=== PATIENT | female | born 1950 | race Caucasian/White ===

== ENCOUNTER 2016-06-04 18:47 | Inpatient (IN) | payer OTHER ==
[~2016-06-04] VITALS: Ht 157.5 cm; Wt 75.0 kg
[~2016-06-04 18:47] MED LIST: ACET-1311 PO; ASCO500T16 PO; ATV1 PO; CHOLTAB3 PO; CRAN1TAB9 PO; DOCU-94 PO; DTR/5 PO; INSDGI SC; KFL500 PO; LSN5 PO; MCRK20 PO; MTHH1 PO; POLY335019 PO; PRVC/20 PO; PRX/40 PO; WARF-246 PO; WARF5TAB90 PO
[2016-06-04 19:48] LABS: URINE APPEARANCE CLOUDY (CLEAR); URINE BILIRUBIN NEG (NEG); URINE COLOR YELLOW; URINE NITRITE POS (NEG); URINE SPECIFIC GRAVITY 1.012 (1.000-1.030); UROBILINOGEN NEG (NEG)
[2016-06-04 19:55] LABS: MANUAL MICROSCOPIC REQUIRED? NO; REVIEW REQ? NO
[2016-06-04 20:13] LABS: BASO % 0.2 %; BASO ABS # 0.02 K/uL (0-0.2); COMPLETE YES; EOS % 1.5 %; IG% 0.2 %; LYMPH ABS # 3.37 K/uL (1.2-3.4); MEAN CELL VOLUME 89.6 fL (80-100); MEAN CORPUSCULAR HEMOGLOBIN 30.3 pg (25-34); MEAN CORPUSCULAR HGB CONC 33.9 g/dl (32-36); MEAN PLATELET VOLUME 10.6 fL (7.4-10.4); MONO % 6.6 %; NEUT % 61.5 %; PLATELET COUNT 232 K/uL (130-400); RED BLOOD COUNT 4.91 M/uL (4.2-5.4); WHITE BLOOD COUNT 11.22 K/uL (4.8-10.8)
[2016-06-04] MEDS ORDERED: INSDGIPEN SC (20:15)
[2016-06-04] MEDS ORDERED: ATOR-24 PO (20:15)
[2016-06-04] MEDS ORDERED: ERGO1TAB10 PO (20:15)
[2016-06-04 20:30] LABS: BUN/CREATININE RATIO 15.3 (10-20); CALCIUM 8.9 mg/dl (8.5-10.1); CREATININE 0.82 mg/dl (0.60-1.20); POTASSIUM 3.4 mmol/L (3.5-5.1)
--- NOTE | 2016-06-04 20:31 | EMERGENCY ROOM VISIT NOTE ---
History Report prepared by Kilo: Tejas Love Under the Supervision of: Dr. Hang Willingham M.D. First contact with patient: 18:50 Stated Complaint: UTI History of Present Illness The patient is a 66 year old female with a history of urosepsis who presents to the Emergency Room via EMS with complaints of a persistent urinary tract infection that was diagnosed yesterday. The patient's noted that the patient's urine looked dark and cloudy, so the took a urine sample yesterday and brought it into the patient's primary care doctor's office, per the nursing staff. Today, the office called the patient and ordered an ambulance to bring the patient here due to her infected urine and prior history of urosepsis. The patient does not have any complains, and denies any pain. She denies any fevers, vomiting, or urinary symptoms. Source of History: patient, nursing staff Onset: Diagnosed yesterday Position: other (global - UTI) Quality: other (UTI) Timing: other (persistent) Associated Symptoms: No fevers, No urinary symptoms, No vomiting Note: Associated symptoms: Denies any pain. Review of Systems See HPI for pertinent positives & negatives. A total of 10 systems reviewed and were otherwise negative. Past Medical & Surgical Medical Problems: (1) Abdominal mass (2) Bacteremia (3) Chest pain (4) Depression (5) Diabetes mellitus, type II (6) Dyslipidemia (7) Fever (8) History of pulmonary embolism (9) Leukocytosis (10) Multiple sclerosis (11) Neurogenic bladder (12) Positive blood culture (13) Recurrent UTI (14) Sepsis (15) UTI (urinary tract infection) Surgical Problems: (1) Status post hysterectomy (2) Status post partial colectomy Family History No pertinent family history Social History Smoking Status: Never Smoker Drug Use: none Marital Status: Housing Status: lives with family Occupation Status: unemployed, disabled Current/Historical Medications Scheduled Ascorbic Acid (Ascorbic Acid), 500 MG PO HS Atorvastatin (Lipitor), 40 MG PO DAILY Cranberry (Vaccinium Macrocarp (Cranberry), 300 MG PO QAM Ergocalciferol (Vitamin D2), 1 TAB PO DAILY Insulin Glargine (Lantus Solostar), 5 UNITS SC AMPM Lisinopril (Lisinopril), 5 MG PO HS Methenamine Hippurate (Methenamine Hippurate), 1 GM PO BID Oxybutynin Chloride (Ditropan), 5 MG PO TID Paroxetine (Paroxetine HCl), 40 MG PO QAM Warfarin Sodium (Warfarin Sodium), 5 MG PO 6XWK Warfarin Sodium (Coumadin), 2.5 MG PO MONDAYS Scheduled PRN Acetaminophen (Tylenol), 650 MG PO Q4H PRN for Pain or Fever Docusate Sodium (Colace), 100 MG PO DAILY PRN for Constipation Polyethylene Glycol 3350 (Miralax), 1 TBS PO DAILY PRN for Constipation Allergies Coded Allergies: Levofloxacin (Verified Allergy, Unknown, 06/04/16) Clavulanic Acid (Verified Adverse Reaction, Intermediate, GI INTOLERANCE ( AUGMENTIN), 06/04/16) Penicillins (Verified Adverse Reaction, Intermediate, GI INTOLERANCE ( AUGMENTIN), 06/04/16) Physical Exam Vital Signs Date Time Temp Pulse Resp B/P Pulse Ox O2 Delivery O2 Flow Rate FiO2 06/04/16 18:56 81 06/04/16 18:54 36.7 85 18 152/81 94 Room Air Physical Exam Constitutional: Vital signs reviewed. Eyes: Pupils are equal round reactive to light. Conjunctiva are noninjected. ENT: Pharynx is clear without erythema or exudate. Mucous membranes are moist. Neck supple without meningeal signs. Respiratory: Clear to auscultation bilaterally. Breath sounds are equal bilaterally. Cardiovascular: Regular rate and rhythm. No rubs or gallops. GI: Soft, nondistended and nontender. Bowel sounds are present. Lemos catheter in place with dark yellow urine. Musculoskeletal: No peripheral edema. No lower extremity tenderness. Integumentary: No cyanosis. Neurological: The patient is awake and alert. Bedridden. Psychiatric: Normal affect. Medical Decision & Procedures Laboratory Results 06/04/16 19:54 Red Blood Count 4.91, Mean Corpuscular Volume 89.6, Mean Corpuscular Hemoglobin 30.3, Mean Corpuscular Hemoglobin Concent 33.9, Mean Platelet Volume 10.6, Neutrophils (%) (Auto) 61.5, Lymphocytes (%) (Auto) 30.0, Monocytes (%) (Auto) 6.6, Eosinophils (%) (Auto) 1.5, Basophils (%) (Auto) 0.2, Neutrophils # (Auto) 6.90, Lymphocytes # (Auto) 3.37, Monocytes # (Auto) 0.74, Eosinophils # (Auto) 0.17, Basophils # (Auto) 0.02 Test 06/04/16 19:28 06/04/16 19:54 06/04/16 20:01 Urine Color YELLOW Urine Appearance CLOUDY (CLEAR) Urine pH 5.0 (4.5-7.5) Urine Specific Whitney 1.012 (1.000-1.030) Urine Protein NEG (NEG) Urine Glucose (UA) NEG (NEG) Urine Ketones NEG (NEG) Urine Occult Blood 3+ (NEG) Urine Nitrite POS (NEG) Urine Bilirubin NEG (NEG) Urine Urobilinogen NEG (NEG) Urine Leukocyte Esterase LARGE (NEG) Urine WBC (Auto) >30 /hpf (0-5) Urine RBC (Auto) 10-30 /hpf (0-4) Urine Hyaline Casts (Auto) 5-10 /lpf (0-5) Urine Epithelial Cells (Auto) 10-20 /lpf (0-5) Urine Bacteria (Auto) 2+ (NEG) White Blood Count 11.22 K/uL (4.8-10.8) Red Blood Count 4.91 M/uL (4.2-5.4) Hemoglobin 14.9 g/dL (12.0-16.0) Hematocrit 44.0 % (37-47) Mean Corpuscular Volume 89.6 fL (80-100) Mean Corpuscular Hemoglobin 30.3 pg (25-34) Mean Corpuscular Hemoglobin Concent 33.9 g/dl (32-36) Platelet Count 232 K/uL (130-400) Mean Platelet Volume 10.6 fL (7.4-10.4) Neutrophils (%) (Auto) 61.5 % Lymphocytes (%) (Auto) 30.0 % Monocytes (%) (Auto) 6.6 % Eosinophils (%) (Auto) 1.5 % Basophils (%) (Auto) 0.2 % Neutrophils # (Auto) 6.90 K/uL (1.4-6.5) Lymphocytes # (Auto) 3.37 K/uL (1.2-3.4) Monocytes # (Auto) 0.74 K/uL (0.11-0.59) Eosinophils # (Auto) 0.17 K/uL (0-0.5) Basophils # (Auto) 0.02 K/uL (0-0.2) RDW Standard Deviation 48.7 fL (36.4-46.3) RDW Coefficient of Variation 14.9 % (11.5-14.5) Immature Granulocyte % (Auto) 0.2 % Immature Granulocyte # (Auto) 0.02 K/uL (0.00-0.02) Bedside Lactic Acid Venous 0.61 mmol/L (0.90-1.70) Laboratory results as reviewed by me. ED Course 1850: The patient was evaluated in room B11B. A complete history and physical exam was performed. 1942: I talked to the patient's about likely discharge with antibiotics if asymptomatic, but the states that the patient often goes from well- looking to septic very quickly, and that she usually is admitted when she is like this. The physician that called them today said that the patient needs to be admitted. The notes that the patient has been a bit more confused than usual, and she has had decreased manual dexterity, which is a sign of her becoming septic. The patient verbally expressed understanding and agreement of the treatment plan. The patient will be evaluated for further treatment. 1943: I discussed the patient with Dr. Porfirio Diaz hospitalist - she will evaluate the patient for further treatment. Medical Decision this is a 66-year-old female who presents with a UTI. I did perform a limited focused review of portions of the patient's old chart on the electronic medical record. The patient was admitted in January for sepsis secondary to E.coli UTI. Her UA from 06/03 showed positive nitrates and leukocyte esterase with many bacteria and WVC's. The culture grew out gram-negative rods. I did evaluate the patient as noted above. IV access was established. I did order and personally review the patient's urinalysis as described above. A urine culture was sent. I did order and review the patient's blood work as noted in the electronic medical record. Her white blood cell count is elevated. The patient stated she was asymptomatic my plan was to possibly discharged patient with antibiotics but after discussion with the the patient will be hospitalized. Her states that every time she gets UTIs he becomes septic. She as well as 1 minute and then becomes septic very precipitously. She was sent here by her PCP for admission to the hospital. Her states that she has not been really asymptomatic and has been somewhat confused recently and has loss of dexterity in her hands which often signals early sepsis for her. I did therefore discussed the case with the [facility] hospitalist and shelter case manager. She will be admitted and started on IV antibiotics. Consults Time Called: 1942 Consulting Physician: Dr. Porfirio lauren Returned Call: 1943 I discussed the patient with Dr. Porfirio lauren - she will evaluate the patient for further treatment. Impression Primary Impression: UTI (urinary tract infection) Scribe Attestation The scribe's documentation has been prepared under my direct and personally reviewed by me in its entirety. I confirm that the note above accurately reflects all work, treatment, procedures, and medical decision making performed by me. Departure Information Dispostion Being Evaluated By Hospitalist Sally Ortega M.D. (PCP) Problem Qualifiers Primary Impression: UTI (urinary tract infection) Urinary tract infection type: site unspecified Hematuria presence: with hematuria Qualified Codes: N39.0 - Urinary tract infection, site not specified ; R31.9 - Hematuria, unspecified
[2016-06-04] MEDS ORDERED: ONDANSETRON INJ 2 MG/ML 2 ML VIAL IV PRN (21:00)
[2016-06-04] MEDS ORDERED: ACETAMINOPHEN 325 MG TAB PO PRN (21:00)
[2016-06-04 21:12] LABS: INR 3.3 (0.9-1.1); PROTHROMBIN TIME (PATIENT) 37.5 SECONDS (9.0-12.0)
[2016-06-04] MEDS ORDERED: LORA0.5T12 PO (21:13)
[2016-06-04] MEDS ORDERED: DOCUSATE SODIUM 100 MG CAP PO PRN (21:30)
[2016-06-04 22:00] VITALS: BP 127/79; PULSE 84; TEMP 36.5; O2SAT 95; Ht 157.5 cm; Wt 75.0 kg
[2016-06-04] MEDS ORDERED: PHARMACY GLYCEMIC MGMT CONSULT PRN (22:30)
[2016-06-04] MEDS: INSULIN GLARGINE SOLOSTAR 100 UNITS/ML 3 ML PEN SC SCH (23:00)
[2016-06-04] MEDS ORDERED: SODIUM CHLORIDE 0.9% 1000ML 1,000 ML IV SCH (23:00)
[2016-06-04] MEDS: CEFTRIAXONE SOD INJ 1 GM in DEXTROSE 5% ADD-VANTAGE 50ML 50 ML IV SCH (23:00)
[2016-06-04] MEDS ORDERED: GLUCAGON FOR INJ 1 MG VIAL SQ PRN (23:15)
[2016-06-04] MEDS ORDERED: GLUCOSE 40% GEL 15 GM TUBE PO PRN (23:15)
[2016-06-04] MEDS ORDERED: GLUCOSE 10 TABS/TUBE PO PRN (23:15)
[2016-06-04] MEDS ORDERED: DEXTROSE 50% 50 ML SYR IV PRN (23:15)
[2016-06-04] MEDS ORDERED: POTASSIUM CHLORIDE 20 MEQ TABCR PO ONE (23:30)
--- NOTE | 2016-06-04 23:32 | History and Physical ---
History & Physical Date & Time of Service: Jun 04, 2016 at 23:13 Chief Complaint: Weakness, Altered Mental Status Primary Care Physician: Bonifacio Avila M.D.(ARIELA) History of Present Illness 66 year old female who presents to the ER with reports of generalized weakness and mild confusion. Patient has MS and neurogenic bladder with chronic aguilar in place. She gets recurrent UTIs. Patient reports her told her she was mildly confused yesterday, however she does not feel as though she was. She notes generalize weakness, low grade fever, and dark urine today. She reports these are signs of a UTI for her. She denies chest pain and shortness of breath. No abdominal pain, nausea, vomiting, or diarrhea. She denies lightheadedness, dizziness, diaphoresis, and syncopal events. In the ER, patient 's U/A suggests UTI. Labs are unremarkable and vitals are stable. 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, poor surgical candidate CT abd 02/18/14 LUQ hypodense mass 11 cm in greatest diameter CT chest 03/28/12 LUQ lobulated cystic lesion 7.5 cm in greatest diameter CT chest 01/04/06 LUQ bilobed cystic structure 5.1 cm in greatest diameter Status: Chronic (2) Depression Status: Chronic (3) Diabetes mellitus, type II Status: Chronic (4) Dyslipidemia Status: Chronic (5) History of pulmonary embolism Permanent Comment: May 2012, on chronic warfarin therapy Status: Chronic (6) Multiple sclerosis Status: Chronic (7) Neurogenic bladder Status: Chronic (8) Recurrent UTI Status: Chronic Surgical Problems: (1) Status post hysterectomy Status: Chronic (2) Status post partial colectomy Permanent Comment: 1995 ? diverticular abscess w/ colostomy s/p reversal Status: Chronic Family History Cardiac disorder FATHER Social History Smoking Status: Never Smoker Alcohol Use: none Marital Status: Housing status: lives with family Immunizations History of Influenza Vaccine: Yes Influenza Vaccine Date: Nov 03, 2015 History of Tetanus Vaccine?: Yes Tetanus Immunization Date: Dec 06, 2007 History of Pneumococcal: Yes Pneumococcal Date: Aug 08, 2014 Multi-Drug Resistant Organisms History of MDRO: No Allergies Coded Allergies: Levofloxacin (Verified Allergy, Unknown, 06/04/16) Clavulanic Acid (Verified Adverse Reaction, Intermediate, GI INTOLERANCE ( AUGMENTIN), 06/04/16) Penicillins (Verified Adverse Reaction, Intermediate, GI INTOLERANCE ( AUGMENTIN), 06/04/16) Home Medications Scheduled Ascorbic Acid (Ascorbic Acid), 500 MG PO HS Atorvastatin (Lipitor), 40 MG PO DAILY Cranberry (Vaccinium Macrocarp (Cranberry), 300 MG PO QAM Ergocalciferol (Vitamin D2), 1 TAB PO DAILY Insulin Glargine (Lantus Solostar), 5 UNITS SC AMPM Lisinopril (Lisinopril), 5 MG PO DAILY Methenamine Hippurate (Methenamine Hippurate), 1 GM PO BID Oxybutynin Chloride (Ditropan), 5 MG PO TID Paroxetine (Paroxetine HCl), 40 MG PO QAM Warfarin Sodium (Warfarin Sodium), 5 MG PO 6XWK Warfarin Sodium (Coumadin), 2.5 MG PO MONDAYS Scheduled PRN Acetaminophen (Tylenol), 650 MG PO Q4H PRN for Pain or Fever Docusate Sodium (Colace), 100 MG PO DAILY PRN for Constipation Lorazepam (Lorazepam), 1 TAB PO HS PRN for Insomnia Polyethylene Glycol 3350 (Miralax), 1 TBS PO DAILY PRN for Constipation Review of Systems 10 point review of systems was completed with the pertinent positives and negatives noted per the HPI Physical Exam Vital Signs Date Time Temp Pulse Resp B/P Pulse Ox O2 Delivery O2 Flow Rate FiO2 06/04/16 21:29 88 18 122/83 95 Room Air 06/04/16 20:54 84 18 121/66 96 Room Air 06/04/16 18:56 81 06/04/16 18:54 36.7 85 18 152/81 94 Room Air General Appearance: no apparent distress Head: normocephalic Eyes: normal inspection ENT: hearing grossly normal Neck: supple, no JVD Respiratory/Chest: lungs clear, normal breath sounds, no respiratory distress Cardiovascular: regular rate, rhythm, normal peripheral pulses, + pertinent finding (trace edema BLLE) Abdomen/GI: normal bowel sounds, non tender, soft Genitourinary - Female: + pertinent finding (aguilar in place draining clear yellow urine) Extremities/Musculoskelatal: + pertinent finding (left foot drop) Neurologic/Psych: no motor/sensory deficits, alert, normal mood/affect, oriented x 3 Skin: normal color, warm/dry Diagnostics Laboratory Results Results Past 24 Hours Test 06/04/16 19:28 06/04/16 19:54 06/04/16 20:01 Range/Units Urine Color YELLOW Urine Appearance CLOUDY CLEAR Urine pH 5.0 4.5-7.5 Urine Specific Belle 1.012 1.000-1.030 Urine Protein NEG NEG Urine Glucose (UA) NEG NEG Urine Ketones NEG NEG Urine Occult Blood 3+ NEG Urine Nitrite POS NEG Urine Bilirubin NEG NEG Urine Urobilinogen NEG NEG Urine Leukocyte Esterase LARGE NEG Urine WBC (Auto) >30 0-5 /hpf Urine RBC (Auto) 10-30 0-4 /hpf Urine Hyaline Casts (Auto) 5-10 0-5 /lpf Urine Epithelial Cells (Auto) 10-20 0-5 /lpf Urine Bacteria (Auto) 2+ NEG White Blood Count 11.22 4.8-10.8 K/uL Red Blood Count 4.91 4.2-5.4 M/uL Hemoglobin 14.9 12.0-16.0 g/dL Hematocrit 44.0 37-47 % Mean Corpuscular Volume 89.6 80-100 fL Mean Corpuscular Hemoglobin 30.3 25-34 pg Mean Corpuscular Hemoglobin Concent 33.9 32-36 g/dl Platelet Count 232 130-400 K/uL Mean Platelet Volume 10.6 7.4-10.4 fL Neutrophils (%) (Auto) 61.5 % Lymphocytes (%) (Auto) 30.0 % Monocytes (%) (Auto) 6.6 % Eosinophils (%) (Auto) 1.5 % Basophils (%) (Auto) 0.2 % Neutrophils # (Auto) 6.90 1.4-6.5 K/uL Lymphocytes # (Auto) 3.37 1.2-3.4 K/uL Monocytes # (Auto) 0.74 0.11-0.59 K/uL Eosinophils # (Auto) 0.17 0-0.5 K/uL Basophils # (Auto) 0.02 0-0.2 K/uL RDW Standard Deviation 48.7 36.4-46.3 fL RDW Coefficient of Variation 14.9 11.5-14.5 % Immature Granulocyte % (Auto) 0.2 % Immature Granulocyte # (Auto) 0.02 0.00-0.02 K/uL Prothrombin Time 37.5 9.0-12.0 SECONDS Prothromb Time International Ratio 3.3 0.9-1.1 Sodium Level 145 136-145 mmol/L Potassium Level 3.4 3.5-5.1 mmol/L Chloride Level 110 98-107 mmol/L Carbon Dioxide Level 28 21-32 mmol/L Anion Gap 7.0 3-11 mmol/L Blood Urea Nitrogen 13 7-18 mg/dl Creatinine 0.82 0.60-1.20 mg/dl Est Creatinine Clear Calc Drug Dose 60.1 ml/min Estimated GFR () 87.6 Estimated GFR (Non- 75.6 BUN/Creatinine Ratio 15.3 10-20 Random Glucose 141 70-99 mg/dl Calcium Level 8.9 8.5-10.1 mg/dl Bedside Lactic Acid Venous 0.61 0.90-1.70 mmol/L Microbiology Results 06/04/16 Blood Culture, Received Pending 06/04/16 Urine Culture, Received Pending Impression Assessment and Plan UTI - admit to med/surg - patient presenting with mild confusion, dark urine, and low grade fevers at home; history of recurrent UTIs, has chronic aguilar due to neurogenic bladder from MS - outpatient preliminary culture is growing >100,000 colonies lactose fermenting gram negative rods and 10,000 - 100,000 colonies possible streptococcus - no signs of sepsis; vitals stable - will place on Rocephin, adjust per culture results - blood and urine cultures obtained DM - hgb a1c 6.1 03/2016 - will hold Lantus and utilize SSI while hospitalized HX PE - on Coumadin, INR 3.3 - hold Coumadin tonight, check INR in AM HTN - BP controlled, continue Lisinopril DVT PROPHYLAXIS - on Coumadin with therapeutic INR CODE STATUS - Patient is a full code as per my discussion with her. DISPO - In my clinical judgment this beneficiary meets acute admission criteria, established by [facility], that includes being hospitalized through two midnights. - PT/OT, expect d/c home once medically stable Attending Addendum Pt was seen and examined. Agreed with Liane SANTIZO's physical exam, assessment and plan. 66 year old female was sent to the ER after her PCP called her to go to the ER after her urine sample was positive for UTI. Yesterday her was concerned about her urine that looks dirty. he dropped a urine sample to her PCP. Pt did not have any urinary symptoms. As per , he said pt was alittle bit confused. Pt has hx of recurrent UTI that usually required her to hospitalize. General- No acute distress Head- atraumatic Eyes- PERRL, EOMI ENT- oropharynx clear Neck- supple, no JVD Lungs- clear to auscultation, No wheezing Heart- regular rhythm; no murmur Extremities- no calf tenderness UTI Outpatient UA positive for UTI Will start on Rocephin daily follow up on urine cx will monitor pt Please refer to Liane SANTIZO documentation for other problems. Vijaya Cheung MD Level of Care Med/Surg VTE Prophylaxis VTE Risk Assessment Done? Y/N: Yes Risk Level: Moderate
[2016-06-04] MEDS ORDERED: POLYETHYLENE (MIRALAX) 17 GM PACK PO PRN (23:45)
[2016-06-05 00:24] LABS: MAGNESIUM 2.1 mg/dl (1.8-2.4)
[2016-06-05 00:26] VITALS: BP 139/79; PULSE 83; TEMP 36.5; O2SAT 94
[2016-06-05] MEDS ORDERED: IV FLUIDS COMPLETED PRN (00:30)
[2016-06-05 06:08] LABS: HEMATOCRIT 41.2 % (37-47); INR 3.3 (0.9-1.1); MEAN CELL VOLUME 90.2 fL (80-100); MEAN CORPUSCULAR HEMOGLOBIN 29.8 pg (25-34); MEAN PLATELET VOLUME 10.4 fL (7.4-10.4); PLATELET COUNT 218 K/uL (130-400); PROTHROMBIN TIME (PATIENT) 37.5 SECONDS (9.0-12.0); RED BLOOD COUNT 4.57 M/uL (4.2-5.4); WHITE BLOOD COUNT 11.07 K/uL (4.8-10.8)
[2016-06-05 06:18] LABS: BUN/CREATININE RATIO 20.5 (10-20); CALCIUM 8.6 mg/dl (8.5-10.1); CREATININE 0.67 mg/dl (0.60-1.20); POTASSIUM 3.6 mmol/L (3.5-5.1)
[2016-06-05 07:22] VITALS: BP 113/74; PULSE 71; TEMP 36.6; O2SAT 95
[2016-06-05] MEDS: OXYBUTYNIN CHLORIDE 5 MG TAB PO SCH ×3 (08:30→21:38)
[2016-06-05] MEDS: ATORVASTATIN 40 MG TAB PO SCH (08:30)
[2016-06-05] MEDS: METHENAMINE HIPPURATE 1 GM TAB PO SCH ×2 (08:31→21:39)
[2016-06-05] MEDS: PAROXETINE 20 MG TAB PO SCH (08:31)
[2016-06-05] MEDS: LISINOPRIL 5 MG TAB PO SCH (08:31)
[2016-06-05] MEDS: CHOLECALCIFEROL 400 INTER.UNIT TAB PO SCH (08:31)
[2016-06-05] MEDS: INSULIN ASPART 100 UNITS/ML 3 ML PEN SC SCH ×4 (08:34→21:42)
[2016-06-05] MEDS: INSULIN GLARGINE SOLOSTAR 100 UNITS/ML 3 ML PEN SC SCH ×2 (08:34→21:42)
[2016-06-05 09:14] VITALS: BP 122/64; PULSE 80; O2SAT 97
--- NOTE | 2016-06-05 13:11 | Pharmacy Progress Note ---
Glycemic Control Intl Consult Date of Service Jun 05, 2016. Scope Glycemic Pharmacist consulted by Liane Torres on 06/04/16 for glycemic control and to write orders per [facility] inpatient glycemic control protocol Objective Weight (Kilograms): 75.000 Accuchecks BSG (last 24hrs): Test 06/04/16 19:54 06/05/16 05:36 Random Glucose 141 mg/dl (70-99) 122 mg/dl (70-99) Laboratory Data (last 24hrs) Test 06/04/16 19:54 06/05/16 05:36 Anion Gap 7.0 mmol/L 5.0 mmol/L BUN/Creatinine Ratio 15.3 20.5 Blood Urea Nitrogen 13 mg/dl 14 mg/dl Creatinine 0.82 mg/dl 0.67 mg/dl Potassium Level 3.4 mmol/L 3.6 mmol/L Sodium Level 145 mmol/L 145 mmol/L White Blood Count 11.22 K/uL 11.07 K/uL Red Blood Count 4.91 M/uL Hemoglobin 14.9 g/dL Hematocrit 44.0 % Mean Corpuscular Volume 89.6 fL Mean Corpuscular Hemoglobin 30.3 pg Mean Corpuscular Hemoglobin Concent 33.9 g/dl Platelet Count 232 K/uL Mean Platelet Volume 10.6 fL Neutrophils (%) (Auto) 61.5 % Lymphocytes (%) (Auto) 30.0 % Monocytes (%) (Auto) 6.6 % Eosinophils (%) (Auto) 1.5 % Basophils (%) (Auto) 0.2 % Neutrophils # (Auto) 6.90 K/uL Lymphocytes # (Auto) 3.37 K/uL Monocytes # (Auto) 0.74 K/uL Eosinophils # (Auto) 0.17 K/uL Basophils # (Auto) 0.02 K/uL Recent Pertinent Medications Outpatient Anti-diabetic Regimen: * Lantus 5 units SQ BID The patient is currently receiving: * Basal insulin: Lantus 5 units every 12 hours * Correctional Insulin: NovoLog Correction per scale AC+HS Goal Range: Low 120 mg/dL - High 160 mg/dL Correction Factor: 30 mg/dL/unit * Prandial insulin: Per carb ratio of 1 unit per 10 grams CHO consumed Risk Factors for Insulin Resistance: * Infection: CXT IV - UTI * IVF: NSS * Diet: T2DM Assessment & Plan ASSESSMENT: * ADA & AACE recommend a goal blood sugar range 140-180 mg/dl for the majority of critically ill & non-critically ill patients. However, more stringent targets may be selected in individual cases. Lower goal range used for patient with who is non-elderly and enjoys good glycemic control as an outpatient. 06/05/16 * T2DM diabetic who uses basal insulin as monotherapy as an outpatient * BSG on admission 141mg/dL * Fasting BSG today 130mg/dL * continue same basal doses * NovoLog continues for correctional and prandial purposes based on historical data * A1c outdated PLAN FOR INPATIENT GLYCEMIC CONTROL: * Lantus 5 units SQ BID * NovoLog SQ AC and HS * Correction factor: 25mg/dL/unit * Carb ratio: 1 unit per 8g of CHO consumed * Goal: 110-140mg/dL * A1c outdated, re-ordered RECOMMENDATIONS FOR DISCHARGE: * Awaited * Please note that the plan above was derived based on current level of insulin resistance and hospital stress. These recommendations are appropriate for inpatient admission only. Plan of care upon discharge will need to be reassessed to avoid potential outpatient hypo/hyperglycemia. Thank you.
[2016-06-05 15:13] VITALS: BP 132/76; PULSE 96; TEMP 37.1; O2SAT 96
[2016-06-05 16:15] VITALS: O2SAT 96
--- NOTE | 2016-06-05 16:50 | Progress Note ---
Medicine Progress Note Date & Time of Visit: Jun 05, 2016 at 16:39. Subjective patient seen resting in bed, comfortable, in good spirits states she feels tired denies any new weakness/numbness no abdominal pain, but feels bloated denies nausea had small bm this morning denies other symptoms Objective Last 8 Hrs Date Time Temp Pulse Resp B/P Pulse Ox O2 Delivery O2 Flow Rate FiO2 06/05/16 15:13 37.1 96 18 132/76 96 Room Air 06/05/16 09:14 80 97 Physical Exam: General- oriented x 2, not in distress, speaks in sentences with no effort Head- atraumatic Eyes- EOMI, anicteric ENT- oropharynx clear Neck- supple, no JVD, no adenopathy, no thyromegaly Lungs- clear breath sounds bilaterally Heart- regular rhythm; no murmurs Abdomen- normal bowel sounds, mild distention. soft, nontender Extremities- no pretibial edema, no calf tenderness Neuro- alert, oriented x 2; PERRL, EOMI; no facial palsy; no dysarthria; motor 5 /5 bilaterally upper ext, 1/5 lower ext; Skin- warm & dry Laboratory Results: Last 24 Hours Test 06/04/16 19:28 06/04/16 19:54 06/04/16 20:01 06/05/16 05:36 Urine Color YELLOW Urine Appearance CLOUDY Urine pH 5.0 Urine Specific [place] 1.012 Urine Protein NEG Urine Glucose (UA) NEG Urine Ketones NEG Urine Occult Blood 3+ Urine Nitrite POS Urine Bilirubin NEG Urine Urobilinogen NEG Urine Leukocyte Esterase LARGE Urine WBC (Auto) >30 /hpf Urine RBC (Auto) 10-30 /hpf Urine Hyaline Casts (Auto) 5-10 /lpf Urine Epithelial Cells (Auto) 10-20 /lpf Urine Bacteria (Auto) 2+ White Blood Count 11.22 K/uL 11.07 K/uL Red Blood Count 4.91 M/uL 4.57 M/uL Hemoglobin 14.9 g/dL 13.6 g/dL Hematocrit 44.0 % 41.2 % Mean Corpuscular Volume 89.6 fL 90.2 fL Mean Corpuscular Hemoglobin 30.3 pg 29.8 pg Mean Corpuscular Hemoglobin Concent 33.9 g/dl 33.0 g/dl Platelet Count 232 K/uL 218 K/uL Mean Platelet Volume 10.6 fL 10.4 fL Neutrophils (%) (Auto) 61.5 % Lymphocytes (%) (Auto) 30.0 % Monocytes (%) (Auto) 6.6 % Eosinophils (%) (Auto) 1.5 % Basophils (%) (Auto) 0.2 % Neutrophils # (Auto) 6.90 K/uL Lymphocytes # (Auto) 3.37 K/uL Monocytes # (Auto) 0.74 K/uL Eosinophils # (Auto) 0.17 K/uL Basophils # (Auto) 0.02 K/uL RDW Standard Deviation 48.7 fL 49.1 fL RDW Coefficient of Variation 14.9 % 14.9 % Immature Granulocyte % (Auto) 0.2 % Immature Granulocyte # (Auto) 0.02 K/uL Prothrombin Time 37.5 SECONDS 37.5 SECONDS Prothromb Time International Ratio 3.3 3.3 Sodium Level 145 mmol/L 145 mmol/L Potassium Level 3.4 mmol/L 3.6 mmol/L Chloride Level 110 mmol/L 111 mmol/L Carbon Dioxide Level 28 mmol/L 29 mmol/L Anion Gap 7.0 mmol/L 5.0 mmol/L Blood Urea Nitrogen 13 mg/dl 14 mg/dl Creatinine 0.82 mg/dl 0.67 mg/dl Est Creatinine Clear Calc Drug Dose 60.1 ml/min 80.4 ml/min Estimated GFR () 87.6 107.7 Estimated GFR (Non- 75.6 92.9 BUN/Creatinine Ratio 15.3 20.5 Random Glucose 141 mg/dl 122 mg/dl Calcium Level 8.9 mg/dl 8.6 mg/dl Magnesium Level 2.1 mg/dl Bedside Lactic Acid Venous 0.61 mmol/L Test 06/05/16 07:28 06/05/16 11:23 Bedside Glucose 130 mg/dl 172 mg/dl Date/Time Source Procedure Growth Status 06/04/16 19:54 Blood Blood Culture Pending Received 06/04/16 19:28 Urine,Catheterized Urine Culture - Preliminary Gram Negative Bacilli Resulted Assessment & Plan 66 year old female with history of Multiple Sclerosis, Chronic Indwelling Gandhi Catheter, DM, HTN, PE on coumadin, Aspiration presenting with altered mental status and fever. 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 repeat evaluation ordered DM - hgb a1c 6.1 03/2016 - Lantus and ISS HX PE - on Coumadin, INR 3.3 - hold coumadin INR daily HTN - BP controlled, continue Lisinopril DVT PROPHYLAXIS - on Coumadin with therapeutic INR CODE STATUS - Patient is a full code DISPO pending usually lives at home Vicente is primary care mgr, gave him a detailed update on the phone, he is comfortable and agreeable with the plan of care Current Inpatient Medications: Current Inpatient Medications Medications (Trade) Dose Ordered Sig/Dwain Route Start Time Stop Time Status Last Admin Dose Admin Acetaminophen (Tylenol Tab) 650 mg Q4H PRN PO 06/04/16 21:00 07/04/16 20:59 Ondansetron HCl 4 mg 4 mg Q6H PRN IV 06/04/16 21:00 07/04/16 20:59 Ceftriaxone Sodium/Dextrose (Rocephin Inj/ Dextrose Add-Tonica 50ML) 50 ml @ 100 mls/hr Q24H IV 06/04/16 23:00 06/14/16 22:59 06/04/16 23:00 100 MLS/HR Ascorbic Acid (Vitamin C Tab) 500 mg HS PO 06/05/16 21:00 07/05/16 20:59 Atorvastatin Calcium (Lipitor Tab) 40 mg DAILY PO 06/05/16 09:00 07/05/16 08:59 06/05/16 08:30 40 MG Docusate Sodium (coLACE CAP) 100 mg DAILY PRN PO 06/04/16 21:30 07/04/16 21:29 Insulin Glargine (Lantus Solostar Pen) 5 unit BID SC 06/04/16 23:00 07/04/16 22:59 06/05/16 08:34 5 UNIT Lisinopril (Zestril Tab) 5 mg DAILY PO 06/05/16 09:00 07/05/16 08:59 06/05/16 08:31 5 MG Methenamine Hippurate (Urex Tab) 1 gm BID PO 06/05/16 09:00 06/15/16 08:59 06/05/16 08:31 1 GM Oxybutynin Chloride (Ditropan Tab) 5 mg TID PO 06/05/16 09:00 07/05/16 08:59 06/05/16 13:53 5 MG Cholecalciferol (Vitamin D Tab) 400 inter.unit DAILY PO 06/05/16 09:00 07/05/16 08:59 06/05/16 08:31 400 INTER.UNIT Paroxetine HCl (pAXil TAB) 40 mg QAM PO 06/05/16 09:00 07/05/16 08:59 06/05/16 08:31 40 MG Polyethylene (Miralax Powder Packet) 17 gm DAILY PRN PO 06/04/16 23:45 07/04/16 23:44 Miscellaneous Information (Consult Glycemic Management Pharmacy) 1 ea UD PRN N/A 06/04/16 22:30 07/04/16 22:29 Glucose (Glucose 40% Gel) 15-30 GRAMS 15 GRAMS... UD PRN PO 06/04/16 23:15 07/04/16 23:14 Glucose (Glucose Chew Tab) 4-8 Tablets 4 Tabl... UD PRN PO 06/04/16 23:15 07/04/16 23:14 Dextrose (Dextrose 50% 50ML Syringe) 25-50ML OF 50% DW IV FOR... UD PRN IV 06/04/16 23:15 07/04/16 23:14 Glucagon (Glucagon Inj) 1 mg UD PRN SQ 06/04/16 23:15 07/04/16 23:14 Miscellaneous (Iv Fluids Completed) 1 ea PRN PRN N/A 06/05/16 00:30 06/05/17 00:29 Insulin Aspart (novoLOG ASPART) SLIDING SCALE ACHS SC 06/05/16 06:30 07/05/16 06:29 06/05/16 12:42 5 UNITS Senna/Docusate Sodium (Senokot S Tab) 1 tab QAM PO 06/06/16 09:00 07/06/16 08:59
[2016-06-05] MEDS: ASCORBIC ACID 500 MG TAB PO SCH (21:38)
[2016-06-05] MEDS: CEFTRIAXONE SOD INJ 1 GM in DEXTROSE 5% ADD-VANTAGE 50ML 50 ML IV SCH (21:39)
--- NOTE | 2016-06-05 21:42 | DIAGNOSTIC IMAGING REPORT ---
KUB CLINICAL HISTORY: Evaluate for ileus or obstruction. COMPARISON STUDY: CT of the abdomen and pelvis October 24, 2015. FINDINGS: There is a large amount of stool within the rectum consistent with fecal impaction. Large amount of stool within the colon is also present. Mild small bowel dilatation is present. The colon is moderately distended. Abdominal and pelvic surgical clips are noted. IMPRESSION: 1. Findings consistent with fecal impaction. Large amount of stool within the rectum and colon. 2. Moderate colonic distention and mild small bowel dilatation. Electronically signed by: Nolberto Alejandra M.D. 06/05/2016 9:40 PM Dictated Date/Time: 06/05/2016 9:35 PM
[2016-06-05] MEDS ORDERED: TAP WATER ENEMA PR ONE (22:15)
[2016-06-05] MEDS ORDERED: INSULIN ASPART 100 UNITS/ML 3 ML PEN SC SCH (23:15)
[2016-06-05 23:44] VITALS: BP 139/79; PULSE 96; TEMP 36.6; O2SAT 96
[2016-06-06] MEDS ORDERED: VANCOMYCIN CONSULT ACTIVE PRN (05:45)
[2016-06-06] MEDS ORDERED: VANCOMYCIN INJ 2,000 MG in SODIUM CHLORIDE 0.9% 500ML 500 ML IV SCH (05:45)
[2016-06-06 06:03] LABS: INR 2.4 (0.9-1.1); PROTHROMBIN TIME (PATIENT) 26.7 SECONDS (9.0-12.0)
[2016-06-06 06:30] LABS: BUN/CREATININE RATIO 21.8 (10-20); CALCIUM 8.7 mg/dl (8.5-10.1); CREATININE 0.71 mg/dl (0.60-1.20); POTASSIUM 3.9 mmol/L (3.5-5.1)
[2016-06-06 07:18] VITALS: BP 138/77; PULSE 80; TEMP 36.5; O2SAT 96
[2016-06-06] MEDS: CHOLECALCIFEROL 400 INTER.UNIT TAB PO SCH (07:28)
[2016-06-06] MEDS: DOCUSATE SODIUM/SENNA 50/8.6MG TAB PO SCH (07:29)
[2016-06-06] MEDS: PAROXETINE 20 MG TAB PO SCH (07:29)
[2016-06-06] MEDS: LISINOPRIL 5 MG TAB PO SCH (07:29)
[2016-06-06] MEDS: ATORVASTATIN 40 MG TAB PO SCH (07:29)
[2016-06-06] MEDS: OXYBUTYNIN CHLORIDE 5 MG TAB PO SCH ×3 (07:29→21:23)
[2016-06-06] MEDS: METHENAMINE HIPPURATE 1 GM TAB PO SCH ×2 (07:29→21:23)
[2016-06-06] MEDS: INSULIN ASPART 100 UNITS/ML 3 ML PEN SC SCH ×4 (08:56→21:26)
[2016-06-06] MEDS: INSULIN GLARGINE SOLOSTAR 100 UNITS/ML 3 ML PEN SC SCH ×2 (08:56→21:26)
--- NOTE | 2016-06-06 09:26 | Pharmacy Progress Note ---
Pharmacy Antibiotic Consult Date of Service: Jun 06, 2016. Pharmacy Dosing Scope Pharmacy is consulted to initiate Vancomycin IV dosing therapy, order appropriate labs and adjust drug dose/frequency. Subjective The patient is a 66 year old female admitted on Jun 04, 2016 at 20:19 with UTI. Objective Height (Feet): 5 Height (Inches): 2.00 Weight (Kilograms): 75.000 Lab Results (24hrs): Laboratory Tests Test 06/06/16 05:38 BUN/Creatinine Ratio 21.8 Blood Urea Nitrogen 15 mg/dl Creatinine 0.71 mg/dl Micro Results: Item Value Date Time Blood Culture - Preliminary Resulted 06/04/161953 Blood Gram Positive Cocci UN DATE: 06/06/16 [facility] PAGE 1 RUN TIME: 55 Specimen Inquiry PATIENT: JEYSON SARGENT LOC: [id number] U # : [id number] AGE/SX: 66/F ROOM: [facility] REG : 06/04/[address]: Landon Hyman MD : [id number] BED: 1 DIS : STATUS: ADM Maritza TLOC: SPEC #: [id number] ABDOUL: 06/04/16 STATUS: RES REQ #: [id number] RECD: 06/04/[address]: Hang Willingham M.D. SOURCE: URINE CATH ENTR: 06/04/[address] [facility] [address]: Bonifacio Avila M.D.([facility]) [facility]: ORDERED: CULTURE UR CATH COMMENTS: Has Specimen Been Obtained/Collected? Y Procedure Result Verified Site URINE CULTURE Preliminary 06/06/16 Organism 1 ESCHERICHIA COLI COLONY COUNT >100,000 CFU/ml SENS SENSITIVITY TO FOLLOW +MIX PLUS LOW COUNTS OTHER MIXED NIKOLE 1. ESCHERICHIA COLI Target Route Dose RX AB Cost M.I.C. IQ ------ ----- ------ -- ------ -------- - ------ TRIMET/SULFA R >/38 AMPICILLIN R >16 AMPICILLIN/SUL R >16/8 CEFAZOLIN S <=8 CEFOTAXIME S <=2 CEFTRIAXONE S <=1 CEFEPIME S <=4 CEFUROXIME I 16 IMIPENEM S <=1 GENTAMICIN S <=4 TOBRAMYCIN S <=4 AMIKACIN S <=16 CIPROFLOXACIN S <=1 LEVOFLOXACIN S <=2 ERTAPENEM S <=1 NITROFURANTOIN S <=32 PIP/TAZO S <=16 S = SENSITIVE I = INTERMEDIATE R = RESISTANT Assessment & Plan Assessment 66 year old female with h/o of MS and neurogenic bladder with chronic aguilar admitted with recurrent E.coli UTI. On day #3 of ceftriaxone IV for UTI. Vancomycin IV initiated today due to GPC in blood culture. Plan Vancomycin for treatment of GPC bacteremia Vancomycin IV * Loading dose: 2000 mg (26 mg/kg) * Maintenance dose: 1150 mg IV (15 mg/kg) every 12 hours * Patient is known to Pharmacy dosing service. A similar dose has produced therapeutic trough levels in recent past. * Goal trough level for bacteremia : 15 to 20 mcg/mL * Trough level ordered for 06/08/16 Pharmacy will continue to follow and will adjust dose/frequency as necessary. Thank you
--- NOTE | 2016-06-06 10:04 | Progress Note ---
Medicine Progress Note Date & Time of Visit: Jun 06, 2016 at 09:55. Subjective patient seen resting in bed, comfortable smiling states she feels improved today compared to yesterday denies abdominal pain, nausea (+) BMs overnight no fever/chills, headache, new weakness Objective Last 8 Hrs Date Time Temp Pulse Resp B/P Pulse Ox O2 Delivery O2 Flow Rate FiO2 06/06/16 09:18 Room Air 06/06/16 07:18 36.5 80 18 138/77 96 Room Air Physical Exam: General- oriented x 2, not in distress, speaks in sentences with no effort Eyes-anicteric Neck- supple, no JVD Lungs- clear breath sounds bilaterally, no rales/wheezes Heart- regular rhythm; no murmurs Abdomen- normal bowel sounds, no distention. soft, nontender Extremities- no pretibial edema, no calf tenderness Neuro- alert, oriented x 2; PERRL, EOMI; no facial palsy; no dysarthria; motor 5 /5 bilaterally upper ext, 1/5 lower ext; Skin- warm & dry Laboratory Results: Last 24 Hours Test 06/05/16 11:23 06/05/16 16:32 06/05/16 19:53 06/06/16 05:38 Bedside Glucose 172 mg/dl 140 mg/dl 174 mg/dl Prothrombin Time 26.7 SECONDS Prothromb Time International Ratio 2.4 Sodium Level 145 mmol/L Potassium Level 3.9 mmol/L Chloride Level 110 mmol/L Carbon Dioxide Level 28 mmol/L Anion Gap 7.0 mmol/L Blood Urea Nitrogen 15 mg/dl Creatinine 0.71 mg/dl Est Creatinine Clear Calc Drug Dose 75.9 ml/min Estimated GFR () 104.3 Estimated GFR (Non- 90.0 BUN/Creatinine Ratio 21.8 Random Glucose 172 mg/dl Calcium Level 8.7 mg/dl Test 06/06/16 07:27 Bedside Glucose 162 mg/dl Date/Time Source Procedure Growth Status 06/06/16 09:42 Blood Blood Culture Pending Susan Batch 06/06/16 09:42 Blood Blood Culture Pending Susan Batch Assessment & Plan 66 year old female with history of Multiple Sclerosis, Chronic Indwelling Gandhi Catheter, DM, HTN, PE on coumadin, Aspiration presenting with altered mental status and fever. RECURRENT UTI, ECOLI - per outpatient urine culture 06/03/16, (+) e coli sensitive to ceftri - repeat urine culture 06/04/16: E coli sensitive to Ceftri -- remains afebrile changed Gandhi Cath continue Ceftri IV Day 3 -- possible transition to Cefuroxime on discharge GRAM POSITIVE COCCI IN 1 BOTTLE repeat blood cultures x 2 ordered started on empiric Vancomycin Day 2 monitor FECAL RETENTION WITH MODERATE COLON DISTENTION KUB (+) fecal retention given tap water enema with (+) BMs abdomen less distended today Senokot S daily MULTIPLE SCLEROSIS CHRONIC INDWELLING GANDHI CATH pt/ot eval assistance with feeding for now ASPIRATION RISK mech soft, slippery; 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 repeat evaluation ordered DM - hgb a1c 6.1 03/2016 - Lantus and ISS HX PE - on Coumadin, INR 2.4 resume coumadin HTN - BP controlled, continue Lisinopril DVT PROPHYLAXIS - on Coumadin with therapeutic INR CODE STATUS - Patient is a full code DISPO pending usually lives at home Vicente is primary daycare director, gave him a detailed update on the phone, he is comfortable and agreeable with the plan of care Current Inpatient Medications: Current Inpatient Medications Medications (Trade) Dose Ordered Sig/Dwain Route Start Time Stop Time Status Last Admin Dose Admin Acetaminophen (Tylenol Tab) 650 mg Q4H PRN PO 06/04/16 21:00 07/04/16 20:59 Ondansetron HCl 4 mg 4 mg Q6H PRN IV 06/04/16 21:00 07/04/16 20:59 Ceftriaxone Sodium/Dextrose (Rocephin Inj/ Dextrose Add-[place] 50ML) 50 ml @ 100 mls/hr Q24H IV 06/04/16 23:00 06/14/16 22:59 06/05/16 21:39 100 MLS/HR Ascorbic Acid (Vitamin C Tab) 500 mg HS PO 06/05/16 21:00 07/05/16 20:59 06/05/16 21:38 500 MG Atorvastatin Calcium (Lipitor Tab) 40 mg DAILY PO 06/05/16 09:00 07/05/16 08:59 06/06/16 07:29 40 MG Docusate Sodium (coLACE CAP) 100 mg DAILY PRN PO 06/04/16 21:30 07/04/16 21:29 Lisinopril (Zestril Tab) 5 mg DAILY PO 06/05/16 09:00 07/05/16 08:59 06/06/16 07:29 5 MG Methenamine Hippurate (Urex Tab) 1 gm BID PO 06/05/16 09:00 06/15/16 08:59 06/06/16 07:29 1 GM Oxybutynin Chloride (Ditropan Tab) 5 mg TID PO 06/05/16 09:00 07/05/16 08:59 06/06/16 07:29 5 MG Cholecalciferol (Vitamin D Tab) 400 inter.unit DAILY PO 06/05/16 09:00 07/05/16 08:59 06/06/16 07:28 400 INTER.UNIT Paroxetine HCl (pAXil TAB) 40 mg QAM PO 06/05/16 09:00 07/05/16 08:59 06/06/16 07:29 40 MG Polyethylene (Miralax Powder Packet) 17 gm DAILY PRN PO 06/04/16 23:45 07/04/16 23:44 Miscellaneous Information (Consult Glycemic Management Pharmacy) 1 ea UD PRN N/A 06/04/16 22:30 07/04/16 22:29 Glucose (Glucose 40% Gel) 15-30 GRAMS 15 GRAMS... UD PRN PO 06/04/16 23:15 07/04/16 23:14 Glucose (Glucose Chew Tab) 4-8 Tablets 4 Tabl... UD PRN PO 06/04/16 23:15 07/04/16 23:14 Dextrose (Dextrose 50% 50ML Syringe) 25-50ML OF 50% DW IV FOR... UD PRN IV 06/04/16 23:15 07/04/16 23:14 Glucagon (Glucagon Inj) 1 mg UD PRN SQ 06/04/16 23:15 07/04/16 23:14 Miscellaneous (Iv Fluids Completed) 1 ea PRN PRN N/A 06/05/16 00:30 06/05/17 00:29 Insulin Aspart (novoLOG ASPART) SLIDING SCALE ACHS SC 06/05/16 06:30 07/05/16 06:29 06/06/16 08:56 5 UNITS Senna/Docusate Sodium (Senokot S Tab) 1 tab QAM PO 06/06/16 09:00 07/06/16 08:59 06/06/16 07:29 1 TAB Vancomycin HCl (Consult) 1 ea UD PRN N/A 06/06/16 05:45 07/06/16 05:44 Insulin Glargine 7 unit 7 unit BID SC 06/06/16 09:00 07/06/16 08:59 06/06/16 08:56 7 UNIT Vancomycin HCl/ Sodium Chloride (Vancomycin Inj/ Nss 250ml) 273 ml @ 125 mls/hr Q12H IV 06/06/16 18:00 06/20/16 05:59
--- NOTE | 2016-06-06 11:15 | Pharmacy Progress Note ---
Glycemic Control: Progress Nt Date of Service Jun 06, 2016. Scope Glycemic Pharmacist consulted by Liane Torres on 06/04/16 for glycemic control and to write orders per [facility] inpatient glycemic control protocol. Objective Accuchecks BSG (last 24hrs): Test 06/05/16 11:23 06/05/16 16:32 06/05/16 19:53 06/06/16 05:38 Bedside Glucose 172 mg/dl (70-90) 140 mg/dl (70-90) 174 mg/dl (70-90) Random Glucose 172 mg/dl (70-99) Test 06/06/16 07:27 Bedside Glucose 162 mg/dl (70-90) Laboratory Data (last 24hrs) Test 06/06/16 05:38 Anion Gap 7.0 mmol/L BUN/Creatinine Ratio 21.8 Blood Urea Nitrogen 15 mg/dl Creatinine 0.71 mg/dl Potassium Level 3.9 mmol/L Sodium Level 145 mmol/L Recent Pertinent Medications Outpatient Anti-diabetic Regimen: * Lantus 5 units SQ BID The patient is currently receiving: * Basal insulin: Lantus 5 units every 12 hours * Correctional Insulin: NovoLog Correction per scale AC+HS Goal Range: Low 110 mg/dL - High 140 mg/dL Correction Factor: 25 mg/dL/unit * Prandial insulin: Per carb ratio of 1 unit per 8 grams CHO consumed Risk Factors for Insulin Resistance: * Infection: CXT IV - UTI, vanco IV - GPC 1 of 2 Blood Culture * Diet: T2DM - tolerating PO intake well per CHO counts Assessment & Plan ASSESSMENT: * ADA & AACE recommend a goal blood sugar range 140-180 mg/dl for the majority of critically ill & non-critically ill patients. However, more stringent targets may be selected in individual cases. Lower goal range used for patient with who is non-elderly and enjoys good glycemic control as an outpatient. 06/05/16 * T2DM diabetic who uses basal insulin as monotherapy as an outpatient * BSG on admission 141mg/dL * Fasting BSG today 130mg/dL * continue same basal doses * NovoLog continues for correctional and prandial purposes based on historical data * A1c outdated 06/06/16 * BSGs adequately controlled over the past 24 hours with values ranging from 122 -174mg/dL with 34 units of insulin * this is much more insulin than used as an outpatient - will follow up with A1c to ensure adequate o/p control * NovoLog parameters appear to be producing appropriate post prandial BSGs * Fasting elevated compared to yesterday * increase basal insulin by 20% (toward more 50/50 split of basal/bolus ratio) PLAN FOR INPATIENT GLYCEMIC CONTROL: * Lantus 7 units SQ BID * NovoLog SQ AC and HS * Correction factor: 25mg/dL/unit * Carb ratio: 1 unit per 8g of CHO consumed * Goal: 110-140mg/dL * A1c outdated, re-ordered RECOMMENDATIONS FOR DISCHARGE: * Awaited * Please note that the plan above was derived based on current level of insulin resistance and hospital stress. These recommendations are appropriate for inpatient admission only. Plan of care upon discharge will need to be reassessed to avoid potential outpatient hypo/hyperglycemia. Thank you.
[2016-06-06 15:06] VITALS: BP 116/65; PULSE 104; TEMP 37.5; O2SAT 98
[2016-06-06] MEDS ORDERED: WARFARIN SOD 5 MG TAB PO SCH (16:00)
[2016-06-06 16:15] VITALS: O2SAT 96
[2016-06-06] MEDS: VANCOMYCIN INJ 1,150 MG in SODIUM CHLORIDE 0.9% 250ML 250 ML IV SCH (17:46)
[2016-06-06] MEDS: ASCORBIC ACID 500 MG TAB PO SCH (21:23)
[2016-06-06] MEDS: CEFTRIAXONE SOD INJ 1 GM in DEXTROSE 5% ADD-VANTAGE 50ML 50 ML IV SCH (21:23)
[2016-06-06 23:39] VITALS: BP 133/75; PULSE 95; TEMP 36.9; O2SAT 93
[2016-06-07] MEDS: VANCOMYCIN INJ 1,150 MG in SODIUM CHLORIDE 0.9% 250ML 250 ML IV SCH ×2 (05:56→18:32)
[2016-06-07 06:41] LABS: INR 1.6 (0.9-1.1); PROTHROMBIN TIME (PATIENT) 17.4 SECONDS (9.0-12.0)
[2016-06-07 07:07] LABS: BUN/CREATININE RATIO 15.5 (10-20); CALCIUM 8.5 mg/dl (8.5-10.1); CREATININE 0.66 mg/dl (0.60-1.20); POTASSIUM 3.5 mmol/L (3.5-5.1)
[2016-06-07 07:22] VITALS: BP 134/80; PULSE 79; TEMP 36.6; O2SAT 94
[2016-06-07 08:14] LABS: ESTIMATED AVERAGE GLUCOSE 148 mg/dl; HA1C FLAG Normal (Normal)
[2016-06-07] MEDS: CHOLECALCIFEROL 400 INTER.UNIT TAB PO SCH (08:55)
[2016-06-07] MEDS: DOCUSATE SODIUM/SENNA 50/8.6MG TAB PO SCH (08:55)
[2016-06-07] MEDS: OXYBUTYNIN CHLORIDE 5 MG TAB PO SCH ×4 (08:56→20:51)
[2016-06-07] MEDS: LISINOPRIL 5 MG TAB PO SCH (08:56)
[2016-06-07] MEDS: ATORVASTATIN 40 MG TAB PO SCH (08:56)
[2016-06-07] MEDS: METHENAMINE HIPPURATE 1 GM TAB PO SCH ×2 (08:56→20:51)
[2016-06-07] MEDS: PAROXETINE 20 MG TAB PO SCH (08:56)
[2016-06-07] MEDS: INSULIN ASPART 100 UNITS/ML 3 ML PEN SC SCH ×4 (08:58→20:56)
[2016-06-07] MEDS: INSULIN GLARGINE SOLOSTAR 100 UNITS/ML 3 ML PEN SC SCH ×2 (09:00→20:54)
--- NOTE | 2016-06-07 09:54 | Clinical Documentation Query ---
QUERY 1 OF [address] NOBLE, If there is a link between a device and an infection, the link must be documented in the documentation. In your clinical opinion is this patient being managed for: ( ) UTI due to chronic aguilar catheter ( X) Other explanation of clinical findings (Please Explain) UTI in the setting of Chronic Aguilar Catheter ( ) Unable to determine (Please Define) ( ) Need to Discuss ( ) Not Agree The medical record reflects the following clinical findings, treatment, and risk factors. Clinical Indicators: 66 yo female presenting with UTI, diagnosed from outpatient labs, and increasing confusion and decreased hand dexterity. Pt has a chronic aguilar catheter due to her MS and neurogenic bladder Treatment: UA cx, change aguilar catheter, IV rocephin, IV vancomycin, Risk Factors: chronic aguilar catheter, DM, neurogenic bladder, MS QUERY 2 OF 3 In your clinical opinion is this patient being managed for: ( ) Metabolic encephalopathy ( X) Other explanation of clinical findings (Please Explain) Possible Metabolic Encephalopathy ( ) Unable to determine (Please Define) ( ) Need to Discuss ( ) Not Agree The medical record reflects the following clinical findings, treatment, and risk factors. Clinical Indicators: Pt's spouse reported pt with mild confusion and low grade fever at home, prior to ER presentation. WBC 11.22, + initial blood culture with gram + cocci. Treatment: change aguilar, UX cx, IV rocephin, IV vancomycin, IV fluids, Risk Factors: UTI, DM QUERY 3 OF 3 In your clinical opinion is this patient being managed for: ( ) Early Sepsis due to UTI (X ) Other explanation of clinical findings (Please Explain) Patient does not meet SIRS criteria ( ) Unable to determine (Please Define) ( ) Need to Discuss ( ) Not Agree The medical record reflects the following clinical findings, treatment, and risk factors. Clinical Indicators: Pt reportedly with mild confusion and decreased hand dexterity which is documented as signs of early sepsis for this pt. Documentation reflects pt also with a low grade fever. WBC 11.22, first blood culture with gram + cocci. Treatment: Blood cultures repeated x 2, change aguilar, IV rocephin, IV vancomycin, IV fluids Risk Factors: DM, UTI Please clarify and document your clinical opinion in the progress notes and discharge summary. Terms such as "probable", "suspected", "likely", "questionable", "possible", or "still to be ruled out" are acceptable. IF IN AGREEMENT, YOU MUST DOCUMENT ABOVE DIAGNOSTIC STATEMENT IN DAILY PROGRESS NOTES AND DISCHARGE SUMMARY. This document is not part of the patient's record. Thank You, Rupinder Quezada RN [phone]
--- NOTE | 2016-06-07 10:02 | Progress Note ---
Medicine Progress Note Date & Time of Visit: Jun 07, 2016 at 09:56. Subjective states she feels sleepy this morning otherwise, feels ok overall denies abdominal pain ,nausea, fever/chills no chest pain, dyspnea (+) BMs no other symptoms Objective Last 8 Hrs Date Time Temp Pulse Resp B/P Pulse Ox O2 Delivery O2 Flow Rate FiO2 06/07/16 07:22 36.6 79 24 134/80 94 Room Air Physical Exam: General- oriented x 2, not in distress, speaks in sentences with no effort Eyes-anicteric Neck- no JVD Lungs- clear b/s bilaterally, no rales/wheezes Heart- normal rate, regular rhythm; no murmurs Abdomen- normal bowel sounds, no distention. soft, nontender Extremities- no pretibial edema, no calf tenderness Neuro- alert, oriented x 2; no gross focal deficits Skin- warm & dry Laboratory Results: Last 24 Hours Test 06/06/16 11:22 06/06/16 16:26 06/06/16 20:19 06/07/16 05:40 Bedside Glucose 181 mg/dl 156 mg/dl 166 mg/dl Prothrombin Time 17.4 SECONDS Prothromb Time International Ratio 1.6 Sodium Level 146 mmol/L Potassium Level 3.5 mmol/L Chloride Level 111 mmol/L Carbon Dioxide Level 26 mmol/L Anion Gap 9.0 mmol/L Blood Urea Nitrogen 10 mg/dl Creatinine 0.66 mg/dl Est Creatinine Clear Calc Drug Dose 81.7 ml/min Estimated GFR () 108.2 Estimated GFR (Non- 93.4 BUN/Creatinine Ratio 15.5 Random Glucose 131 mg/dl Calcium Level 8.5 mg/dl Test 06/07/16 07:48 06/07/16 09:37 Bedside Glucose 135 mg/dl Date/Time Source Procedure Growth Status 06/06/16 10:22 Blood Blood Culture Pending Received 06/06/16 10:15 Blood Blood Culture Pending Received Assessment & Plan 66 year old female with history of Multiple Sclerosis, Chronic Indwelling Gandhi Catheter, DM, HTN, PE on coumadin, Aspiration presenting with altered mental status and fever. RECURRENT UTI, ECOLI IN THE SETTING OF CHRONIC GANDHI CATHETER POSSIBLE METABOLIC ENCEPHALOPATHY - per outpatient urine culture 06/03/16, (+) e coli sensitive to ceftri - repeat urine culture 06/04/16: E coli sensitive to Ceftri -- remains afebrile, stable; mental status improved, alert, oriented changed Gandhi Cath received 3 days Ceftriaxone IV , change to Cephalexin 500mg BID x 7 more days to complete 10 days therapy GRAM POSITIVE COCCI IN 1 BOTTLE repeat blood cultures x 2 ordered started on empiric Vancomycin Day 3 ff up cultures monitor FECAL RETENTION WITH MODERATE COLON DISTENTION KUB (+) fecal retention given tap water enema with (+) BMs abdomen less distended today Senokot S daily started repeat KUB today MULTIPLE SCLEROSIS CHRONIC INDWELLING GANDHI CATH per , the primary medical care manager, patient is bed bound, independent with feeding except when she has an infection, dexterity decreased pt/ot eval assistance with feeding for now ASPIRATION RISK mech soft, slippery; thin liquids per last DONKEY ENGINE FIRER/FIREMAN eval repeat DONKEY ENGINE FIRER/FIREMAN evaluation ordered: 1. Mechanical soft diet, slippery 2. Aspiration precautions: Straws okay, FULLY UPRIGHT for meals and for 30 minutes after meals. HOB elevated to 30 degrees at all time, to include while asleep. 3. Frequent oral hygiene in order to minimize oral bacteria in the saliva that can be aspirated. 4. Alternate solids and small single sips of liquids. Assist with feeding as needed. 5. Speech does not plan to follow as acute needs have been met. Will monitor in the EMR for any changes and follow up as indicated. DM - hgb a1c 6.1 03/2016 - Lantus and ISS HX PE - on Coumadin, INR 1.6 usually on coumadin 5mg daily increase coumadin to 7.5mg for now titrate coumadin heparin q8h for DVT prophylaxis until INR therapeutic HTN - BP controlled, continue Lisinopril DVT PROPHYLAXIS - on Coumadin heparin q8h for DVT prophylaxis until INR therapeutic CODE STATUS - Patient is a full code DISPO pending usually lives at home anticipate d/c home when medically stable Current Inpatient Medications: Current Inpatient Medications Medications (Trade) Dose Ordered Sig/Dwain Route Start Time Stop Time Status Last Admin Dose Admin Acetaminophen (Tylenol Tab) 650 mg Q4H PRN PO 06/04/16 21:00 07/04/16 20:59 Ondansetron HCl 4 mg 4 mg Q6H PRN IV 06/04/16 21:00 07/04/16 20:59 Ceftriaxone Sodium/Dextrose (Rocephin Inj/ Dextrose Add-[place] 50ML) 50 ml @ 100 mls/hr Q24H IV 06/04/16 23:00 06/14/16 22:59 06/06/16 21:23 100 MLS/HR Ascorbic Acid (Vitamin C Tab) 500 mg HS PO 06/05/16 21:00 07/05/16 20:59 06/06/16 21:23 500 MG Atorvastatin Calcium (Lipitor Tab) 40 mg DAILY PO 06/05/16 09:00 07/05/16 08:59 06/07/16 08:56 40 MG Docusate Sodium (coLACE CAP) 100 mg DAILY PRN PO 06/04/16 21:30 07/04/16 21:29 Lisinopril (Zestril Tab) 5 mg DAILY PO 06/05/16 09:00 07/05/16 08:59 06/07/16 08:56 5 MG Methenamine Hippurate (Urex Tab) 1 gm BID PO 06/05/16 09:00 06/15/16 08:59 06/07/16 08:56 1 GM Oxybutynin Chloride (Ditropan Tab) 5 mg TID PO 06/05/16 09:00 07/05/16 08:59 06/07/16 08:56 5 MG Cholecalciferol (Vitamin D Tab) 400 inter.unit DAILY PO 06/05/16 09:00 07/05/16 08:59 06/07/16 08:55 400 INTER.UNIT Paroxetine HCl (pAXil TAB) 40 mg QAM PO 06/05/16 09:00 07/05/16 08:59 06/07/16 08:56 40 MG Polyethylene (Miralax Powder Packet) 17 gm DAILY PRN PO 06/04/16 23:45 07/04/16 23:44 Miscellaneous Information (Consult Glycemic Management Pharmacy) 1 ea UD PRN N/A 06/04/16 22:30 07/04/16 22:29 Glucose (Glucose 40% Gel) 15-30 GRAMS 15 GRAMS... UD PRN PO 06/04/16 23:15 07/04/16 23:14 Glucose (Glucose Chew Tab) 4-8 Tablets 4 Tabl... UD PRN PO 06/04/16 23:15 07/04/16 23:14 Dextrose (Dextrose 50% 50ML Syringe) 25-50ML OF 50% DW IV FOR... UD PRN IV 06/04/16 23:15 07/04/16 23:14 Glucagon (Glucagon Inj) 1 mg UD PRN SQ 06/04/16 23:15 07/04/16 23:14 Miscellaneous (Iv Fluids Completed) 1 ea PRN PRN N/A 06/05/16 00:30 06/05/17 00:29 Insulin Aspart (novoLOG ASPART) SLIDING SCALE ACHS SC 06/05/16 06:30 07/05/16 06:29 06/06/16 21:26 1 UNITS Senna/Docusate Sodium (Senokot S Tab) 1 tab QAM PO 06/06/16 09:00 07/06/16 08:59 06/07/16 08:55 1 TAB Vancomycin HCl (Consult) 1 ea UD PRN N/A 06/06/16 05:45 07/06/16 05:44 Insulin Glargine 7 unit 7 unit BID SC 06/06/16 09:00 07/06/16 08:59 06/07/16 09:00 7 UNIT Vancomycin HCl/ Sodium Chloride (Vancomycin Inj/ Nss 250ml) 273 ml @ 125 mls/hr Q12H IV 06/06/16 18:00 06/20/16 05:59 06/07/16 05:56 125 MLS/HR Warfarin Sodium (Coumadin Tab) 7.5 mg DAILY@16 PO 06/07/16 16:00 07/07/16 15:59 UNV Heparin Sodium (Porcine) (Heparin Sq 5000 Unit/0.5ml) 5,000 unit Q8 SQ 06/07/16 14:00 07/07/16 13:59 UNV
[2016-06-07 10:05] VITALS: O2SAT 96
[2016-06-07 10:26] LABS: BASO % 0.4 %; BASO ABS # 0.03 K/uL (0-0.2); COMPLETE YES; EOS % 2.9 %; HEMATOCRIT 38.5 % (37-47); IG% 0.3 %; LYMPH % 25.8 %; LYMPH ABS # 1.93 K/uL (1.2-3.4); MEAN CELL VOLUME 90.6 fL (80-100); MEAN CORPUSCULAR HEMOGLOBIN 29.2 pg (25-34); MEAN CORPUSCULAR HGB CONC 32.2 g/dl (32-36); MONO % 8.4 %; NEUT % 62.2 %; PLATELET COUNT 211 K/uL (130-400); RED BLOOD COUNT 4.25 M/uL (4.2-5.4); WHITE BLOOD COUNT 7.47 K/uL (4.8-10.8)
--- NOTE | 2016-06-07 10:34 | DIAGNOSTIC IMAGING REPORT ---
[facility] CLINICAL HISTORY: follow up pain. Impaction. COMPARISON STUDY: 06/05/2016 FINDINGS: Slight decrease in bulk with fecal impaction. Persistent increase in fecal load throughout the remainder the colon. No evidence for true obstructive pattern. IMPRESSION: Slight decrease in prominence of fecal impaction although a moderate impaction persists. Fecal stasis. Electronically signed by: Jewel Vigil M.D. 06/07/2016 10:32 AM Dictated Date/Time: 06/07/2016 10:31 AM
--- NOTE | 2016-06-07 11:20 | Pharmacy Progress Note ---
Glycemic Control: Progress Nt Date of Service Jun 07, 2016. Scope Glycemic Pharmacist consulted by Dr Liane Torres PA-C on 06/04/16 for glycemic control and to write orders per [facility] inpatient glycemic control protocol. Objective Accuchecks BSG (last 24hrs): Test 06/06/16 11:22 06/06/16 16:26 06/06/16 20:19 06/07/16 05:40 Bedside Glucose 181 mg/dl (70-90) 156 mg/dl (70-90) 166 mg/dl (70-90) Random Glucose 131 mg/dl (70-99) Test 06/07/16 07:48 Bedside Glucose 135 mg/dl (70-90) Laboratory Data (last 24hrs) HbA1c: Test 06/06/16 05:38 Hemoglobin A1c 6.8 % (4.5-5.6) H Recent Pertinent Medications Outpatient Anti-diabetic Regimen: * Lantus 5 units SQ BID The patient is currently receiving: * Basal insulin: Lantus 5 units every 12 hours * Correctional Insulin: NovoLog Correction per scale AC+HS Goal Range: Low 110 mg/dL - High 140 mg/dL Correction Factor: 25 mg/dL/unit * Prandial insulin: Per carb ratio of 1 unit per 8 grams CHO consumed Risk Factors for Insulin Resistance: * Infection: CXT IV changed to Keflex PO - UTI (e. coli), vanco IV - GPC 1 of 2 Blood Culture * Diet: T2DM - tolerating PO intake well per CHO counts Assessment & Plan ASSESSMENT: * Patient is currently receiving an average of 30-35 units of insulin per day * 14 units of basal insulin * 19 units of prandial/correctional insulin * BSGs ranging 135 - 189 over the past 24hrs * Anticipating insulin regimen will not need any adjustments for the next 24hrs d/t : * AM Fasting BSG = 135mg/dl and is in range for inpatient targets. No changes needed to basal insulin * Total daily dose = ~33units/day. Insulin regimen is evenly distributed 50%:50 % basal:prandial. This is preferred split to prevent hypo/hyperglycemia * Post-prandial BSGs are near goal range. No changes needed to bolus insulin parameters (CF/CR) * ADA & AACE recommend a goal blood sugar range 140-180 mg/dl for the majority of critically ill & non-critically ill patients. However, more stringent targets may be selected in individual cases. Will utilize more stringent goal of 110-140mg/dl based on patient age & comorbidities. Additionally, tighter glycemic control is warranted to facilitate wound/infection healing. PLAN FOR INPATIENT GLYCEMIC CONTROL: * Continue Basal insulin with LANTUS 7 units SQ BID * Correctional Insulin with NOVOLOG / REGULAR per scale ACHS or Q6hrs while NPO * Goal Range: Low 110 mg/dL - High 140 mg/dL * Correction Factor: 25 mg/dL/unit * Nutritional / Prandial insulin per carb ratio of 1 unit per 8 grams CHO consumed * Please note that the plan above was derived based on current level of insulin resistance and hospital stress. These recommendations are appropriate for inpatient admission only. Plan of care upon discharge will need to be reassessed to avoid potential outpatient hypo/hyperglycemia. Thank you. Looking ahead to discharge: * A1c is in goal range - no changes needed to outpatient regimen. Could consider changing Lantus to once daily to simplify regimen.
[2016-06-07] MEDS: CEPHALEXIN MONOHYDRATE 500 MG CAP PO SCH ×2 (13:15→20:51)
[2016-06-07] MEDS: HEPARIN SOD 5000 UNIT/0.5 ML CARP SQ SCH ×2 (13:20→20:55)
[2016-06-07 15:09] VITALS: BP 112/71; PULSE 86; TEMP 36.8; O2SAT 94
[2016-06-07] MEDS ORDERED: WARFARIN SOD 7.5 MG TAB PO SCH (16:00)
[2016-06-07] MEDS ORDERED: TAP WATER ENEMA PR ONE (17:45)
[2016-06-07] MEDS: ASCORBIC ACID 500 MG TAB PO SCH (20:51)
[2016-06-08 00:26] VITALS: BP 133/80; PULSE 95; TEMP 36.9; O2SAT 95
[2016-06-08] MEDS ORDERED: VANCOMYCIN TROUGH SCH (05:30)
[2016-06-08] MEDS: VANCOMYCIN INJ 1,150 MG in SODIUM CHLORIDE 0.9% 250ML 250 ML IV SCH (05:54)
[2016-06-08] MEDS: HEPARIN SOD 5000 UNIT/0.5 ML CARP SQ SCH ×3 (05:56→21:55)
[2016-06-08 06:22] LABS: INR 1.8 (0.9-1.1); PROTHROMBIN TIME (PATIENT) 19.7 SECONDS (9.0-12.0)
[2016-06-08 06:47] LABS: BUN/CREATININE RATIO 18.1 (10-20); CALCIUM 8.5 mg/dl (8.5-10.1); CREATININE 0.61 mg/dl (0.60-1.20); POTASSIUM 3.2 mmol/L (3.5-5.1)
[2016-06-08 07:27] VITALS: BP 148/78; PULSE 73; TEMP 36.9; O2SAT 94
[2016-06-08] MEDS: DOCUSATE SODIUM/SENNA 50/8.6MG TAB PO SCH (07:47)
[2016-06-08] MEDS: PAROXETINE 20 MG TAB PO SCH (07:47)
[2016-06-08] MEDS: CEPHALEXIN MONOHYDRATE 500 MG CAP PO SCH ×2 (07:48→20:56)
[2016-06-08] MEDS: ATORVASTATIN 40 MG TAB PO SCH (07:48)
[2016-06-08] MEDS: LISINOPRIL 5 MG TAB PO SCH (07:48)
[2016-06-08] MEDS: METHENAMINE HIPPURATE 1 GM TAB PO SCH ×2 (07:48→20:55)
[2016-06-08] MEDS: OXYBUTYNIN CHLORIDE 5 MG TAB PO SCH ×3 (07:49→20:56)
[2016-06-08] MEDS: CHOLECALCIFEROL 400 INTER.UNIT TAB PO SCH (07:49)
[2016-06-08] MEDS: INSULIN GLARGINE SOLOSTAR 100 UNITS/ML 3 ML PEN SC SCH (07:50)
--- NOTE | 2016-06-08 07:55 | Clinical Documentation Query ---
CLINICAL DOCUMENTATION QUERY Dr. PAIZ, In your clinical opinion is this patient being managed for: ( ) Early Sepsis due to UTI ( X ) Other explanation of clinical findings (I can find no e/o sepsis upon reviewing the patient's chart. This appears to be metabolic encephalopathy 2/2 complicated UTI.) ( ) Unable to determine (Please Define) ( ) Need to Discuss ( ) Not Agree The medical record reflects the following clinical findings, treatment, and risk factors. Clinical Indicators: Pt reportedly with mild confusion and decreased hand dexterity which is documented as signs of early sepsis for this pt. Documentation reflects pt also with a low grade fever. WBC 11.22, first blood culture with gram + cocci. Treatment: Blood cultures repeated x 2, change aguilar, IV rocephin, IV vancomycin, IV fluids Risk Factors: DM, UTI Please clarify and document your clinical opinion in the progress notes and discharge summary. Terms such as "probable", "suspected", "likely", "questionable", "possible", or "still to be ruled out" are acceptable. IF IN AGREEMENT, YOU MUST DOCUMENT ABOVE DIAGNOSTIC STATEMENT IN DAILY PROGRESS NOTES AND DISCHARGE SUMMARY. This document is not part of the patient's record. Thank You, Rupinder Quezada, RN [phone]
[2016-06-08] MEDS: INSULIN ASPART 100 UNITS/ML 3 ML PEN SC SCH ×4 (08:48→21:04)
--- NOTE | 2016-06-08 13:24 | Pharmacy Progress Note ---
Glycemic Control: Progress Nt Date of Service Jun 08, 2016. Scope Glycemic Pharmacist consulted by Liane SANTIZO on 06/04/16 for glycemic control and to write orders per [facility] inpatient glycemic control protocol. Objective Accuchecks BSG (last 24hrs): Test 06/07/16 16:15 06/07/16 20:11 06/08/16 05:25 06/08/16 07:36 Bedside Glucose 90 mg/dl (70-90) 97 mg/dl (70-90) 99 mg/dl (70-90) Random Glucose 91 mg/dl (70-99) Laboratory Data (last 24hrs) HbA1c: Test 06/06/16 05:38 Hemoglobin A1c 6.8 % (4.5-5.6) H Recent Pertinent Medications Outpatient Anti-diabetic Regimen: * Lantus 5 units SQ BID The patient is currently receiving: * Basal insulin: Lantus 7 units every 12 hours * Correctional Insulin: NovoLog Correction per scale AC+HS Goal Range: Low 110 mg/dL - High 140 mg/dL Correction Factor: 25 mg/dL/unit * Prandial insulin: Per carb ratio of 1 unit per 8 grams CHO consumed Risk Factors for Insulin Resistance: * Infection * Diet: T2DM - tolerating PO intake well per CHO counts Assessment & Plan ASSESSMENT: * Patient is currently receiving an average of ~24 units of insulin per day * 14 units of basal insulin * 10 units of prandial/correctional insulin * BSGs ranging 90 - 131 over the past 24hrs * Anticipating insulin regimen will reduced for the next 24hrs d/t : * AM Fasting BSG = 99mg/dl and is below range for inpatient targets. Will decrease total daily dose and change to once a day dosing for easier administration as an outpatient * Post-prandial BSGs trending down throughout the day --> will loosen bolus insulin parameters (CF/CR) * ADA & AACE recommend a goal blood sugar range 140-180 mg/dl for the majority of critically ill & non-critically ill patients. However, more stringent targets may be selected in individual cases. Will utilize more stringent goal of 110-140mg/dl based on patient age & comorbidities. Additionally, tighter glycemic control is warranted to facilitate wound/infection healing. PLAN FOR INPATIENT GLYCEMIC CONTROL: * Decrease Basal insulin with LANTUS 10 units SQ HS * Hold Lantus dose this AM for BG = 99mg/dl * Loosen Novolog ACHS * Goal Range: Low 110 mg/dL - High 140 mg/dL * Correction Factor: 30 mg/dL/unit * Nutritional / Prandial insulin per carb ratio of 1 unit per 10 grams CHO consumed * Please note that the plan above was derived based on current level of insulin resistance and hospital stress. These recommendations are appropriate for inpatient admission only. Plan of care upon discharge will need to be reassessed to avoid potential outpatient hypo/hyperglycemia. Thank you. Looking ahead to discharge: * A1c is in goal range - no changes needed to outpatient regimen. Could consider changing Lantus to once daily to simplify regimen.
[2016-06-08 14:51] VITALS: BP 125/84; PULSE 85; TEMP 36.9; O2SAT 93
[2016-06-08] MEDS: WARFARIN SOD 5 MG TAB PO SCH (15:41)
[2016-06-08 16:00] VITALS: O2SAT 93
--- NOTE | 2016-06-08 18:35 | Progress Note ---
Medicine Progress Note Date & Time of Visit: Jun 08, 2016 at 18:27. Subjective Patient seen and examined. Eating lunch. Denies complaints. Objective Last 8 Hrs Date Time Temp Pulse Resp B/P Pulse Ox O2 Delivery O2 Flow Rate FiO2 06/08/16 16:00 93 Room Air 06/08/16 14:51 36.9 85 22 125/84 93 Room Air Physical Exam: General-awake; alert; NAD Eyes-EOMI; no scleral icterus Neck-no stridor; trachea midline Lungs-CTA bilaterally; no wheezes/crackles Heart-RRR; no m/r/g Abdomen-soft; NTND; nBS Laboratory Results: Last 24 Hours Test 06/07/16 20:11 06/08/16 05:25 06/08/16 07:36 06/08/16 11:50 Bedside Glucose 97 mg/dl 99 mg/dl 131 mg/dl Prothrombin Time 19.7 SECONDS Prothromb Time International Ratio 1.8 Sodium Level 145 mmol/L Potassium Level 3.2 mmol/L Chloride Level 111 mmol/L Carbon Dioxide Level 26 mmol/L Anion Gap 8.0 mmol/L Blood Urea Nitrogen 11 mg/dl Creatinine 0.61 mg/dl Est Creatinine Clear Calc Drug Dose 88.4 ml/min Estimated GFR () 111.0 Estimated GFR (Non- 95.8 BUN/Creatinine Ratio 18.1 Random Glucose 91 mg/dl Calcium Level 8.5 mg/dl Vancomycin Level Trough 18.9 mcg/ml Test 06/08/16 16:34 Bedside Glucose 137 mg/dl Assessment & Plan 66 year old female with history of Multiple Sclerosis, Chronic Indwelling Gandhi Catheter, DM, HTN, PE on coumadin, Aspiration who presented with altered mental status and fever. RECURRENT UTI, ECOLI IN THE SETTING OF CHRONIC GANDHI CATHETER METABOLIC ENCEPHALOPATHY - per outpatient urine culture 06/03/16, (+) e coli - repeat urine culture 06/04/16 with E coli sensitive - changed Gandhi Cath - ceftriaxone changed to cephalexin based on sensitivities to complete course GRAM POSITIVE COCCI IN 1 BOTTLE - micrococcus which is skin contaminant - repeat blood cultures negative - discontinued vancomycin FECAL RETENTION WITH MODERATE COLON DISTENTION - KUB (+) fecal retention - given tap water enema with (+) BMs - Senokot S daily started MULTIPLE SCLEROSIS ASPIRATION RISK - mech soft, slippery; thin liquids per last KINESIOLOGIST eval - repeat KINESIOLOGIST evaluation ordered: 1. Mechanical soft diet, slippery 2. Aspiration precautions: Straws okay, FULLY UPRIGHT for meals and for 30 minutes after meals. HOB elevated to 30 degrees at all time, to include while asleep. 3. Frequent oral hygiene in order to minimize oral bacteria in the saliva that can be aspirated. 4. Alternate solids and small single sips of liquids. Assist with feeding as needed. DM - hgb a1c 6.1 03/2016 - Lantus and ISS - glycemic pharmacy consulted HX PE - continue warfarin HTN - BP controlled, continue Lisinopril DVT PROPHYLAXIS - on Coumadin - heparin q8h for DVT prophylaxis until INR therapeutic CODE STATUS - Patient is a full code DISPO anticipate d/c home when medically stable Current Inpatient Medications: Current Inpatient Medications Medications (Trade) Dose Ordered Sig/Dwain Route Start Time Stop Time Status Last Admin Dose Admin Acetaminophen (Tylenol Tab) 650 mg Q4H PRN PO 06/04/16 21:00 07/04/16 20:59 Ondansetron HCl (Zofran Inj) 4 mg Q6H PRN IV 06/04/16 21:00 07/04/16 20:59 Ascorbic Acid (Vitamin C Tab) 500 mg HS PO 06/05/16 21:00 07/05/16 20:59 06/07/16 20:51 500 MG Atorvastatin Calcium (Lipitor Tab) 40 mg DAILY PO 06/05/16 09:00 07/05/16 08:59 06/08/16 07:48 40 MG Docusate Sodium (coLACE CAP) 100 mg DAILY PRN PO 06/04/16 21:30 07/04/16 21:29 Lisinopril (Zestril Tab) 5 mg DAILY PO 06/05/16 09:00 07/05/16 08:59 06/08/16 07:48 5 MG Methenamine Hippurate (Urex Tab) 1 gm BID PO 06/05/16 09:00 06/15/16 08:59 06/08/16 07:48 1 GM Oxybutynin Chloride (Ditropan Tab) 5 mg TID PO 06/05/16 09:00 07/05/16 08:59 06/08/16 14:33 5 MG Cholecalciferol (Vitamin D Tab) 400 inter.unit DAILY PO 06/05/16 09:00 07/05/16 08:59 06/08/16 07:49 400 INTER.UNIT Paroxetine HCl (pAXil TAB) 40 mg QAM PO 06/05/16 09:00 07/05/16 08:59 06/08/16 07:47 40 MG Polyethylene (Miralax Powder Packet) 17 gm DAILY PRN PO 06/04/16 23:45 07/04/16 23:44 Miscellaneous Information (Consult Glycemic Management Pharmacy) 1 ea UD PRN N/A 06/04/16 22:30 07/04/16 22:29 Glucose (Glucose 40% Gel) 15-30 GRAMS 15 GRAMS... UD PRN PO 06/04/16 23:15 07/04/16 23:14 Glucose (Glucose Chew Tab) 4-8 Tablets 4 Tabl... UD PRN PO 06/04/16 23:15 07/04/16 23:14 Dextrose (Dextrose 50% 50ML Syringe) 25-50ML OF 50% DW IV FOR... UD PRN IV 06/04/16 23:15 07/04/16 23:14 Glucagon (Glucagon Inj) 1 mg UD PRN SQ 06/04/16 23:15 07/04/16 23:14 Miscellaneous (Iv Fluids Completed) 1 ea PRN PRN N/A 06/05/16 00:30 06/05/17 00:29 Insulin Aspart (novoLOG ASPART) SLIDING SCALE ACHS SC 06/05/16 06:30 07/05/16 06:29 06/08/16 13:02 2 UNITS Senna/Docusate Sodium (Senokot S Tab) 1 tab QAM PO 06/06/16 09:00 07/06/16 08:59 06/08/16 07:47 1 TAB Heparin Sodium (Porcine) (Heparin Sq 5000 Unit/0.5ml) 5,000 unit Q8 SQ 06/07/16 14:00 07/07/16 13:59 06/08/16 14:38 5,000 UNIT Cephalexin Monohydrate (Keflex Cap) 500 mg BID PO 06/07/16 21:00 06/14/16 20:59 06/08/16 07:48 500 MG Warfarin Sodium (Coumadin Tab) 5 mg DAILY@16 PO 4/18/17 16:00 07/08/16 15:59 06/08/16 15:41 5 MG Insulin Glargine (Lantus Solostar Pen) 10 unit HS SC 06/08/16 21:00 07/08/16 20:59
[2016-06-08] MEDS: ASCORBIC ACID 500 MG TAB PO SCH (20:55)
[2016-06-08] MEDS ORDERED: INSULIN GLARGINE SOLOSTAR 100 UNITS/ML 3 ML PEN SC SCH (21:00)
[2016-06-09] VITALS: O2SAT 93
[2016-06-09 00:34] VITALS: BP 123/79; PULSE 76; TEMP 36.7; O2SAT 94
[2016-06-09] MEDS: HEPARIN SOD 5000 UNIT/0.5 ML CARP SQ SCH (05:18)
[2016-06-09 07:20] LABS: PROTHROMBIN TIME (PATIENT) 22.2 SECONDS (9.0-12.0)
[2016-06-09 07:27] VITALS: BP 131/65; PULSE 81; TEMP 36.9; O2SAT 93
[2016-06-09] MEDS: ATORVASTATIN 40 MG TAB PO SCH (07:57)
[2016-06-09] MEDS: OXYBUTYNIN CHLORIDE 5 MG TAB PO SCH ×2 (07:57→14:49)
[2016-06-09] MEDS: CEPHALEXIN MONOHYDRATE 500 MG CAP PO SCH (07:57)
[2016-06-09] MEDS: PAROXETINE 20 MG TAB PO SCH (07:58)
[2016-06-09] MEDS: METHENAMINE HIPPURATE 1 GM TAB PO SCH (07:58)
[2016-06-09] MEDS: CHOLECALCIFEROL 400 INTER.UNIT TAB PO SCH (07:58)
[2016-06-09] MEDS: DOCUSATE SODIUM/SENNA 50/8.6MG TAB PO SCH (07:58)
[2016-06-09] MEDS: LISINOPRIL 5 MG TAB PO SCH (07:59)
[2016-06-09] MEDS: INSULIN ASPART 100 UNITS/ML 3 ML PEN SC SCH ×2 (09:13→13:15)
[2016-06-09] MEDS ORDERED: KFL500 PO (11:56)
--- NOTE | 2016-06-09 12:00 | Discharge Instructions ---
Discharge Instructions Date of Service Jun 09, 2016. Admission Reason for Admission: UTI Discharge Discharge Diagnosis / Problem: Urinary tract infection Discharge Goals Goal(s): Improve disease control Activity Recommendations Activity Limitations: resume your previous activity . Instructions / Follow-Up Instructions / Follow-Up Please follow up with Family Medicine Dr. Avila on June 15 at 12:50pm. Please take Keflex twice a day as prescribed until June 17 to complete your course for the urinary tract infection. Current Hospital Diet Patient's current hospital diet: Diabetes Type 2 Diet, AHA Diet (Heart Healthy) Discharge Diet Recommended Diet: AHA Diet (Heart Healthy), Diabetes Type 2 Diet Pending Studies Studies pending at discharge: no Laboratory Results Hemoglobin A1c Test 06/06/16 05:38 Range/Units Estimated Average Glucose 148 mg/dl Hemoglobin A1c 6.8 H 4.5-5.6 % Medical Emergencies . Who to Call and When: Medical Emergencies: If at any time you feel your situation is an emergency, please call 911 immediately. . Non-Emergent Contact Non-Emergency issues call your: Primary Care Provider . . "Provider Documentation" section prepared by Charmaine Feliciano. . VTE Core Measure Inpt VTE Proph given/why not?: Warfarin (Coumadin)
[2016-06-09 15:01] VITALS: BP 131/65; PULSE 81; TEMP 36.9; O2SAT 93
[2016-06-09] MEDS: WARFARIN SOD 5 MG TAB PO SCH (15:42)
--- NOTE | 2016-06-09 16:32 | Discharge Summary ---
Discharge Summary Date of Service Jun 09, 2016. Discharge Summary Admission Date: Jun 06, 2016 at 10:08 Discharge Date: Jun 09, 2016 Discharge Disposition: Home with services Principal Diagnosis: Metabolic encephalopathy 2/2 UTI Medication Reconciliation New Medications: Cephalexin Monohydrate (Cephalexin) 500 Mg Cap 500 MG PO BID for 9 Days, #18 CAP Continued Medications: Acetaminophen (Tylenol) 325 Mg Tab 650 MG PO Q4H PRN for Pain or Fever, TAB Ascorbic Acid (Ascorbic Acid) 500 Mg Tab 500 MG PO HS, TAB Atorvastatin (Lipitor) 40 Mg Tab 40 MG PO DAILY, TAB Cranberry (Vaccinium Macrocarp (Cranberry) 300 Mg Tab 300 MG PO QAM Docusate Sodium (Colace) 100 Mg Cap 100 MG PO DAILY PRN for Constipation, CAP Ergocalciferol (Vitamin D2) 400 Unit Tab 1 TAB PO DAILY Insulin Glargine (Lantus Solostar) 100 Unit/Ml Inj 5 UNITS SC AMPM, PEN Lisinopril (Lisinopril) 5 Mg Tab 5 MG PO DAILY Lorazepam (Lorazepam) 0.5 Mg Tab 1 TAB PO HS PRN for Insomnia for 30 Days, TAB Methenamine Hippurate (Methenamine Hippurate) 1 Gm Tab 1 GM PO BID Oxybutynin Chloride (Ditropan) 5 Mg Tab 5 MG PO TID, TAB Paroxetine (Paroxetine HCl) 40 Mg Tab 40 MG PO QAM Polyethylene Glycol 3350 (Miralax) 1 Pow Pow 1 TBS PO DAILY PRN for Constipation Mix with 8 ounces of water Warfarin Sodium (Warfarin Sodium) 5 Mg Tab 5 MG PO 6XWK TAKE 5 MG ALL DAYS EXCEPT TUE. Warfarin Sodium (Coumadin) 5 Mg Tab 2.5 MG PO MONDAYS, TAB Admission Information HPI (per Admitting provider): 66 year old female who presents to the ER with reports of generalized weakness and mild confusion. Patient has MS and neurogenic bladder with chronic aguilar in place. She gets recurrent UTIs. Patient reports her told her she was mildly confused yesterday, however she does not feel as though she was. She notes generalize weakness, low grade fever, and dark urine today. She reports these are signs of a UTI for her. She denies chest pain and shortness of breath. No abdominal pain, nausea, vomiting, or diarrhea. She denies lightheadedness, dizziness, diaphoresis, and syncopal events. In the ER, patient 's U/A suggests UTI. Labs are unremarkable and vitals are stable. Physical Exam (per Admitting): General Appearance: no apparent distress Head: normocephalic Eyes: normal inspection ENT: hearing grossly normal Neck: supple, no JVD Respiratory/Chest: lungs clear, normal breath sounds, no respiratory distress Cardiovascular: regular rate, rhythm, normal peripheral pulses, + pertinent finding (trace edema BLLE) Abdomen/GI: normal bowel sounds, non tender, soft Genitourinary - Female: + pertinent finding (aguilar in place draining clear yellow urine) Extremities/Musculoskelatal: + pertinent finding (left foot drop) Neurologic/Psych: no motor/sensory deficits, alert, normal mood/affect, oriented x 3 Skin: normal color, warm/dry Hospital Course 66 year old female with history of Multiple Sclerosis, Chronic Indwelling Aguilar Catheter, DM, HTN, PE on coumadin, Aspiration who presented with altered mental status and fever. Metabolic encephalopathy on admission was 2/2 complicated UTI , in the setting of a chronic indwelling aguilar catheter. Urine culture grew E coli. Patient's aguilar catheter was changed. Patient had been started on ceftriaxone and this was transitioned to cephalexin based on sensitivities for patient to complete a course. Patient's mental status clinically improved. Micrococcus did grow out of one blood culture bottle. Initially vancomycin had been started, but as this is a skin contaminant and repeat cultures were negative, vancomycin was discontinued. Patient was continued on the remainder of her home medications. Patient deemed stable for discharge with home health and to follow up with Family Medicine. PE on discharge: General- awake; alert; NAD Eyes- EOMI; no scleral icterus ENT- poor dentition Neck- no stridor; trachea midline Lungs- CTA bilaterally; no wheezes/crackles Heart- RRR; no m/r/g Abdomen- soft; NTND; nBS Back- no gross abnormalities Extremities- +deformity; no edema Skin- no appreciable rash . Total time spent on discharge = This includes examination of the patient, discharge planning, medication reconciliation, and communication with other providers. Discharge Instructions Discharge Instructions Date of Service Jun 09, 2016. Admission Reason for Admission: UTI Discharge Discharge Diagnosis / Problem: Urinary tract infection Discharge Goals Goal(s): Improve disease control Activity Recommendations Activity Limitations: resume your previous activity . Instructions / Follow-Up Instructions / Follow-Up Please follow up with Family Medicine Dr. Avila on June 15 at 12:50pm. Please take Keflex twice a day as prescribed until June 17 to complete your course for the urinary tract infection. Current Hospital Diet Patient's current hospital diet: Diabetes Type 2 Diet, AHA Diet (Heart Healthy) Discharge Diet Recommended Diet: AHA Diet (Heart Healthy), Diabetes Type 2 Diet Pending Studies Studies pending at discharge: no Laboratory Results Hemoglobin A1c Test 06/06/16 05:38 Range/Units Estimated Average Glucose 148 mg/dl Hemoglobin A1c 6.8 H 4.5-5.6 % Medical Emergencies . Who to Call and When: Medical Emergencies: If at any time you feel your situation is an emergency, please call 911 immediately. . Non-Emergent Contact Non-Emergency issues call your: Primary Care Provider . . "Provider Documentation" section prepared by Charmaine Feliciano. . VTE Core Measure Inpt VTE Proph given/why not?: Warfarin (Coumadin) Additional Copies To Bonifacio Avila M.D.(ARIELA)
[2017-01-06] MEDS ORDERED: MTR500 PO (11:24)
[2017-01-06] MEDS ORDERED: LACT10CA3 PO (11:27)
[2017-01-07] MEDS ORDERED: MTR500 PO (11:51)
== END 2016-06-09 16:00 | disposition home health service (06) | DRG 698 ==
LOC: ENRESERVDT → ENRESERVTM → EDBD 18:47 → C.EDB 18:48 → C.MS2W 20:19 → OBSVTOIN 06-06 10:08
PROVIDERS: ADMIT Internal Medicine; ATTEND Internal Medicine
DX: T83.518A Infection and inflammatory reaction due to other urinary catheter, initial encounter (principal); G93.41 Metabolic encephalopathy; N39.0 Urinary tract infection, site not specified; G35 Multiple sclerosis; E11.9 Type 2 diabetes mellitus without complications; B96.20 Unspecified Escherichia coli [E. coli] as the cause of diseases classified elsewhere; Z79.01 Long term (current) use of anticoagulants; Z86.711 Personal history of pulmonary embolism; N31.9 Neuromuscular dysfunction of bladder, unspecified; E78.5 Hyperlipidemia, unspecified; I10 Essential (primary) hypertension; Y84.6 Urinary catheterization as the cause of abnormal reaction of the patient, or of later complication, without mention of misadventure at the time of the procedure

== ENCOUNTER 2016-07-13 16:09 | Emergency (ER) | payer OTHER ==
[~2016-07-13] VITALS: Ht 167.6 cm; Wt 76.0 kg
[~2016-07-13 16:09] MED LIST changes: +ATOR-24 PO; -ATV1 PO; -CHOLTAB3 PO; +ERGO1TAB10 PO; -INSDGI SC; +INSDGIPEN SC; +LORA0.5T12 PO; -MCRK20 PO; -PRVC/20 PO
[2016-07-13 16:15] VITALS: TEMP 36.9; Ht 167.6 cm; Wt 76.0 kg
[2016-07-13] MEDS ORDERED: SODIUM CHLORIDE 0.9% 1000ML 1,000 ML IV STA (16:16)
[2016-07-13] MEDS ORDERED: SODIUM CHLORIDE 0.9% 1000ML 250 ML IV STA (16:16)
[2016-07-13 17:21] LABS: BASO % 0.3 %; BASO ABS # 0.03 K/uL (0-0.2); COMPLETE YES; EOS % 2.5 %; HEMATOCRIT 43.5 % (37-47); IG% 0.1 %; LYMPH ABS # 3.68 K/uL (1.2-3.4); MEAN CELL VOLUME 91.4 fL (80-100); MEAN CORPUSCULAR HGB CONC 31.7 g/dl (32-36); MEAN PLATELET VOLUME 9.9 fL (7.4-10.4); MONO % 6.9 %; NEUT % 51.2 %; PLATELET COUNT 261 K/uL (130-400); RED BLOOD COUNT 4.76 M/uL (4.2-5.4); WHITE BLOOD COUNT 9.43 K/uL (4.8-10.8)
[2016-07-13 17:39] LABS: BLOOD UREA NITROGEN 17 mg/dl (7-18); BUN/CREATININE RATIO 23.3 (10-20); CALCIUM 8.6 mg/dl (8.5-10.1); CARBON DIOXIDE 30 mmol/L (21-32); CHLORIDE 111 mmol/L (98-107); CREATININE 0.72 mg/dl (0.60-1.20); GLUCOSE 98 mg/dl (70-99); PARTIAL THROMBOPLASTIN RATIO 2.7; POTASSIUM 4.4 mmol/L (3.5-5.1); PROTHROMBIN TIME (PATIENT) 70.3 SECONDS (9.0-12.0); SODIUM 145 mmol/L (136-145)
[2016-07-13 17:42] LABS: ALKALINE PHOSPHATASE 99 U/L (45-117); ALT/SGPT 40 U/L (12-78); AST/SGOT 21 U/L (15-37)
[2016-07-13 17:42] LABS: URINE APPEARANCE TURBID (CLEAR); URINE BILIRUBIN NEG (NEG); URINE COLOR ORANGE; URINE EPITHELIAL CELL AUTO >30 /lpf (0-5); URINE NITRITE POS (NEG); UROBILINOGEN NEG (NEG)
[2016-07-13 17:43] LABS: INR 6.1 (0.9-1.1)
[2016-07-13 17:43] LABS: MANUAL MICROSCOPIC REQUIRED? NO; REVIEW REQ? YES
[2016-07-13] MEDS ORDERED: CEPHALEXIN 500MG HOME PACK 1 EA BTL PO ONE (18:15)
[2016-07-13] MEDS ORDERED: CEPH500C PO (18:19)
[2016-07-13] MEDS ORDERED: ORA SWEET PO SCH ×3 (18:30)
[2016-07-13] MEDS ORDERED: PHYTONADIONE PED PO SCH ×3 (18:30)
[2016-07-13] MEDS ORDERED: ORA PO SCH ×3 (18:30)
[2016-07-13] MEDS ORDERED: [UNRECOGNIZED DRUG - OTHER] PO SCH ×3 (18:30)
[2016-07-13 19:36] VITALS: BP 146/77; PULSE 73; O2SAT 100
--- NOTE | 2016-07-14 00:25 | EMERGENCY ROOM VISIT NOTE ---
History Report prepared by Kilo: Leonie Carrizales Under the Supervision of: Dr. Madi Munoz M.D. First contact with patient: 16:08 Stated Complaint: ABNORMAL LAB, HEMATURIA History of Present Illness The patient is a 66 year old female who presents to the Emergency Room with complaints of persistent hematuria starting 5 days ago. She comes to the ED from home by EMS. She has a catheter in place and she has noticed blood draining for the past 5 days. She had lab work today which found that her INR was high. She denies any chest pain, SOB, fever, abdominal pain, and back pain. She denies bleeding from anywhere else. She has not passed any clots. She has weakness in her legs which is normal for her. She has a history of blood clots and is on Coumadin. She has a history of MS. She lives with her who helps take care of her. Source of History: patient, spouse/significant other, EMS Onset: 5 days ago Position: other (global) Quality: other (hematuria) Timing: other (persistent) Associated Symptoms: No SOB, No abdominal pain, No back pain, No chest pain , No fevers Note: Pt reports high INR. Review of Systems See HPI for pertinent positives & negatives. A total of 10 systems reviewed and were otherwise negative. Past Medical & Surgical Medical Problems: (1) Abdominal mass (2) Depression (3) Diabetes mellitus, type II (4) Dyslipidemia (5) History of pulmonary embolism (6) Multiple sclerosis (7) Neurogenic bladder (8) Recurrent UTI Surgical Problems: (1) Status post hysterectomy (2) Status post partial colectomy Old medical records were reviewed. Nurse's notes were reviewed and I agree with. Family History Cardiac disorder FATHER Social History Smoking Status: Never Smoker Alcohol Use: none Drug Use: none Marital Status: Housing Status: lives with family Current/Historical Medications Scheduled Ascorbic Acid (Ascorbic Acid), 500 MG PO HS Atorvastatin (Lipitor), 40 MG PO DAILY Cephalexin Monohydrate (Keflex), 500 MG PO QID Cranberry (Vaccinium Macrocarp (Cranberry), 300 MG PO QAM Ergocalciferol (Vitamin D2), 1 TAB PO DAILY Insulin Glargine (Lantus Solostar), 5 UNITS SC AMPM Lisinopril (Lisinopril), 5 MG PO DAILY Methenamine Hippurate (Methenamine Hippurate), 1 GM PO BID Oxybutynin Chloride (Ditropan), 5 MG PO TID Paroxetine (Paroxetine HCl), 40 MG PO QAM Warfarin Sodium (Warfarin Sodium), 5 MG PO 6XWK Warfarin Sodium (Coumadin), 2.5 MG PO MONDAYS Scheduled PRN Acetaminophen (Tylenol), 650 MG PO Q4H PRN for Pain or Fever Docusate Sodium (Colace), 100 MG PO DAILY PRN for Constipation Lorazepam (Lorazepam), 1 TAB PO HS PRN for Insomnia Polyethylene Glycol 3350 (Miralax), 1 TBS PO DAILY PRN for Constipation Allergies Coded Allergies: Levofloxacin (Verified Allergy, Unknown, 07/13/16) Clavulanic Acid (Verified Adverse Reaction, Intermediate, GI INTOLERANCE ( AUGMENTIN), 07/13/16) Penicillins (Verified Adverse Reaction, Intermediate, GI INTOLERANCE ( AUGMENTIN), 07/13/16) Physical Exam Vital Signs Date Time Temp Pulse Resp B/P Pulse Ox O2 Delivery O2 Flow Rate FiO2 07/13/16 19:36 73 20 146/77 100 Room Air 07/13/16 18:06 81 16 145/71 100 Room Air 07/13/16 16:27 70 07/13/16 16:15 36.9 73 18 134/76 98 Room Air Physical Exam General: Chronically ill appearing, but not acutely ill appearing older female, no acute distress, breathing comfortably on room air. Normal speech HEENT: Normal cephalic atraumatic. Pupils are equal round and reactive to light. Extraocular movements are intact. Oropharynx is pink with moist mucous membranes. No swelling of the mouth lips or tongue. Neck: Supple with a midline trachea. No meningeal signs or stiffness, no JVD or bruits. No Stridor. Chest: Clear to auscultation bilaterally. No wheezes or rhonchi. No increased work of breathing. Heart: regular rate and rhythm. Abdomen: Soft nontender, nondistended without rebound guarding or rigidity. Lemos catheter in place with bloody urine. Extremities: No cyanosis clubbing or edema. No calf tenderness or assymetry Spine/Back. Non tender to palpation. No CVA tenderness Skin: Good turgor without rashes. Neurologic exam: Cranial nerves two through 12 are intact. Motor and sensation are intact and symmetrical throughout. Baseline weakness in the legs. Medical Decision & Procedures Laboratory Results 07/13/16 17:06 Red Blood Count 4.76, Mean Corpuscular Volume 91.4, Mean Corpuscular Hemoglobin 29.0, Mean Corpuscular Hemoglobin Concent 31.7, Mean Platelet Volume 9.9, Neutrophils (%) (Auto) 51.2, Lymphocytes (%) (Auto) 39.0, Monocytes (%) (Auto) 6.9, Eosinophils (%) (Auto) 2.5, Basophils (%) (Auto) 0.3, Neutrophils # (Auto) 4.82, Lymphocytes # (Auto) 3.68, Monocytes # (Auto) 0.65, Eosinophils # (Auto) 0.24, Basophils # (Auto) 0.03 07/13/16 17:06 Test 07/13/16 17:06 07/13/16 17:10 White Blood Count 9.43 K/uL (4.8-10.8) Red Blood Count 4.76 M/uL (4.2-5.4) Hemoglobin 13.8 g/dL (12.0-16.0) Hematocrit 43.5 % (37-47) Mean Corpuscular Volume 91.4 fL (80-100) Mean Corpuscular Hemoglobin 29.0 pg (25-34) Mean Corpuscular Hemoglobin Concent 31.7 g/dl (32-36) Platelet Count 261 K/uL (130-400) Mean Platelet Volume 9.9 fL (7.4-10.4) Neutrophils (%) (Auto) 51.2 % Lymphocytes (%) (Auto) 39.0 % Monocytes (%) (Auto) 6.9 % Eosinophils (%) (Auto) 2.5 % Basophils (%) (Auto) 0.3 % Neutrophils # (Auto) 4.82 K/uL (1.4-6.5) Lymphocytes # (Auto) 3.68 K/uL (1.2-3.4) Monocytes # (Auto) 0.65 K/uL (0.11-0.59) Eosinophils # (Auto) 0.24 K/uL (0-0.5) Basophils # (Auto) 0.03 K/uL (0-0.2) RDW Standard Deviation 49.7 fL (36.4-46.3) RDW Coefficient of Variation 14.7 % (11.5-14.5) Immature Granulocyte % (Auto) 0.1 % Immature Granulocyte # (Auto) 0.01 K/uL (0.00-0.02) Prothrombin Time 70.3 SECONDS (9.0-12.0) Prothromb Time International Ratio 6.1 (0.9-1.1) Activated Partial Thromboplast Time 68.9 SECONDS (21.0-31.0) Partial Thromboplastin Ratio 2.7 Anion Gap 4.0 mmol/L (3-11) Est Creatinine Clear Calc Drug Dose 82.2 ml/min Estimated GFR () 102.6 Estimated GFR (Non- 88.5 BUN/Creatinine Ratio 23.3 (10-20) Calcium Level 8.6 mg/dl (8.5-10.1) Total Bilirubin 0.3 mg/dl (0.2-1) Direct Bilirubin < 0.1 mg/dl (0-0.2) Aspartate Amino Transf (AST/SGOT) 21 U/L (15-37) Alanine Aminotransferase (ALT/SGPT) 40 U/L (12-78) Alkaline Phosphatase 99 U/L (45-117) Total Protein 7.1 gm/dl (6.4-8.2) Albumin 3.4 gm/dl (3.4-5.0) Lipase 448 U/L (73-393) Urine Color ORANGE Urine Appearance TURBID (CLEAR) Urine pH 5.0 (4.5-7.5) Urine Specific Ladson 1.020 (1.000-1.030) Urine Protein 2+ (NEG) Urine Glucose (UA) NEG (NEG) Urine Ketones NEG (NEG) Urine Occult Blood 3+ (NEG) Urine Nitrite POS (NEG) Urine Bilirubin NEG (NEG) Urine Urobilinogen NEG (NEG) Urine Leukocyte Esterase LARGE (NEG) Urine WBC (Auto) >30 /hpf (0-5) Urine RBC (Auto) >30 /hpf (0-4) Urine Hyaline Casts (Auto) /lpf (0-5) Urine Epithelial Cells (Auto) >30 /lpf (0-5) Urine Bacteria (Auto) 2+ (NEG) Urine Pathogenic Casts /lpf (0) Urine Yeast (Auto) (NONE PRSENT) Laboratory studies as stated above per my review. Medications Administered Medications (Trade) Dose Ordered Sig/Dwain Route Start Time Stop Time Status Last Admin Dose Admin Sodium Chloride 250 ml @ 999 mls/hr Q16M STAT IV 07/13/16 16:16 07/13/16 16:31 DC 07/13/16 17:16 999 MLS/HR Sodium Chloride (Nss 1000ml) 1,000 ml @ 100 mls/hr Q10H STAT IV 07/13/16 16:16 07/13/16 21:16 DC 07/13/16 17:16 100 MLS/HR Cephalexin Monohydrate 1 homepack NOW ONCE PO 07/13/16 18:15 07/13/16 18:16 DC 07/13/16 18:43 1 HOMEPACK Phytonadione/ Sucrose/ Microcrystalline Cellulose/Barcode (Aqua-Mephyton Ped Inj/Ora-Sweet Syrup/Ora-Plus Susp. Vehicle) TODAY@1830 PO 07/13/16 18:30 07/13/16 18:31 DC 07/13/16 18:44 2 ML ED Course 1609: Past medical records reviewed. The patient was evaluated in room C9, and a complete history and physical examination were performed. 1616: NSS 1000 ml @ 100 mls/hr IV, NSS 250 ml @ 999 mls/hr IV. 1727: I reevaluated the patient. She is resting comfortably. The catheter is now draining urine without blood. I updated the patient and her on the results. 1806: I reevaluated the patient. She is comfortable. Urine is only slightly blood tinged. 1813: I discussed the patient's case with Dr. Mccracken, [facility]. She recommend the patient hold the Coumadin for 2 days, get 1.25 of Vitamin K here, and recheck in 2 days. 1815: Cephalexin Monohydrate 1 homepack PO. 1819: I confirmed with pharmacy the dose of Vitamin K. 1824: Upon reevaluation, the patient is resting comfortably. I discussed the results and treatment plan with her. She verbalized agreement of the treatment plan. The patient was discharged home. 1830: Phytonadione 1.25 mg/Sucrose 2 ml/Microcrystalline Cellulose 2 ml/Barcode PO. Medical Decision Differentials include, but are not limited to; hematuria, anemia, UTI, MS exacerbation, electrolyte or metabolic abnormality. This patient comes in as described above. She was placed in room C9. She was sent in after being found to have hematuria and an elevated INR. She is asymptomatic otherwise and looks great and at her baseline. She's had no fevers and no back pain or abdominal pain. She does have a chronic Lemos catheter. Blood work was obtained. She has no white count or fever to suggest infection. She is not anemic and hemoglobin is in the 13 range. She has no thrombocytopenia. She has normal kidney function. Her INR was elevated at just above 6. Her urine did seem to clear his while she was here and was just only mildly pink tinged. I do think she might have may have a UTI and we'll put her on Keflex, she's had this before the first dose was given here. I did discuss case with Dr. Rubio, the transplant worker, and she recommends holding the Coumadin for 2 days and given her vitamin K 1.25 mg. This was ordered from the pharmacist and I talked to our pharmacist about this as well. The patient should follow-up in 2 days to have this rechecked return to the ER if: increasing bleeding, fever or chills, worsening of symptoms, not acting like self, any new problems or concerns. They're happy with the plan and she was discharged to home. Consults Time Called: 1808 Consulting Physician: Dr. Mccracken, [facility] Returned Call: 1812 I discussed the patient's case with her. She recommend the patient hold the Coumadin for 2 days, get 1.25 of Vitamin K here, and recheck in 2 days. Impression Primary Impression: Hematuria Additional Impressions: UTI (urinary tract infection) Supratherapeutic INR Scribe Attestation The scribe's documentation has been prepared under my direction and personally reviewed by me in its entirety. I confirm that the note above accurately reflects all work, treatment, procedures, and medical decision making performed by me. Departure Information Dispostion Home / Self-Care Prescriptions Cephalexin Monohydrate (Keflex) 500 Mg Cap 500 MG PO QID for 7 Days, #28 CAP Prov: Madi Munoz M.D. 07/13/16 Referrals Bonifacio Avila M.D.(ARIELA) (PCP) Forms HOME CARE DOCUMENTATION FORM, IMPORTANT VISIT INFORMATION, WORK / SCHOOL INSTRUCTIONS Patient Instructions My [facility] [employer] Additional Instructions Rest. Drink plenty of fluids. Use Keflex 500 mg, 4 times a day for 7 daysantibiotic Hold your Coumadin(warfarin) for the next 2 days Have year blood work/INR rechecked in 2 days and have your doctor further instructed you upon what to do at that point based on your numbers Return to the ER if: fever, not acting like self, worsening of symptoms, increasing bleeding, problems with catheter, any new problems or concerns Problem Qualifiers
--- NOTE | 2016-07-15 12:45 | Pharmacy Progress Note ---
ED Pharmacist Culture FollowUp Date of Service: July 15, 2016. Patient was sent home with a prescription for cephalexin, which should cover the E. coli growing from the patient's urine culture, based on reported sensitivity to cefazolin.
--- NOTE | 2016-07-21 11:18 | EDITING REQUIRED CODING QUERY ---
CODING QUERY Dr. Munoz, To promote full compliance with coding requirements relating to patient care, provider participation is requested in all cases of clinical trials data coordinator uncertainty. Please assist us with the question(s) below: Coding Question(s): Per documentation, patient has a Chronic Lemos Catheter. Impression states Hematuria. Please clarify below: ( ) Hematuria due to Lemos Catheter (x ) Hematuria, NOS (x ) Other Please Explain: Patient is on coumadin Physician's Response(s): Thank you Bonifacio Farley Principal Diagnosis: "_that condition established after study, to be chiefly responsible for occasioning the admission of the patient to the hospital for care." Co-Existing Principal Diagnosis: "_when two or more diagnoses equally meet the criteria for principal diagnosis as determined by the circumstances of admission, diagnostic work up, and/or therapy provided, and the Alphabetic Index, Tabular List, or another coding guideline does not provide sequencing direction, any one of the diagnoses may be sequenced first." "When the physician has documented what appears to be a current diagnosis in the body of the record, but has not included the diagnosis in the final diagnostic statement, the physician should be asked whether the diagnosis should be added." (Source [facility]oding [facility] 2 QTR90. p3-4)
--- NOTE | 2016-07-21 11:20 | EDITING REQUIRED CODING QUERY ---
CODING QUERY Dr. Munoz, To promote full compliance with coding requirements relating to patient care, provider participation is requested in all cases of sales assistant displays uncertainty. Please assist us with the question(s) below: Coding Question(s): Per documentation, patient has Chronic Lemos Catheter. Impression states Urinary tract Infection. Please clarify below: ( ) UTI due to Lemos Catheter ( X) UTI, NOS ( ) Other Please Explain: Physician's Response(s): Thank you Bonifacio Farley Principal Diagnosis: "_that condition established after study, to be chiefly responsible for occasioning the admission of the patient to the hospital for care." Co-Existing Principal Diagnosis: "_when two or more diagnoses equally meet the criteria for principal diagnosis as determined by the circumstances of admission, diagnostic work up, and/or therapy provided, and the Alphabetic Index, Tabular List, or another coding guideline does not provide sequencing direction, any one of the diagnoses may be sequenced first." "When the physician has documented what appears to be a current diagnosis in the body of the record, but has not included the diagnosis in the final diagnostic statement, the physician should be asked whether the diagnosis should be added." (Source Coding Clinic 2 QTR90. p3-4)
--- NOTE | 2016-07-26 06:06 | EDITING REQUIRED CODING QUERY ---
CODING QUERY Dr. Munoz, To promote full compliance with coding requirements relating to patient care, provider participation is requested in all cases of parts counter associate uncertainty. Please assist us with the question(s) below: Coding Question(s): Per Care Activity in the EMR, it looks as though patient had a Lemos Catheter replacement. This does not appear anywhere in the ER Notes. Please clarify below: ( ) Patient had Lemos Catheter replacement (X ) Patient did not have Lemos Catheter replacement ( ) Other Please Explain: Physician's Response(s): Thank you Bonifacio Farley Principal Diagnosis: "_that condition established after study, to be chiefly responsible for occasioning the admission of the patient to the hospital for care." Co-Existing Principal Diagnosis: "_when two or more diagnoses equally meet the criteria for principal diagnosis as determined by the circumstances of admission, diagnostic work up, and/or therapy provided, and the Alphabetic Index, Tabular List, or another coding guideline does not provide sequencing direction, any one of the diagnoses may be sequenced first." "When the physician has documented what appears to be a current diagnosis in the body of the record, but has not included the diagnosis in the final diagnostic statement, the physician should be asked whether the diagnosis should be added." (Source Coding Clinic 2 QTR90. p3-4)
[2017-01-06] MEDS ORDERED: MTR500 PO (11:24)
[2017-01-06] MEDS ORDERED: LACT10CA3 PO (11:27)
[2017-01-07] MEDS ORDERED: MTR500 PO (11:51)
== END 2016-07-13 20:10 | disposition home or self-care (01) ==
LOC: EDBD 16:09 → C.EDC 16:10
DX: R31.9 Hematuria, unspecified (principal); N39.0 Urinary tract infection, site not specified; R79.1 Abnormal coagulation profile; E11.9 Type 2 diabetes mellitus without complications; E78.5 Hyperlipidemia, unspecified; F32.9 Major depressive disorder, single episode, unspecified; G35 Multiple sclerosis; Z86.711 Personal history of pulmonary embolism; Z87.440 Personal history of urinary (tract) infections; Z90.710 Acquired absence of both cervix and uterus; Z90.49 Acquired absence of other specified parts of digestive tract; Z79.01 Long term (current) use of anticoagulants; Z79.4 Long term (current) use of insulin; Z79.899 Other long term (current) drug therapy

== ENCOUNTER 2017-01-04 00:41 | Inpatient (IN) | payer OTHER, BC ==
[~2017-01-04] VITALS: Ht 167.6 cm; Wt 72.7 kg
[2017-01-04] VITALS (7 sets, daily range): BP systolic 90–126; BP diastolic 62–84; PULSE 85–109; TEMP 36.4–37; O2SAT 96–97; Ht 167.6 cm; Wt 72.7 kg
[~2017-01-04 00:41] MED LIST changes: -KFL500 PO
[2017-01-04] MEDS ORDERED: SODIUM CHLORIDE 0.9% 1000ML 1,000 ML IV ONE (01:00)
[2017-01-04] MEDS ORDERED: AZTREONAM IV 2,000 MG in DEXTROSE 5% 100ML 100 ML IV ONE (01:15)
[2017-01-04] MEDS ORDERED: ACETAMINOPHEN IV 100 ML IV ONE (01:15)
[2017-01-04] MEDS ORDERED: DAPTOmycin IV 450 MG in SODIUM CHLORIDE 0.9% 50ML 50 ML IV ONE (01:15)
[2017-01-04 01:23] LABS: BASO % 0.2 %; BASO ABS # 0.03 K/uL (0-0.2); COMPLETE YES; EOS % 0.7 %; HEMATOCRIT 43.9 % (37-47); IG% 0.2 %; LYMPH % 21.3 %; LYMPH ABS # 3.55 K/uL (1.2-3.4); MEAN CELL VOLUME 88.7 fL (80-100); MEAN CORPUSCULAR HEMOGLOBIN 29.5 pg (25-34); MEAN CORPUSCULAR HGB CONC 33.3 g/dl (32-36); MEAN PLATELET VOLUME 9.7 fL (7.4-10.4); MONO % 8.5 %; NEUT % 69.1 %; PLATELET COUNT 315 K/uL (130-400); RED BLOOD COUNT 4.95 M/uL (4.2-5.4); WHITE BLOOD COUNT 16.63 K/uL (4.8-10.8)
[2017-01-04 01:41] LABS: BUN/CREATININE RATIO 19.9 (10-20); CALCIUM 8.7 mg/dl (8.5-10.1); CREATININE 0.77 mg/dl (0.60-1.20); MAGNESIUM 1.9 mg/dl (1.8-2.4); POTASSIUM 3.2 mmol/L (3.5-5.1)
[2017-01-04 01:43] LABS: INR 2.2 (0.9-1.1); PARTIAL THROMBOPLASTIN RATIO 1.9; PROTHROMBIN TIME (PATIENT) 24.8 SECONDS (9.0-12.0)
[2017-01-04 01:44] LABS: ALB/GLOB RATIO 0.7 (0.9-2)
[2017-01-04] MEDS ORDERED: DAPTOmycin IV 450 MG in SYRINGE 0 ML IV STA (01:51)
[2017-01-04 02:22] LABS: URINE APPEARANCE TURBID (CLEAR); URINE BILIRUBIN NEG (NEG); URINE COLOR YELLOW; URINE EPITHELIAL CELL AUTO >30 /lpf (0-5); URINE NITRITE POS (NEG); URINE SPECIFIC GRAVITY 1.022 (1.000-1.030); UROBILINOGEN NEG (NEG); ZZURINE CULT IF INDIC CATH YES
[2017-01-04 02:30] LABS: MANUAL MICROSCOPIC REQUIRED? NO; REVIEW REQ? YES
[2017-01-04] MEDS ORDERED: ACETAMINOPHEN 325 MG TAB PO PRN (03:00)
--- NOTE | 2017-01-04 03:34 | History and Physical ---
History & Physical Date & Time of Service: Jan 04, 2017 at 03:14 Chief Complaint: Respiratory Diffiuclty, Fever Primary Care Physician: Bonifacio Avila M.D.(ARIELA) History of Present Illness Source: patient, spouse, clinic records, hospital records 66 year old female with PMH of MS, Neurogenic bladder with chronic Aguilar, recurrent UTI, bedridden presents to the ER with c/o fever and mild confusion. at bedside who is the caregiver. As per pt has been doing fine, until yesterday morning developed a low grade fever associated with weakness. said that as the day progress her fever progressed with temp 102 F and she became confused. said that she had a low appetite and feel weak. Her urine was dark. said usually when she felt like that was when she had an infection. Pt denies any chest pain, shortness of breath, palpitation, nausea, vomiting. In the ER, Lab showed elevated WBC and her UA suggests UTI Labs. Received dapto, IVF and Aztreonam in the ER. said that pt is back to her baseline now. 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, poor surgical candidate CT abd 02/18/14 [facility] hypodense mass 11 cm in greatest diameter CT chest 03/28/12 [facility] lobulated cystic lesion 7.5 cm in greatest diameter CT chest 01/04/06 LUQ bilobed cystic structure 5.1 cm in greatest diameter Status: Chronic (2) Depression Status: Chronic (3) Diabetes mellitus, type II Status: Chronic (4) Dyslipidemia Status: Chronic (5) History of pulmonary embolism Permanent Comment: May 2012, on chronic warfarin therapy Status: Chronic (6) Multiple sclerosis Status: Chronic (7) Neurogenic bladder Status: Chronic (8) Recurrent UTI Status: Chronic Surgical Problems: (1) Status post hysterectomy Status: Chronic (2) Status post partial colectomy Permanent Comment: 1995 ? diverticular abscess w/ colostomy s/p reversal Status: Chronic Family History Cardiac disorder FATHER Social History Smoking Status: Former Smoker Drug Use: none Marital Status: Housing status: lives with family Immunizations History of Influenza Vaccine: Yes Influenza Vaccine Date: Nov 03, 2015 History of Tetanus Vaccine?: Yes Tetanus Immunization Date: Dec 06, 2007 History of Pneumococcal: Yes Pneumococcal Date: Aug 08, 2014 Multi-Drug Resistant Organisms History of MDRO: No Allergies Coded Allergies: Levofloxacin (Verified Allergy, Unknown, 01/04/17) Clavulanic Acid (Verified Adverse Reaction, Intermediate, GI INTOLERANCE ( AUGMENTIN), 01/04/17) Penicillins (Verified Adverse Reaction, Intermediate, GI INTOLERANCE ( AUGMENTIN), 01/04/17) Home Medications Scheduled Ascorbic Acid (Ascorbic Acid), 500 MG PO HS Atorvastatin (Lipitor), 40 MG PO DAILY Cranberry (Vaccinium Macrocarp (Cranberry), 300 MG PO QAM Ergocalciferol (Vitamin D2), 1 TAB PO DAILY Insulin Glargine (Lantus Solostar), 10 UNITS SC AMPM Lisinopril (Lisinopril), 5 MG PO DAILY Methenamine Hippurate (Methenamine Hippurate), 1 GM PO BID Oxybutynin Chloride (Ditropan), 5 MG PO TID Paroxetine (Paroxetine HCl), 40 MG PO QAM Warfarin Sodium (Warfarin Sodium), 5 MG PO 4XWK Warfarin Sodium (Coumadin), 2.5 MG PO 3XWK Scheduled PRN Acetaminophen (Tylenol), 650 MG PO Q4H PRN for Pain or Fever Docusate Sodium (Colace), 100 MG PO DAILY PRN for Constipation Polyethylene Glycol 3350 (Miralax), 1 TBS PO DAILY PRN for Constipation Review of Systems Constitutional: + fever, + weakness Eyes: No eye pain, No redness ENT: No nasal symptoms, No sore throat Respiratory: No cough, No sputum, No shortness of breath Cardiovascular: No chest pain, No claudication, No palpitations Abdomen: No pain, No nausea, No vomiting Musculoskeletal: No calf pain Genitourinary - Female: + problem reported (Neurogenic bladder with chronic aguilar cath) Neurologic: + weakness Psychiatric: No substance abuse Endocrine: No excessive thirst Hematologic / Lymphatic: No abnormal bleeding/bruising Integumentary: No rash, No itch Physical Exam Vital Signs Date Time Temp Pulse Resp B/P (MAP) Pulse Ox O2 Delivery O2 Flow Rate FiO2 01/04/17 03:02 37.3 90 16 112/53 92 Room Air 01/04/17 02:01 86 20 109/64 97 Room Air 01/04/17 01:17 38.4 112 22 134/80 94 Room Air 01/04/17 01:14 96 Room Air 01/04/17 00:47 108 General Appearance: WD/WN, no apparent distress Head: normocephalic, atraumatic Eyes: PERRL, EOMI ENT: hearing grossly normal Neck: no JVD, trachea midline Respiratory/Chest: normal breath sounds, no respiratory distress, no accessory muscle use Cardiovascular: no edema, no JVD Abdomen/GI: normal bowel sounds, non tender Genitourinary - Female: + pertinent finding (aguilar cath in place) Back: no CVA tenderness Extremities/Musculoskelatal: no calf tenderness Neurologic/Psych: alert, normal mood/affect, oriented x 3 Skin: no rash Diagnostics Laboratory Results Results Past 24 Hours Test 01/04/17 01:00 01/04/17 01:05 01/04/17 01:07 01/04/17 02:05 Range/Units White Blood Count 16.63 4.8-10.8 K/uL Red Blood Count 4.95 4.2-5.4 M/uL Hemoglobin 14.6 12.0-16.0 g/dL Hematocrit 43.9 37-47 % Mean Corpuscular Volume 88.7 80-100 fL Mean Corpuscular Hemoglobin 29.5 25-34 pg Mean Corpuscular Hemoglobin Concent 33.3 32-36 g/dl Platelet Count 315 130-400 K/uL Mean Platelet Volume 9.7 7.4-10.4 fL Neutrophils (%) (Auto) 69.1 % Lymphocytes (%) (Auto) 21.3 % Monocytes (%) (Auto) 8.5 % Eosinophils (%) (Auto) 0.7 % Basophils (%) (Auto) 0.2 % Neutrophils # (Auto) 11.50 1.4-6.5 K/uL Lymphocytes # (Auto) 3.55 1.2-3.4 K/uL Monocytes # (Auto) 1.41 0.11-0.59 K/uL Eosinophils # (Auto) 0.11 0-0.5 K/uL Basophils # (Auto) 0.03 0-0.2 K/uL RDW Standard Deviation 48.8 36.4-46.3 fL RDW Coefficient of Variation 15.4 11.5-14.5 % Immature Granulocyte % (Auto) 0.2 % Immature Granulocyte # (Auto) 0.03 0.00-0.02 K/uL Prothrombin Time 24.8 9.0-12.0 SECONDS Prothromb Time International Ratio 2.2 0.9-1.1 Activated Partial Thromboplast Time 48.7 21.0-31.0 SECONDS Partial Thromboplastin Ratio 1.9 Sodium Level 142 136-145 mmol/L Potassium Level 3.2 3.5-5.1 mmol/L Chloride Level 107 98-107 mmol/L Carbon Dioxide Level 25 21-32 mmol/L Anion Gap 10.0 3-11 mmol/L Blood Urea Nitrogen 15 7-18 mg/dl Creatinine 0.77 0.60-1.20 mg/dl Est Creatinine Clear Calc Drug Dose 73.5 ml/min Estimated GFR () 94.6 Estimated GFR (Non- 81.6 BUN/Creatinine Ratio 19.9 10-20 Random Glucose 135 70-99 mg/dl Calcium Level 8.7 8.5-10.1 mg/dl Magnesium Level 1.9 1.8-2.4 mg/dl Total Bilirubin 0.4 0.2-1 mg/dl Aspartate Amino Transf (AST/SGOT) 14 15-37 U/L Alanine Aminotransferase (ALT/SGPT) 32 12-78 U/L Alkaline Phosphatase 127 45-117 U/L Total Protein 7.5 6.4-8.2 gm/dl Albumin 3.1 3.4-5.0 gm/dl Globulin 4.4 2.5-4.0 gm/dl Albumin/Globulin Ratio 0.7 0.9-2 Bedside Troponin I < 0.030 0-0.045 ng/ml Bedside Lactic Acid Venous 0.91 0.90-1.70 mmol/L Urine Color YELLOW Urine Appearance TURBID CLEAR Urine pH 7.0 4.5-7.5 Urine Specific [place] 1.022 1.000-1.030 Urine Protein 3+ NEG Urine Glucose (UA) NEG NEG Urine Ketones NEG NEG Urine Occult Blood 3+ NEG Urine Nitrite POS NEG Urine Bilirubin NEG NEG Urine Urobilinogen NEG NEG Urine Leukocyte Esterase LARGE NEG Urine WBC (Auto) >30 0-5 /hpf Urine RBC (Auto) 10-30 0-4 /hpf Urine Hyaline Casts (Auto) 0 0-5 /lpf Urine Epithelial Cells (Auto) >30 0-5 /lpf Urine Bacteria (Auto) 4+ NEG Urine Crystals TRIPLE PHOSPHATE NONE PRSENT Urine Pathogenic Casts 0 /lpf Urine Yeast (Auto) PRESENT NONE PRSENT Microbiology Results 01/04/17 Blood Culture, Received Pending 01/04/17 Blood Culture, Received Pending 01/04/17 Urine Culture, Received Pending No Infiltrate Impression Assessment and Plan UTI Meet Sepsis criteria on admission with elevating WBC/Fever with Temp 38.4/ Tachycardia and UA suggests UTI Received Dapto and Aztreonam in the ER will start on Rocephin, adjust per culture results blood and urine cultures obtained Monitor CBC GENERALIZED WEAKNESS PT/OT fall precaution HYPOKALEMIA K replaced Monitor BMP DM II Hgba1c 6.8 on 06/07 Will decrease Lantus to 5 unit BID Will start on insulin coverage while hospitalized HX PE On Coumadin, INR 2.2 Continue coumadin Will monitor INR HTN BP controlled Continue Lisinopril DVT PROPHYLAXIS On Coumadin with therapeutic INR CODE STATUS Patient is a full code as per my discussion with her. DISPO In my clinical judgment this beneficiary meets acute admission criteria, established by [facility], that includes being hospitalized through two midnights. Level of Care Med/Surg Resuscitation Status FULL RESUSCITATION VTE Prophylaxis VTE Risk Assessment Done? Y/N: Yes Risk Level: Moderate Given or contraindicated: Warfarin (Coumadin)
[2017-01-04] MEDS ORDERED: POTASSIUM CHLORIDE 20 MEQ TABCR PO STA (04:07)
[2017-01-04] MEDS ORDERED: GLUCAGON FOR INJ 1 MG VIAL SQ PRN (04:15)
[2017-01-04] MEDS ORDERED: DEXTROSE 50% 50 ML SYR IV PRN (04:15)
[2017-01-04] MEDS ORDERED: SODIUM CHLORIDE 0.9% 1000ML 1,000 ML IV SCH (04:15)
[2017-01-04] MEDS ORDERED: GLUCOSE 10 TABS/TUBE PO PRN (04:15)
[2017-01-04] MEDS ORDERED: GLUCOSE 40% GEL 15 GM TUBE PO PRN (04:15)
[2017-01-04] MEDS: CEFTRIAXONE SOD INJ 1 GM in DEXTROSE 5% ADD-VANTAGE 50ML 50 ML IV SCH (04:49)
--- NOTE | 2017-01-04 06:04 | EMERGENCY ROOM VISIT NOTE ---
History First contact with patient: 00:46 Chief Complaint: FEVER Stated Complaint: FEVER, UTI History of Present Illness The patient is a 66 year old female who presents to the Emergency Room via ambulance for evaluation of fever. The patient has a history of diabetes and multiple sclerosis. She is essentially bedridden and has a chronic indwelling Lemos catheter. The patient lives with her who is her primary caregiver. The reports the patient developed a fever last night, and has been acting more confused than normal. The patient has been eating and drinking as normal. She does not report chest pain or abdominal pain. The patient has a history of sepsis in the past. She rates her discomfort a 5/10. Review of Systems More than 10 systems were reviewed and otherwise negative with the exception of history of present illness. Past Medical/Surgical History Medical Problems: (1) Abdominal mass (2) Depression (3) Diabetes mellitus, type II (4) Dyslipidemia (5) Fever (6) History of pulmonary embolism (7) Multiple sclerosis (8) Neurogenic bladder (9) Recurrent UTI Surgical Problems: (1) Status post hysterectomy (2) Status post partial colectomy Family History Cardiac disorder FATHER Social History Smoking Status: Former Smoker Alcohol Use: none Drug Use: none Marital Status: Housing Status: lives with family Current/Historical Medications Scheduled Ascorbic Acid (Ascorbic Acid), 500 MG PO HS Atorvastatin (Lipitor), 40 MG PO DAILY Cranberry (Vaccinium Macrocarp (Cranberry), 300 MG PO QAM Ergocalciferol (Vitamin D2), 1 TAB PO DAILY Insulin Glargine (Lantus Solostar), 10 UNITS SC AMPM Lisinopril (Lisinopril), 5 MG PO DAILY Methenamine Hippurate (Methenamine Hippurate), 1 GM PO BID Oxybutynin Chloride (Ditropan), 5 MG PO TID Paroxetine (Paroxetine HCl), 40 MG PO QAM Warfarin Sodium (Warfarin Sodium), 5 MG PO 4XWK Warfarin Sodium (Coumadin), 2.5 MG PO 3XWK Scheduled PRN Acetaminophen (Tylenol), 650 MG PO Q4H PRN for Pain or Fever Docusate Sodium (Colace), 100 MG PO DAILY PRN for Constipation Polyethylene Glycol 3350 (Miralax), 1 TBS PO DAILY PRN for Constipation Physical Exam Vital Signs Date Time Temp Pulse Resp B/P (MAP) Pulse Ox O2 Delivery O2 Flow Rate FiO2 01/04/17 02:01 86 20 109/64 97 Room Air 01/04/17 01:17 38.4 112 22 134/80 94 Room Air 01/04/17 01:14 96 Room Air 01/04/17 00:47 108 Physical Exam VITALS: Vitals are noted on the nurse's note and reviewed by myself. Vital signs with fever and tachycardia GENERAL: Chronically ill-appearing white female who appears mildly confused. She will answer questions slowly and deliberately. She is incontinent of stool. HEART: Regular rate and rhythm without murmurs gallops or rubs. LUNGS: Clear to auscultation bilaterally without wheezes, rales or rhonchi. No retractions or accessory muscle use. ABDOMEN: Positive normal bowel sounds x 4. Soft, nontender, without masses or organomegaly. No guarding or rebound tenderness. MUSCULOSKELETAL: No muscle atrophy, erythema, or edema noted. SKIN: The skin was with extensive skin breakdown in the decubitus area and posterior buttocks. Additional skin breakdown is appreciated in the lower extremities and toes. This is best described by nursing notes. Medical Decision & Procedures Laboratory Results 01/04/17 01:00 Red Blood Count 4.95, Mean Corpuscular Volume 88.7, Mean Corpuscular Hemoglobin 29.5, Mean Corpuscular Hemoglobin Concent 33.3, Mean Platelet Volume 9.7, Neutrophils (%) (Auto) 69.1, Lymphocytes (%) (Auto) 21.3, Monocytes (%) (Auto) 8.5, Eosinophils (%) (Auto) 0.7, Basophils (%) (Auto) 0.2, Neutrophils # (Auto) 11.50, Lymphocytes # (Auto) 3.55, Monocytes # (Auto) 1.41, Eosinophils # (Auto) 0.11, Basophils # (Auto) 0.03 01/04/17 01:00 Test 01/04/17 01:00 01/04/17 01:05 01/04/17 01:07 01/04/17 02:05 White Blood Count 16.63 K/uL (4.8-10.8) Red Blood Count 4.95 M/uL (4.2-5.4) Hemoglobin 14.6 g/dL (12.0-16.0) Hematocrit 43.9 % (37-47) Mean Corpuscular Volume 88.7 fL (80-100) Mean Corpuscular Hemoglobin 29.5 pg (25-34) Mean Corpuscular Hemoglobin Concent 33.3 g/dl (32-36) Platelet Count 315 K/uL (130-400) Mean Platelet Volume 9.7 fL (7.4-10.4) Neutrophils (%) (Auto) 69.1 % Lymphocytes (%) (Auto) 21.3 % Monocytes (%) (Auto) 8.5 % Eosinophils (%) (Auto) 0.7 % Basophils (%) (Auto) 0.2 % Neutrophils # (Auto) 11.50 K/uL (1.4-6.5) Lymphocytes # (Auto) 3.55 K/uL (1.2-3.4) Monocytes # (Auto) 1.41 K/uL (0.11-0.59) Eosinophils # (Auto) 0.11 K/uL (0-0.5) Basophils # (Auto) 0.03 K/uL (0-0.2) RDW Standard Deviation 48.8 fL (36.4-46.3) RDW Coefficient of Variation 15.4 % (11.5-14.5) Immature Granulocyte % (Auto) 0.2 % Immature Granulocyte # (Auto) 0.03 K/uL (0.00-0.02) Prothrombin Time 24.8 SECONDS (9.0-12.0) Prothromb Time International Ratio 2.2 (0.9-1.1) Activated Partial Thromboplast Time 48.7 SECONDS (21.0-31.0) Partial Thromboplastin Ratio 1.9 Anion Gap 10.0 mmol/L (3-11) Est Creatinine Clear Calc Drug Dose 73.5 ml/min Estimated GFR () 94.6 Estimated GFR (Non- 81.6 BUN/Creatinine Ratio 19.9 (10-20) Calcium Level 8.7 mg/dl (8.5-10.1) Magnesium Level 1.9 mg/dl (1.8-2.4) Total Bilirubin 0.4 mg/dl (0.2-1) Aspartate Amino Transf (AST/SGOT) 14 U/L (15-37) Alanine Aminotransferase (ALT/SGPT) 32 U/L (12-78) Alkaline Phosphatase 127 U/L (45-117) Total Protein 7.5 gm/dl (6.4-8.2) Albumin 3.1 gm/dl (3.4-5.0) Globulin 4.4 gm/dl (2.5-4.0) Albumin/Globulin Ratio 0.7 (0.9-2) Bedside Troponin I < 0.030 ng/ml (0-0.045) Bedside Lactic Acid Venous 0.91 mmol/L (0.90-1.70) Urine Color YELLOW Urine Appearance TURBID (CLEAR) Urine pH 7.0 (4.5-7.5) Urine Specific [place] 1.022 (1.000-1.030) Urine Protein 3+ (NEG) Urine Glucose (UA) NEG (NEG) Urine Ketones NEG (NEG) Urine Occult Blood 3+ (NEG) Urine Nitrite POS (NEG) Urine Bilirubin NEG (NEG) Urine Urobilinogen NEG (NEG) Urine Leukocyte Esterase LARGE (NEG) Urine WBC (Auto) >30 /hpf (0-5) Urine RBC (Auto) 10-30 /hpf (0-4) Urine Hyaline Casts (Auto) 0 /lpf (0-5) Urine Epithelial Cells (Auto) >30 /lpf (0-5) Urine Bacteria (Auto) 4+ (NEG) Urine Crystals TRIPLE PHOSPHATE Urine Pathogenic Casts /lpf (0) Urine Yeast (Auto) PRESENT (NONE PRSENT) Medications Administered Medications (Trade) Dose Ordered Sig/Dwain Route Start Time Stop Time Status Last Admin Dose Admin Sodium Chloride 1,000 ml @ 999 mls/hr Q1H1M ONCE IV 01/04/17 01:00 01/04/17 02:00 DC 01/04/17 01:13 999 MLS/HR Aztreonam 2000 mg/ Dextrose 110 ml @ 100 mls/hr NOW ONCE IV 01/04/17 01:15 01/04/17 02:20 DC 01/04/17 01:59 100 MLS/HR Acetaminophen 100 ml @ 400 mls/hr NOW ONCE IV 01/04/17 01:15 01/04/17 01:29 DC 01/04/17 01:12 400 MLS/HR Daptomycin 450 mg/ Syringe 9 ml @ 4.5 mls/min NOW STAT IV 01/04/17 01:51 01/04/17 01:52 DC 01/04/17 01:57 4.5 MLS/MIN ED Course Physical exam and history were performed. Nursing notes, EMR, and Medication List were personally reviewed. Patient appears to have fever for the past one day with confusion. The patient appears ill on examination and she is tachycardic. IV access was established and labs were obtained. The patient was aggressively hydrated with normal saline and given IV daptomycin and aztreonam. We did replace the Lemos catheter with a new one, and urine was sent to the lab. The patient's skin is with notable decubitus ulceration as described by the nursing notes, and she was cared for here with decubitus precautions. The patient's blood work is as above and was reviewed. She has an elevated white blood cell count greater than 16,000. Her lactic acid is negative with blood cultures pending. Her remaining blood work is as above. The patient was reevaluated multiple times with course of her stay. She did slowly improve with fluids and antibiotics back to her mental baseline. Her indicates that she seems back to normal, and she is much more interactive and speaking appropriately. I discussed the case with the on-call [facility] hospitalist as I am concerned for sepsis. Please see their dictation for further patient course, plan, and disposition. The chart was completed utilizing [employer] Speech Voice Recognition Software. Grammatical errors, random word insertions, pronoun errors, and incomplete sentences are an occasional consequence of this system due to software limitations, ambient noise, and hardware issues. Any formal questions or concerns about the content, text, or information contained within the body of this dictation should be directly addressed to the provider for clarification. . Medical Decision Differential diagnosis: Etiologies such as sepsis, UTI, pneumonia, metabolic, electrolyte abnormalities , cardiac sources, intracerebral event, toxicologic, neurologic, as well as others were entertained. Impression Primary Impression: Sepsis Additional Impressions: Decubitus ulcer UTI (urinary tract infection) Departure Information Dispostion Admitted as an inpatient Condition FAIR Referrals Bonifacio Avila M.D.(HUGH) (PCP) Forms HOME CARE DOCUMENTATION FORM, IMPORTANT VISIT INFORMATION Patient Instructions [facility] Problem Qualifiers
--- NOTE | 2017-01-04 06:39 | DIAGNOSTIC IMAGING REPORT ---
CHEST ONE VIEW PORTABLE HISTORY: 66 years-old Female Fever. Sepsis acute fever and sepsis COMPARISON: Chest radiograph 02/15/2016 TECHNIQUE: Semiupright portable AP view of the chest FINDINGS: Study is limited secondary to patient rotation and side bent to the right. Patient's chin partially obscures the right lung apex. There is no pneumothorax, pleural effusion, focal airspace consolidation or overt pulmonary edema. Moderate cardiomegaly. Linear subsegmental right perihilar opacity is again noted suggesting atelectasis or scarring. Mild right hemidiaphragmatic elevation is unchanged. Bones of the chest appear grossly intact. IMPRESSION: Stable exam without acute cardiopulmonary process. The above report was generated using voice recognition software. It may contain grammatical, syntax or spelling errors. Electronically signed by: Julien Mejia M.D. 01/04/2017 6:38 AM Dictated Date/Time: 01/04/2017 6:36 AM
[2017-01-04] MEDS: PAROXETINE 20 MG TAB PO SCH (07:56)
[2017-01-04] MEDS: OXYBUTYNIN CHLORIDE 5 MG TAB PO SCH ×3 (07:56→20:10)
[2017-01-04] MEDS: METHENAMINE HIPPURATE 1 GM TAB PO SCH ×2 (07:56→20:09)
[2017-01-04] MEDS: CHOLECALCIFEROL 400 INTER.UNIT TAB PO SCH (07:56)
[2017-01-04] MEDS: ATORVASTATIN 20 MG TAB PO SCH (07:57)
[2017-01-04] MEDS ORDERED: CRANBERRY PO SCH (08:00)
[2017-01-04] MEDS ORDERED: INSULIN GLARGINE SOLOSTAR 100 UNITS/ML 3 ML PEN SC SCH (08:00)
[2017-01-04] MEDS: LISINOPRIL 5 MG TAB PO SCH (08:52)
[2017-01-04] MEDS: INSULIN GLARGINE SOLOSTAR 100 UNITS/ML 3 ML PEN SC SCH ×2 (08:54→20:13)
[2017-01-04 10:01] LABS: HEMATOCRIT 41.3 % (37-47); MEAN CELL VOLUME 89.4 fL (80-100); MEAN CORPUSCULAR HEMOGLOBIN 29.4 pg (25-34); MEAN CORPUSCULAR HGB CONC 32.9 g/dl (32-36); MEAN PLATELET VOLUME 9.6 fL (7.4-10.4); PLATELET COUNT 271 K/uL (130-400); RED BLOOD COUNT 4.62 M/uL (4.2-5.4); WHITE BLOOD COUNT 16.38 K/uL (4.8-10.8)
[2017-01-04 10:09] LABS: INR 2.6 (0.9-1.1); PROTHROMBIN TIME (PATIENT) 29.4 SECONDS (9.0-12.0)
[2017-01-04 10:19] LABS: BUN/CREATININE RATIO 26.4 (10-20); CALCIUM 8.6 mg/dl (8.5-10.1); CREATININE 0.62 mg/dl (0.60-1.20); POTASSIUM 3.2 mmol/L (3.5-5.1)
[2017-01-04] MEDS ORDERED: MICONAZOLE NITRATE POWDER 43 GM EXT PRN (12:45)
[2017-01-04] MEDS ORDERED: WARFARIN SOD 5 MG TAB PO SCH (16:00)
--- NOTE | 2017-01-04 19:44 | Progress Note ---
Progress Note Date of Service Jan 04, 2017. Progress Note Pt admitted earlier today , please see the H&P for detail 66 yo F with hx of multiple Sclerosis presented with fever and confusion pt has neurogenic bladder has chronic indwelling catheter UA + ve mental status improved after IV fluids and IV hydration confusion /changed mental status due to metabolic encephalopathy due to infection -UTI related to chronic indwelling Lemos dehydration has episodes of diarrhea , stool incontinence stool ordered for C diff
[2017-01-04] MEDS: ASCORBIC ACID 500 MG TAB PO SCH (20:08)
[2017-01-04] MEDS ORDERED: NURSING VERBAL MED ORDER ONE (21:45)
[2017-01-04] MEDS ORDERED: METRONIDAZOLE 500 MG TAB PO STA (21:48)
[2017-01-05] MEDS: CEFTRIAXONE SOD INJ 1 GM in DEXTROSE 5% ADD-VANTAGE 50ML 50 ML IV SCH (04:23)
[2017-01-05 07:17] VITALS: BP 134/73; PULSE 97; TEMP 36.7; O2SAT 97
--- NOTE | 2017-01-05 08:17 | Clinical Documentation Query ---
JOANNE Mena : CLINICAL DOCUMENTATION QUERY Patient is a 66 year old female presenting for evaluation and treatment of fever and confusion. Noted to have a chronic indwelling Lemos catheter, recurrent UTI's, and fecal incontinence in the setting of positive C.Diff stool study. Consider clarification as suggested below as clinically appropriate such that appropriate DRG assignment can occur. Thank you. In your clinical opinion is this patient being managed for: ( x ) Metabolic encephalopathy on admission, secondary to catheter associated UTI and Clostridium Difficile enteritis ( ) Not Agree ( ) Other explanation of clinical findings (Please Explain) ( ) Unable to determine (Please Define) ( ) Need to Discuss The medical record reflects the following clinical findings, treatment, and risk factors. Clinical Indicators: As above Treatment: IV antibiotics, cultures, serial labs, IVF, oral Flagyl Risk Factors: MS, skin wounds, incontinence, generalized debility. Please clarify and document your clinical opinion in the progress notes and discharge summary. Terms such as "probable", "suspected", "likely", "questionable", "possible", or "still to be ruled out" are acceptable. IF IN AGREEMENT, YOU MUST DOCUMENT ABOVE DIAGNOSTIC STATEMENT IN DAILY PROGRESS NOTES AND DISCHARGE SUMMARY. This document is not part of the patient's record. Thank You, Madi Avendano, RN [phone]
[2017-01-05] MEDS: ATORVASTATIN 20 MG TAB PO SCH (08:37)
[2017-01-05] MEDS: OXYBUTYNIN CHLORIDE 5 MG TAB PO SCH ×3 (08:37→20:14)
[2017-01-05] MEDS: METRONIDAZOLE 500 MG TAB PO SCH ×3 (08:37→20:14)
[2017-01-05] MEDS: PAROXETINE 20 MG TAB PO SCH (08:37)
[2017-01-05] MEDS: CHOLECALCIFEROL 400 INTER.UNIT TAB PO SCH (08:37)
[2017-01-05] MEDS: METHENAMINE HIPPURATE 1 GM TAB PO SCH ×2 (08:37→20:13)
[2017-01-05] MEDS: LISINOPRIL 5 MG TAB PO SCH (08:38)
[2017-01-05] MEDS: INSULIN GLARGINE SOLOSTAR 100 UNITS/ML 3 ML PEN SC SCH ×2 (08:40→20:19)
[2017-01-05 15:26] VITALS: BP 119/75; PULSE 96; TEMP 36.8; O2SAT 99
[2017-01-05] MEDS ORDERED: WARFARIN SOD 2.5 MG TAB PO SCH (16:00)
[2017-01-05 16:05] VITALS: O2SAT 96
[2017-01-05 16:52] LABS: PROTHROMBIN TIME (PATIENT) 33.7 SECONDS (9.0-12.0)
--- NOTE | 2017-01-05 17:05 | Progress Note ---
Internal Med Progress Note Date of Service: Jan 05, 2017. Provider Documentation: SUBJECTIVE: pt mentions of feeling fine , no fever or chills diarrhea has resolved, conversing -awake and alert watching TV denies of any discomfort wants to know when she can return home OBJECTIVE: Vital Signs-as noted below Exam: General-pleasant , no apparent distress Eyes-sclera non icteric Neck-no thyromegaly , trachea midline Lungs-no wheeze or rales Heart-regular S1/S2 Abdomen-soft, non tender Extremities-bilateral lower ext contracted -chronic Neuro-AAO x3 , multiple sclerosis , contracted lower ext with minimum mobility Lab data as noted below. ASSESSMENT & PLAN: C DIFF COLITIS : stool + ve C diff started on PO Flagyl 500 mg TID -will need total 10 days tx cont contact precaution diarrhea has resolved no complain of abdominal pain , no nausea appetite normal CONFUSION /METABOLIC ENCEPHALOPATHY due to above resolved mental status improved to baseline awake and alert , conversing appropriately NEUROGENIC BLADDER /CHRONIC INDWELLING GANDHI due to multiple sclerosis Hx of recurrent UTI urine culture > 3 organisms will DC Abx HYPOKALEMIA due to GI loss -diarrhea K replaced Monitor BMP DM II Hgba1c 6.8 on 06/07 Insulin SSI HX PE On Coumadin, monitor INR HTN BP controlled Continue Lisinopril DVT PROPHYLAXIS On Coumadin with therapeutic INR CODE STATUS Patient is a full code DISPOSITION possible discharge home tomorrow Vital Signs: Date Time Temp Pulse Resp B/P (MAP) Pulse Ox O2 Delivery O2 Flow Rate FiO2 01/06/17 11:18 36.7 80 16 112/74 (87) 95 01/06/17 10:44 98 Room Air 01/06/17 07:21 36.5 72 16 138/74 (95) 98 01/06/17 00:05 Room Air 01/05/17 23:56 37.2 86 20 124/72 (89) 98 Room Air 01/05/17 16:05 96 Room Air 01/05/17 15:26 36.8 96 20 119/75 (90) 99 Room Air Lab Results: Results Past 24 Hours Test 01/05/17 16:06 01/05/17 16:26 01/05/17 20:09 01/06/17 07:58 Range/Units Prothrombin Time 33.7 30.6 9.0-12.0 SECONDS Prothromb Time International Ratio 3.0 2.7 0.9-1.1 Bedside Glucose 114 187 70-90 mg/dl White Blood Count 8.76 4.8-10.8 K/uL Red Blood Count 4.17 4.2-5.4 M/uL Hemoglobin 12.0 12.0-16.0 g/dL Hematocrit 36.9 37-47 % Mean Corpuscular Volume 88.5 80-100 fL Mean Corpuscular Hemoglobin 28.8 25-34 pg Mean Corpuscular Hemoglobin Concent 32.5 32-36 g/dl RDW Standard Deviation 48.8 36.4-46.3 fL RDW Coefficient of Variation 15.3 11.5-14.5 % Platelet Count 221 130-400 K/uL Mean Platelet Volume 9.5 7.4-10.4 fL Sodium Level 146 136-145 mmol/L Potassium Level 3.1 3.5-5.1 mmol/L Chloride Level 112 98-107 mmol/L Carbon Dioxide Level 25 21-32 mmol/L Anion Gap 9.0 3-11 mmol/L Blood Urea Nitrogen 13 7-18 mg/dl Creatinine 0.57 0.60-1.20 mg/dl Est Creatinine Clear Calc Drug Dose 101.8 ml/min Estimated GFR () 113.5 Estimated GFR (Non- 98.0 BUN/Creatinine Ratio 23.4 10-20 Random Glucose 114 70-99 mg/dl Calcium Level 8.5 8.5-10.1 mg/dl Microbiology Results 01/05/17 Urine Culture, Received Pending
[2017-01-05] MEDS: ASCORBIC ACID 500 MG TAB PO SCH (20:14)
[2017-01-05 23:56] VITALS: BP 124/72; PULSE 86; TEMP 37.2; O2SAT 98
[2017-01-06 07:21] VITALS: BP 138/74; PULSE 72; TEMP 36.5; O2SAT 98
[2017-01-06 08:11] LABS: HEMATOCRIT 36.9 % (37-47); MEAN CELL VOLUME 88.5 fL (80-100); MEAN CORPUSCULAR HEMOGLOBIN 28.8 pg (25-34); MEAN CORPUSCULAR HGB CONC 32.5 g/dl (32-36); MEAN PLATELET VOLUME 9.5 fL (7.4-10.4); PLATELET COUNT 221 K/uL (130-400); RED BLOOD COUNT 4.17 M/uL (4.2-5.4); WHITE BLOOD COUNT 8.76 K/uL (4.8-10.8)
[2017-01-06 08:20] LABS: INR 2.7 (0.9-1.1); PROTHROMBIN TIME (PATIENT) 30.6 SECONDS (9.0-12.0)
[2017-01-06 08:41] LABS: BUN/CREATININE RATIO 23.4 (10-20); CALCIUM 8.5 mg/dl (8.5-10.1); CREATININE 0.57 mg/dl (0.60-1.20); POTASSIUM 3.1 mmol/L (3.5-5.1)
[2017-01-06] MEDS: METRONIDAZOLE 500 MG TAB PO SCH ×3 (09:02→21:23)
[2017-01-06] MEDS: OXYBUTYNIN CHLORIDE 5 MG TAB PO SCH ×3 (09:02→21:22)
[2017-01-06] MEDS: METHENAMINE HIPPURATE 1 GM TAB PO SCH ×2 (09:03→21:22)
[2017-01-06] MEDS: CHOLECALCIFEROL 400 INTER.UNIT TAB PO SCH (09:03)
[2017-01-06] MEDS: ATORVASTATIN 20 MG TAB PO SCH (09:03)
[2017-01-06] MEDS: PAROXETINE 20 MG TAB PO SCH (09:03)
[2017-01-06] MEDS: INSULIN GLARGINE SOLOSTAR 100 UNITS/ML 3 ML PEN SC SCH ×2 (09:56→21:25)
[2017-01-06 10:44] VITALS: O2SAT 98
[2017-01-06 11:18] VITALS: BP 112/74; PULSE 80; TEMP 36.7; O2SAT 95
[2017-01-06] MEDS ORDERED: MTR500 PO (11:24)
[2017-01-06] MEDS ORDERED: LACT10CA3 PO (11:27)
--- NOTE | 2017-01-06 11:28 | Discharge Instructions ---
Discharge Instructions Date of Service Jan 06, 2017. Admission Reason for Admission: Fever, Uti Discharge Discharge Diagnosis / Problem: C DIFF COLITIS Discharge Goals Goal(s): Decrease discomfort, Improve function, Improve disease control, Therapeutic intervention Activity Recommendations Activity Limitations: resume your previous activity . Instructions / Follow-Up Instructions / Follow-Up HOSPITAL FOLLOW UP : with Dr Bonifacio Avila MD Family Practice [facility] in a week C DIFF IS VERY CONTAGIOUS , IT IS SPREAD THROUGH DIRECT CONTACT PLEASE WASH YOU HAND WITH SOAP AND WATER , EVERY TIME YOU USE THE BATHROOM AND BEFORE EATING MEALS DO NOT SHARE CUP , PLATES , PERSONAL ITEMS WITH OTHER HOUSE HOLD MEMBERS WIPE HARD SURFACE -SINK /COUNTER TOPS - WITH CLOROX WIPE -EFFECTIVE IN KILLING THE SPORES OF C DIFF EVERY ONE IN THE HOUSEHOLD NEED TO WASH HAND WITH SOAP AND WATER PRIOR TO MEALS YOU CAN STILL BE CONTAGIOUS FOR 1-2 WEEKS AFTER COMPLETING ANTIBIOTIC CONTINUE TO OBSERVE STRICT HAND WASHING FOR THE WHOLE DURATION Current Hospital Diet Patient's current hospital diet: Diabetes Type 2 Diet Discharge Diet Recommended Diet: Low Fiber Diet (FOR 2 WEEKS, THAN RESUME REGULAR DIET ) Pending Studies Studies pending at discharge: no Medical Emergencies . Who to Call and When: Medical Emergencies: If at any time you feel your situation is an emergency, please call 911 immediately. . Non-Emergent Contact Non-Emergency issues call your: Primary Care Provider . . "Provider Documentation" section prepared by Nena Zuñiga. . VTE Core Measure Inpt VTE Proph given/why not?: Warfarin (Coumadin)
[2017-01-06 15:06] VITALS: BP 108/57; PULSE 87; TEMP 36.7; O2SAT 98
[2017-01-06 16:03] VITALS: O2SAT 96
--- NOTE | 2017-01-06 18:56 | Progress Note ---
Internal Med Progress Note Date of Service: Jan 06, 2017. Provider Documentation: SUBJECTIVE: no episode of diarrhea pt mentions of feeling well , tolerating diet D/w for discharge planning feels pt is still weak, having poor co -ordination , off from baseline wants pt to be observed in hospital for another 24-48 hrs till complete recovery OBJECTIVE: Vital Signs-as noted below Exam: General-pleasant , no apparent distress Eyes-sclera non icteric Neck-no thyromegaly , trachea midline Lungs-no wheeze or rales Heart-regular S1/S2 Abdomen-soft, non tender Extremities-bilateral lower ext contracted -chronic Neuro-AAO x3 , multiple sclerosis , contracted lower ext with minimum mobility Lab data as noted below. ASSESSMENT & PLAN: C DIFF COLITIS : stool + ve C diff started on PO Flagyl 500 mg TID -will need total 10 days tx cont contact precaution diarrhea has resolved no complain of abdominal pain , no nausea appetite normal pt and counselled for hand washing and contact isolation to prevent infection of C diff to others in household CONFUSION /METABOLIC ENCEPHALOPATHY due to above resolved mental status improved to baseline awake and alert , conversing appropriately NEUROGENIC BLADDER /CHRONIC INDWELLING GANDHI due to multiple sclerosis Hx of recurrent UTI urine culture > 3 organisms no abx needed HYPOKALEMIA due to GI loss -diarrhea K replaced Monitor BMP DM II Hgba1c 6.8 on 06/07 Insulin SSI HX PE On Coumadin, monitor INR HTN BP controlled Continue Lisinopril DVT PROPHYLAXIS On Coumadin with therapeutic INR CODE STATUS Patient is a full code DISPOSITION possible discharge home in 1-2 days Vital Signs: Date Time Temp Pulse Resp B/P (MAP) Pulse Ox O2 Delivery O2 Flow Rate FiO2 01/06/17 16:03 96 Room Air 01/06/17 15:06 36.7 87 20 108/57 (74) 98 Room Air 01/06/17 11:52 Room Air 01/06/17 11:18 36.7 80 16 112/74 (87) 95 01/06/17 10:44 98 Room Air 01/06/17 07:21 36.5 72 16 138/74 (95) 98 01/06/17 00:05 Room Air 01/05/17 23:56 37.2 86 20 124/72 (89) 98 Room Air Lab Results: Results Past 24 Hours Test 01/05/17 20:09 01/06/17 07:37 01/06/17 07:58 01/06/17 11:39 Range/Units Bedside Glucose 187 111 180 70-90 mg/dl White Blood Count 8.76 4.8-10.8 K/uL Red Blood Count 4.17 4.2-5.4 M/uL Hemoglobin 12.0 12.0-16.0 g/dL Hematocrit 36.9 37-47 % Mean Corpuscular Volume 88.5 80-100 fL Mean Corpuscular Hemoglobin 28.8 25-34 pg Mean Corpuscular Hemoglobin Concent 32.5 32-36 g/dl RDW Standard Deviation 48.8 36.4-46.3 fL RDW Coefficient of Variation 15.3 11.5-14.5 % Platelet Count 221 130-400 K/uL Mean Platelet Volume 9.5 7.4-10.4 fL Prothrombin Time 30.6 9.0-12.0 SECONDS Prothromb Time International Ratio 2.7 0.9-1.1 Sodium Level 146 136-145 mmol/L Potassium Level 3.1 3.5-5.1 mmol/L Chloride Level 112 98-107 mmol/L Carbon Dioxide Level 25 21-32 mmol/L Anion Gap 9.0 3-11 mmol/L Blood Urea Nitrogen 13 7-18 mg/dl Creatinine 0.57 0.60-1.20 mg/dl Est Creatinine Clear Calc Drug Dose 101.8 ml/min Estimated GFR () 113.5 Estimated GFR (Non- 98.0 BUN/Creatinine Ratio 23.4 10-20 Random Glucose 114 70-99 mg/dl Calcium Level 8.5 8.5-10.1 mg/dl Test 01/06/17 16:22 Range/Units Bedside Glucose 201 70-90 mg/dl
[2017-01-06] MEDS: LACTOBACILLUS ACIDOPHILUS (FLORANEX) TAB PO SCH (21:21)
[2017-01-06] MEDS: ASCORBIC ACID 500 MG TAB PO SCH (21:21)
[2017-01-06 23:48] VITALS: BP 140/80; PULSE 87; TEMP 37; O2SAT 91
[2017-01-07 07:25] VITALS: BP 123/80; PULSE 69; TEMP 36.8; O2SAT 95
[2017-01-07 07:37] LABS: INR 2.6 (0.9-1.1); PROTHROMBIN TIME (PATIENT) 29.4 SECONDS (9.0-12.0)
[2017-01-07 07:55] LABS: BUN/CREATININE RATIO 24.6 (10-20); CALCIUM 8.5 mg/dl (8.5-10.1); CREATININE 0.57 mg/dl (0.60-1.20); POTASSIUM 3.1 mmol/L (3.5-5.1)
[2017-01-07] MEDS: METRONIDAZOLE 500 MG TAB PO SCH ×3 (08:27→20:32)
[2017-01-07] MEDS: LACTOBACILLUS ACIDOPHILUS (FLORANEX) TAB PO SCH ×3 (08:27→18:39)
[2017-01-07] MEDS: ATORVASTATIN 20 MG TAB PO SCH (08:27)
[2017-01-07] MEDS: OXYBUTYNIN CHLORIDE 5 MG TAB PO SCH ×3 (08:27→20:34)
[2017-01-07] MEDS: PAROXETINE 20 MG TAB PO SCH (08:28)
[2017-01-07] MEDS: METHENAMINE HIPPURATE 1 GM TAB PO SCH ×2 (08:28→20:33)
[2017-01-07] MEDS: CHOLECALCIFEROL 400 INTER.UNIT TAB PO SCH (08:28)
[2017-01-07] MEDS: INSULIN GLARGINE SOLOSTAR 100 UNITS/ML 3 ML PEN SC SCH ×2 (08:29→20:37)
[2017-01-07] MEDS ORDERED: POTASSIUM CHLORIDE 10 MEQ TABCR PO STA (11:48)
--- NOTE | 2017-01-07 11:48 | Progress Note ---
Internal Med Progress Note Date of Service: Jan 07, 2017. Provider Documentation: SUBJECTIVE: Mentions of not able to sleep much last night feels tired -takes Trazodon at night for insomnia -which has been ordered no diarrhea or abdominal pain no fever or chills tolerating diet well OBJECTIVE: Vital Signs-as noted below Exam: General-pleasant , no apparent distress Eyes-sclera non icteric Neck-no thyromegaly , trachea midline Lungs-no wheeze or rales Heart-regular S1/S2 Abdomen-soft, non tender Extremities-bilateral lower ext contracted -chronic Neuro-AAO x3 , multiple sclerosis , contracted lower ext with minimum mobility Lab data as noted below. ASSESSMENT & PLAN: C DIFF COLITIS : stool + ve C diff started on PO Flagyl 500 mg TID -will need total 10 days tx cont contact precaution diarrhea has resolved no complain of abdominal pain , no nausea appetite normal pt and counselled for hand washing and contact isolation to prevent infection of C diff to others in household CONFUSION /METABOLIC ENCEPHALOPATHY due to above resolved mental status improved to baseline awake and alert , conversing appropriately NEUROGENIC BLADDER /CHRONIC INDWELLING GANDHI due to multiple sclerosis Hx of recurrent UTI urine culture > 3 organisms no abx needed HYPOKALEMIA due to GI loss -diarrhea K replaced Monitor BMP DM II Hgba1c 6.8 on 06/07 Insulin SSI HX PE On Coumadin, monitor INR HTN BP controlled Continue Lisinopril DVT PROPHYLAXIS On Coumadin with therapeutic INR CODE STATUS Patient is a full code DISPOSITION live at home with family - is the primary client care coordinator possible discharge home tomorrow will need transport Arrangement /wheel Chair van Vital Signs: Date Time Temp Pulse Resp B/P (MAP) Pulse Ox O2 Delivery O2 Flow Rate FiO2 01/07/17 10:11 Room Air 01/07/17 07:25 36.8 69 18 123/80 (94) 95 Room Air 01/07/17 00:00 Room Air 01/06/17 23:48 37.0 87 20 140/80 (100) 91 Room Air 01/06/17 16:03 96 Room Air 01/06/17 15:06 36.7 87 20 108/57 (74) 98 Room Air Lab Results: Results Past 24 Hours Test 01/06/17 16:22 01/06/17 20:19 01/07/17 07:09 01/07/17 07:38 Range/Units Bedside Glucose 201 185 149 70-90 mg/dl Prothrombin Time 29.4 9.0-12.0 SECONDS Prothromb Time International Ratio 2.6 0.9-1.1 Sodium Level 144 136-145 mmol/L Potassium Level 3.1 3.5-5.1 mmol/L Chloride Level 112 98-107 mmol/L Carbon Dioxide Level 26 21-32 mmol/L Anion Gap 6.0 3-11 mmol/L Blood Urea Nitrogen 14 7-18 mg/dl Creatinine 0.57 0.60-1.20 mg/dl Est Creatinine Clear Calc Drug Dose 101.8 ml/min Estimated GFR () 113.5 Estimated GFR (Non- 98.0 BUN/Creatinine Ratio 24.6 10-20 Random Glucose 149 70-99 mg/dl Calcium Level 8.5 8.5-10.1 mg/dl Test 01/07/17 11:27 Range/Units Bedside Glucose 254 70-90 mg/dl
[2017-01-07] MEDS ORDERED: MTR500 PO (11:51)
[2017-01-07 14:47] VITALS: BP 134/69; PULSE 82; TEMP 36.9; O2SAT 96
[2017-01-07 16:08] VITALS: O2SAT 96
[2017-01-07] MEDS: ASCORBIC ACID 500 MG TAB PO SCH (20:39)
[2017-01-08] VITALS: O2SAT 96
[2017-01-08 00:16] VITALS: BP 124/78; PULSE 72; TEMP 36.8; O2SAT 96
[2017-01-08 06:26] LABS: INR 1.9 (0.9-1.1); PROTHROMBIN TIME (PATIENT) 21.3 SECONDS (9.0-12.0)
[2017-01-08 06:55] LABS: BUN/CREATININE RATIO 22.8 (10-20); CALCIUM 8.3 mg/dl (8.5-10.1); CREATININE 0.52 mg/dl (0.60-1.20); MAGNESIUM 1.7 mg/dl (1.8-2.4); POTASSIUM 3.5 mmol/L (3.5-5.1)
[2017-01-08 07:20] VITALS: BP 142/80; PULSE 65; TEMP 36.8; O2SAT 94
[2017-01-08] MEDS: LACTOBACILLUS ACIDOPHILUS (FLORANEX) TAB PO SCH ×3 (08:20→17:06)
[2017-01-08] MEDS: METRONIDAZOLE 500 MG TAB PO SCH ×3 (08:20→20:05)
[2017-01-08] MEDS: ATORVASTATIN 20 MG TAB PO SCH (08:20)
[2017-01-08] MEDS: METHENAMINE HIPPURATE 1 GM TAB PO SCH ×2 (08:20→20:05)
[2017-01-08] MEDS: POTASSIUM CHLORIDE 20 MEQ TABCR PO SCH (08:20)
[2017-01-08] MEDS: OXYBUTYNIN CHLORIDE 5 MG TAB PO SCH ×3 (08:20→20:05)
[2017-01-08] MEDS: CHOLECALCIFEROL 400 INTER.UNIT TAB PO SCH (08:21)
[2017-01-08] MEDS: PAROXETINE 20 MG TAB PO SCH (08:21)
[2017-01-08] MEDS: INSULIN GLARGINE SOLOSTAR 100 UNITS/ML 3 ML PEN SC SCH ×2 (08:35→20:16)
--- NOTE | 2017-01-08 09:21 | Progress Note ---
Progress Note Date of Service Jan 08, 2017. 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
[2017-01-08] MEDS ORDERED: MAGNESIUM SULFATE 1GM / D5W 1 GM in PREMIXED IN D5W 100 ML IV ONE (11:49)
[2017-01-08 15:37] VITALS: BP 115/75; PULSE 74; TEMP 36.5; O2SAT 95
--- NOTE | 2017-01-08 16:34 | Progress Note ---
Internal Med Progress Note Date of Service: Jan 08, 2017. Provider Documentation: SUBJECTIVE: doing very well managed to finish dinner all by herself today no nausea , abdominal pain no diarrhea plan to discharge home tomorrow OBJECTIVE: Vital Signs-as noted below Exam: General-pleasant , no apparent distress Eyes-sclera non icteric Neck-no thyromegaly , trachea midline Lungs-no wheeze or rales Heart-regular S1/S2 Abdomen-soft, non tender Extremities-bilateral lower ext contracted -chronic Neuro-AAO x3 , multiple sclerosis , contracted lower ext with minimum mobility Lab data as noted below. ASSESSMENT & PLAN: C DIFF COLITIS : stool + ve C diff started on PO Flagyl 500 mg TID -will need total 10 days tx cont contact precaution diarrhea has resolved no complain of abdominal pain , no nausea appetite normal pt and counselled for hand washing and contact isolation to prevent infection of C diff to others in household CONFUSION /METABOLIC ENCEPHALOPATHY due to above resolved mental status improved to baseline awake and alert , conversing appropriately NEUROGENIC BLADDER /CHRONIC INDWELLING GANDHI due to multiple sclerosis Hx of recurrent UTI urine culture > 3 organisms no abx needed HYPOKALEMIA due to GI loss -diarrhea K replaced Monitor BMP DM II Hgba1c 6.8 on 06/07 Insulin SSI HX PE On Coumadin, monitor INR HTN BP controlled Continue Lisinopril DVT PROPHYLAXIS On Coumadin with therapeutic INR CODE STATUS Patient is a full code DISPOSITION live at home with family - is the primary manager long term care discharge home tomorrow 01/09/17 will need transport Arrangement /wheel Chair van social service aware Vital Signs: Date Time Temp Pulse Resp B/P (MAP) Pulse Ox O2 Delivery O2 Flow Rate FiO2 01/08/17 17:25 Room Air 01/08/17 15:37 36.5 74 20 115/75 (88) 95 Room Air 01/08/17 08:15 Room Air 01/08/17 07:20 36.8 65 18 142/80 (100) 94 Room Air 01/08/17 00:16 36.8 72 18 124/78 (93) 96 Room Air 01/08/17 00:00 96 Room Air Lab Results: Results Past 24 Hours Test 01/07/17 19:54 01/08/17 05:52 01/08/17 07:39 01/08/17 11:25 Range/Units Bedside Glucose 223 127 220 70-90 mg/dl Prothrombin Time 21.3 9.0-12.0 SECONDS Prothromb Time International Ratio 1.9 0.9-1.1 Sodium Level 144 136-145 mmol/L Potassium Level 3.5 3.5-5.1 mmol/L Chloride Level 111 98-107 mmol/L Carbon Dioxide Level 25 21-32 mmol/L Anion Gap 8.0 3-11 mmol/L Blood Urea Nitrogen 12 7-18 mg/dl Creatinine 0.52 0.60-1.20 mg/dl Est Creatinine Clear Calc Drug Dose 111.6 ml/min Estimated GFR () 117.0 Estimated GFR (Non- 101.0 BUN/Creatinine Ratio 22.8 10-20 Random Glucose 131 70-99 mg/dl Calcium Level 8.3 8.5-10.1 mg/dl Magnesium Level 1.7 1.8-2.4 mg/dl
[2017-01-08] MEDS: ASCORBIC ACID 500 MG TAB PO SCH (20:05)
[2017-01-08 22:54] VITALS: BP 118/78; PULSE 72; TEMP 37.3; O2SAT 96
[2017-01-09 07:02] LABS: INR 1.6 (0.9-1.1); PROTHROMBIN TIME (PATIENT) 17.8 SECONDS (9.0-12.0)
[2017-01-09 07:23] LABS: BUN/CREATININE RATIO 19.9 (10-20); CALCIUM 8.4 mg/dl (8.5-10.1); CREATININE 0.63 mg/dl (0.60-1.20); POTASSIUM 3.6 mmol/L (3.5-5.1)
[2017-01-09 07:30] VITALS: BP 126/73; PULSE 77; TEMP 37; O2SAT 93
[2017-01-09] MEDS: PAROXETINE 20 MG TAB PO SCH (08:04)
[2017-01-09] MEDS: LACTOBACILLUS ACIDOPHILUS (FLORANEX) TAB PO SCH ×2 (08:04→12:49)
[2017-01-09] MEDS: METHENAMINE HIPPURATE 1 GM TAB PO SCH (08:04)
[2017-01-09] MEDS: OXYBUTYNIN CHLORIDE 5 MG TAB PO SCH ×2 (08:04→12:49)
[2017-01-09] MEDS: POTASSIUM CHLORIDE 20 MEQ TABCR PO SCH (08:05)
[2017-01-09] MEDS: METRONIDAZOLE 500 MG TAB PO SCH ×2 (08:05→12:49)
[2017-01-09] MEDS: INSULIN GLARGINE SOLOSTAR 100 UNITS/ML 3 ML PEN SC SCH (08:05)
[2017-01-09] MEDS: ATORVASTATIN 20 MG TAB PO SCH (08:06)
[2017-01-09] MEDS: CHOLECALCIFEROL 400 INTER.UNIT TAB PO SCH (08:06)
--- NOTE | 2017-01-09 10:09 | Progress Note ---
Internal Med Progress Note Date of Service: Jan 09, 2017. Provider Documentation: SUBJECTIVE: mentions that she is very tired this morning did not sleep much last night very drowsy , wakes up to voice did not eat breakfast yet ,says she is not hungry and too tired to eat no nausea or vomiting no episode of diarrhea or abdominal pain vitals remains stable stable to be discharged home today Updated ; agreeable to for pt to return home today a mentions it is common for pt to have interrupted sleep at night and be tired in AM Health ride scheduled for 3 PM for pt to return home OBJECTIVE: Vital Signs-as noted below Exam: General-pleasant , no apparent distress Eyes-sclera non icteric Neck-no thyromegaly , trachea midline Lungs-no wheeze or rales Heart-regular S1/S2 Abdomen-soft, non tender Extremities-bilateral lower ext contracted -chronic Neuro-AAO x3 , multiple sclerosis , contracted lower ext with minimum mobility Lab data as noted below. ASSESSMENT & PLAN: C DIFF COLITIS : stool + ve C diff started on PO Flagyl 500 mg TID -will need total 10 days tx cont contact precaution diarrhea has resolved no complain of abdominal pain , no nausea appetite normal pt and counselled for hand washing and contact isolation to prevent infection of C diff to others in household stable to be discharged home today CONFUSION /METABOLIC ENCEPHALOPATHY due to above resolved mental status improved to baseline awake and alert , conversing appropriately NEUROGENIC BLADDER /CHRONIC INDWELLING GANDHI due to multiple sclerosis Hx of recurrent UTI urine culture > 3 organisms no abx needed HYPOKALEMIA due to GI loss -diarrhea K replaced DM II Hgba1c 6.8 on 06/07 Insulin SSI HX PE On Coumadin, monitor INR HTN BP controlled Continue Lisinopril DVT PROPHYLAXIS On Coumadin with therapeutic INR CODE STATUS Patient is a full code DISPOSITION live at home with family - is the primary home care attendant discharge home today Medicine follow up with Dr Avila at [facility] Vital Signs: Date Time Temp Pulse Resp B/P (MAP) Pulse Ox O2 Delivery O2 Flow Rate FiO2 01/09/17 07:30 37.0 77 18 126/73 (90) 93 Room Air 01/08/17 23:44 Room Air 01/08/17 22:54 37.3 72 18 118/78 (91) 96 Room Air 01/08/17 20:00 Room Air 01/08/17 17:25 Room Air 01/08/17 15:37 36.5 74 20 115/75 (88) 95 Room Air Lab Results: Results Past 24 Hours Test 01/08/17 11:25 01/08/17 19:45 01/09/17 05:42 01/09/17 07:51 Range/Units Bedside Glucose 220 209 111 70-90 mg/dl Prothrombin Time 17.8 9.0-12.0 SECONDS Prothromb Time International Ratio 1.6 0.9-1.1 Sodium Level 144 136-145 mmol/L Potassium Level 3.6 3.5-5.1 mmol/L Chloride Level 109 98-107 mmol/L Carbon Dioxide Level 28 21-32 mmol/L Anion Gap 6.0 3-11 mmol/L Blood Urea Nitrogen 13 7-18 mg/dl Creatinine 0.63 0.60-1.20 mg/dl Est Creatinine Clear Calc Drug Dose 92.1 ml/min Estimated GFR () 109.9 Estimated GFR (Non- 94.8 BUN/Creatinine Ratio 19.9 10-20 Random Glucose 102 70-99 mg/dl Calcium Level 8.4 8.5-10.1 mg/dl Magnesium Level 2.0 1.8-2.4 mg/dl
--- NOTE | 2017-01-09 11:06 | Discharge Summary ---
Discharge Summary Date of Service Jan 09, 2017. Discharge Summary Admission Date: Jan 04, 2017 at 02:57 Discharge Date: Jan 09, 2017 Discharge Disposition: Home with services Principal Diagnosis: C DIFF COLITIS Procedures: CHEST XRAY : IMPRESSION: Stable exam without acute cardiopulmonary process. Medication Reconciliation New Medications: Lactobacillus-Inulin (Culturelle) 1 Cap Cap 1 CAP PO TID for 30 Days over the counter Metronidazole (Metronidazole) 500 Mg Tab 500 MG PO TID for 7 Days, #21 TAB Continued Medications: Acetaminophen (Tylenol) 325 Mg Tab 650 MG PO Q4H PRN for Pain or Fever, TAB Ascorbic Acid (Ascorbic Acid) 500 Mg Tab 500 MG PO HS, TAB Atorvastatin (Lipitor) 40 Mg Tab 40 MG PO DAILY, TAB Cranberry (Vaccinium Macrocarp (Cranberry) 300 Mg Tab 300 MG PO QAM Docusate Sodium (Colace) 100 Mg Cap 100 MG PO DAILY PRN for Constipation, CAP Ergocalciferol (Vitamin D2) 400 Unit Tab 1 TAB PO DAILY Insulin Glargine (Lantus Solostar) 100 Unit/Ml Inj 10 UNITS SC AMPM, PEN Lisinopril (Lisinopril) 5 Mg Tab 5 MG PO DAILY Methenamine Hippurate (Methenamine Hippurate) 1 Gm Tab 1 GM PO BID Oxybutynin Chloride (Ditropan) 5 Mg Tab 5 MG PO TID, TAB Paroxetine (Paroxetine HCl) 40 Mg Tab 40 MG PO QAM Polyethylene Glycol 3350 (Miralax) 1 Pow Pow 1 TBS PO DAILY PRN for Constipation Mix with 8 ounces of water Warfarin Sodium (Warfarin Sodium) 5 Mg Tab 5 MG PO 4XWK TAKE 5 MG on tuesday/tuesday//saturdays Warfarin Sodium (Coumadin) 5 Mg Tab 2.5 MG PO 3XWK, TAB takes tuesday/tuesday/fridays Referrals At Discharge Follow up Referrals: Physician Referral - Within 1 Week with Bonifacio Avila M.D.(ARIELA) Admission Information HPI (per Admitting provider): 66 year old female with PMH of MS, Neurogenic bladder with chronic Gandhi, recurrent UTI, bedridden presents to the ER with c/o fever and mild confusion. at bedside who is the caregiver. As per pt has been doing fine, until yesterday morning developed a low grade fever associated with weakness. said that as the day progress her fever progressed with temp 102 F and she became confused. said that she had a low appetite and feel weak. Her urine was dark. said usually when she felt like that was when she had an infection. Pt denies any chest pain, shortness of breath, palpitation, nausea, vomiting. In the ER, Lab showed elevated WBC and her UA suggests UTI Labs. Received dapto, IVF and Aztreonam in the ER. said that pt is back to her baseline now. Physical Exam (per Admitting): General Appearance: WD/WN, no apparent distress Head: normocephalic, atraumatic Eyes: PERRL, EOMI ENT: hearing grossly normal Neck: no JVD, trachea midline Respiratory/Chest: normal breath sounds, no respiratory distress, no accessory muscle use Cardiovascular: no edema, no JVD Abdomen/GI: normal bowel sounds, non tender Genitourinary - Female: + pertinent finding (gandhi cath in place) Back: no CVA tenderness Extremities/Musculoskelatal: no calf tenderness Neurologic/Psych: alert, normal mood/affect, oriented x 3 Skin: no rash Hospital Course C DIFF COLITIS : stool + ve C diff started on PO Flagyl 500 mg TID -will need total 10 days tx cont contact precaution diarrhea has resolved no complain of abdominal pain , no nausea appetite normal pt and counselled for hand washing and contact isolation to prevent infection of C diff to others in household stable to be discharged home today CONFUSION /METABOLIC ENCEPHALOPATHY due to above resolved mental status improved to baseline awake and alert , conversing appropriately NEUROGENIC BLADDER /CHRONIC INDWELLING GANDHI due to multiple sclerosis Hx of recurrent UTI urine culture > 3 organisms no abx needed HYPOKALEMIA due to GI loss -diarrhea K replaced DM II Hgba1c 6.8 on 06/07 Insulin SSI HX PE On Coumadin, monitor INR HTN BP controlled Continue Lisinopril DVT PROPHYLAXIS On Coumadin with therapeutic INR CODE STATUS Patient is a full code DISPOSITION live at home with family - 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 Discharge Instructions Discharge Instructions Date of Service Jan 06, 2017. Admission Reason for Admission: Fever, Uti Discharge Discharge Diagnosis / Problem: C DIFF COLITIS Discharge Goals Goal(s): Decrease discomfort, Improve function, Improve disease control, Therapeutic intervention Activity Recommendations Activity Limitations: resume your previous activity . Instructions / Follow-Up Instructions / Follow-Up HOSPITAL FOLLOW UP : with Dr Bonifacio Avila MD Family Practice [facility] in a week C DIFF IS VERY CONTAGIOUS , IT IS SPREAD THROUGH DIRECT CONTACT PLEASE WASH YOU HAND WITH SOAP AND WATER , EVERY TIME YOU USE THE BATHROOM AND BEFORE EATING MEALS DO NOT SHARE CUP , PLATES , PERSONAL ITEMS WITH OTHER HOUSE HOLD MEMBERS WIPE HARD SURFACE -SINK /COUNTER TOPS - WITH CLOROX WIPE -EFFECTIVE IN KILLING THE SPORES OF C DIFF EVERY ONE IN THE HOUSEHOLD NEED TO WASH HAND WITH SOAP AND WATER PRIOR TO MEALS YOU CAN STILL BE CONTAGIOUS FOR 1-2 WEEKS AFTER COMPLETING ANTIBIOTIC CONTINUE TO OBSERVE STRICT HAND WASHING FOR THE WHOLE DURATION Current Hospital Diet Patient's current hospital diet: Diabetes Type 2 Diet Discharge Diet Recommended Diet: Low Fiber Diet (FOR 2 WEEKS, THAN RESUME REGULAR DIET ) Pending Studies Studies pending at discharge: no Medical Emergencies . Who to Call and When: Medical Emergencies: If at any time you feel your situation is an emergency, please call 911 immediately. . Non-Emergent Contact Non-Emergency issues call your: Primary Care Provider . . "Provider Documentation" section prepared by Nena Zuñiga. . VTE Core Measure Inpt VTE Proph given/why not?: Warfarin (Coumadin) Additional Copies To Bonifacio Avila M.D.(BRANDI
[2017-01-09 12:01] VITALS: BP 126/73; PULSE 77; TEMP 37; O2SAT 93
== END 2017-01-09 15:13 | disposition home health service (06) | DRG 371 ==
LOC: EDBD 00:41 → C.EDB 00:43 → C.4E 02:57 → ENRESERV 03:10
PROVIDERS: ADMIT Internal Medicine; ATTEND Hospitalist
DX: A04.72 Enterocolitis due to Clostridium difficile, not specified as recurrent (principal); G93.41 Metabolic encephalopathy; F32.9 Major depressive disorder, single episode, unspecified; E11.9 Type 2 diabetes mellitus without complications; L89.319 Pressure ulcer of right buttock, unspecified stage; L89.329 Pressure ulcer of left buttock, unspecified stage; Z86.711 Personal history of pulmonary embolism; G35 Multiple sclerosis; N31.9 Neuromuscular dysfunction of bladder, unspecified; Z87.891 Personal history of nicotine dependence; E78.5 Hyperlipidemia, unspecified; Z79.01 Long term (current) use of anticoagulants; E87.6 Hypokalemia; I10 Essential (primary) hypertension; E86.0 Dehydration; Y81.2 Prosthetic and other implants, materials and accessory general- and plastic-surgery devices associated with adverse incidents

== ENCOUNTER 2017-05-03 14:51 | Inpatient (IN) | payer OTHER, BC ==
[~2017-05-03] VITALS: Ht 165.1 cm; Wt 74.9 kg
[~2017-05-03 14:51] MED LIST changes: -ACET-1311 PO; -ASCO500T16 PO; -ATOR-24 PO; -CRAN1TAB9 PO; -DOCU-94 PO; -ERGO1TAB10 PO; -INSDGIPEN SC; +LACT10CA3 PO; -LORA0.5T12 PO; -LSN5 PO; -MTHH1 PO; +MTR500 PO; -POLY335019 PO; -PRX/40 PO; -WARF-246 PO; -WARF5TAB90 PO
[2017-05-03] MEDS ORDERED: LSN5 PO (15:12)
[2017-05-03] MEDS ORDERED: PRX/40 PO (15:12)
[2017-05-03] MEDS ORDERED: MTHH1 PO (15:12)
[2017-05-03] MEDS ORDERED: VANCOMYCIN IV 1,500 MG in SODIUM CHLORIDE 0.9% 500ML 500 ML IV STA (15:13)
[2017-05-03] MEDS ORDERED: SODIUM CHLORIDE 0.9% 1000ML 1,000 ML IV STA (15:13)
[2017-05-03] MEDS ORDERED: CEFTRIAXONE SOD INJ 1 GM ADDVIAL IV STA ×2 (15:13→16:54)
--- NOTE | 2017-05-03 15:13 | EMERGENCY ROOM VISIT NOTE ---
History Report prepared by Kilo: Dhaval Christian Under the Supervision of: Dr. Nikolay Gayle M.D. First contact with patient: 14:55 Stated Complaint: AMS History of Present Illness The patient is a 67 year old white female with a history of Abdominal mass, C. difficile colitis, Depression, Diabetes mellitus type II, Dyslipidemia, Fever, History of pulmonary embolism, Multiple sclerosis, and Neurogenic bladder who presents to the Emergency Room for an altered mental status. Per the nursing staff the patient was diagnosed with a UTI last night and was found behaving altered this morning. The patient normally feeds herself and answers questions, but is nonverbal at this time. The patient does suffer from chronic UTI and usually has 4 episodes per year. The patient was found to have a blood sugar of 300 this morning and was given 4 unit to drop the blood sugar into the 250s. Upon the 's arrival to the department he states that patient has MS, and that he started to notice a decline in her ability to feed herself last night. Her responsiveness started to decline significantly this morning. The patient is currently in the process of a bowel evacuation as they are attempting to find the proper combination of MiraLAX and Stool Softeners. The patient also notes that she had a fever of 101 degrees this morning. Source of History: spouse/significant other, nursing staff Onset: Last night Position: other (Genitourinary symptoms) Quality: other (Altered Mental Status) Timing: worsening Associated Symptoms: + fevers, + urinary symptoms (UTI Currently) Note: Nonverbal Review of Systems See HPI for pertinent positives and negatives. A total of ten systems were reviewed and were otherwise negative. Past Medical & Surgical Medical Problems: (1) Abdominal mass (2) C. difficile colitis (3) Depression (4) Diabetes mellitus, type II (5) Dyslipidemia (6) Fever (7) History of pulmonary embolism (8) Multiple sclerosis (9) Neurogenic bladder (10) Recurrent UTI Surgical Problems: (1) Status post hysterectomy (2) Status post partial colectomy Family History Cardiac disorder FATHER Social History Smoking Status: Former Smoker Alcohol Use: none Drug Use: none Marital Status: Housing Status: lives with family Current/Historical Medications Scheduled Ascorbic Acid (Ascorbic Acid), 500 MG PO HS Atorvastatin (Lipitor), 40 MG PO DAILY Cranberry (Vaccinium Macrocarp (Cranberry), 300 MG PO QAM Ergocalciferol (Vitamin D2), 400 INTER.UNIT PO DAILY Insulin Glargine (Lantus Solostar), 10 UNITS SC AMPM Lisinopril (Lisinopril), 5 MG PO DAILY Methenamine Hippurate (Methenamine Hippurate), 1 GM PO BID Oxybutynin Chloride (Ditropan), 5 MG PO TID Paroxetine (Paroxetine HCl), 40 MG PO QAM Warfarin Sodium (Warfarin Sodium), 5 MG PO 4XWK Warfarin Sodium (Coumadin), 2.5 MG PO 3XWK Scheduled PRN Acetaminophen (Tylenol), 650 MG PO Q4H PRN for Pain or Fever Docusate Sodium (Colace), 100 MG PO DAILY PRN for Constipation Insulin Aspart (Novolog Flexpen), 1 DOSE SC UD PRN for BSG Coverage Polyethylene Glycol 3350 (Miralax), 1 TBS PO DAILY PRN for Constipation Allergies Coded Allergies: Levofloxacin (Verified Allergy, Unknown, 01/04/17) Clavulanic Acid (Verified Adverse Reaction, Intermediate, GI INTOLERANCE ( AUGMENTIN), 01/04/17) Penicillins (Verified Adverse Reaction, Intermediate, GI INTOLERANCE ( AUGMENTIN), 01/04/17) Physical Exam Vital Signs Date Time Temp Pulse Resp B/P (MAP) Pulse Ox O2 Delivery O2 Flow Rate FiO2 05/03/17 17:31 95 22 98/58 95 Nasal Cannula 3.0 05/03/17 17:28 102/65 05/03/17 17:21 101 19 97 05/03/17 17:01 101/59 05/03/17 16:51 99 1 93 05/03/17 16:36 100 05/03/17 16:34 92/55 05/03/17 16:02 96/57 05/03/17 15:52 83/56 05/03/17 15:51 92 25 94 05/03/17 15:47 102 20 100/52 95 Nasal Cannula 2.0 05/03/17 15:40 100/52 05/03/17 15:34 37.2 110 20 83/57 95 Room Air 2.0 Nasal Cannula 05/03/17 15:20 90 Room Air Physical Exam GENERAL: Awake, alert, well-appearing, NAD HENT: Normocephalic, atraumatic. EYES: Normal conjunctiva. Sclera non-icteric. NECK: Supple. No nuchal rigidity. FROM. RESPIRATORY: There are trace wheezes and crackles. No rhonchi CARDIAC: Tachycardic rate with regular rhythm, no MRG ABDOMEN: Soft, NTND, BS+, Midline abdominal scars. MSK: No chest wall TTP, no LE edema NEURO: GCS 9, Moves eyes to voice, Non-verbal, localizes to pain. SKIN: There is a stage 2 skin breakdown to the buttock area. There is a heel ulcer. : There is a Lemos Catheter in place. Medical Decision & Procedures ER Provider Diagnostic Interpretation: Radiology results as stated below per my review and radiologist interpretation: CHEST ONE VIEW PORTABLE HISTORY: EVALUATE WEAKNESS COMPARISON: Chest 01/04/2017. FINDINGS: Low lung volumes. There is mild elevation the right hemidiaphragm, unchanged. The heart remains mildly enlarged. No pleural effusions. No pneumothorax. No evidence for pulmonary edema. No new focal lung consolidations to suggest pneumonia. Linear density within the right midlung zone favors atelectasis. Moderate to large amount of well-formed stool seen within the colon. IMPRESSION: No change in the low lung volumes and mild cardiomegaly. No acute process within the chest. Electronically signed by: Cleveland Cota M.D. 05/03/2017 3:41 PM Dictated Date/Time: 05/03/2017 3:[address] OF THE HEAD WITHOUT CONTRAST CLINICAL HISTORY: EVALUATE WEAKNESS COMPARISON STUDY: Head CT February 16, 2016. CT DOSE: 614.27 mGy.cm TECHNIQUE: Helical axial images of the head were obtained without IV contrast. Automated exposure control was utilized for the study. A dose lowering technique was utilized adhering to the principles of ALARA. FINDINGS: No acute intracranial hemorrhage, midline shift or mass effect is present. Ventricular dilatation is unchanged. There is moderate to marked atrophy which accounts for ventricular dilatation. White matter hypodensities are unchanged and suggest small vessel disease. There are no findings to suggest acute dural sinus thrombosis or acute territorial infarct. There are no significant calvarial abnormalities. A right maxillary sinus mucous retention cyst is noted. IMPRESSION: No acute intracranial findings. No change since previous exam. Electronically signed by: Nolberto Alejandra M.D. 05/03/2017 4:33 PM Dictated Date/Time: 05/03/2017 4:31 PM KUB CLINICAL HISTORY: Change in mental status. Generalized abdominal pain. FINDINGS: An AP, portable, supine abdominal radiograph is compared to study dated 06/07/2016. There is a nonobstructed abdominal bowel gas pattern. There is rectosigmoid fecal impaction and severe constipation. No evidence of intraperitoneal free air is seen on this supine view. Numerous surgical clips are scattered throughout the pelvis. There are no abnormal abdominal calcifications. Pelvic phleboliths are observed. There is lumbosacral spondylosis and scoliosis. IMPRESSION: Rectosigmoid fecal impaction and severe constipation. Electronically signed by: Jabari Hicks M.D. 05/03/2017 3:39 PM Dictated Date/Time: 05/03/2017 3:38 PM Laboratory Results 05/03/17 15:47 Red Blood Count 4.64, Mean Corpuscular Volume 86.9, Mean Corpuscular Hemoglobin 29.3, Mean Corpuscular Hemoglobin Concent 33.7, Mean Platelet Volume 9.6, Neutrophils (%) (Auto) 86.1, Lymphocytes (%) (Auto) 8.3, Monocytes (%) (Auto) 5.1, Eosinophils (%) (Auto) 0.0, Basophils (%) (Auto) 0.1, Neutrophils # (Auto) 15.41, Lymphocytes # (Auto) 1.48, Monocytes # (Auto) 0.92, Eosinophils # (Auto) 0.00, Basophils # (Auto) 0.02 05/03/17 15:46 Test 05/03/17 15:46 05/03/17 15:47 05/03/17 16:14 Prothrombin Time 45.1 SECONDS (9.0-12.0) Prothromb Time International Ratio 4.4 (0.9-1.1) Activated Partial Thromboplast Time 64.7 SECONDS (21.0-31.0) Partial Thromboplastin Ratio 2.5 Anion Gap 9.0 mmol/L (3-11) Est Creatinine Clear Calc Drug Dose 42.7 ml/min Estimated GFR () 46.4 Estimated GFR (Non- 40.0 BUN/Creatinine Ratio 23.9 (10-20) Calcium Level 8.2 mg/dl (8.5-10.1) Phosphorus Level 3.5 mg/dl (2.5-4.9) Magnesium Level 2.1 mg/dl (1.8-2.4) Total Bilirubin 0.5 mg/dl (0.2-1) Direct Bilirubin 0.1 mg/dl (0-0.2) Aspartate Amino Transf (AST/SGOT) 12 U/L (15-37) Alanine Aminotransferase (ALT/SGPT) 26 U/L (12-78) Alkaline Phosphatase 93 U/L (45-117) Troponin I 0.343 ng/ml (0-0.045) Pro-B-Type Natriuretic Peptide 1447 pg/ml (0-900) Total Protein 6.3 gm/dl (6.4-8.2) Albumin 2.4 gm/dl (3.4-5.0) Lipase 152 U/L (73-393) Thyroid Stimulating Hormone (TSH) 0.500 uIu/ml (0.300-4.500) White Blood Count 17.91 K/uL (4.8-10.8) Red Blood Count 4.64 M/uL (4.2-5.4) Hemoglobin 13.6 g/dL (12.0-16.0) Hematocrit 40.3 % (37-47) Mean Corpuscular Volume 86.9 fL (80-100) Mean Corpuscular Hemoglobin 29.3 pg (25-34) Mean Corpuscular Hemoglobin Concent 33.7 g/dl (32-36) Platelet Count 325 K/uL (130-400) Mean Platelet Volume 9.6 fL (7.4-10.4) Neutrophils (%) (Auto) 86.1 % Lymphocytes (%) (Auto) 8.3 % Monocytes (%) (Auto) 5.1 % Eosinophils (%) (Auto) 0.0 % Basophils (%) (Auto) 0.1 % Neutrophils # (Auto) 15.41 K/uL (1.4-6.5) Lymphocytes # (Auto) 1.48 K/uL (1.2-3.4) Monocytes # (Auto) 0.92 K/uL (0.11-0.59) Eosinophils # (Auto) 0.00 K/uL (0-0.5) Basophils # (Auto) 0.02 K/uL (0-0.2) RDW Standard Deviation 51.2 fL (36.4-46.3) RDW Coefficient of Variation 16.2 % (11.5-14.5) Immature Granulocyte % (Auto) 0.4 % Immature Granulocyte # (Auto) 0.08 K/uL (0.00-0.02) Venous Blood pH 7.39 (7.36-7.41) Venous Blood Partial Pressure CO2 36 mmHg (38.0-50.0) Venous Blood Partial Pressure O2 55 mmHg Venous Blood HCO3 21 mmol/L Venous Blood Oxygen Saturation 86.1 % Venous Blood Base Excess -2.9 mEq/L Urine Color ANASTASIA Urine Appearance CLEAR (CLEAR) Urine pH 5.0 (4.5-7.5) Urine Specific [place] 1.025 (1.000-1.030) Urine Protein NEG (NEG) Urine Glucose (UA) TRACE (NEG) Urine Ketones 1+ (NEG) Urine Occult Blood 2+ (NEG) Urine Nitrite POS (NEG) Urine Bilirubin NEG (NEG) Urine Urobilinogen POS (NEG) Urine Leukocyte Esterase SMALL (NEG) Urine RBC 10-30 /hpf (0-4) Urine WBC >30 /hpf (0-5) Urine Epithelial Cells >30 /lpf (0-5) Urine Bacteria 4+ (NEG) Laboratory results reviewed by me Medications Administered Medications (Trade) Dose Ordered Sig/Dwain Route Start Time Stop Time Status Last Admin Dose Admin Vancomycin HCl 1500 mg/Sodium Chloride 530 ml @ 200 mls/hr ONE STAT IV 05/03/17 15:13 05/03/17 17:51 DC 05/03/17 16:38 200 MLS/HR Ceftriaxone Sodium (Rocephin Inj) 2 gm NOW STAT IV 05/03/17 15:13 05/03/17 15:16 DC 05/03/17 16:38 2 GM Sodium Chloride 1,000 ml @ 999 mls/hr Q1H1M STAT IV 05/03/17 15:13 05/03/17 16:13 DC 05/03/17 15:29 999 MLS/HR Aspirin (Aspirin Supp) 300 mg ONE ONCE AL 05/03/17 17:00 05/03/17 17:03 DC 05/03/17 17:49 300 MG Lactated Ringer's 1,000 ml @ 999 mls/hr Q1H1M ONCE IV 05/03/17 17:15 05/03/17 18:15 DC 05/03/17 18:13 999 MLS/HR ECG Per My Interpretation Indication: altered mental status Rate (beats per minute): 94 Rhythm: normal sinus Findings: Q waves (Lateral), other (Normal axis, LAD) Comparison ECG Date: 01/04/2017 Change: Lateral Q-waves are new. ED Course 1503: The patient was evaluated in room C12B. A complete history and physical exam was performed. 1513: Ordered Sodium Chloride 1000 mL @ 999 mL/hr IV, Rocephin 2 gm IV, Vancomycin HCl 530 mL @ 200 mL/hr IV. 1654: Ordered Rocephin 1 gm IV. 1700: Ordered Aspirin 300 mg AL. 1707: I discussed the case with Dr. V[facility] Hospitalist. He will evaluate the patient for further treatment. 1715: Ordered Lactated Ringer's 1000 mL @ 999 mL/hr IV. Medical Decision The patient is a 67 year old white female with a history of Abdominal mass, C. difficile colitis, Depression, Diabetes mellitus type II, Dyslipidemia, Fever, History of pulmonary embolism, Multiple sclerosis, and Neurogenic bladder who presents to the Emergency Room for an altered mental status Differential diagnosis: Etiologies such as metabolic, infection, hypoglycemia, electrolyte abnormalities , cardiac sources, intracerebral event, toxicologic, neurologic, as well as others were entertained. Prior records were reviewed. Patient was seen and evaluated at the bedside. Much of the history was obtained from the as well as nursing. Patient has had some worsening mental status changes over the last day. The patient does not ambulate at baseline and is more or less nonverbal at baseline as well. The patient does move her bilateral upper and lower extremities. Patient will open her eyes to voice and will move her extremities to pain. The patient does have noted excoriations of the buttock area. Patient also does have diarrhea. Given the patient's poor history the patient did have blood work completed, EKG, troponin , chest x-ray, CT brain, KUB, and blood cultures drawn. Given that the patient did have a temperature of 101 associated tachycardia IV fluids and antibiotics were also started. Patient's chest x-ray was negative acute. KUB did show a likely fecal impaction. Given the patient's dehydration we will choose not to treat this at this time especially in light of her diarrhea that was seen when she was being cleaned. A C. difficile was also sent. Patient's blood work did show a white blood cell count of 17,000. The patient did have an elevated troponin. Patient did have new Q waves in the lateral leads. No ST segment elevations or depressions. Patient did have a dirty UA. After looking at the most recent sensitivity this was essentially pansensitive E. coli. This was sensitive for Rocephin. Patient's INR was also supratherapeutic. Patient's H&H were normal. Patient's gas was normal. Patient did have mild elevation in her lactate at 2.8. Given the patient's likely urosepsis, I did speak with the on-call hospitalist. They did agree to further evaluate and treat the patient. Furthermore, CT of the abdomen pelvis noncontrast was ordered to further evaluate the patient's abdomen. Consults Time Called: 1657 Consulting Physician: Dr. Mohinder Diaz [facility] Returned Call: 1707 I discussed the case with Dr. Mohinder Sommer. He will evaluate the patient for further treatment. Impression Primary Impression: Sepsis Additional Impressions: UTI (urinary tract infection) Dehydration Diarrhea Elevated INR Elevated troponin Scribe Attestation The scribe's documentation has been prepared under my direction and personally reviewed by me in its entirety. I confirm that the note above accurately reflects all work, treatment, procedures, and medical decision making performed by me. Departure Information Dispostion Being Evaluated By Hospitalist Referrals Bonifacio Avila M.D.(ARIELA) (PCP) Problem Qualifiers Primary Impression: Sepsis Sepsis type: sepsis due to unspecified organism Qualified Codes: A41.9 - Sepsis, unspecified organism Additional Impressions: UTI (urinary tract infection) Urinary tract infection type: catheter-associated UTI Indwelling urinary catheter type: indwelling urethral catheter Encounter type: initial encounter Qualified Codes: T83.511A - Infection and inflammatory reaction due to indwelling urethral catheter, initial encounter; N39.0 - Urinary tract infection, site not specified Diarrhea Diarrhea type: unspecified type Qualified Codes: R19.7 - Diarrhea, unspecified
[2017-05-03] MEDS ORDERED: VANCOMYCIN CONSULT ACTIVE PRN (15:15)
[2017-05-03] MEDS ORDERED: ASCO500T16 PO (15:25)
--- NOTE | 2017-05-03 15:41 | DIAGNOSTIC IMAGING REPORT ---
KUB CLINICAL HISTORY: Change in mental status. Generalized abdominal pain. FINDINGS: An AP, portable, supine abdominal radiograph is compared to study dated 06/07/2016. There is a nonobstructed abdominal bowel gas pattern. There is rectosigmoid fecal impaction and severe constipation. No evidence of intraperitoneal free air is seen on this supine view. Numerous surgical clips are scattered throughout the pelvis. There are no abnormal abdominal calcifications. Pelvic phleboliths are observed. There is lumbosacral spondylosis and scoliosis. IMPRESSION: Rectosigmoid fecal impaction and severe constipation. Electronically signed by: Jabari Hicks M.D. 05/03/2017 3:39 PM Dictated Date/Time: 05/03/2017 3:38 PM
--- NOTE | 2017-05-03 15:42 | DIAGNOSTIC IMAGING REPORT ---
CHEST ONE VIEW PORTABLE HISTORY: EVALUATE WEAKNESS COMPARISON: Chest 01/04/2017. FINDINGS: Low lung volumes. There is mild elevation the right hemidiaphragm, unchanged. The heart remains mildly enlarged. No pleural effusions. No pneumothorax. No evidence for pulmonary edema. No new focal lung consolidations to suggest pneumonia. Linear density within the right midlung zone favors atelectasis. Moderate to large amount of well-formed stool seen within the colon. IMPRESSION: No change in the low lung volumes and mild cardiomegaly. No acute process within the chest. Electronically signed by: Cleveland Cota M.D. 05/03/2017 3:41 PM Dictated Date/Time: 05/03/2017 3:39 PM
[2017-05-03 15:59] LABS: BASO % 0.1 %; BASO ABS # 0.02 K/uL (0-0.2); HEMATOCRIT 40.3 % (37-47); HEMOGLOBIN 13.6 g/dL (12.0-16.0); IG# 0.08 K/uL (0.00-0.02); LYMPH % 8.3 %; LYMPH ABS # 1.48 K/uL (1.2-3.4); MEAN CELL VOLUME 86.9 fL (80-100); MEAN CORPUSCULAR HEMOGLOBIN 29.3 pg (25-34); MEAN CORPUSCULAR HGB CONC 33.7 g/dl (32-36); MEAN PLATELET VOLUME 9.6 fL (7.4-10.4); MONO % 5.1 %; MONO ABS # 0.92 K/uL (0.11-0.59); NEUT % 86.1 %; NEUT ABS # 15.41 K/uL (1.4-6.5); PLATELET COUNT 325 K/uL (130-400); RED CELL DISTRIBUTION WIDTH CV 16.2 % (11.5-14.5); RED CELL DISTRIBUTION WIDTH SD 51.2 fL (36.4-46.3); WHITE BLOOD COUNT 17.91 K/uL (4.8-10.8)
[2017-05-03] MEDS ORDERED: NVLGIPEN SC (16:01)
[2017-05-03 16:20] LABS: ALBUMIN 2.4 gm/dl (3.4-5.0); CALCIUM 8.2 mg/dl (8.5-10.1); CREATININE 1.38 mg/dl (0.60-1.20); POTASSIUM 4.1 mmol/L (3.5-5.1)
--- NOTE | 2017-05-03 16:35 | DIAGNOSTIC IMAGING REPORT ---
CT OF THE HEAD WITHOUT CONTRAST CLINICAL HISTORY: EVALUATE WEAKNESS COMPARISON STUDY: Head CT February 16, 2016. CT DOSE: 614.27 mGy.cm TECHNIQUE: Helical axial images of the head were obtained without IV contrast. Automated exposure control was utilized for the study. A dose lowering technique was utilized adhering to the principles of ALARA. FINDINGS: No acute intracranial hemorrhage, midline shift or mass effect is present. Ventricular dilatation is unchanged. There is moderate to marked atrophy which accounts for ventricular dilatation. White matter hypodensities are unchanged and suggest small vessel disease. There are no findings to suggest acute dural sinus thrombosis or acute territorial infarct. There are no significant calvarial abnormalities. A right maxillary sinus mucous retention cyst is noted. IMPRESSION: No acute intracranial findings. No change since previous exam. Electronically signed by: Nolberto Alejandra M.D. 05/03/2017 4:33 PM Dictated Date/Time: 05/03/2017 4:31 PM
[2017-05-03 16:49] LABS: PHOSPHORUS 3.5 mg/dl (2.5-4.9); TOTAL PROTEIN 6.3 gm/dl (6.4-8.2)
[2017-05-03] MEDS ORDERED: ASPIRIN 300 MG SUPP PR ONE (17:00)
[2017-05-03 17:09] LABS: INR 4.4 (0.9-1.1); PTT PATIENT 64.7 SECONDS (21.0-31.0)
[2017-05-03] MEDS ORDERED: LACTATED RINGER'S 1000ML 1,000 ML IV ONE (17:15)
[2017-05-03] MEDS ORDERED: POLY335019 PO (17:39)
--- NOTE | 2017-05-03 17:48 | History and Physical ---
History & Physical Date & Time of Service: May 03, 2017 at 17:48 . Chief Complaint: fever, confusion . Primary Care Physician: Bonifacio Avila M.D.(ARIELA) . History of Present Illness Source: family, clinic records, hospital records 67-year-old female followed by Dr. Avila. History of multiple sclerosis, indwelling Lemos catheter, recurrent UTIs. noted increasing lethargy and confusion over the past 24 hours. Today she had a temperature as high as 101. No cough. No apparent aspiration. No nausea or vomiting. Intermittent loose stools. Patient unable to provide any additional history because of her condition. . 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, poor surgical candidate CT abd 02/18/14 LUQ hypodense mass 11 cm in greatest diameter CT chest 03/28/12 LUQ lobulated cystic lesion 7.5 cm in greatest diameter CT chest 01/04/06 LUQ bilobed cystic structure 5.1 cm in greatest diameter Status: Chronic (2) Depression Status: Chronic (3) Diabetes mellitus, type II Status: Chronic (4) Dyslipidemia Status: Chronic (5) History of pulmonary embolism Permanent Comment: May 2012, on chronic warfarin therapy Status: Chronic (6) Multiple sclerosis Status: Chronic (7) Neurogenic bladder Status: Chronic (8) Recurrent UTI Status: Chronic Surgical Problems: (1) Status post hysterectomy Status: Chronic (2) Status post partial colectomy Permanent Comment: 1995 ? diverticular abscess w/ colostomy s/p reversal Status: Chronic . Family History Cardiac disorder FATHER Social History Smoking Status: Former Smoker Drug Use: none Marital Status: Housing status: lives with family Immunizations History of Influenza Vaccine: Yes Influenza Vaccine Date: Nov 03, 2015 History of Tetanus Vaccine?: Yes Tetanus Immunization Date: Dec 06, 2007 History of Pneumococcal: Yes Pneumococcal Date: Aug 08, 2014 Allergies Coded Allergies: Levofloxacin (Verified Allergy, Unknown, 01/04/17) Clavulanic Acid (Verified Adverse Reaction, Intermediate, GI INTOLERANCE ( AUGMENTIN), 01/04/17) Penicillins (Verified Adverse Reaction, Intermediate, GI INTOLERANCE ( AUGMENTIN), 01/04/17) Home Medications Scheduled Ascorbic Acid (Ascorbic Acid), 500 MG PO HS Atorvastatin (Lipitor), 40 MG PO DAILY Cranberry (Vaccinium Macrocarp (Cranberry), 300 MG PO QAM Ergocalciferol (Vitamin D2), 400 INTER.UNIT PO DAILY Insulin Glargine (Lantus Solostar), 10 UNITS SC AMPM Lisinopril (Lisinopril), 5 MG PO DAILY Methenamine Hippurate (Methenamine Hippurate), 1 GM PO BID Oxybutynin Chloride (Ditropan), 5 MG PO TID Paroxetine (Paroxetine HCl), 40 MG PO QAM Warfarin Sodium (Warfarin Sodium), 5 MG PO 4XWK Warfarin Sodium (Coumadin), 2.5 MG PO 3XWK Scheduled PRN Acetaminophen (Tylenol), 650 MG PO Q4H PRN for Pain or Fever Docusate Sodium (Colace), 100 MG PO DAILY PRN for Constipation Insulin Aspart (Novolog Flexpen), 1 DOSE SC UD PRN for BSG Coverage Polyethylene Glycol 3350 (Miralax), 1 TBS PO DAILY PRN for Constipation Review of Systems Unable to obtain due to patient's condition. . Physical Exam Vital Signs Date Time Temp Pulse Resp B/P (MAP) Pulse Ox O2 Delivery O2 Flow Rate FiO2 05/03/17 17:31 95 22 98/58 95 Nasal Cannula 3.0 05/03/17 17:28 102/65 05/03/17 17:21 101 19 97 05/03/17 17:01 101/59 05/03/17 16:51 99 1 93 05/03/17 16:36 100 05/03/17 16:34 92/55 05/03/17 16:02 96/57 05/03/17 15:52 83/56 05/03/17 15:51 92 25 94 05/03/17 15:47 102 20 100/52 95 Nasal Cannula 2.0 05/03/17 15:40 100/52 05/03/17 15:34 37.2 110 20 83/57 95 Room Air 2.0 Nasal Cannula 05/03/17 15:20 90 Room Air CONSTITUTIONAL vital signs as noted above adult female, chronically ill-appearing, no apparent distress EYES conjunctivae clear; lids normal pupils equal and reactive to light EARS, NOSE, MOUTH AND THROAT external inspection of ears and nose unremarkable oral mucosa dry NECK no masses; trachea midline thyroid normal RESPIRATORY normal respiratory effort; no respiratory distress clear to auscultation CARDIOVASCULAR regular rate and rhythm no murmur, gallop, rub appreciated carotid arteries 2/2 abdominal aorta not palpable pedal pulses intact and symmetric capillary refill toes < 2 seconds 1+ pretibial edema GASTROINTESTINAL distended normal bowel sounds, soft, nontender; no palpable masses no hepatomegaly or splenomegaly appreciated Lmeos cath LYMPHATIC no cervical adenopathy MUSCULOSKELETAL no cyanosis; no digital clubbing no calf tenderness unable to assess motor strength due to neuro status SKIN no rash warm and dry two stage 2 ulcers right posterolateral leg ulcer left heal unstageable. NEUROLOGIC obtunded, barely arousable PERRL, EOMI PSYCHIATRIC confused . Diagnostics Laboratory Results Results Past 24 Hours Test 05/03/17 15:46 05/03/17 15:47 05/03/17 16:14 Range/Units Prothrombin Time 45.1 9.0-12.0 SECONDS Prothromb Time International Ratio 4.4 0.9-1.1 Activated Partial Thromboplast Time 64.7 21.0-31.0 SECONDS Partial Thromboplastin Ratio 2.5 Sodium Level 141 136-145 mmol/L Potassium Level 4.1 3.5-5.1 mmol/L Chloride Level 111 98-107 mmol/L Carbon Dioxide Level 21 21-32 mmol/L Anion Gap 9.0 3-11 mmol/L Blood Urea Nitrogen 33 7-18 mg/dl Creatinine 1.38 0.60-1.20 mg/dl Est Creatinine Clear Calc Drug Dose 42.7 ml/min Estimated GFR () 46.4 Estimated GFR (Non- 40.0 BUN/Creatinine Ratio 23.9 10-20 Random Glucose 237 70-99 mg/dl Calcium Level 8.2 8.5-10.1 mg/dl Phosphorus Level 3.5 2.5-4.9 mg/dl Magnesium Level 2.1 1.8-2.4 mg/dl Total Bilirubin 0.5 0.2-1 mg/dl Direct Bilirubin 0.1 0-0.2 mg/dl Aspartate Amino Transf (AST/SGOT) 12 15-37 U/L Alanine Aminotransferase (ALT/SGPT) 26 12-78 U/L Alkaline Phosphatase 93 45-117 U/L Troponin I 0.343 0-0.045 ng/ml Pro-B-Type Natriuretic Peptide 1447 0-900 pg/ml Total Protein 6.3 6.4-8.2 gm/dl Albumin 2.4 3.4-5.0 gm/dl Lipase 152 73-393 U/L Thyroid Stimulating Hormone (TSH) 0.500 0.300-4.500 uIu/ml White Blood Count 17.91 4.8-10.8 K/uL Red Blood Count 4.64 4.2-5.4 M/uL Hemoglobin 13.6 12.0-16.0 g/dL Hematocrit 40.3 37-47 % Mean Corpuscular Volume 86.9 80-100 fL Mean Corpuscular Hemoglobin 29.3 25-34 pg Mean Corpuscular Hemoglobin Concent 33.7 32-36 g/dl Platelet Count 325 130-400 K/uL Mean Platelet Volume 9.6 7.4-10.4 fL Neutrophils (%) (Auto) 86.1 % Lymphocytes (%) (Auto) 8.3 % Monocytes (%) (Auto) 5.1 % Eosinophils (%) (Auto) 0.0 % Basophils (%) (Auto) 0.1 % Neutrophils # (Auto) 15.41 1.4-6.5 K/uL Lymphocytes # (Auto) 1.48 1.2-3.4 K/uL Monocytes # (Auto) 0.92 0.11-0.59 K/uL Eosinophils # (Auto) 0.00 0-0.5 K/uL Basophils # (Auto) 0.02 0-0.2 K/uL RDW Standard Deviation 51.2 36.4-46.3 fL RDW Coefficient of Variation 16.2 11.5-14.5 % Immature Granulocyte % (Auto) 0.4 % Immature Granulocyte # (Auto) 0.08 0.00-0.02 K/uL Venous Blood pH 7.39 7.36-7.41 Venous Blood Partial Pressure CO2 36 38.0-50.0 mmHg Venous Blood Partial Pressure O2 55 mmHg Venous Blood HCO3 21 mmol/L Venous Blood Oxygen Saturation 86.1 % Venous Blood Base Excess -2.9 mEq/L Lactic Acid Level 2.8 0.4-2.0 mmol/L Urine Color ANASTASIA Urine Appearance CLEAR CLEAR Urine pH 5.0 4.5-7.5 Urine Specific [place] 1.025 1.000-1.030 Urine Protein NEG NEG Urine Glucose (UA) TRACE NEG Urine Ketones 1+ NEG Urine Occult Blood 2+ NEG Urine Nitrite POS NEG Urine Bilirubin NEG NEG Urine Urobilinogen POS NEG Urine Leukocyte Esterase SMALL NEG Urine RBC 10-30 0-4 /hpf Urine WBC >30 0-5 /hpf Urine Epithelial Cells >30 0-5 /lpf Urine Bacteria 4+ NEG Microbiology Results 05/03/17 Blood Culture, Received Pending 05/03/17 Blood Culture, Received Pending 05/03/17 C.difficile Toxin B Gene (PCR), Ordered Pending 05/03/17 Urine Culture, Received Pending Diagnostic Radiology CHEST ONE VIEW PORTABLE FINDINGS: Low lung volumes. There is mild elevation the right hemidiaphragm, unchanged. The heart remains mildly enlarged. No pleural effusions. No pneumothorax. No evidence for pulmonary edema. No new focal lung consolidations to suggest pneumonia. Linear density within the right midlung zone favors atelectasis. Moderate to large amount of well-formed stool seen within the colon. IMPRESSION: No change in the low lung volumes and mild cardiomegaly. No acute process within the chest. Electronically signed by: Cleveland Cota M.D. 05/03/2017 3:41 PM Dictated Date/Time: 05/03/2017 3:39 PM KUB FINDINGS: An AP, portable, supine abdominal radiograph is compared to study dated 06/07/2016. There is a nonobstructed abdominal bowel gas pattern. There is rectosigmoid fecal impaction and severe constipation. No evidence of intraperitoneal free air is seen on this supine view. Numerous surgical clips are scattered throughout the pelvis. There are no abnormal abdominal calcifications. Pelvic phleboliths are observed. There is lumbosacral spondylosis and scoliosis. IMPRESSION: Rectosigmoid fecal impaction and severe constipation. Electronically signed by: Jabari Hicks M.D. 05/03/2017 3:39 PM Dictated Date/Time: 05/03/2017 3:[address] HEAD FINDINGS: No acute intracranial hemorrhage, midline shift or mass effect is present. Ventricular dilatation is unchanged. There is moderate to marked atrophy which accounts for ventricular dilatation. White matter hypodensities are unchanged and suggest small vessel disease. There are no findings to suggest acute dural sinus thrombosis or acute territorial infarct. There are no significant calvarial abnormalities. A right maxillary sinus mucous retention cyst is noted. IMPRESSION: No acute intracranial findings. No change since previous exam. Electronically signed by: Nolberto Alejandra M.D. CT OF THE ABDOMEN AND PELVIS WITHOUT CONTRAST, STONE PROTOCOL FINDINGS: Subpleural opacity within the lower lungs suggests atelectasis. A few hypodense hepatic lesions are unchanged. These are benign given stability. Note is made of a 5.9 x 4.1 cm cystic left upper quadrant lesion which is adjacent to the proximal stomach. This is similar in size to exam of October 24, 2015 but decreased in size when compared to earlier study of February 18, 2014. This contains a hyperdense focus. There is no biliary or pancreatic ductal dilatation. The spleen, adrenal glands and pancreas are unremarkable. There is no peripancreatic infiltration. There is a suspected left renal cyst. A few punctate left renal calculi are noted. There are no ureteral calculi. There is moderate right and mild left hydroureteronephrosis. This is increased since prior exam. The etiology for this dilatation is not clear on this examination. There is a massive amount of stool within the rectum and moderate amount of stool throughout the colon. There is significant colonic distention due to the stool. This was shown on previous exam. There is no evidence for a bowel obstruction. There is mild pericolonic and perirectal infiltration. There is no abscess. No suspicious osseous lesions are present. A Lemos balloon is present within the bladder which is collapsed. Several old lumbar spine compression deformities are unchanged. There is no pneumatosis, free air or portal venous gas. IMPRESSION: 1. Massive amount of stool within the rectum and moderate to large amount of stool within the colon consistent with significant fecal impaction. No bowel obstruction. Mild pericolonic and perirectal infiltration and wall thickening suggests colitis. This may reflect stercoral colitis related to fecal impaction. 2. 5.9 x 4.1 cm cystic left upper quadrant lesion as described above. This may reflect a neoplasm such as a GI stromal tumor. 3. Moderate right and mild left hydroureteronephrosis which is increased since prior exam. The etiology for this collection system dilatation is not clear on this exam. 4. Left sided nephrolithiasis. No ureteral calculi. Electronically signed by: Nolberto Alejandra M.D. 05/03/2017 7:19 PM Dictated Date/Time: 05/03/2017 7:01 PM . EKG EKG performed at 1704 reviewed and demonstrated sinus rhythm at 100/minute, nonspecific T-wave abnormalities. . Impression Assessment and Plan SEPSIS Met criteria for sepsis per 2001 definition and current CMS guidelines ( suspected UTI, tachycardia, leukocytosis). Reported fever at home, but afebrile in ED. Initial BP in ED 83/57. Point of care serum lactate elevated at 2.8. Patient received initial fluid resuscitation with normal saline solution with improvement of hemodynamics. Blood and urine cultures obtained. Patient received broad-spectrum antibiotic coverage with ceftriaxone and vancomycin. Continue ceftriaxone pending culture results. Additional fluid resuscitation with lactated Ringer's ordered. Recheck lactate within 6 hours of presentation. ACUTE KIDNEY INJURY Serum creatinine 1.3 compared to recent baseline of 0.6-0.8. COLEEN probably secondary to sepsis and volume depletion. IV fluids. Follow. ELEVATED TROPONIN Serum troponin = 0.343. EKG shows sinus rhythm, nonspecific T-wave changes. Serum troponin most likely nonspecific elevation secondary to sepsis. Conservative management given advanced multiple sclerosis and multiple comorbidities. OBSTIPATION Noted on KUB and CT. Bowel regimen as ordered. DM TYPE 2 Random blood sugar 237. Check Hgb A1C. Lantus + NovoLog per protocol. MULTIPLE SCLEROSIS Advanced disease. Aspiration precautions. Symptomatic management. URINARY RETENTION Secondary to multiple sclerosis. Continue indwelling Lemos catheter , change prior to discharge. ABDOMINAL MASS Previously noted and evaluated by Surgery. Resection not pursued due to advanced MS and multiple comorbidities. DECUBITUS ULCERS (present on admission) Avoid pressure. Local care. Consult Wound Care Nursing. VTE PROPHYLAXIS / HISTORY OF PULMONARY EMBOLISM Continue warfarin. RESUSCITATION STATUS Discussed with patient's . Patient has a living will and does not wish to have resuscitation attempted in the event of a cardiopulmonary arrest. Code status, therefore, is "Level 5" (DNR). DISPOSITION Admit to Telemetry Unit. Expected discharge to home. Family Medicine follow-up with Dr. Avila. . Resuscitation Status VTE Prophylaxis Will order VTE Prophylaxis: Yes
[2017-05-03] MEDS ORDERED: D5W AND LACTATED RINGERS 1,000 ML IV SCH (18:15)
[2017-05-03] MEDS ORDERED: DEXTROSE 50% 50 ML SYR IV PRN (18:30)
[2017-05-03] MEDS ORDERED: GLUCOSE 10 TABS/TUBE PO PRN (18:30)
[2017-05-03] MEDS ORDERED: GLUCOSE 40% GEL 15 GM TUBE PO PRN (18:30)
[2017-05-03] MEDS ORDERED: GLUCAGON FOR INJ 1 MG VIAL SQ PRN (18:30)
[2017-05-03] MEDS ORDERED: ACET-1311 PO (19:06)
[2017-05-03] MEDS ORDERED: WARF-246 PO (19:06)
[2017-05-03] MEDS ORDERED: CRAN1TAB9 PO (19:06)
--- NOTE | 2017-05-03 19:20 | DIAGNOSTIC IMAGING REPORT ---
CT OF THE ABDOMEN AND PELVIS WITHOUT CONTRAST, STONE PROTOCOL CLINICAL HISTORY: Urinary tract infection. Altered mental status. COMPARISON STUDY: CT of the abdomen and pelvis October 24, 2015 and KUB performed earlier today. TECHNIQUE: Helical axial images of the abdomen and pelvis were obtained without IV or oral contrast according to renal stone protocol. A dose lowering technique was utilized adhering to the principles of ALARA. FINDINGS: Subpleural opacity within the lower lungs suggests atelectasis. A few hypodense hepatic lesions are unchanged. These are benign given stability. Note is made of a 5.9 x 4.1 cm cystic left upper quadrant lesion which is adjacent to the proximal stomach. This is similar in size to exam of October 24, 2015 but decreased in size when compared to earlier study of February 18, 2014. This contains a hyperdense focus. There is no biliary or pancreatic ductal dilatation. The spleen, adrenal glands and pancreas are unremarkable. There is no peripancreatic infiltration. There is a suspected left renal cyst. A few punctate left renal calculi are noted. There are no ureteral calculi. There is moderate right and mild left hydroureteronephrosis. This is increased since prior exam. The etiology for this dilatation is not clear on this examination. There is a massive amount of stool within the rectum and moderate amount of stool throughout the colon. There is significant colonic distention due to the stool. This was shown on previous exam. There is no evidence for a bowel obstruction. There is mild pericolonic and perirectal infiltration. There is no abscess. No suspicious osseous lesions are present. A Lemos balloon is present within the bladder which is collapsed. Several old lumbar spine compression deformities are unchanged. There is no pneumatosis, free air or portal venous gas. IMPRESSION: 1. Massive amount of stool within the rectum and moderate to large amount of stool within the colon consistent with significant fecal impaction. No bowel obstruction. Mild pericolonic and perirectal infiltration and wall thickening suggests colitis. This may reflect stercoral colitis related to fecal impaction. 2. 5.9 x 4.1 cm cystic left upper quadrant lesion as described above. This may reflect a neoplasm such as a GI stromal tumor. 3. Moderate right and mild left hydroureteronephrosis which is increased since prior exam. The etiology for this collection system dilatation is not clear on this exam. 4. Left sided nephrolithiasis. No ureteral calculi. Electronically signed by: Nolberto Alejandra M.D. 05/03/2017 7:19 PM Dictated Date/Time: 05/03/2017 7:01 PM
[2017-05-03] MEDS ORDERED: WARF5TAB90 PO (20:02)
[2017-05-03] MEDS ORDERED: ATOR-24 PO (20:15)
[2017-05-03] MEDS ORDERED: INSDGIPEN SC (20:15)
[2017-05-03] MEDS ORDERED: ERGO1TAB10 PO (20:15)
[2017-05-03 20:33] VITALS: BP 96/67; PULSE 90; TEMP 36.7; O2SAT 95
[2017-05-03 20:41] VITALS: O2SAT 95
[2017-05-03 20:56] VITALS: BP 96/67; PULSE 90; TEMP 36.7; O2SAT 95; BMI 29.7
[2017-05-03] MEDS ORDERED: ENOXAPARIN 40 MG/0.4 ML SYR SC SCH (21:00)
[2017-05-03] MEDS: INSULIN GLARGINE SOLOSTAR 100 UNITS/ML 3 ML PEN SC SCH (21:48)
[2017-05-03] MEDS: INSULIN ASPART 100 UNITS/ML 3 ML PEN SC SCH (21:50)
[2017-05-03] MEDS ORDERED: SODIUM CHLORIDE 0.9% 500ML 500 ML IV SCH (22:00)
[2017-05-03] MEDS ORDERED: DOCU-94 PO (22:52)
[2017-05-04] VITALS (10 sets, daily range): BP systolic 76–129; BP diastolic 55–85; PULSE 83–132; TEMP 36.5–38; O2SAT 90–97
[2017-05-04] MEDS: LACTATED RINGER'S 1000ML 1,000 ML IV SCH ×2 (01:19→09:10)
[2017-05-04] MEDS ORDERED: PNEUMOCOCCAL ADMINISTRATION CHARGE ONE (05:45)
[2017-05-04] MEDS ORDERED: PNEUMOCOCCAL POLYSACCHARIDES 25 MCG/0.5 ML VIAL/SYR IM. ONE (05:45)
[2017-05-04 07:20] LABS: HEMATOCRIT 41.1 % (37-47); HEMOGLOBIN 13.7 g/dL (12.0-16.0); MEAN CELL VOLUME 86.5 fL (80-100); MEAN CORPUSCULAR HEMOGLOBIN 28.8 pg (25-34); MEAN CORPUSCULAR HGB CONC 33.3 g/dl (32-36); MEAN PLATELET VOLUME 9.6 fL (7.4-10.4); PLATELET COUNT 326 K/uL (130-400); RED CELL DISTRIBUTION WIDTH CV 16.1 % (11.5-14.5); RED CELL DISTRIBUTION WIDTH SD 51.3 fL (36.4-46.3)
[2017-05-04] MEDS: PAROXETINE 20 MG TAB PO SCH (07:53)
[2017-05-04] MEDS: DOCUSATE SODIUM/SENNA 50/8.6MG TAB PO SCH ×2 (07:53→21:00)
[2017-05-04 07:58] LABS: CALCIUM 8.2 mg/dl (8.5-10.1); CREATININE 0.7 mg/dl (0.60-1.20); POTASSIUM 3.5 mmol/L (3.5-5.1)
[2017-05-04] MEDS: INSULIN ASPART 100 UNITS/ML 3 ML PEN SC SCH ×4 (08:18→22:33)
[2017-05-04] MEDS: INSULIN GLARGINE SOLOSTAR 100 UNITS/ML 3 ML PEN SC SCH ×2 (08:19→22:34)
[2017-05-04 08:30] LABS: HEMOGLOBIN A1C 6.8 % (4.5-5.6)
--- NOTE | 2017-05-04 08:53 | Clinical Documentation Query ---
QUERY 1 OF [address] LEE, In your clinical opinion is this patient being managed for: ( ) UTI likely/possibly due to chronic aguilar catheter ( ) Not Agree ( ) Other explanation of clinical findings (Please Explain) ( ) Unable to determine (Please Define) ( ) Need to Discuss The medical record reflects the following clinical findings, treatment, and risk factors. Clinical Indicators: 67 yo female presenting with a recently diagnosed UTI and an altered mental status. Pt has a history of MS and a neurogenic bladder requiring a chronic aguilar catheter. Treatment: IV fluid boluses then continuous, IV vancomycin, IV rocephin, pending blood and urine cx, aguilar catheter change Risk Factors: DM, chronic aguilar for neurogenic bladder d/t MS, recurrent UTI's QUERY 2 OF 2 In your clinical opinion is this patient being managed for: ( ) Metabolic encephalopathy ( ) Not Agree ( ) Other explanation of clinical findings (Please Explain) ( ) Unable to determine (Please Define) ( ) Need to Discuss The medical record reflects the following clinical findings, treatment, and risk factors. Clinical Indicators: Pt recently diagnosed with UTI whose mental status and level of responsiveness significantly declined overnight. Blood glucose 300 prior to ER presentation, WBC 17.91, febrile with temp 101. BP 83/57, O2 sat 90% on RA, HR 110. CT head without acute findings. Treatment: IV fluid boluses then continuous, IV vancomycin, IV rocephin, pending blood and urine cx, O2 support, insulin Risk Factors: age, DM, sepsis, UTI Please clarify and document your clinical opinion in the progress notes and discharge summary. Terms such as "probable", "suspected", "likely", "questionable", "possible", or "still to be ruled out" are acceptable. IF IN AGREEMENT, YOU MUST DOCUMENT ABOVE DIAGNOSTIC STATEMENT IN DAILY PROGRESS NOTES AND DISCHARGE SUMMARY. This document is not part of the patient's record. Thank You, Rupinder Quezada, RN [phone]
[2017-05-04] MEDS: SOAP SUDS ENEMA PR SCH (09:10)
[2017-05-04] MEDS ORDERED: NURSING VERBAL MED ORDER ONE (13:00)
--- NOTE | 2017-05-04 15:02 | Progress Note ---
Medicine Progress Note Date & Time of Visit: May 04, 2017 at 14:44. Subjective Pt was seen and examined Lying in bed with no distress Pt said that she feels a little better She said that she feels weak Denies any chest pain, palpitation and SOB Objective Last 8 Hrs Date Time Temp Pulse Resp B/P (MAP) Pulse Ox O2 Delivery O2 Flow Rate FiO2 05/04/17 12:00 Room Air 05/04/17 11:35 36.6 111 18 115/74 (88) 94 Room Air 05/04/17 08:00 Nasal Cannula 2.0 05/04/17 07:36 36.5 108 16 129/85 (100) 97 Nasal Cannula 2.0 Physical Exam: General- No acute distress Head- atraumatic Eyes- PERRL, EOMI ENT- oropharynx clear Neck- supple, no JVD Lungs- mild crackles Heart- tachycardia Abdomen- normal bowel sounds, soft Extremities- no calf tenderness Neuro- alert, oriented x 3; PERRL Skin- warm & dry Laboratory Results: Last 24 Hours Test 05/03/17 15:46 05/03/17 15:47 05/03/17 16:14 05/03/17 19:44 Prothrombin Time 45.1 SECONDS Prothromb Time International Ratio 4.4 Activated Partial Thromboplast Time 64.7 SECONDS Partial Thromboplastin Ratio 2.5 Sodium Level 141 mmol/L Potassium Level 4.1 mmol/L Chloride Level 111 mmol/L Carbon Dioxide Level 21 mmol/L Anion Gap 9.0 mmol/L Blood Urea Nitrogen 33 mg/dl Creatinine 1.38 mg/dl Est Creatinine Clear Calc Drug Dose 42.7 ml/min Estimated GFR () 46.4 Estimated GFR (Non- 40.0 BUN/Creatinine Ratio 23.9 Random Glucose 237 mg/dl Calcium Level 8.2 mg/dl Phosphorus Level 3.5 mg/dl Magnesium Level 2.1 mg/dl Total Bilirubin 0.5 mg/dl Direct Bilirubin 0.1 mg/dl Aspartate Amino Transf (AST/SGOT) 12 U/L Alanine Aminotransferase (ALT/SGPT) 26 U/L Alkaline Phosphatase 93 U/L Troponin I 0.343 ng/ml Pro-B-Type Natriuretic Peptide 1447 pg/ml Total Protein 6.3 gm/dl Albumin 2.4 gm/dl Lipase 152 U/L Thyroid Stimulating Hormone (TSH) 0.500 uIu/ml White Blood Count 17.91 K/uL Red Blood Count 4.64 M/uL Hemoglobin 13.6 g/dL Hematocrit 40.3 % Mean Corpuscular Volume 86.9 fL Mean Corpuscular Hemoglobin 29.3 pg Mean Corpuscular Hemoglobin Concent 33.7 g/dl Platelet Count 325 K/uL Mean Platelet Volume 9.6 fL Neutrophils (%) (Auto) 86.1 % Lymphocytes (%) (Auto) 8.3 % Monocytes (%) (Auto) 5.1 % Eosinophils (%) (Auto) 0.0 % Basophils (%) (Auto) 0.1 % Neutrophils # (Auto) 15.41 K/uL Lymphocytes # (Auto) 1.48 K/uL Monocytes # (Auto) 0.92 K/uL Eosinophils # (Auto) 0.00 K/uL Basophils # (Auto) 0.02 K/uL RDW Standard Deviation 51.2 fL RDW Coefficient of Variation 16.2 % Immature Granulocyte % (Auto) 0.4 % Immature Granulocyte # (Auto) 0.08 K/uL Venous Blood pH 7.39 Venous Blood Partial Pressure CO2 36 mmHg Venous Blood Partial Pressure O2 55 mmHg Venous Blood HCO3 21 mmol/L Venous Blood Oxygen Saturation 86.1 % Venous Blood Base Excess -2.9 mEq/L Lactic Acid Level 2.8 mmol/L Urine Color ANASTASIA Urine Appearance CLEAR Urine pH 5.0 Urine Specific [place] 1.025 Urine Protein NEG Urine Glucose (UA) TRACE Urine Ketones 1+ Urine Occult Blood 2+ Urine Nitrite POS Urine Bilirubin NEG Urine Urobilinogen POS Urine Leukocyte Esterase SMALL Urine RBC 10-30 /hpf Urine WBC >30 /hpf Urine Epithelial Cells >30 /lpf Urine Bacteria 4+ Bedside Glucose 163 mg/dl Test 05/03/17 19:51 05/03/17 21:05 05/04/17 07:03 05/04/17 07:08 Lactic Acid Level 2.2 mmol/L 1.0 mmol/L Bedside Glucose 185 mg/dl White Blood Count 18.10 K/uL Red Blood Count 4.75 M/uL Hemoglobin 13.7 g/dL Hematocrit 41.1 % Mean Corpuscular Volume 86.5 fL Mean Corpuscular Hemoglobin 28.8 pg Mean Corpuscular Hemoglobin Concent 33.3 g/dl RDW Standard Deviation 51.3 fL RDW Coefficient of Variation 16.1 % Platelet Count 326 K/uL Mean Platelet Volume 9.6 fL Prothrombin Time 71.1 SECONDS Prothromb Time International Ratio 7.0 Sodium Level 141 mmol/L Potassium Level 3.5 mmol/L Chloride Level 112 mmol/L Carbon Dioxide Level 23 mmol/L Anion Gap 7.0 mmol/L Blood Urea Nitrogen 31 mg/dl Creatinine 0.70 mg/dl Est Creatinine Clear Calc Drug Dose 83.8 ml/min Estimated GFR () 105.4 Estimated GFR (Non- 90.9 BUN/Creatinine Ratio 44.8 Random Glucose 127 mg/dl Estimated Average Glucose 148 mg/dl Hemoglobin A1c 6.8 % Calcium Level 8.2 mg/dl Troponin I 0.135 ng/ml Test 05/04/17 07:47 05/04/17 12:00 Bedside Glucose 131 mg/dl 183 mg/dl Date/Time Source Procedure Growth Status 05/03/17 15:46 Blood Blood Culture Pending Received 05/03/17 15:20 Blood Blood Culture Pending Received 05/03/17 16:14 Urine,Catheterized Urine Culture - Preliminary Escherichia Coli Resulted Assessment & Plan SEPSIS Met criteria for sepsis per 2001 definition and current CMS guidelines ( UTI, tachycardia, leukocytosis). Elevated WBC and lactate on admission Received IVF Urine cx grew E-Coli Blood cx pending On Rocephin and Vanco Consider to d/c Vanco if blood cx negative Clinically stable D/C IVF to avoid fluid overload ACUTE KIDNEY INJURY Serum creatinine 1.3 compared to recent baseline of 0.6-0.8. Creatine 0.8 today D/C IVF Monitor BMP. ELEVATED TROPONIN Serum troponin = 0.343. EKG shows sinus rhythm, nonspecific T-wave changes. Serum troponin trending down to 0.[address] abdomen CT abd showed massive amount of stool within the rectum and moderate to large amount of stool within the colon consistent with significant fecal impaction. No bowel obstruction had 2 BM today Stable DM TYPE 2 Hba1c 6.8 ( on 05/04/17) Lantus + NovoLog per protocol. MULTIPLE SCLEROSIS Advanced disease. Aspiration precautions. Symptomatic management. URINARY RETENTION Secondary to multiple sclerosis. Continue indwelling Aguilar catheter Will change aguilar cath ABDOMINAL MASS Previously noted and evaluated by Surgery. Resection not pursued due to advanced MS and multiple comorbidities. DECUBITUS ULCERS Avoid pressure. Local care. Continue daily wound care VTE PROPHYLAXIS / HISTORY OF PULMONARY EMBOLISM INR 7 Coumadin on hold No signs of bleeding RESUSCITATION STATUS DNR DISPOSITION Stable will transfer to Medical. . Current Inpatient Medications: Current Inpatient Medications Medications (Trade) Dose Ordered Sig/Dwain Route Start Time Stop Time Status Last Admin Dose Admin Insulin Aspart (novoLOG ASPART) Sliding Scale ACHS SC 05/03/17 21:00 06/02/17 20:59 05/04/17 12:26 1 UNITS Insulin Glargine (Lantus Solostar Pen) BSG LANTUS UNITS S... BID SC 05/03/17 21:00 06/02/17 20:59 05/04/17 08:19 10 UNITS Paroxetine HCl (pAXil TAB) 40 mg QAM PO 05/04/17 09:00 06/03/17 08:59 05/04/17 07:53 40 MG Ceftriaxone Sodium 2000 mg/ Dextrose 70 ml @ 100 mls/hr DAILY@1600 IV 05/04/17 16:00 05/08/17 15:59 Glucose (Glucose 40% Gel) 15-30 GRAMS 15 GRAMS... UD PRN PO 05/03/17 18:30 06/02/17 18:29 Glucose (Glucose Chew Tab) 4-8 Tablets 4 Tabl... UD PRN PO 05/03/17 18:30 06/02/17 18:29 Dextrose (Dextrose 50% 50ML Syringe) 25-50ML OF 50% DW IV FOR... UD PRN IV 05/03/17 18:30 06/02/17 18:29 Glucagon (Glucagon Inj) 1 mg UD PRN SQ 05/03/17 18:30 06/02/17 18:29 Miscellaneous (Soap Suds Enema) 1 ea DAILY OR 05/04/17 09:00 05/06/17 09:01 05/04/17 09:10 1 EA Senna/Docusate Sodium (Senokot S Tab) 2 tab BID PO 05/04/17 09:00 06/03/17 08:59 05/04/17 07:53 2 TAB
[2017-05-04] MEDS ORDERED: WARFARIN SOD 2.5 MG TAB PO SCH (16:00)
[2017-05-04] MEDS ORDERED: CEFTRIAXONE SOD INJ 2,000 MG in DEXTROSE 5% 50ML 50 ML IV SCH (16:00)
[2017-05-04] MEDS: ACETAMINOPHEN 325 MG TAB PO PRN (17:57)
[2017-05-04] MEDS ORDERED: POTASSIUM CHLORIDE 10 MEQ TABCR PO STA (19:39)
[2017-05-04 19:45] LABS: POTASSIUM 3.7 mmol/L (3.5-5.1)
[2017-05-04] MEDS ORDERED: SODIUM CHLORIDE 0.9% 500ML 500 ML IV ONE ×2 (19:45→20:00)
--- NOTE | 2017-05-04 19:56 | Progress Note ---
Internal Med Progress Note Date of Service: May 04, 2017. Provider Documentation: 8 PM - made aware by RN around of SBP 90s, sinus tachycardia 130s Decreased responsiveness as per RN. Improve SBP, cardiac rate after fluid bolus as per RN Stool C. difficile noted to be positive, Vanco p.o. course prescribed, IV Flagy while patient unable to take p.o. 2350 PM - made aware by RN of SBP 70s, CR 120s, O2 sats 80s, coarse breath sounds Persistent dark red bloody stools as per RN. OBJECTIVE: Vital Signs-as noted below Exam: General-frail, obtunded minimal respiratory distress, HEENT -pale palp conjunctivae, dry buccal mucosa Neck-supple, short Lungs-rhonchi left Heart- tachycardic Abdomen-distension, NT Extremities-min LE edema, no tenderness NE obtunded Hg 10 from 13 INR 10 CXR as per my interpretation atelectasis no obvious infiltrate CR head no acute pathology AP Severe sepsis SIRS plus hypotension plus hypoxemia plus encephalopathy Ecoli UTI ongoing Ceftriaxone Rx new sources : LGIB 2 to C. difficile/stercoral colitis on admission CT: Possible aspiration pneumonitis, known aspiration risk Coumadin coagulopathy, hx PE IVF P.O. Vancomycin once patient more awake for C. difficile; IV Flagyl interim while patient unable to take p.o. Vanco Ertapenem for possible aspiration pneumonitis DC Ceftriaxone for Ecoli UTI while patient on Ertapenem given coverage by latter antibiotic Appropriate to reverse coagulopathy w./ IV Vitamin K, FFP given active LGIB, hemodynamic instability updated of plan of care over the phone. He agrees to blood product transfusion for his if necessary. Clarified DNR code status from admission note was only intended for a terminal situation for his . Requests patient to be Full Code for now. Will relay developments to AM provider Vital Signs: Date Time Temp Pulse Resp B/P (MAP) Pulse Ox O2 Delivery O2 Flow Rate FiO2 05/05/17 16:09 37.0 106 18 114/64 (81) 99 Nasal Cannula 2.0 05/05/17 12:00 Nasal Cannula 2.0 05/05/17 11:55 36.8 102 16 126/77 (93) 98 05/05/17 08:00 Nasal Cannula 2.0 05/05/17 07:49 37.0 97 18 126/79 (95) 98 2.0 05/05/17 06:21 36.9 100 20 108/73 99 05/05/17 04:15 36.7 101 20 92/60 (71) 95 Room Air 05/05/17 04:00 Nasal Cannula 2.0 05/05/17 02:30 37.8 120 20 115/74 (88) 95 Nasal Cannula 2.0 05/05/17 00:54 117 24 96 Nasal Cannula 2.0 05/05/17 00:07 37.5 125 17 88/61 (70) 96 Nasal Cannula 2.0 05/05/17 00:00 Nasal Cannula 2.0 05/04/17 23:30 38.0 130 20 76/55 (62) 95 Nasal Cannula 2.0 05/04/17 22:55 36.8 128 24 77/59 (65) 93 Nasal Cannula 2.0 05/04/17 20:00 93 Nasal Cannula 2.0 05/04/17 19:41 90 Room Air 05/04/17 19:24 36.5 116/80 (92) Lab Results: Results Past 24 Hours Test 05/04/17 19:17 05/04/17 19:54 05/04/17 19:55 05/04/17 20:18 Range/Units Potassium Level 3.7 3.5-5.1 mmol/L Magnesium Level 2.0 1.8-2.4 mg/dl Bedside Glucose 193 185 70-90 mg/dl White Blood Count 19.79 4.8-10.8 K/uL Red Blood Count 4.60 4.2-5.4 M/uL Hemoglobin 13.5 12.0-16.0 g/dL Hematocrit 39.8 37-47 % Mean Corpuscular Volume 86.5 80-100 fL Mean Corpuscular Hemoglobin 29.3 25-34 pg Mean Corpuscular Hemoglobin Concent 33.9 32-36 g/dl Platelet Count 384 130-400 K/uL Mean Platelet Volume 9.8 7.4-10.4 fL Neutrophils (%) (Auto) 88.8 % Lymphocytes (%) (Auto) 5.5 % Monocytes (%) (Auto) 5.2 % Eosinophils (%) (Auto) 0.0 % Basophils (%) (Auto) 0.1 % Neutrophils # (Auto) 17.59 1.4-6.5 K/uL Lymphocytes # (Auto) 1.09 1.2-3.4 K/uL Monocytes # (Auto) 1.03 0.11-0.59 K/uL Eosinophils # (Auto) 0.00 0-0.5 K/uL Basophils # (Auto) 0.01 0-0.2 K/uL RDW Standard Deviation 51.0 36.4-46.3 fL RDW Coefficient of Variation 15.9 11.5-14.5 % Immature Granulocyte % (Auto) 0.4 % Immature Granulocyte # (Auto) 0.07 0.00-0.02 K/uL Red Blood Cell Morphology Unremarkable Prothrombin Time > 100.0 9.0-12.0 SECONDS Prothromb Time International Ratio > 10.0 0.9-1.1 Test 05/05/17 00:09 05/05/17 02:33 05/05/17 06:10 05/05/17 06:20 Range/Units Arterial Blood pH 7.45 7.35-7.45 Arterial Blood Partial Pressure CO2 30 35-46 mmHg Arterial Blood Partial Pressure O2 73 80-95 mm/Hg Arterial Blood HCO3 21 19-24 mmol/L Arterial Blood Oxygen Saturation 94.2 90-95 % Arterial Blood Base Excess -2.7 -9-1.8 mEq/L Arterial Blood Gas Delivery 2 L Ryan Test POS POS Lactic Acid Level 1.5 1.3 0.4-2.0 mmol/L Hemoglobin 10.1 9.9 12.0-16.0 g/dL Hematocrit 31.1 29.7 37-47 % White Blood Count 13.82 4.8-10.8 K/uL Red Blood Count 3.47 4.2-5.4 M/uL Mean Corpuscular Volume 85.6 80-100 fL Mean Corpuscular Hemoglobin 28.5 25-34 pg Mean Corpuscular Hemoglobin Concent 33.3 32-36 g/dl Platelet Count 239 130-400 K/uL Mean Platelet Volume 9.2 7.4-10.4 fL Neutrophils (%) (Auto) 71.4 % Lymphocytes (%) (Auto) 16.4 % Monocytes (%) (Auto) 11.9 % Eosinophils (%) (Auto) 0.0 % Basophils (%) (Auto) 0.1 % Neutrophils # (Auto) 9.87 1.4-6.5 K/uL Lymphocytes # (Auto) 2.27 1.2-3.4 K/uL Monocytes # (Auto) 1.64 0.11-0.59 K/uL Eosinophils # (Auto) 0.00 0-0.5 K/uL Basophils # (Auto) 0.01 0-0.2 K/uL RDW Standard Deviation 50.1 36.4-46.3 fL RDW Coefficient of Variation 15.9 11.5-14.5 % Immature Granulocyte % (Auto) 0.2 % Immature Granulocyte # (Auto) 0.03 0.00-0.02 K/uL Prothrombin Time 15.5 9.0-12.0 SECONDS Prothromb Time International Ratio 1.5 0.9-1.1 Sodium Level 145 136-145 mmol/L Potassium Level 3.3 3.5-5.1 mmol/L Chloride Level 113 98-107 mmol/L Carbon Dioxide Level 23 21-32 mmol/L Anion Gap 8.0 3-11 mmol/L Blood Urea Nitrogen 44 7-18 mg/dl Creatinine 0.78 0.60-1.20 mg/dl Est Creatinine Clear Calc Drug Dose 76.1 ml/min Estimated GFR () 92.5 Estimated GFR (Non- 79.8 BUN/Creatinine Ratio 57.0 10-20 Random Glucose 186 70-99 mg/dl Calcium Level 8.3 8.5-10.1 mg/dl Procalcitonin 0.10 0-0.5 ng/ml Test 05/05/17 07:33 05/05/17 11:36 05/05/17 11:46 05/05/17 16:36 Range/Units Bedside Glucose 185 150 118 70-90 mg/dl Hemoglobin 9.6 12.0-16.0 g/dL Hematocrit 28.5 37-47 % Microbiology Results 05/04/17 C.difficile Toxin B Gene (PCR) - Final, Complete Positive for C. difficile toxin B gene
[2017-05-04] MEDS ORDERED: WTR IV SCH (20:00)
[2017-05-04] MEDS ORDERED: POTASSIUM CHLR IV SCH (20:00)
[2017-05-04] MEDS ORDERED: METRONIDAZOLE / NSS 500 MG in PREMIXED NSS 100 ML IV SCH (20:00)
[2017-05-04] MEDS ORDERED: PREMIXED WATER IV SCH (20:00)
[2017-05-04 20:14] LABS: HEMATOCRIT 39.8 % (37-47); HEMOGLOBIN 13.5 g/dL (12.0-16.0); MEAN CELL VOLUME 86.5 fL (80-100); MEAN CORPUSCULAR HEMOGLOBIN 29.3 pg (25-34); MEAN CORPUSCULAR HGB CONC 33.9 g/dl (32-36); MEAN PLATELET VOLUME 9.8 fL (7.4-10.4); PLATELET COUNT 384 K/uL (130-400); RED CELL DISTRIBUTION WIDTH CV 15.9 % (11.5-14.5); WHITE BLOOD COUNT 19.79 K/uL (4.8-10.8)
[2017-05-04] MEDS: POTASSIUM CHLR 10 MEQ / WTR 10 MEQ in PREMIXED WATER 100 ML IV SCH ×2 (20:26→22:25)
[2017-05-04 20:38] LABS: INR > 10.0 (0.9-1.1)
[2017-05-04 21:00] LABS: BASO % 0.1 %; BASO ABS # 0.01 K/uL (0-0.2); IG# 0.07 K/uL (0.00-0.02); LYMPH % 5.5 %; LYMPH ABS # 1.09 K/uL (1.2-3.4); MONO % 5.2 %; MONO ABS # 1.03 K/uL (0.11-0.59); NEUT % 88.8 %; NEUT ABS # 17.59 K/uL (1.4-6.5)
[2017-05-04] MEDS: RASPBERRY SYRUP 5 ML UDP PO SCH (21:00)
[2017-05-04] MEDS: VANCOMYCIN HCL 125 MG/2.5ML SOLN PO SCH (21:00)
--- NOTE | 2017-05-04 21:00 | DIAGNOSTIC IMAGING REPORT ---
SINGLE VIEW CHEST CLINICAL HISTORY: Crackles on physical examination. FINDINGS: An AP, portable, semierect chest radiograph is compared to study dated 05/03/2017. The examination is degraded by portable technique and patient rotation, as well as by the patient's head largely obscuring the right apex. The heart is enlarged. The pulmonary vasculature is noncongested. There are low lung volumes with bibasilar atelectasis. No airspace consolidation or large pleural effusion is identified. No pneumothorax is seen. The skeletal structures are osteopenic. The bony thorax is grossly intact. IMPRESSION: Low lung volumes and cardiomegaly. No acute cardiopulmonary abnormality is seen. Electronically signed by: Jabari Hicks M.D. 05/04/2017 8:58 PM Dictated Date/Time: 05/04/2017 8:57 PM
[2017-05-04] MEDS ORDERED: LACTATED RINGER'S 1000ML 1,000 ML IV ONE (21:30)
[2017-05-04] MEDS ORDERED: PHYTONADIONE INJ 10 MG in SODIUM CHLORIDE 0.9% 50ML 50 ML IV ONE (21:45)
--- NOTE | 2017-05-04 22:29 | DIAGNOSTIC IMAGING REPORT ---
CT SCAN OF THE BRAIN WITHOUT IV CONTRAST CLINICAL HISTORY: Change in mental status. COMPARISON STUDY: CT of the brain dated 05/03/2017. TECHNIQUE: Unenhanced axial CT scan of the brain is performed from the vertex to the skull base. A dose lowering technique was utilized adhering to the principles of ALARA. CT DOSE: 3472.47 mGy.cm FINDINGS: Brain parenchyma: There are age-advanced involutional changes noting mild subcortical and periventricular microangiopathic change. There is no hemorrhage, mass effect, or evidence of acute territorial ischemia by CT criteria. Daniel-white matter is preserved. No extra-axial fluid collection is seen. Ventricles, sulci, cisterns: Prominent secondary to involutional change. Intracranial vasculature: There is atherosclerotic calcification of the cavernous carotid arteries. Calvarium: Unremarkable. Sinuses and mastoids: There is a retention cyst in the right maxillary antrum. The remaining visualized paranasal sinuses are clear. The mastoid air cells are well pneumatized. Orbits: The bony orbits are grossly intact. IMPRESSION: There is no hemorrhage, mass effect, or evidence of acute territorial ischemia by CT criteria. Electronically signed by: Jabari Hicks M.D. 05/04/2017 10:28 PM Dictated Date/Time: 05/04/2017 10:26 PM
[2017-05-04] MEDS ORDERED: LEVALBUTEROL/IPRATROPIUM NEB INH STA (23:53)
[2017-05-05] VITALS (9 sets, daily range): BP systolic 88–148; BP diastolic 60–79; PULSE 97–125; TEMP 36.7–37.8; O2SAT 95–99
[2017-05-05] MEDS ORDERED: LEVALBUTEROL/IPRATROPIUM NEB INH PRN
[2017-05-05] MEDS: POTASSIUM CHLR 10 MEQ / WTR 10 MEQ in PREMIXED WATER 100 ML IV SCH (00:03)
[2017-05-05] MEDS ORDERED: IPRATROPIUM BROMIDE NEB SOLN 0.02% 2.5 ML VIAL INH STA (00:03)
[2017-05-05] MEDS ORDERED: LEVALBUTEROL 1.25MG/0.5ML NEB INH STA (00:03)
[2017-05-05] MEDS ORDERED: ALBUMIN HUMAN 25% 12.5 GM/50 ML VIAL IV SCH (00:15)
[2017-05-05] MEDS ORDERED: METRONIDAZOLE / NSS 500 MG in PREMIXED NSS 100 ML IV ONE (00:45)
[2017-05-05] MEDS ORDERED: NURSING VERBAL MED ORDER ONE ×2 (02:30→08:45)
[2017-05-05] MEDS: RASPBERRY SYRUP 5 ML UDP PO SCH ×4 (03:00→21:28)
[2017-05-05] MEDS: VANCOMYCIN HCL 125 MG/2.5ML SOLN PO SCH ×4 (03:00→21:28)
[2017-05-05 03:07] LABS: HEMATOCRIT 31.1 % (37-47); HEMOGLOBIN 10.1 g/dL (12.0-16.0)
[2017-05-05] MEDS ORDERED: ACETAMINOPHEN IV 100 ML IV ONE (03:11)
[2017-05-05] MEDS ORDERED: METRONIDAZOLE / NSS 500 MG in PREMIXED NSS 100 ML IV SCH ×2 (04:00→09:00)
[2017-05-05] MEDS ORDERED: ERTAPENEM 1 GM ADDVIAL IV ONE (04:30)
[2017-05-05] MEDS: ERTAPENEM IV 1,000 MG in SODIUM CHLOR 0.9% AD-VAN 50ML 50 ML IV SCH (06:12)
[2017-05-05 06:29] LABS: BASO % 0.1 %; BASO ABS # 0.01 K/uL (0-0.2); HEMATOCRIT 29.7 % (37-47); HEMOGLOBIN 9.9 g/dL (12.0-16.0); IG# 0.03 K/uL (0.00-0.02); LYMPH % 16.4 %; LYMPH ABS # 2.27 K/uL (1.2-3.4); MEAN CELL VOLUME 85.6 fL (80-100); MEAN CORPUSCULAR HEMOGLOBIN 28.5 pg (25-34); MEAN CORPUSCULAR HGB CONC 33.3 g/dl (32-36); MEAN PLATELET VOLUME 9.2 fL (7.4-10.4); MONO % 11.9 %; MONO ABS # 1.64 K/uL (0.11-0.59); NEUT % 71.4 %; NEUT ABS # 9.87 K/uL (1.4-6.5); PLATELET COUNT 239 K/uL (130-400); RED CELL DISTRIBUTION WIDTH CV 15.9 % (11.5-14.5); RED CELL DISTRIBUTION WIDTH SD 50.1 fL (36.4-46.3); WHITE BLOOD COUNT 13.82 K/uL (4.8-10.8)
[2017-05-05 06:41] LABS: INR 1.5 (0.9-1.1)
[2017-05-05 06:57] LABS: CALCIUM 8.3 mg/dl (8.5-10.1); CREATININE 0.78 mg/dl (0.60-1.20); POTASSIUM 3.3 mmol/L (3.5-5.1)
--- NOTE | 2017-05-05 07:02 | DIAGNOSTIC IMAGING REPORT ---
CHEST ONE VIEW PORTABLE PORTABLE AP CHEST RADIOGRAPH CLINICAL HISTORY: Crackles. COMPARISON STUDY: Chest radiograph May 04, 2017 7:40 PM. FINDINGS: Elevation of the right hemidiaphragm is unchanged. Prominence of the right mediastinal contour is also unchanged. Cardiomediastinal silhouette is stable. There is no pneumothorax or pleural effusion. Pulmonary vascularity is normal. The appearance of the chest is unchanged. IMPRESSION: No acute cardiopulmonary findings. No change in appearance of the chest. Electronically signed by: Nolberto Alejandra M.D. 05/05/2017 7:01 AM Dictated Date/Time: 05/05/2017 6:59 AM
[2017-05-05] MEDS: SOAP SUDS ENEMA PR SCH (07:17)
[2017-05-05] MEDS ORDERED: POTASSIUM CHLORIDE 10 MEQ TABCR PO ONE (07:30)
[2017-05-05] MEDS: DOCUSATE SODIUM/SENNA 50/8.6MG TAB PO SCH ×2 (07:36→21:00)
[2017-05-05] MEDS: PAROXETINE 20 MG TAB PO SCH (07:38)
[2017-05-05] MEDS ORDERED: POTASSIUM CHLR 20 MEQ / WTR 20 MEQ in PREMIXED WATER 100 ML IV ONE (08:30)
[2017-05-05] MEDS: INSULIN ASPART 100 UNITS/ML 3 ML PEN SC SCH ×4 (08:35→21:29)
[2017-05-05] MEDS ORDERED: ERTAPENEM CONSULT ACTIVE PRN (09:00)
[2017-05-05 11:56] LABS: HEMATOCRIT 28.5 % (37-47); HEMOGLOBIN 9.6 g/dL (12.0-16.0)
[2017-05-05 18:18] LABS: HEMATOCRIT 30.5 % (37-47)
--- NOTE | 2017-05-05 19:20 | Progress Note ---
Medicine Progress Note Date & Time of Visit: May 05, 2017 at 19:15. Subjective Pt was seen and examined Lying in bed with no distress She is more awake today and talking Denies any chest pain, palpitation and SOB Objective Last 8 Hrs Date Time Temp Pulse Resp B/P (MAP) Pulse Ox O2 Delivery O2 Flow Rate FiO2 05/05/17 16:09 37.0 106 18 114/64 (81) 99 Nasal Cannula 2.0 05/05/17 12:00 Nasal Cannula 2.0 05/05/17 11:55 36.8 102 16 126/77 (93) 98 Physical Exam: General- No acute distress Head- atraumatic Eyes- PERRL, EOMI ENT- oropharynx clear Neck- supple, no JVD Lungs- mild coarse bs Heart- tachycardia Abdomen- normal bowel sounds, soft Extremities- no calf tenderness Neuro- alert, oriented x 3; PERRL Skin- warm & dry Laboratory Results: Last 24 Hours Test 05/04/17 19:17 05/04/17 19:54 05/04/17 19:55 05/04/17 20:18 Potassium Level 3.7 mmol/L Magnesium Level 2.0 mg/dl Bedside Glucose 193 mg/dl 185 mg/dl White Blood Count 19.79 K/uL Red Blood Count 4.60 M/uL Hemoglobin 13.5 g/dL Hematocrit 39.8 % Mean Corpuscular Volume 86.5 fL Mean Corpuscular Hemoglobin 29.3 pg Mean Corpuscular Hemoglobin Concent 33.9 g/dl Platelet Count 384 K/uL Mean Platelet Volume 9.8 fL Neutrophils (%) (Auto) 88.8 % Lymphocytes (%) (Auto) 5.5 % Monocytes (%) (Auto) 5.2 % Eosinophils (%) (Auto) 0.0 % Basophils (%) (Auto) 0.1 % Neutrophils # (Auto) 17.59 K/uL Lymphocytes # (Auto) 1.09 K/uL Monocytes # (Auto) 1.03 K/uL Eosinophils # (Auto) 0.00 K/uL Basophils # (Auto) 0.01 K/uL RDW Standard Deviation 51.0 fL RDW Coefficient of Variation 15.9 % Immature Granulocyte % (Auto) 0.4 % Immature Granulocyte # (Auto) 0.07 K/uL Red Blood Cell Morphology Unremarkable Prothrombin Time > 100.0 SECONDS Prothromb Time International Ratio > 10.0 Test 05/05/17 00:09 05/05/17 02:33 05/05/17 06:10 05/05/17 06:20 Arterial Blood pH 7.45 Arterial Blood Partial Pressure CO2 30 mmHg Arterial Blood Partial Pressure O2 73 mm/Hg Arterial Blood HCO3 21 mmol/L Arterial Blood Oxygen Saturation 94.2 % Arterial Blood Base Excess -2.7 mEq/L Arterial Blood Gas Delivery 2 L Ryan Test POS Lactic Acid Level 1.5 mmol/L 1.3 mmol/L Hemoglobin 10.1 g/dL 9.9 g/dL Hematocrit 31.1 % 29.7 % White Blood Count 13.82 K/uL Red Blood Count 3.47 M/uL Mean Corpuscular Volume 85.6 fL Mean Corpuscular Hemoglobin 28.5 pg Mean Corpuscular Hemoglobin Concent 33.3 g/dl Platelet Count 239 K/uL Mean Platelet Volume 9.2 fL Neutrophils (%) (Auto) 71.4 % Lymphocytes (%) (Auto) 16.4 % Monocytes (%) (Auto) 11.9 % Eosinophils (%) (Auto) 0.0 % Basophils (%) (Auto) 0.1 % Neutrophils # (Auto) 9.87 K/uL Lymphocytes # (Auto) 2.27 K/uL Monocytes # (Auto) 1.64 K/uL Eosinophils # (Auto) 0.00 K/uL Basophils # (Auto) 0.01 K/uL RDW Standard Deviation 50.1 fL RDW Coefficient of Variation 15.9 % Immature Granulocyte % (Auto) 0.2 % Immature Granulocyte # (Auto) 0.03 K/uL Prothrombin Time 15.5 SECONDS Prothromb Time International Ratio 1.5 Sodium Level 145 mmol/L Potassium Level 3.3 mmol/L Chloride Level 113 mmol/L Carbon Dioxide Level 23 mmol/L Anion Gap 8.0 mmol/L Blood Urea Nitrogen 44 mg/dl Creatinine 0.78 mg/dl Est Creatinine Clear Calc Drug Dose 76.1 ml/min Estimated GFR () 92.5 Estimated GFR (Non- 79.8 BUN/Creatinine Ratio 57.0 Random Glucose 186 mg/dl Calcium Level 8.3 mg/dl Procalcitonin 0.10 ng/ml Test 05/05/17 07:33 05/05/17 11:36 05/05/17 11:46 05/05/17 16:36 Bedside Glucose 185 mg/dl 150 mg/dl 118 mg/dl Hemoglobin 9.6 g/dL Hematocrit 28.5 % Test 05/05/17 17:54 Hemoglobin 10.0 g/dL Hematocrit 30.5 % Assessment & Plan SEPSIS Met criteria for sepsis per 2001 definition and current CMS guidelines ( UTI, tachycardia, leukocytosis). Elevated WBC and lactate on admission Received IVF Urine cx grew E-Coli Blood cx pending On Rocephin and Vanco Consider to d/c Vanco if blood cx negative Clinically stable D/C IVF to avoid fluid overload 05/05 Rocephin was changed to ertapenem Urine cx grew ecoli clinically improved Cdiff stool positive for C-diff since pt was NPO, she was starting on flagyl IV Switch to oral vanco monitor electrolytes GI bleed INR increased to 10 Received vit k INR 1.5 Hgb stable at 10 continue monitor cbc ACUTE KIDNEY INJURY Serum creatinine 1.3 compared to recent baseline of 0.6-0.8. Creatine 0.8 today D/C IVF Monitor BMP. ELEVATED TROPONIN Serum troponin = 0.343. EKG shows sinus rhythm, nonspecific T-wave changes. Serum troponin trending down to 0.[address] CT abd showed massive amount of stool within the rectum and moderate to large amount of stool within the colon consistent with significant fecal impaction. No bowel obstruction had 2 BM today Stable DM TYPE 2 Hba1c 6.8 ( on 05/04/17) Lantus + NovoLog per protocol. MULTIPLE SCLEROSIS Advanced disease. Aspiration precautions. Symptomatic management. URINARY RETENTION Secondary to multiple sclerosis. Continue indwelling Aguilar catheter Will change aguilar cath ABDOMINAL MASS Previously noted and evaluated by Surgery. Resection not pursued due to advanced MS and multiple comorbidities. DECUBITUS ULCERS Avoid pressure. Local care. Continue daily wound care VTE PROPHYLAXIS / HISTORY OF PULMONARY EMBOLISM INR 1.5 Coumadin on hold RESUSCITATION STATUS DNR DISPOSITION continue monitor in tele . Current Inpatient Medications: Current Inpatient Medications Medications (Trade) Dose Ordered Sig/Dwain Route Start Time Stop Time Status Last Admin Dose Admin Insulin Aspart (novoLOG ASPART) Sliding Scale ACHS SC 05/03/17 21:00 06/02/17 20:59 05/05/17 17:22 1 UNITS Paroxetine HCl (pAXil TAB) 40 mg QAM PO 05/04/17 09:00 06/03/17 08:59 05/05/17 07:38 40 MG Ceftriaxone Sodium 2000 mg/ Dextrose 70 ml @ 100 mls/hr DAILY@1600 IV 05/04/17 16:00 05/08/17 15:59 Future Hold 05/04/17 15:39 100 MLS/HR Glucose (Glucose 40% Gel) 15-30 GRAMS 15 GRAMS... UD PRN PO 05/03/17 18:30 06/02/17 18:29 Glucose (Glucose Chew Tab) 4-8 Tablets 4 Tabl... UD PRN PO 05/03/17 18:30 06/02/17 18:29 Dextrose (Dextrose 50% 50ML Syringe) 25-50ML OF 50% DW IV FOR... UD PRN IV 05/03/17 18:30 06/02/17 18:29 Glucagon (Glucagon Inj) 1 mg UD PRN SQ 05/03/17 18:30 06/02/17 18:29 Miscellaneous (Soap Suds Enema) 1 ea DAILY UT 05/04/17 09:00 05/06/17 09:01 05/04/17 09:10 1 EA Senna/Docusate Sodium (Senokot S Tab) 2 tab BID PO 05/04/17 09:00 06/03/17 08:59 05/04/17 07:53 2 TAB Acetaminophen (Tylenol Tab) 650 mg Q6 PRN PO 05/04/17 17:30 06/03/17 17:29 05/04/17 17:57 650 MG Acetaminophen 650 mg/Empty Bag 65 ml @ 260 mls/hr Q12 PRN IV 05/04/17 18:45 06/03/17 18:44 Vancomycin HCl (Vancomycin Oral Soln) 125 mg Q6H PO 05/04/17 21:00 05/18/17 20:59 05/05/17 15:56 125 MG Raspberry (Raspberry Syrup 5ml Cup) 5 ml Q6H PO 05/04/17 21:00 05/18/17 20:59 05/05/17 15:56 5 ML Ipratropium [place] (Atrovent 0.02% 0.5MG/2.5ML Neb) 0.5 mg Q4H PRN INH 05/05/17 00:15 06/04/17 00:14 Levalbuterol (Xopenex 1.25MG/ 0.5ML Neb) 1.25 mg Q4H PRN INH 05/05/17 00:15 06/04/17 00:14 Ertapenem (Consult) 1 ea UD PRN N/A 05/05/17 09:00 06/04/17 08:59 Insulin Glargine (Lantus Solostar Pen) 5 units HS SC 05/05/17 21:00 06/04/17 20:59 Ertapenem 1000 mg/ Sodium Chloride 60 ml @ 100 mls/hr Q24H IV 05/05/17 05:30 05/12/17 05:29 05/05/17 06:12 100 MLS/HR
[2017-05-05] MEDS: INSULIN GLARGINE SOLOSTAR 100 UNITS/ML 3 ML PEN SC SCH (21:30)
[2017-05-06] VITALS (9 sets, daily range): BP systolic 124–155; BP diastolic 71–83; PULSE 100–108; TEMP 36.2–37.4; O2SAT 94–97
[2017-05-06] MEDS: RASPBERRY SYRUP 5 ML UDP PO SCH ×4 (04:11→20:41)
[2017-05-06] MEDS: VANCOMYCIN HCL 125 MG/2.5ML SOLN PO SCH ×4 (04:11→20:42)
[2017-05-06] MEDS: ERTAPENEM IV 1,000 MG in SODIUM CHLOR 0.9% AD-VAN 50ML 50 ML IV SCH (05:19)
[2017-05-06] MEDS: INSULIN ASPART 100 UNITS/ML 3 ML PEN SC SCH ×4 (06:30→20:45)
[2017-05-06 07:49] LABS: HEMATOCRIT 27.7 % (37-47); HEMOGLOBIN 9.2 g/dL (12.0-16.0); MEAN CELL VOLUME 86.3 fL (80-100); MEAN CORPUSCULAR HEMOGLOBIN 28.7 pg (25-34); MEAN CORPUSCULAR HGB CONC 33.2 g/dl (32-36); MEAN PLATELET VOLUME 9.4 fL (7.4-10.4); PLATELET COUNT 243 K/uL (130-400); RED CELL DISTRIBUTION WIDTH SD 50.8 fL (36.4-46.3)
[2017-05-06 08:29] LABS: CALCIUM 7.9 mg/dl (8.5-10.1); CREATININE 0.64 mg/dl (0.60-1.20); POTASSIUM 3.1 mmol/L (3.5-5.1)
[2017-05-06] MEDS: DOCUSATE SODIUM/SENNA 50/8.6MG TAB PO SCH ×2 (08:49→20:46)
[2017-05-06] MEDS: PAROXETINE 20 MG TAB PO SCH (08:50)
[2017-05-06] MEDS: SOAP SUDS ENEMA PR SCH (09:00)
[2017-05-06] MEDS ORDERED: POTASSIUM CHLORIDE 20 MEQ TABCR PO ONE (12:15)
--- NOTE | 2017-05-06 14:16 | DIAGNOSTIC IMAGING REPORT ---
MODIFIED BARIUM SWALLOW CLINICAL HISTORY: Sepsis. Evaluate for aspiration. COMPARISON STUDY: Modified barium swallow May 06, 2017. Fluoroscopy time: 3 minutes. FINDINGS: There are multiple episodes of silent tracheal aspiration with thin liquids and nectar thick liquids. There is possible trace aspiration with honey thick liquids. There is no aspiration with pudding consistency or crackers with paste. Premature spillage was noted with delayed initiation of the swallowing mechanism IMPRESSION: 1. Multiple episodes of tracheal aspiration with thin liquids and nectar thick liquids with possible trace tracheal aspiration with honey thick liquids. No aspiration with pudding or crackers with paste. 2. Premature spillage with delayed initiation of swallowing mechanism. 3. Full recommendations by speech pathology to follow. Electronically signed by: Nolberto Alejandra M.D. 05/06/2017 2:14 PM Dictated Date/Time: 05/06/2017 2:12 PM
--- NOTE | 2017-05-06 20:02 | Progress Note ---
Medicine Progress Note Date & Time of Visit: May 06, 2017 at 19:56. Subjective Pt was seen and examined Lying in bed with no distress Pt is more awake today No diarrhea today as per nurse denies any chest pain, palpitation and SOB Objective Last 8 Hrs Date Time Temp Pulse Resp B/P (MAP) Pulse Ox O2 Delivery O2 Flow Rate FiO2 05/06/17 19:26 37.4 108 20 155/83 (107) 96 Room Air 05/06/17 16:00 Room Air 05/06/17 15:39 36.6 100 16 152/72 (98) 96 Room Air 05/06/17 12:00 Room Air Physical Exam: General- No acute distress Head- atraumatic Eyes- PERRL, EOMI ENT- oropharynx clear Neck- supple, no JVD Lungs- mild coarse bs Heart- tachycardia Abdomen- normal bowel sounds, soft Extremities- no calf tenderness Neuro- alert, oriented x 3; PERRL Skin- warm & dry Laboratory Results: Last 24 Hours Test 05/05/17 20:39 05/06/17 07:15 05/06/17 07:45 05/06/17 11:52 Bedside Glucose 177 mg/dl 118 mg/dl 158 mg/dl White Blood Count 12.70 K/uL Red Blood Count 3.21 M/uL Hemoglobin 9.2 g/dL Hematocrit 27.7 % Mean Corpuscular Volume 86.3 fL Mean Corpuscular Hemoglobin 28.7 pg Mean Corpuscular Hemoglobin Concent 33.2 g/dl RDW Standard Deviation 50.8 fL RDW Coefficient of Variation 16.0 % Platelet Count 243 K/uL Mean Platelet Volume 9.4 fL Prothrombin Time 10.7 SECONDS Prothromb Time International Ratio 1.0 Sodium Level 145 mmol/L Potassium Level 3.1 mmol/L Chloride Level 114 mmol/L Carbon Dioxide Level 26 mmol/L Anion Gap 5.0 mmol/L Blood Urea Nitrogen 24 mg/dl Creatinine 0.64 mg/dl Est Creatinine Clear Calc Drug Dose 92.8 ml/min Estimated GFR () 108.5 Estimated GFR (Non- 93.6 BUN/Creatinine Ratio 37.3 Random Glucose 108 mg/dl Calcium Level 7.9 mg/dl Test 05/06/17 16:10 Bedside Glucose 230 mg/dl Assessment & Plan SEPSIS Met criteria for sepsis per 2001 definition and current CMS guidelines ( UTI, tachycardia, leukocytosis). Elevated WBC and lactate on admission Received IVF Urine cx grew E-Coli Blood cx pending On Rocephin and Vanco Consider to d/c Vanco if blood cx negative Clinically stable D/C IVF to avoid fluid overload 05/06 Rocephin was changed to ertapenem Urine cx grew ecoli clinically improved Cdiff stool positive for C-diff since pt was NPO, she was starting on flagyl IV Continue PO vanco Diarrhea improved monitor electrolytes GI bleed INR increased to 10 Received vit k INR 1 Hgb stable at 9.2 continue monitor cbc Will resume coumadin tomorrow ACUTE KIDNEY INJURY Serum creatinine 1.3 compared to recent baseline of 0.6-0.8. Creatine stable D/C IVF Monitor BMP. ELEVATED TROPONIN Serum troponin = 0.343. EKG shows sinus rhythm, nonspecific T-wave changes. Serum troponin trending down to 0.13 Asymptomatic Hypokalemia K replaced CONSTIPATION CT abdomen CT abd showed massive amount of stool within the rectum and moderate to large amount of stool within the colon consistent with significant fecal impaction. No bowel obstruction had diarrhea/cdiff DM TYPE 2 Hba1c 6.8 ( on 05/04/17) Lantus + NovoLog per protocol. MULTIPLE SCLEROSIS Advanced disease. Aspiration precautions. Symptomatic management. URINARY RETENTION Secondary to multiple sclerosis. Continue indwelling Aguilar catheter Will change aguilar cath ABDOMINAL MASS Previously noted and evaluated by Surgery. Resection not pursued due to advanced MS and multiple comorbidities. DECUBITUS ULCERS Avoid pressure. Local care. Continue daily wound care VTE PROPHYLAXIS / HISTORY OF PULMONARY EMBOLISM INR 1 Coumadin on hold RESUSCITATION STATUS DNR DISPOSITION continue monitor in tele . Current Inpatient Medications: Current Inpatient Medications Medications (Trade) Dose Ordered Sig/Dwain Route Start Time Stop Time Status Last Admin Dose Admin Insulin Aspart (novoLOG ASPART) Sliding Scale ACHS SC 05/03/17 21:00 06/02/17 20:59 05/06/17 17:11 3 UNITS Paroxetine HCl (pAXil TAB) 40 mg QAM PO 05/04/17 09:00 06/03/17 08:59 05/06/17 08:50 40 MG Ceftriaxone Sodium 2000 mg/ Dextrose 70 ml @ 100 mls/hr DAILY@1600 IV 05/04/17 16:00 05/08/17 15:59 Future Hold 05/04/17 15:39 100 MLS/HR Glucose (Glucose 40% Gel) 15-30 GRAMS 15 GRAMS... UD PRN PO 05/03/17 18:30 06/02/17 18:29 Glucose (Glucose Chew Tab) 4-8 Tablets 4 Tabl... UD PRN PO 05/03/17 18:30 06/02/17 18:29 Dextrose (Dextrose 50% 50ML Syringe) 25-50ML OF 50% DW IV FOR... UD PRN IV 05/03/17 18:30 06/02/17 18:29 Glucagon (Glucagon Inj) 1 mg UD PRN SQ 05/03/17 18:30 06/02/17 18:29 Senna/Docusate Sodium (Senokot S Tab) 2 tab BID PO 05/04/17 09:00 06/03/17 08:59 05/04/17 07:53 2 TAB Acetaminophen (Tylenol Tab) 650 mg Q6 PRN PO 05/04/17 17:30 06/03/17 17:29 05/04/17 17:57 650 MG Acetaminophen 650 mg/Empty Bag 65 ml @ 260 mls/hr Q12 PRN IV 05/04/17 18:45 06/03/17 18:44 Vancomycin HCl (Vancomycin Oral Soln) 125 mg Q6H PO 05/04/17 21:00 05/18/17 20:59 05/06/17 16:27 125 MG Raspberry (Raspberry Syrup 5ml Cup) 5 ml Q6H PO 05/04/17 21:00 05/18/17 20:59 05/06/17 16:26 5 ML Ipratropium [place] (Atrovent 0.02% 0.5MG/2.5ML Neb) 0.5 mg Q4H PRN INH 05/05/17 00:15 06/04/17 00:14 Levalbuterol (Xopenex 1.25MG/ 0.5ML Neb) 1.25 mg Q4H PRN INH 05/05/17 00:15 06/04/17 00:14 Ertapenem (Consult) 1 ea UD PRN N/A 05/05/17 09:00 06/04/17 08:59 Insulin Glargine (Lantus Solostar Pen) 5 units HS SC 05/05/17 21:00 06/04/17 20:59 05/05/17 21:30 5 UNITS Ertapenem 1000 mg/ Sodium Chloride 60 ml @ 100 mls/hr Q24H IV 05/05/17 05:30 05/12/17 05:29 05/06/17 05:19 100 MLS/HR
[2017-05-06] MEDS: INSULIN GLARGINE SOLOSTAR 100 UNITS/ML 3 ML PEN SC SCH (20:45)
[2017-05-07] MEDS: RASPBERRY SYRUP 5 ML UDP PO SCH ×4 (02:09→20:51)
[2017-05-07] MEDS: VANCOMYCIN HCL 125 MG/2.5ML SOLN PO SCH ×4 (02:09→20:51)
[2017-05-07 04:48] VITALS: BP 137/66; PULSE 100; TEMP 37.3; O2SAT 94
[2017-05-07] MEDS: ERTAPENEM IV 1,000 MG in SODIUM CHLOR 0.9% AD-VAN 50ML 50 ML IV SCH (05:25)
[2017-05-07 06:30] LABS: HEMATOCRIT 28.8 % (37-47); HEMOGLOBIN 9.5 g/dL (12.0-16.0); MEAN CORPUSCULAR HEMOGLOBIN 28.7 pg (25-34); MEAN PLATELET VOLUME 9.5 fL (7.4-10.4); PLATELET COUNT 255 K/uL (130-400); RED CELL DISTRIBUTION WIDTH CV 16.1 % (11.5-14.5); RED CELL DISTRIBUTION WIDTH SD 51.5 fL (36.4-46.3)
[2017-05-07 06:53] LABS: CREATININE 0.65 mg/dl (0.60-1.20); POTASSIUM 3.3 mmol/L (3.5-5.1)
[2017-05-07] MEDS: DOCUSATE SODIUM/SENNA 50/8.6MG TAB PO SCH ×2 (07:43→20:52)
[2017-05-07] MEDS: PAROXETINE 20 MG TAB PO SCH (07:43)
[2017-05-07 08:00] VITALS: BP 115/72; PULSE 97; TEMP 36.4; O2SAT 93
[2017-05-07] MEDS: INSULIN ASPART 100 UNITS/ML 3 ML PEN SC SCH ×4 (08:14→20:57)
[2017-05-07] MEDS ORDERED: POTASSIUM CHLORIDE 20 MEQ TABCR PO ONE (08:30)
[2017-05-07 12:02] VITALS: BP 124/70; PULSE 99; TEMP 36.5; O2SAT 96
[2017-05-07 15:08] VITALS: BP 153/76; PULSE 93; TEMP 37; O2SAT 95
--- NOTE | 2017-05-07 18:11 | Progress Note ---
Medicine Progress Note Date & Time of Visit: May 07, 2017 at 18:06. Subjective Pt was seen and examined Lying in bed with no distress Pt said that he feels slightly better No diarrhea as per nurse Denies any fever and SOB Objective Last 8 Hrs Date Time Temp Pulse Resp B/P (MAP) Pulse Ox O2 Delivery O2 Flow Rate FiO2 05/07/17 16:15 Room Air 05/07/17 15:08 37.0 93 20 153/76 (101) 95 05/07/17 12:15 Room Air 05/07/17 12:02 36.5 99 18 124/70 (88) 96 Physical Exam: General- No acute distress Head- atraumatic Eyes- PERRL, EOMI ENT- oropharynx clear Neck- supple, no JVD Lungs- mild coarse bs Heart- tachycardia Abdomen- normal bowel sounds, soft Extremities- no calf tenderness Neuro- alert, oriented x 3; PERRL Skin- warm & dry Laboratory Results: Last 24 Hours Test 05/06/17 20:13 05/07/17 06:02 05/07/17 07:49 05/07/17 12:06 Bedside Glucose 196 mg/dl 148 mg/dl 218 mg/dl White Blood Count 13.50 K/uL Red Blood Count 3.31 M/uL Hemoglobin 9.5 g/dL Hematocrit 28.8 % Mean Corpuscular Volume 87.0 fL Mean Corpuscular Hemoglobin 28.7 pg Mean Corpuscular Hemoglobin Concent 33.0 g/dl RDW Standard Deviation 51.5 fL RDW Coefficient of Variation 16.1 % Platelet Count 255 K/uL Mean Platelet Volume 9.5 fL Prothrombin Time 10.7 SECONDS Prothromb Time International Ratio 1.0 Sodium Level 146 mmol/L Potassium Level 3.3 mmol/L Chloride Level 115 mmol/L Carbon Dioxide Level 23 mmol/L Anion Gap 8.0 mmol/L Blood Urea Nitrogen 17 mg/dl Creatinine 0.65 mg/dl Est Creatinine Clear Calc Drug Dose 91.4 ml/min Estimated GFR () 108.0 Estimated GFR (Non- 93.2 BUN/Creatinine Ratio 25.8 Random Glucose 148 mg/dl Calcium Level 8.0 mg/dl Test 05/07/17 16:03 Bedside Glucose 182 mg/dl Assessment & Plan SEPSIS Met criteria for sepsis per 2001 definition and current CMS guidelines ( UTI, tachycardia, leukocytosis). Elevated WBC and lactate on admission Received IVF Urine cx grew E-Coli Blood cx pending On Rocephin and Vanco Consider to d/c Vanco if blood cx negative Clinically stable D/C IVF to avoid fluid overload 05/07 Rocephin was changed to ertapenem Urine cx grew ecoli clinically improved will transition to PO abx on discharge Cdiff stool positive for C-diff since pt was NPO, she was starting on flagyl IV Continue PO vanco Diarrhea improved monitor electrolytes GI bleed INR increased to 10 Received vit k INR 1 Hgb stable at 9.2 continue monitor cbc Resume coumadin 2.5 mg today ACUTE KIDNEY INJURY Serum creatinine 1.3 compared to recent baseline of 0.6-0.8. Creatine stable D/C IVF Monitor BMP. Resolved ELEVATED TROPONIN Serum troponin = 0.343. EKG shows sinus rhythm, nonspecific T-wave changes. Serum troponin trending down to 0.13 Asymptomatic Hypokalemia K replaced Monitor BMP CONSTIPATION CT abdomen CT abd showed massive amount of stool within the rectum and moderate to large amount of stool within the colon consistent with significant fecal impaction. No bowel obstruction had diarrhea/cdiff DM TYPE 2 Hba1c 6.8 ( on 05/04/17) Lantus + NovoLog per protocol. MULTIPLE SCLEROSIS Advanced disease. Aspiration precautions. Symptomatic management. URINARY RETENTION Secondary to multiple sclerosis. Continue indwelling Aguilar catheter Will change aguilar cath ABDOMINAL MASS Previously noted and evaluated by Surgery. Resection not pursued due to advanced MS and multiple comorbidities. DECUBITUS ULCERS Avoid pressure. Local care. Continue daily wound care VTE PROPHYLAXIS / HISTORY OF PULMONARY EMBOLISM INR 1 Coumadin resume today SCDs RESUSCITATION STATUS DNR DISPOSITION continue monitor in tele . Current Inpatient Medications: Current Inpatient Medications Medications (Trade) Dose Ordered Sig/Dwain Route Start Time Stop Time Status Last Admin Dose Admin Insulin Aspart (novoLOG ASPART) Sliding Scale ACHS SC 05/03/17 21:00 06/02/17 20:59 05/07/17 17:08 2 UNITS Paroxetine HCl (pAXil TAB) 40 mg QAM PO 05/04/17 09:00 06/03/17 08:59 05/07/17 07:43 40 MG Ceftriaxone Sodium 2000 mg/ Dextrose 70 ml @ 100 mls/hr DAILY@1600 IV 05/04/17 16:00 05/08/17 15:59 Future Hold 05/04/17 15:39 100 MLS/HR Glucose (Glucose 40% Gel) 15-30 GRAMS 15 GRAMS... UD PRN PO 05/03/17 18:30 06/02/17 18:29 Glucose (Glucose Chew Tab) 4-8 Tablets 4 Tabl... UD PRN PO 05/03/17 18:30 06/02/17 18:29 Dextrose (Dextrose 50% 50ML Syringe) 25-50ML OF 50% DW IV FOR... UD PRN IV 05/03/17 18:30 06/02/17 18:29 Glucagon (Glucagon Inj) 1 mg UD PRN SQ 05/03/17 18:30 06/02/17 18:29 Senna/Docusate Sodium (Senokot S Tab) 2 tab BID PO 05/04/17 09:00 06/03/17 08:59 05/07/17 07:43 2 TAB Acetaminophen (Tylenol Tab) 650 mg Q6 PRN PO 05/04/17 17:30 06/03/17 17:29 05/04/17 17:57 650 MG Acetaminophen 650 mg/Empty Bag 65 ml @ 260 mls/hr Q12 PRN IV 05/04/17 18:45 06/03/17 18:44 Vancomycin HCl (Vancomycin Oral Soln) 125 mg Q6H PO 05/04/17 21:00 05/18/17 20:59 05/07/17 15:30 125 MG Raspberry (Raspberry Syrup 5ml Cup) 5 ml Q6H PO 05/04/17 21:00 05/18/17 20:59 05/07/17 15:30 5 ML Ipratropium [place] (Atrovent 0.02% 0.5MG/2.5ML Neb) 0.5 mg Q4H PRN INH 05/05/17 00:15 06/04/17 00:14 Levalbuterol (Xopenex 1.25MG/ 0.5ML Neb) 1.25 mg Q4H PRN INH 05/05/17 00:15 06/04/17 00:14 Ertapenem (Consult) 1 ea UD PRN N/A 05/05/17 09:00 06/04/17 08:59 Insulin Glargine (Lantus Solostar Pen) 5 units HS SC 05/05/17 21:00 06/04/17 20:59 05/06/17 20:45 5 UNITS Ertapenem 1000 mg/ Sodium Chloride 60 ml @ 100 mls/hr Q24H IV 05/05/17 05:30 05/12/17 05:29 05/07/17 05:25 100 MLS/HR
[2017-05-07] MEDS ORDERED: WARFARIN SOD 2.5 MG TAB PO ONE (18:35)
[2017-05-07 18:58] VITALS: BP 145/83; PULSE 92; TEMP 37.6; O2SAT 92
[2017-05-07] MEDS: INSULIN GLARGINE SOLOSTAR 100 UNITS/ML 3 ML PEN SC SCH (20:58)
[2017-05-07 23:43] VITALS: BP 136/84; PULSE 97; TEMP 37.1; O2SAT 94
[2017-05-08] MEDS: RASPBERRY SYRUP 5 ML UDP PO SCH ×4 (03:46→20:48)
[2017-05-08] MEDS: VANCOMYCIN HCL 125 MG/2.5ML SOLN PO SCH ×4 (03:46→20:48)
[2017-05-08 04:00] VITALS: BP 134/86; PULSE 109; TEMP 37; O2SAT 90
[2017-05-08] MEDS: ERTAPENEM IV 1,000 MG in SODIUM CHLOR 0.9% AD-VAN 50ML 50 ML IV SCH (05:33)
[2017-05-08 07:21] VITALS: BP 124/74; PULSE 91; TEMP 36.8; O2SAT 92
[2017-05-08] MEDS: DOCUSATE SODIUM/SENNA 50/8.6MG TAB PO SCH ×2 (07:59→20:57)
[2017-05-08] MEDS: PAROXETINE 20 MG TAB PO SCH (07:59)
[2017-05-08] MEDS: INSULIN ASPART 100 UNITS/ML 3 ML PEN SC SCH ×4 (08:01→20:56)
[2017-05-08 08:18] LABS: INR 1.1 (0.9-1.1)
[2017-05-08 08:29] LABS: CREATININE 0.58 mg/dl (0.60-1.20); POTASSIUM 3.4 mmol/L (3.5-5.1)
[2017-05-08 11:56] VITALS: BP 103/65; PULSE 98; TEMP 36.6; O2SAT 95
[2017-05-08 14:37] VITALS: BP 121/78; PULSE 95; TEMP 36.9; O2SAT 95
[2017-05-08] MEDS: WARFARIN SOD 2.5 MG TAB PO SCH (15:42)
--- NOTE | 2017-05-08 18:04 | Progress Note ---
Medicine Progress Note Date & Time of Visit: May 08, 2017 at 17:59. Subjective Pt was seen and examined Lying in bed with no distress Pt said that she feels much better denies any chest pain, palpitation, dizziness and sob Objective Last 8 Hrs Date Time Temp Pulse Resp B/P (MAP) Pulse Ox O2 Delivery O2 Flow Rate FiO2 05/08/17 16:30 Room Air 05/08/17 14:37 36.9 95 18 121/78 (92) 95 Room Air 05/08/17 12:00 Room Air 05/08/17 11:56 36.6 98 18 103/65 (78) 95 Room Air Physical Exam: General- No acute distress Head- atraumatic Eyes- PERRL, EOMI ENT- oropharynx clear Neck- supple, no JVD Lungs- mild coarse bs Heart- tachycardia Abdomen- normal bowel sounds, soft Extremities- no calf tenderness Neuro- alert, oriented x 3; PERRL Skin- warm & dry Laboratory Results: Last 24 Hours Test 05/07/17 19:27 05/08/17 07:32 05/08/17 07:35 05/08/17 11:41 Bedside Glucose 195 mg/dl 200 mg/dl 188 mg/dl Prothrombin Time 11.5 SECONDS Prothromb Time International Ratio 1.1 Sodium Level 144 mmol/L Potassium Level 3.4 mmol/L Chloride Level 112 mmol/L Carbon Dioxide Level 25 mmol/L Anion Gap 7.0 mmol/L Blood Urea Nitrogen 15 mg/dl Creatinine 0.58 mg/dl Est Creatinine Clear Calc Drug Dose 102.5 ml/min Estimated GFR () 112.1 Estimated GFR (Non- 96.7 BUN/Creatinine Ratio 25.6 Random Glucose 190 mg/dl Calcium Level 8.0 mg/dl Test 05/08/17 16:32 Bedside Glucose 217 mg/dl Assessment & Plan SEPSIS Met criteria for sepsis per 2001 definition and current CMS guidelines ( UTI, tachycardia, leukocytosis). Elevated WBC and lactate on admission Received IVF Urine cx grew E-Coli Blood cx pending On Rocephin and Vanco Consider to d/c Vanco if blood cx negative Clinically stable D/C IVF to avoid fluid overload 05/08 Rocephin was changed to ertapenem Urine cx grew ecoli clinically improved will transition to PO abx on discharge tomorrow Cdiff stool positive for C-diff since pt was NPO, she was starting on flagyl IV Continue PO vanco to complete 14 days Diarrhea improved monitor electrolytes GI bleed INR increased to 10 Received vit k INR 1 Hgb stable at 9.5 continue monitor cbc Resume coumadin 2.5 mg today ACUTE KIDNEY INJURY Serum creatinine 1.3 compared to recent baseline of 0.6-0.8. Creatine stable D/C IVF Monitor BMP. Resolved ELEVATED TROPONIN Serum troponin = 0.343. EKG shows sinus rhythm, nonspecific T-wave changes. Serum troponin trending down to 0.13 Asymptomatic Hypokalemia K replaced Monitor BMP CONSTIPATION CT abdomen CT abd showed massive amount of stool within the rectum and moderate to large amount of stool within the colon consistent with significant fecal impaction. No bowel obstruction had diarrhea/cdiff DM TYPE 2 Hba1c 6.8 ( on 05/04/17) Lantus + NovoLog per protocol. MULTIPLE SCLEROSIS Advanced disease. Aspiration precautions. Symptomatic management. URINARY RETENTION Secondary to multiple sclerosis. Continue indwelling Aguilar catheter Will change aguilar cath ABDOMINAL MASS Previously noted and evaluated by Surgery. Resection not pursued due to advanced MS and multiple comorbidities. DECUBITUS ULCERS Avoid pressure. Local care. Continue daily wound care VTE PROPHYLAXIS / HISTORY OF PULMONARY EMBOLISM INR 1 Coumadin resume today SCDs RESUSCITATION STATUS DNR DISPOSITION continue monitor in tele . Current Inpatient Medications: Current Inpatient Medications Medications (Trade) Dose Ordered Sig/Dwain Route Start Time Stop Time Status Last Admin Dose Admin Insulin Aspart (novoLOG ASPART) Sliding Scale ACHS SC 05/03/17 21:00 06/02/17 20:59 05/08/17 17:30 4 UNITS Paroxetine HCl (pAXil TAB) 40 mg QAM PO 05/04/17 09:00 06/03/17 08:59 05/08/17 07:59 40 MG Glucose (Glucose 40% Gel) 15-30 GRAMS 15 GRAMS... UD PRN PO 05/03/17 18:30 06/02/17 18:29 Glucose (Glucose Chew Tab) 4-8 Tablets 4 Tabl... UD PRN PO 05/03/17 18:30 06/02/17 18:29 Dextrose (Dextrose 50% 50ML Syringe) 25-50ML OF 50% DW IV FOR... UD PRN IV 05/03/17 18:30 06/02/17 18:29 Glucagon (Glucagon Inj) 1 mg UD PRN SQ 05/03/17 18:30 06/02/17 18:29 Senna/Docusate Sodium (Senokot S Tab) 2 tab BID PO 05/04/17 09:00 06/03/17 08:59 05/08/17 07:59 2 TAB Acetaminophen (Tylenol Tab) 650 mg Q6 PRN PO 05/04/17 17:30 06/03/17 17:29 05/04/17 17:57 650 MG Acetaminophen 650 mg/Empty Bag 65 ml @ 260 mls/hr Q12 PRN IV 05/04/17 18:45 06/03/17 18:44 Vancomycin HCl (Vancomycin Oral Soln) 125 mg Q6H PO 05/04/17 21:00 05/18/17 20:59 05/08/17 15:42 125 MG Raspberry (Raspberry Syrup 5ml Cup) 5 ml Q6H PO 05/04/17 21:00 05/18/17 20:59 05/08/17 15:42 5 ML Ipratropium [place] (Atrovent 0.02% 0.5MG/2.5ML Neb) 0.5 mg Q4H PRN INH 05/05/17 00:15 06/04/17 00:14 Levalbuterol (Xopenex 1.25MG/ 0.5ML Neb) 1.25 mg Q4H PRN INH 05/05/17 00:15 06/04/17 00:14 Ertapenem (Consult) 1 ea UD PRN N/A 05/05/17 09:00 06/04/17 08:59 Insulin Glargine (Lantus Solostar Pen) 5 units HS SC 05/05/17 21:00 06/04/17 20:59 05/07/17 20:58 5 UNITS Ertapenem 1000 mg/ Sodium Chloride 60 ml @ 100 mls/hr Q24H IV 05/05/17 05:30 05/12/17 05:29 05/08/17 05:33 100 MLS/HR Warfarin Sodium (Coumadin Tab) 2.5 mg DAILY@16 PO 05/08/17 16:00 06/07/17 15:59 05/08/17 15:42 2.5 MG
[2017-05-08] MEDS ORDERED: POTASSIUM CHLORIDE 20 MEQ TABCR PO ONE (18:30)
[2017-05-08 19:04] VITALS: BP 164/89; PULSE 104; TEMP 36.8; O2SAT 92
[2017-05-08] MEDS: ACETAMINOPHEN 325 MG TAB PO PRN (19:14)
[2017-05-08] MEDS: INSULIN GLARGINE SOLOSTAR 100 UNITS/ML 3 ML PEN SC SCH (20:56)
[2017-05-09] VITALS (8 sets, daily range): BP systolic 131–166; BP diastolic 77–90; PULSE 79–97; TEMP 36.3–37; O2SAT 91–94
[2017-05-09] MEDS ORDERED: INSULIN ASPART 100 UNITS/ML 3 ML PEN SC ONE (01:45)
[2017-05-09] MEDS ORDERED: INSULIN GLARGINE SOLOSTAR 100 UNITS/ML 3 ML PEN SC ONE (02:00)
[2017-05-09] MEDS: ERTAPENEM IV 1,000 MG in SODIUM CHLOR 0.9% AD-VAN 50ML 50 ML IV SCH (04:33)
[2017-05-09] MEDS: VANCOMYCIN HCL 125 MG/2.5ML SOLN PO SCH ×4 (04:33→21:19)
[2017-05-09] MEDS: RASPBERRY SYRUP 5 ML UDP PO SCH ×4 (04:33→21:13)
[2017-05-09 07:07] LABS: INR 1.3 (0.9-1.1)
[2017-05-09 07:17] LABS: CALCIUM 8.5 mg/dl (8.5-10.1); CREATININE 0.73 mg/dl (0.60-1.20); POTASSIUM 3.1 mmol/L (3.5-5.1)
[2017-05-09] MEDS: PAROXETINE 20 MG TAB PO SCH (07:53)
[2017-05-09] MEDS: DOCUSATE SODIUM/SENNA 50/8.6MG TAB PO SCH ×2 (07:54→21:13)
[2017-05-09] MEDS: INSULIN ASPART 100 UNITS/ML 3 ML PEN SC SCH ×4 (08:00→21:15)
[2017-05-09] MEDS ORDERED: POTASSIUM CHLORIDE 20 MEQ TABCR PO ONE (09:30)
--- NOTE | 2017-05-09 12:55 | DIAGNOSTIC IMAGING REPORT ---
ABDOMEN 2VIEW W/PA CHEST RTN CLINICAL HISTORY: 67 years-old Female presenting with Abdominal distension/Cdiff. TECHNIQUE: PA view of the chest and supine and left lateral decubitus views of the abdomen were obtained. COMPARISON: Chest x-ray from 05/04/[address] of the abdomen and pelvis from 05/03/2017. FINDINGS: Atherosclerosis of the aortic arch. Cardiac silhouette normal in size. Lungs and pleural spaces clear. Marked gaseous distention of colon as well as marked stool burden throughout the colon, most severe in the rectum. Scattered surgical clips noted throughout the abdomen. Anastomotic suture line is evident in the left abdomen. No gross pneumoperitoneum. Osseous structures may be osteopenic. IMPRESSION: 1. Unchanged severe distention of the colon with gas and stool. Recommend disimpaction. 2. No acute cardiopulmonary disease. Electronically signed by: Taran Gonzalez M.D. 05/09/2017 12:53 PM Dictated Date/Time: 05/09/2017 12:51 PM
[2017-05-09] MEDS: WARFARIN SOD 2.5 MG TAB PO SCH (17:34)
[2017-05-09] MEDS: ACETAMINOPHEN 325 MG TAB PO PRN (18:07)
--- NOTE | 2017-05-09 19:48 | Progress Note ---
Medicine Progress Note Date & Time of Visit: May 09, 2017 at 19:43. Subjective Pt was seen and examined Lying in bed with no distress Pt complaint of abdominal discomfort She had 2 BM today that was solid denies any chest pain, palpitation and SOB Objective Last 8 Hrs Date Time Temp Pulse Resp B/P (MAP) Pulse Ox O2 Delivery O2 Flow Rate FiO2 05/09/17 19:24 36.3 85 20 166/90 (115) 92 05/09/17 16:00 92 Room Air 05/09/17 15:00 36.8 79 18 131/81 (98) 92 Room Air 05/09/17 12:11 36.9 84 18 143/79 (100) 94 05/09/17 12:00 Room Air Physical Exam: General- No acute distress Head- atraumatic Eyes- PERRL, EOMI ENT- oropharynx clear Neck- supple, no JVD Lungs- mild coarse bs Heart- tachycardia Abdomen- distended, mild tenderness on palpation Extremities- no calf tenderness Neuro- alert, oriented x 3; PERRL Skin- warm & dry Laboratory Results: Last 24 Hours Test 05/08/17 19:55 05/09/17 00:40 05/09/17 04:26 05/09/17 06:43 Bedside Glucose 258 mg/dl 294 mg/dl 198 mg/dl Prothrombin Time 13.9 SECONDS Prothromb Time International Ratio 1.3 Sodium Level 142 mmol/L Potassium Level 3.1 mmol/L Chloride Level 110 mmol/L Carbon Dioxide Level 25 mmol/L Anion Gap 7.0 mmol/L Blood Urea Nitrogen 14 mg/dl Creatinine 0.73 mg/dl Est Creatinine Clear Calc Drug Dose 81.7 ml/min Estimated GFR () 100.2 Estimated GFR (Non- 86.4 BUN/Creatinine Ratio 18.9 Random Glucose 198 mg/dl Calcium Level 8.5 mg/dl Test 05/09/17 07:32 05/09/17 11:51 05/09/17 16:33 Bedside Glucose 184 mg/dl 189 mg/dl 226 mg/dl Assessment & Plan SEPSIS Met criteria for sepsis per 2001 definition and current CMS guidelines ( UTI, tachycardia, leukocytosis). Elevated WBC and lactate on admission Received IVF Urine cx grew E-Coli Blood cx pending On Rocephin and Vanco Consider to d/c Vanco if blood cx negative Clinically stable D/C IVF to avoid fluid overload 05/09 Rocephin was changed to ertapenem Urine cx grew ecoli clinically improved Complete 7 days course of IV abx (Rocephin later changed to ertapenem) Will d/c abx Cdiff stool positive for C-diff since pt was NPO, she was starting on flagyl IV Continue PO vanco to complete 14 days monitor electrolytes No diarrhea Abdominal Tenderness Unchanged severe distention of the colon with gas and stool. Recommend disimpaction. Pt had 2 BM today Will give Dulcolax 1 repeat xray in am GI bleed INR increased to 10 Received vit k INR 1.3 Hgb stable at 9.5 continue monitor cbc Resume coumadin 2.5 mg today ACUTE KIDNEY INJURY Serum creatinine 1.3 compared to recent baseline of 0.6-0.8. Creatine stable D/C IVF Monitor BMP. Resolved ELEVATED TROPONIN Serum troponin = 0.343. EKG shows sinus rhythm, nonspecific T-wave changes. Serum troponin trending down to 0.13 Asymptomatic Hypokalemia K replaced Monitor BMP CONSTIPATION CT abdomen CT abd showed massive amount of stool within the rectum and moderate to large amount of stool within the colon consistent with significant fecal impaction. No bowel obstruction had diarrhea/cdiff DM TYPE 2 Hba1c 6.8 ( on 05/04/17) Lantus + NovoLog per protocol. MULTIPLE SCLEROSIS Advanced disease. Aspiration precautions. Symptomatic management. URINARY RETENTION Secondary to multiple sclerosis. Continue indwelling Aguilar catheter Will change aguilar cath ABDOMINAL MASS Previously noted and evaluated by Surgery. Resection not pursued due to advanced MS and multiple comorbidities. DECUBITUS ULCERS Avoid pressure. Local care. Continue daily wound care VTE PROPHYLAXIS / HISTORY OF PULMONARY EMBOLISM INR 1.3 Continue Coumadin SCDs RESUSCITATION STATUS DNR DISPOSITION continue monitor in tele . Current Inpatient Medications: Current Inpatient Medications Medications (Trade) Dose Ordered Sig/Dwain Route Start Time Stop Time Status Last Admin Dose Admin Paroxetine HCl (pAXil TAB) 40 mg QAM PO 05/04/17 09:00 06/03/17 08:59 05/09/17 07:53 40 MG Glucose (Glucose 40% Gel) 15-30 GRAMS 15 GRAMS... UD PRN PO 05/03/17 18:30 06/02/17 18:29 Glucose (Glucose Chew Tab) 4-8 Tablets 4 Tabl... UD PRN PO 05/03/17 18:30 06/02/17 18:29 Dextrose (Dextrose 50% 50ML Syringe) 25-50ML OF 50% DW IV FOR... UD PRN IV 05/03/17 18:30 06/02/17 18:29 Glucagon (Glucagon Inj) 1 mg UD PRN SQ 05/03/17 18:30 06/02/17 18:29 Senna/Docusate Sodium (Senokot S Tab) 2 tab BID PO 05/04/17 09:00 06/03/17 08:59 05/08/17 20:57 2 TAB Acetaminophen (Tylenol Tab) 650 mg Q6 PRN PO 05/04/17 17:30 06/03/17 17:29 05/09/17 18:07 650 MG Acetaminophen 650 mg/Empty Bag 65 ml @ 260 mls/hr Q12 PRN IV 05/04/17 18:45 06/03/17 18:44 Vancomycin HCl (Vancomycin Oral Soln) 125 mg Q6H PO 05/04/17 21:00 05/18/17 20:59 05/09/17 17:33 125 MG Raspberry (Raspberry Syrup 5ml Cup) 5 ml Q6H PO 05/04/17 21:00 05/18/17 20:59 05/09/17 17:33 5 ML Ipratropium [place] (Atrovent 0.02% 0.5MG/2.5ML Neb) 0.5 mg Q4H PRN INH 05/05/17 00:15 06/04/17 00:14 Levalbuterol (Xopenex 1.25MG/ 0.5ML Neb) 1.25 mg Q4H PRN INH 05/05/17 00:15 06/04/17 00:14 Ertapenem (Consult) 1 ea UD PRN N/A 05/05/17 09:00 06/04/17 08:59 Ertapenem 1000 mg/ Sodium Chloride 60 ml @ 100 mls/hr Q24H IV 05/05/17 05:30 05/12/17 05:29 05/09/17 04:33 100 MLS/HR Warfarin Sodium (Coumadin Tab) 2.5 mg DAILY@16 PO 05/08/17 16:00 06/07/17 15:59 05/09/17 17:34 2.5 MG Insulin Aspart (novoLOG ASPART) Sliding Scale ACHS SC 05/09/17 06:30 06/02/17 20:59 05/09/17 17:37 4 UNITS Insulin Glargine (Lantus Solostar Pen) 10 units BID SC 05/09/17 21:00 06/04/17 20:59
[2017-05-09] MEDS ORDERED: BISACODYL 5 MG TABEC PO ONE (20:15)
[2017-05-09] MEDS: INSULIN GLARGINE SOLOSTAR 100 UNITS/ML 3 ML PEN SC SCH (21:15)
[2017-05-10] VITALS (7 sets, daily range): BP systolic 120–158; BP diastolic 69–85; PULSE 67–91; TEMP 36.4–37.2; O2SAT 93–96
[2017-05-10] MEDS: RASPBERRY SYRUP 5 ML UDP PO SCH ×4 (04:08→21:14)
[2017-05-10] MEDS: VANCOMYCIN HCL 125 MG/2.5ML SOLN PO SCH ×4 (04:08→21:14)
[2017-05-10] MEDS: ERTAPENEM IV 1,000 MG in SODIUM CHLOR 0.9% AD-VAN 50ML 50 ML IV SCH (04:09)
[2017-05-10 07:22] LABS: INR 1.4 (0.9-1.1)
[2017-05-10 07:40] LABS: CALCIUM 8.4 mg/dl (8.5-10.1); CREATININE 0.55 mg/dl (0.60-1.20); POTASSIUM 3.3 mmol/L (3.5-5.1)
[2017-05-10] MEDS: PAROXETINE 20 MG TAB PO SCH (08:46)
[2017-05-10] MEDS: DOCUSATE SODIUM/SENNA 50/8.6MG TAB PO SCH ×2 (08:47→21:15)
[2017-05-10] MEDS: INSULIN ASPART 100 UNITS/ML 3 ML PEN SC SCH ×4 (08:56→21:17)
[2017-05-10] MEDS: INSULIN GLARGINE SOLOSTAR 100 UNITS/ML 3 ML PEN SC SCH ×2 (09:02→21:17)
--- NOTE | 2017-05-10 11:02 | DIAGNOSTIC IMAGING REPORT ---
ABDOMEN 2 VIEWS CLINICAL HISTORY: f/u pain. Distention. COMPARISON STUDY: 05/09/2017 FINDINGS: Unchanged to perhaps slightly improved exam. Persistent significant fecal impaction. Persistent increase in fecal load throughout sigmoid. Somewhat diminished fecal load and diameter of the remainder of the colon. No evidence for free air. IMPRESSION: 1. Slightly improved exam with diameter of the colon diminished compared to the prior study. 2. Persistent significant fecal impaction with considerable fecal material within the sigmoid. The above report was generated using voice recognition software. It may contain grammatical, syntax or spelling errors. Electronically signed by: Jewel Vigil M.D. 05/10/2017 11:00 AM Dictated Date/Time: 05/10/2017 10:59 AM
--- NOTE | 2017-05-10 13:04 | Progress Note ---
Internal Med Progress Note Date of Service: May 10, 2017. Provider Documentation: SUBJECTIVE: The patient was seen and examined Feels much better today Abdominal discomfort and distension better Bowel moved OBJECTIVE: Vital Signs-as noted below Exam: General-No distress at rest Eyes-normal ENT-normal Neck-supple Lungs-Decreased breath sound bilaterally Heart-Regular,no murmur Abdomen-Mildly distended,Mildly tender Extremities-Trace edema bilaterally .left extremities flexor deformities Secondary to MS Neuro-AA Has MS affecting left side more than the right Lab data as noted below. ASSESSMENT & PLAN: SEPSIS Met criteria for sepsis per 2001 definition and current CMS guidelines ( UTI, tachycardia, leukocytosis). Elevated WBC and lactate on admission,Received IVF Urine cx grew X-Djub-Gmconxvvspmb Blood cx -negative Was On Rocephin and Vanco Vanco Discontinued 05/09 Rocephin was changed to ertapenem Complete 7 days course of IV abx (Rocephin later changed to ertapenem) Cdiff stool positive for C-diff since pt was NPO, she was starting on flagyl IV Continue PO vanco to complete 14 days monitor electrolytes No diarrhea Abdominal Tenderness Unchanged severe distention of the colon with gas and stool. Recommend disimpaction. Pt had 2 BM today Will give Dulcolax 1 repeat xray in am-decreasing fecal load Bowel is moving GI bleed INR increased to 10 Received vit k Hgb stable at 9.5 Resume coumadin 2.5 mg INR 1.4 on 05/10 ACUTE KIDNEY INJURY Serum creatinine 1.3 compared to recent baseline of 0.6-0.8. Creatine stable D/C IVF Monitor BMP. Resolved ELEVATED TROPONIN Serum troponin = 0.343. EKG shows sinus rhythm, nonspecific T-wave changes. Serum troponin trending down to 0.13 Asymptomatic Hypokalemia K replaced Monitor BMP Will need more replacement CONSTIPATION CT abdomen CT abd showed massive amount of stool within the rectum and moderate to large amount of stool within the colon consistent with significant fecal impaction. No bowel obstruction had diarrhea/cdiff Moving bowel DM TYPE 2 Hba1c 6.8 ( on 05/04/17) Lantus + NovoLog per protocol. MULTIPLE SCLEROSIS Advanced disease. Aspiration precautions. Symptomatic management. URINARY RETENTION Secondary to multiple sclerosis. Continue indwelling Lemos catheter Will change Lemos cath ABDOMINAL MASS Previously noted and evaluated by Surgery. Resection not pursued due to advanced MS and multiple comorbidities. DECUBITUS ULCERS Avoid pressure. Local care. Continue daily wound care VTE PROPHYLAXIS / HISTORY OF PULMONARY EMBOLISM INR 1.4 Continue Coumadin SCDs RESUSCITATION STATUS DNR DISPOSITION Can be transferred to [place] Vital Signs: Date Time Temp Pulse Resp B/P (MAP) Pulse Ox O2 Delivery O2 Flow Rate FiO2 05/10/17 12:00 Room Air 05/10/17 11:07 36.7 73 16 134/79 (97) 95 Room Air 05/10/17 08:00 Room Air 05/10/17 07:26 36.8 67 16 127/75 (92) 96 Room Air 05/10/17 04:10 36.4 74 20 149/69 (95) 94 Room Air 05/10/17 04:00 Room Air 05/10/17 00:18 36.5 78 18 158/85 (109) 95 Room Air 05/10/17 00:00 Room Air 05/09/17 20:00 92 Room Air 05/09/17 19:24 36.3 85 20 166/90 (115) 92 05/09/17 16:00 92 Room Air 05/09/17 15:00 36.8 79 18 131/81 (98) 92 Room Air Lab Results: Results Past 24 Hours Test 05/09/17 16:33 05/09/17 20:05 05/10/17 06:42 05/10/17 07:20 Range/Units Bedside Glucose 226 220 129 70-90 mg/dl Prothrombin Time 15.0 9.0-12.0 SECONDS Prothromb Time International Ratio 1.4 0.9-1.1 Sodium Level 144 136-145 mmol/L Potassium Level 3.3 3.5-5.1 mmol/L Chloride Level 111 98-107 mmol/L Carbon Dioxide Level 26 21-32 mmol/L Anion Gap 7.0 3-11 mmol/L Blood Urea Nitrogen 13 7-18 mg/dl Creatinine 0.55 0.60-1.20 mg/dl Est Creatinine Clear Calc Drug Dose 108.5 ml/min Estimated GFR () 114.1 Estimated GFR (Non- 98.4 BUN/Creatinine Ratio 24.1 10-20 Random Glucose 123 70-99 mg/dl Calcium Level 8.4 8.5-10.1 mg/dl Test 05/10/17 11:11 Range/Units Bedside Glucose 163 70-90 mg/dl
[2017-05-10] MEDS: WARFARIN SOD 2.5 MG TAB PO SCH (15:33)
[2017-05-11] VITALS (62 sets, daily range): BP systolic 97–185; BP diastolic 54–104; PULSE 71–130; TEMP 36.7–37.3; O2SAT 90–100
[2017-05-11] MEDS: RASPBERRY SYRUP 5 ML UDP PO SCH ×4 (03:23→20:50)
[2017-05-11] MEDS: VANCOMYCIN HCL 125 MG/2.5ML SOLN PO SCH ×4 (03:23→20:50)
[2017-05-11] MEDS: ERTAPENEM IV 1,000 MG in SODIUM CHLOR 0.9% AD-VAN 50ML 50 ML IV SCH (05:29)
[2017-05-11 06:30] LABS: HEMOGLOBIN 9.1 g/dL (12.0-16.0); MEAN CELL VOLUME 88.6 fL (80-100); MEAN CORPUSCULAR HEMOGLOBIN 28.8 pg (25-34); MEAN CORPUSCULAR HGB CONC 32.5 g/dl (32-36); MEAN PLATELET VOLUME 9.2 fL (7.4-10.4); PLATELET COUNT 386 K/uL (130-400); RED CELL DISTRIBUTION WIDTH CV 16.6 % (11.5-14.5); WHITE BLOOD COUNT 13.47 K/uL (4.8-10.8)
[2017-05-11 06:38] LABS: INR 1.8 (0.9-1.1)
[2017-05-11 07:17] LABS: CALCIUM 8.2 mg/dl (8.5-10.1); CREATININE 0.63 mg/dl (0.60-1.20)
[2017-05-11] MEDS ORDERED: SODIUM CHLORIDE 0.9% 1000 ML BAG IV ONE (07:47)
[2017-05-11] MEDS ORDERED: SODIUM CHLORIDE 0.9% 10ML FLUSH IV ONE (07:47)
[2017-05-11] MEDS ORDERED: MIDAZOLAM HCL 5 MG/ML 2ML VIAL IV ONE (07:47)
[2017-05-11] MEDS: PAROXETINE 20 MG TAB PO SCH (08:44)
[2017-05-11] MEDS: DOCUSATE SODIUM/SENNA 50/8.6MG TAB PO SCH ×2 (08:44→21:00)
[2017-05-11] MEDS: INSULIN ASPART 100 UNITS/ML 3 ML PEN SC SCH ×5 (09:10→20:59)
[2017-05-11] MEDS: INSULIN GLARGINE SOLOSTAR 100 UNITS/ML 3 ML PEN SC SCH ×3 (09:11→20:52)
[2017-05-11] MEDS ORDERED: FENTANYL CITRATE INJ 50 MCG/1 ML 2 ML VIAL ONE ×2 (09:27→10:17)
[2017-05-11] MEDS ORDERED: RAPID SEQUENCE INDUCTION BAG ONE (09:29)
[2017-05-11] MEDS ORDERED: NURSING VERBAL MED ORDER ONE (10:15)
[2017-05-11] MEDS ORDERED: MIDAZOLAM HCL 5 MG/ML 1 ML VIAL ONE (10:17)
--- NOTE | 2017-05-11 11:16 | Procedure Note ---
Procedure Note Procedure Date May 11, 2017. (Jabari Chavez PA-C) Procedure Description Procedure Name: Endotracheal intubation Procedure time out: patient ID confirmed, correct procedure Consent obtained: emergent consent implied Time of procedure: 09:30 Performed by: physician security specialist (Jabari giron) Indications: other (Patient with agonal breathing after aspiration) Contraindications: none Description: Mouth and posterior oropharynx was suctioned vigorously with a Yankauer. There was substantial food product and thick sputum extensive suction. Patient was successfully ventilated with bag valve mask to an SaO2 of 100%. Patient was then given 2 mg of IV versed and 50 mcg of IV fentanyl through a right sided tibial IO device. A glide scope with a #4 blade was introduced and patient was further suctioned until posterior oropharynx was clear of the majority of food products. The vocal cords were easily visualized and a 7.5 mm endotracheal tube with glide scope stylette was inserted under direct visualization. Endotracheal tube was easily advanced through the cords and balloon was inflated. There was good color change and bilateral breath sounds were heard. At the completion of the procedure, endotracheal tube was placed at 27 cm at the lip. Endotracheal tube was secured by respiratory therapy. Dr. Rm Vincent from the emergency department was present during the procedure. Chest x-ray was not obtained post intubation as the patient was planned to undergo flexible bronchoscopy to clear aspiration was transferred to the intensive care unit. Please refer to the bronchoscopy note for description of location of endotracheal tube. Patient was emergently transferred to intensive care unit in room #112 after endotracheal intubation was completed. The patient tolerated the procedure well. There were no complications. Patient placed on assist-control with a rate of 14, tidal volume 500, PEEP of 5 , FiO2 of 100% Complications: none Patient tolerated procedure: well Post-procedure vital signs: reviewed and stable Comments: Procedure was reviewed with Dr. Soto who assumed care in the intensive care unit A total of 30 minutes was spent in cardiopulmonary resuscitation and endotracheal intubation prior to transferring the patient to the intensive care unit (Jabari Chavez PA-C) Description: Agree with the above. (Pricila Soto MD)
[2017-05-11] MEDS ORDERED: LIDOCAINE HCL 1% 20 ML VIAL ONE (11:20)
--- NOTE | 2017-05-11 11:38 | Procedure Note ---
Procedure Note Procedure Date May 11, 2017. (Jabari Chavez PA-C) Procedure Description Procedure Name: Flexible bronchoscopy Procedure time out: patient ID confirmed, correct procedure Consent obtained: written (Obtained by Dr. Soto from the of [facility]) Time of procedure: 10:20 Performed by: physician tinning equipment tender (Jabari Chavez PA-C) Indications: therapeutic Contraindications: none Description: Bronchoscopy was needed due to thick secretions from aspiration prior to a CODE BLUE at 915 this morning Consent obtained from the in person by Dr. Soto. The procedure was done in room 112 in the ICU. The patient monitored throughout the entire procedure with continuous monitoring of heart rate and pulse oximetry as well as blood pressures every 5 minutes. Conscious sedation was was ordered by Dr. Soto and administered by the intensive care unit nurse. The patient received a total of 100 mCg of fentanyl and 4 mg of Versed for the procedure. No lidocaine was needed. The findings as follows: * Flexible bronchoscope was advanced through the endotracheal tube which was found to lie approximately 1 cm above the gregorio. The cuff was deflated and the endotracheal tube was withdrawn 3 cm under direct visualization with the bronchoscope. The cuff was then reinflated. * Secretions were noted at the end of the endobronchial tube and in all primary segments of the bronchial tree. Several segments and subsegments were occluded with food particles. These were able to be easily evacuated with suction with no significant bronchial trauma. * There is no evidence of bleeding throughout and at the completion of the bronchoscopy. * No endobronchial lesions were identified * At the completion of the procedure placement of the endobronchial tube was again confirmed with visualization of the gregorio. * No specimens were sent for cultures. Patient tolerated the procedure well with no hypoxia and no significant change in vital signs. The bronchoscope was removed and no immediate complication and no desaturation. Dr. Soto was present for the entire procedure. Complications: none Patient tolerated procedure: well Post-procedure vital signs: reviewed and stable Comments: At the completion of the procedure, I informed the patient's that the procedure gone well and reviewed intraprocedure photos show any obstruction of the airways. (Jabari Chavez PA-C) Procedure time out: side/site verified, patient ID confirmed, correct procedure Consent obtained: written Performed by: attending, physician tinning equipment tender Indications: diagnostic, therapeutic Contraindications: none Description: As above, I was present throughout the entire procedure. Complications: none (Pricila Soto MD)
--- NOTE | 2017-05-11 12:09 | Clinical Documentation Query ---
CLINICAL DOCUMENTATION QUERY Dr. MOREIRA, In your clinical opinion is this patient being managed for: ( + ) Respiratory arrest leading to cardiac arrest in the setting of aspiration ( ) cardiorespiratory arrest ( ) Not Agree ( ) Other explanation of clinical findings (Please Explain) ( ) Unable to determine (Please Define) ( ) Need to Discuss The medical record reflects the following clinical findings, treatment, and risk factors. Clinical Indicators: 67 yo female presenting with sepsis, UTI, C diff. Nursing documentation 05/11 reflects pt was being assisted with breakfast and became unresponsive. Food noted in mouth, suctioned, no pulse noted, code blue called. Treatment: code blue, CPR, intubation and mech vent, bronchoscopy, transfer to ICU, Risk Factors: aspiration, DM, MS Please clarify and document your clinical opinion in the progress notes and discharge summary. Terms such as "probable", "suspected", "likely", "questionable", "possible", or "still to be ruled out" are acceptable. IF IN AGREEMENT, YOU MUST DOCUMENT ABOVE DIAGNOSTIC STATEMENT IN DAILY PROGRESS NOTES AND DISCHARGE SUMMARY. This document is not part of the patient's record. Thank You, Rupinder Quezada RN [phone]
--- NOTE | 2017-05-11 13:41 | DIAGNOSTIC IMAGING REPORT ---
CHEST ONE VIEW PORTABLE CLINICAL HISTORY: 67 years-old Female presenting with S/P LINE PLACEMENT. TECHNIQUE: Portable upright AP view of the chest was obtained. COMPARISON: 05/09/2017. FINDINGS: Interval intubation. The endotracheal tube terminates in the mid thoracic trachea approximately 2 cm from the gregorio. Interval placement of a right internal jugular central venous catheter, which terminates at the superior cavoatrial junction. Atherosclerosis of aortic arch. Cardiac silhouette top normal in size. Mildly low lung volumes. No focal opacity. No large effusion or pneumothorax. Osseous structures normal. Upper abdomen normal. IMPRESSION: 1. Lines and tubes appropriately positioned. No pneumothorax. 2. Mildly low lung volumes. Electronically signed by: Taran Gonzalez M.D. 05/11/2017 1:39 PM Dictated Date/Time: 05/11/2017 1:37 PM
--- NOTE | 2017-05-11 14:33 | Progress Note ---
Internal Med Progress Note Date of Service: May 11, 2017. Provider Documentation: SUBJECTIVE: The patient was seen and examined Feels much better today Abdominal discomfort and distension better Bowel moved 05/11 Aspirated this morning while eating breakfast Code Purple followed by Code Blue Hypoxic respiratory followed by Cardiopulmonary arrest Required Intubation during resuscitation Transferred to ICU OBJECTIVE: Vital Signs-as noted below Exam: General-sedated and intubated Eyes-closed ENT-normal Neck-supple Lungs-Decreased breath sound bilaterally Heart-Regular,no murmur Abdomen-Mildly distended,Mildly tender Extremities-Trace edema bilaterally .left extremities flexor deformities Secondary to MS Neuro-sedated on Vent Lab data as noted below. ASSESSMENT & PLAN: Cardiopulmonary Arrest Aspiration>Respiratory arrest followed by Cardiac arrest Required Intubation to maintain Saturation Transferred to ICU Bronchoscopy in ICU -a considerable amount of food materials sucked out Likely extubation today and resume oral medications thereafter SEPSIS Met criteria for sepsis per 2001 definition and current CMS guidelines ( UTI, tachycardia, leukocytosis). Elevated WBC and lactate on admission,Received IVF Urine cx grew H-Werb-Geeerahbvwlr Blood cx -negative Was On Rocephin and Vanco Vanco Discontinued 05/09 Rocephin was changed to ertapenem Complete 7 days course of IV abx (Rocephin later changed to ertapenem) Cdiff stool positive for C-diff since pt was NPO, she was starting on flagyl IV Continue PO vanco to complete 14 days monitor electrolytes No diarrhea Abdominal Tenderness Unchanged severe distention of the colon with gas and stool. Recommend disimpaction. Pt had 2 BM today Will give Dulcolax 1 repeat xray in am-decreasing fecal load Bowel is moving GI bleed INR increased to 10 Received vit k Hgb stable at 9.5 Resume coumadin 2.5 mg INR 1.4 on 05/10 ACUTE KIDNEY INJURY Serum creatinine 1.3 compared to recent baseline of 0.6-0.8. Creatine stable D/C IVF Monitor BMP. Resolved ELEVATED TROPONIN Serum troponin = 0.343. EKG shows sinus rhythm, nonspecific T-wave changes. Serum troponin trending down to 0.13 Asymptomatic Hypokalemia K replaced Monitor BMP Will need more replacement CONSTIPATION CT abdomen CT abd showed massive amount of stool within the rectum and moderate to large amount of stool within the colon consistent with significant fecal impaction. No bowel obstruction had diarrhea/cdiff Moving bowel DM TYPE 2 Hba1c 6.8 ( on 05/04/17) Lantus + NovoLog per protocol. MULTIPLE SCLEROSIS Advanced disease. Aspiration precautions. Symptomatic management. URINARY RETENTION Secondary to multiple sclerosis. Continue indwelling Lemos catheter Will change Lemos cath ABDOMINAL MASS Previously noted and evaluated by Surgery. Resection not pursued due to advanced MS and multiple comorbidities. DECUBITUS ULCERS Avoid pressure. Local care. Continue daily wound care VTE PROPHYLAXIS / HISTORY OF PULMONARY EMBOLISM INR 1.4 Continue Coumadin SCDs RESUSCITATION STATUS DNR DISPOSITION Likely to come out from ICU tomorrow Vital Signs: Date Time Temp Pulse Resp B/P (MAP) Pulse Ox O2 Delivery O2 Flow Rate FiO2 05/11/17 13:25 40 05/11/17 13:00 40 05/11/17 13:00 100 Mechanical Ventilator 05/11/17 12:46 95 119/63 (81) 100 05/11/17 12:45 94 100 05/11/17 12:31 94 110/55 (73) 100 05/11/17 12:27 60 05/11/17 12:25 60 05/11/17 12:16 97 113/58 (76) 100 05/11/17 12:15 94 100 05/11/17 12:01 100 116/59 (78) 100 05/11/17 11:46 106 12 112/69 (83) 100 05/11/17 11:45 106 12 100 05/11/17 11:31 110 18 127/68 (87) 100 05/11/17 11:27 103 14 108/59 (75) 100 05/11/17 11:25 105 14 98/61 (73) 100 05/11/17 11:23 107 14 107/58 (74) 100 05/11/17 11:21 107 16 101/58 (72) 100 05/11/17 11:19 108 13 104/57 (73) 100 05/11/17 11:17 112 13 100/59 (73) 100 05/11/17 11:15 113 12 112/59 (76) 100 05/11/17 10:57 114 13 99/54 (69) 100 05/11/17 10:55 115 15 103/55 (71) 100 05/11/17 10:53 116 16 97/56 (70) 100 05/11/17 10:51 117 15 106/54 (71) 100 3/21/18 10:49 117 11 106/55 (72) 100 05/11/17 10:47 116 14 110/59 (76) 100 05/11/17 10:45 117 13 110/62 (78) 100 05/11/17 10:43 123 14 130/74 (92) 100 05/11/17 10:41 116 14 116/58 (77) 100 05/11/17 10:39 124 11 150/80 (103) 100 05/11/17 10:37 129 22 159/88 (111) 100 05/11/17 10:36 130 14 151/91 (111) 100 05/11/17 10:31 122 21 165/84 (111) 100 05/11/17 10:30 123 17 100 05/11/17 10:26 122 11 128/63 (84) 100 05/11/17 10:16 115 15 129/68 (88) 100 05/11/17 10:15 112 100 05/11/17 10:05 100 05/11/17 10:01 110 143/80 (101) 99 05/11/17 10:00 112 100 05/11/17 08:44 Room Air 05/11/17 07:03 37.0 76 20 123/68 (86) 97 05/11/17 04:07 37.3 78 18 98/63 (75) 94 Room Air 05/11/17 04:00 Room Air 05/11/17 00:00 Room Air 05/10/17 23:32 36.8 89 18 120/72 (88) 94 Room Air 05/10/17 20:00 Room Air 05/10/17 19:33 37.2 91 18 156/77 (103) 94 Room Air 05/10/17 16:00 Room Air 05/10/17 15:01 36.7 90 16 152/79 (103) 93 Room Air Lab Results: Results Past 24 Hours Test 05/10/17 16:20 05/10/17 20:58 05/11/17 05:59 05/11/17 07:07 Range/Units Bedside Glucose 220 211 127 70-90 mg/dl White Blood Count 13.47 4.8-10.8 K/uL Red Blood Count 3.16 4.2-5.4 M/uL Hemoglobin 9.1 12.0-16.0 g/dL Hematocrit 28.0 37-47 % Mean Corpuscular Volume 88.6 80-100 fL Mean Corpuscular Hemoglobin 28.8 25-34 pg Mean Corpuscular Hemoglobin Concent 32.5 32-36 g/dl RDW Standard Deviation 52.0 36.4-46.3 fL RDW Coefficient of Variation 16.6 11.5-14.5 % Platelet Count 386 130-400 K/uL Mean Platelet Volume 9.2 7.4-10.4 fL Prothrombin Time 18.4 9.0-12.0 SECONDS Prothromb Time International Ratio 1.8 0.9-1.1 Sodium Level 143 136-145 mmol/L Potassium Level 3.0 3.5-5.1 mmol/L Chloride Level 109 98-107 mmol/L Carbon Dioxide Level 28 21-32 mmol/L Anion Gap 6.0 3-11 mmol/L Blood Urea Nitrogen 12 7-18 mg/dl Creatinine 0.63 0.60-1.20 mg/dl Est Creatinine Clear Calc Drug Dose 94.1 ml/min Estimated GFR () 109.1 Estimated GFR (Non- 94.1 BUN/Creatinine Ratio 18.7 10-20 Random Glucose 114 70-99 mg/dl Calcium Level 8.2 8.5-10.1 mg/dl Magnesium Level 1.8 1.8-2.4 mg/dl Test 05/11/17 09:23 05/11/17 12:14 Range/Units Bedside Glucose 227 193 70-90 mg/dl
--- NOTE | 2017-05-11 14:37 | EMERGENCY ROOM VISIT NOTE ---
ED Visit Note First contact with patient: 09:15 CODE BLUE: Time 9:15am Called to room 278 for code blue Code being run by Kathy BEVERLY - [facility] Code Status: Full per Nursing Brief summary: 67 yr old patient in hospital for extended stay secondary to cdiff. Last labs in system with normal renal function/K. Vomited just prior followed by respiratory arrest. ROSC by time of my arrival but she is in agonal respirations and requiring bagging. BP and O2 OK. Copious suctioning of mouth/oropharynx. She clearly requires intubation. I gave verbal orders for IV Versed and Fentanyl prior to intubation. Endotracheal Intubation Indication: Respiratory failure s/p aspiration event. The procedure was done by Kathy BEVERLY under my supervision. Following intubation with coarse bilateral breath sounds and copious aspiration in ET tube. Sating well however. Monitored and felt stable for transfer to ICU at this time. I have personally spent greater than 30 minutes of critical care time in the direct management of this patient. This was a life/limb threatening event. This includes time spent evaluating patient, direct bedside care, chart review, placing orders, interpretation of diagnostic studies, discussion with consultants, patient, and family members, as well as other required patient management activities. This 30 minutes is in excess of all separately billable procedures.
[2017-05-11] MEDS: WARFARIN SOD 2.5 MG TAB PO SCH (18:00)
--- NOTE | 2017-05-11 18:29 | Critical Care Consultation ---
Critical Care Consultation Date of Consultation: May 11, 2017. Attending Physician: Vale Moyer M.D. Reason for Consultation: Cardiac arrest after choking event. History of Present Illness Dear Data: Thank you for the kind referral Mrs. Edmonds to critical care service. This is 67-year-old female with a history of multiple sclerosis, venous thromboembolic event in the past, bedridden, history of duplication of a gastric cyst, was admitted to the hospital with increased confusion and lethargy , found to have UTI with E. coli that was pansensitive, the patient was treated with ertapenem, the patient was on regular floor eating her breakfast when she had an episode of aspiration with choking sensation and after that the patient become unresponsive. Quickly the patient underwent CPR and intubated by my colleague Jabari Chavez. The patient was transferred to the ICU at that time for further management. When the patient arrived in ICU, she was unresponsive. Did not follow any commands. The patient emergently underwent a bronchoscopy done by my colleague Jabari, with large amount of aspirated food material has been aspirated from every single segment of her lungs. All the aspirate was done to a complete clearance. The patient afterward underwent also central line placement due to poor IV access given her muscle contractions. Afterward the patient started becoming more awake following commands. She did not sustain any neurologic deficit after the cardiac arrest. And successfully proceed to an extubation. Past Medical/Surgical History As above in the first section. Family History Cardiac disorder FATHER Social History Smoking Status: Former Smoker Drug Use: none Marital Status: Housing Status: lives with family Allergies Coded Allergies: Levofloxacin (Verified Allergy, Unknown, 01/04/17) Clavulanic Acid (Verified Adverse Reaction, Intermediate, GI INTOLERANCE ( AUGMENTIN), 01/04/17) Penicillins (Verified Adverse Reaction, Intermediate, GI INTOLERANCE ( AUGMENTIN), 01/04/17) Home Medications Scheduled Ascorbic Acid (Ascorbic Acid), 500 MG PO HS Atorvastatin (Lipitor), 40 MG PO DAILY Cranberry (Vaccinium Macrocarp (Cranberry), 300 MG PO QAM Ergocalciferol (Vitamin D2), 400 INTER.UNIT PO DAILY Insulin Glargine (Lantus Solostar), 10 UNITS SC AMPM Lisinopril (Lisinopril), 5 MG PO DAILY Methenamine Hippurate (Methenamine Hippurate), 1 GM PO BID Oxybutynin Chloride (Ditropan), 5 MG PO TID Paroxetine (Paroxetine HCl), 40 MG PO QAM Warfarin Sodium (Warfarin Sodium), 5 MG PO 4XWK Warfarin Sodium (Coumadin), 2.5 MG PO 3XWK Scheduled PRN Acetaminophen (Tylenol), 650 MG PO Q4H PRN for Pain or Fever Docusate Sodium (Colace), 100 MG PO DAILY PRN for Constipation Insulin Aspart (Novolog Flexpen), 1 DOSE SC UD PRN for BSG Coverage Polyethylene Glycol 3350 (Miralax), 1 TBS PO DAILY PRN for Constipation Current Inpatient Medications Current Inpatient Medications Medications (Trade) Dose Ordered Sig/Dwain Route Start Time Stop Time Status Last Admin Dose Admin Paroxetine HCl (pAXil TAB) 40 mg QAM PO 05/04/17 09:00 06/03/17 08:59 05/11/17 08:44 40 MG Glucose (Glucose 40% Gel) 15-30 GRAMS 15 GRAMS... UD PRN PO 05/03/17 18:30 06/02/17 18:29 Glucose (Glucose Chew Tab) 4-8 Tablets 4 Tabl... UD PRN PO 05/03/17 18:30 06/02/17 18:29 Dextrose (Dextrose 50% 50ML Syringe) 25-50ML OF 50% DW IV FOR... UD PRN IV 05/03/17 18:30 06/02/17 18:29 Glucagon (Glucagon Inj) 1 mg UD PRN SQ 05/03/17 18:30 06/02/17 18:29 Senna/Docusate Sodium (Senokot S Tab) 2 tab BID PO 05/04/17 09:00 06/03/17 08:59 05/11/17 08:44 2 TAB Acetaminophen (Tylenol Tab) 650 mg Q6 PRN PO 05/04/17 17:30 06/03/17 17:29 05/09/17 18:07 650 MG Acetaminophen 650 mg/Empty Bag 65 ml @ 260 mls/hr Q12 PRN IV 05/04/17 18:45 06/03/17 18:44 Vancomycin HCl (Vancomycin Oral Soln) 125 mg Q6H PO 05/04/17 21:00 05/18/17 20:59 05/11/17 08:49 125 MG Raspberry (Raspberry Syrup 5ml Cup) 5 ml Q6H PO 05/04/17 21:00 05/18/17 20:59 05/11/17 08:44 5 ML Ipratropium [place] (Atrovent 0.02% 0.5MG/2.5ML Neb) 0.5 mg Q4H PRN INH 05/05/17 00:15 06/04/17 00:14 Levalbuterol (Xopenex 1.25MG/ 0.5ML Neb) 1.25 mg Q4H PRN INH 05/05/17 00:15 06/04/17 00:14 Ertapenem (Consult) 1 ea UD PRN N/A 05/05/17 09:00 06/04/17 08:59 Ertapenem 1000 mg/ Sodium Chloride 60 ml @ 100 mls/hr Q24H IV 05/05/17 05:30 05/12/17 05:29 05/11/17 05:29 100 MLS/HR Warfarin Sodium (Coumadin Tab) 2.5 mg DAILY@16 PO 05/08/17 16:00 06/07/17 15:59 05/10/17 15:33 2.5 MG Insulin Aspart (novoLOG ASPART) Sliding Scale ACHS SC 05/09/17 06:30 06/02/17 20:59 05/11/17 12:19 2 UNITS Insulin Glargine (Lantus Solostar Pen) 10 units BID SC 05/09/17 21:00 06/04/17 20:59 05/11/17 12:08 10 UNITS Review of Systems Review of system was not obtainable. However in discussion with the , the patient did not have any episodes of choking sensation. She did have a pneumonia 4 years ago. She did not have any episodes of recurrent aspiration. She did suffer from dysphagia and this has been an ongoing chronic problem. He has not been approached regarding placing a feeding tube. Physical Exam Date Time Temp Pulse Resp B/P (MAP) Pulse Ox O2 Delivery O2 Flow Rate FiO2 05/11/17 14:20 30 05/11/17 14:15 40 05/11/17 13:25 40 05/11/17 13:00 40 05/11/17 13:00 100 Mechanical Ventilator 05/11/17 12:46 95 119/63 (81) 100 05/11/17 12:45 94 100 05/11/17 12:31 94 110/55 (73) 100 05/11/17 12:27 60 05/11/17 12:25 60 05/11/17 12:16 97 113/58 (76) 100 05/11/17 12:15 94 100 05/11/17 12:01 100 116/59 (78) 100 05/11/17 11:46 106 12 112/69 (83) 100 05/11/17 11:45 106 12 100 05/11/17 11:31 110 18 127/68 (87) 100 05/11/17 11:27 103 14 108/59 (75) 100 05/11/17 11:25 105 14 98/61 (73) 100 05/11/17 11:23 107 14 107/58 (74) 100 05/11/17 11:21 107 16 101/58 (72) 100 05/11/17 11:19 108 13 104/57 (73) 100 05/11/17 11:17 112 13 100/59 (73) 100 05/11/17 11:15 113 12 112/59 (76) 100 05/11/17 10:57 114 13 99/54 (69) 100 05/11/17 10:55 115 15 103/55 (71) 100 05/11/17 10:53 116 16 97/56 (70) 100 05/11/17 10:51 117 15 106/54 (71) 100 05/11/17 10:49 117 11 106/55 (72) 100 05/11/17 10:47 116 14 110/59 (76) 100 05/11/17 10:45 117 13 110/62 (78) 100 05/11/17 10:43 123 14 130/74 (92) 100 05/11/17 10:41 116 14 116/58 (77) 100 05/11/17 10:39 124 11 150/80 (103) 100 05/11/17 10:37 129 22 159/88 (111) 100 05/11/17 10:36 130 14 151/91 (111) 100 05/11/17 10:31 122 21 165/84 (111) 100 05/11/17 10:30 123 17 100 05/11/17 10:26 122 11 128/63 (84) 100 05/11/17 10:16 115 15 129/68 (88) 100 05/11/17 10:15 112 100 05/11/17 10:05 100 05/11/17 10:01 110 143/80 (101) 99 05/11/17 10:00 112 100 05/11/17 08:44 Room Air 05/11/17 07:03 37.0 76 20 123/68 (86) 97 05/11/17 04:07 37.3 78 18 98/63 (75) 94 Room Air 05/11/17 04:00 Room Air 05/11/17 00:00 Room Air 05/10/17 23:32 36.8 89 18 120/72 (88) 94 Room Air 05/10/17 20:00 Room Air 05/10/17 19:33 37.2 91 18 156/77 (103) 94 Room Air General Appearance: no apparent distress Eyes: sclerae normal Neck: other (Contracted neck) Respiratory: rhonchi Cardiovasular: normal S1S2, no M/G/R, no murmur Abdomen: non tender, no masses, no guarding Upper Extremities: no edema Lower Extremities: other (Muscle contractions with contracted lower limbs) Neuro: other (Initially the patient was comatose.) Laboratory Results Last 24 Hours Test 05/10/17 20:58 05/11/17 05:59 05/11/17 07:07 05/11/17 09:23 Bedside Glucose 211 mg/dl 127 mg/dl 227 mg/dl White Blood Count 13.47 K/uL Red Blood Count 3.16 M/uL Hemoglobin 9.1 g/dL Hematocrit 28.0 % Mean Corpuscular Volume 88.6 fL Mean Corpuscular Hemoglobin 28.8 pg Mean Corpuscular Hemoglobin Concent 32.5 g/dl RDW Standard Deviation 52.0 fL RDW Coefficient of Variation 16.6 % Platelet Count 386 K/uL Mean Platelet Volume 9.2 fL Prothrombin Time 18.4 SECONDS Prothromb Time International Ratio 1.8 Sodium Level 143 mmol/L Potassium Level 3.0 mmol/L Chloride Level 109 mmol/L Carbon Dioxide Level 28 mmol/L Anion Gap 6.0 mmol/L Blood Urea Nitrogen 12 mg/dl Creatinine 0.63 mg/dl Est Creatinine Clear Calc Drug Dose 94.1 ml/min Estimated GFR () 109.1 Estimated GFR (Non- 94.1 BUN/Creatinine Ratio 18.7 Random Glucose 114 mg/dl Calcium Level 8.2 mg/dl Magnesium Level 1.8 mg/dl Test 05/11/17 12:14 Bedside Glucose 193 mg/dl Diagnostic Results Chest x-ray reviewed personally which showed slightly hyperinflated lungs, NG tube was in good position. Assessment & Plan 1. Cardiac arrest secondary to choking event. 2. Aspiration of food material. 3. Multiple sclerosis with high risk of dysphagia. 4. History of UTI with E. coli. 5. History of double gastric cyst, deemed inoperable. 6. History of venous thromboembolic event on Coumadin with INR of 1.8. 7. C. difficile colitis. Plan: 1. After the bronchoscopy was done, food material was removed from the lung, the patient become more awake and following commands. 2. Spontaneous breathing trial was done and the patient succeeded to extubation. 3. After extubation patient did not have stridor or dysphonia. 4. continue with current antibiotic including ertapenem, I will de-escalate the antibiotic in the morning to ceftriaxone only. 5. Continue with Coumadin. 6. Start Vanco p.o. for C. difficile colitis. 7. Daily labs. 8. N.p.o. except medications for now. 9. Speech pathology evaluation in the morning. 10. Central line was placed due to poor IV access. Dictated separately. 11. Case discussed with the staff on rounds and details. And with the as well. Critical care time spent with the patient was 45 minutes excluding procedure time.
--- NOTE | 2017-05-11 18:31 | Procedure Note ---
Procedure Note Procedure Date May 11, 2017. Procedure Description Procedure Name: Central line placement. Procedure time out: side/site verified, patient ID confirmed, correct procedure Consent obtained: written Performed by: attending, resident Indications: diagnostic, therapeutic Contraindications: none Description: Central line was placed due to the need for IV access and the patient to have poor IV access while suffering from cardiac arrest earlier. Consent obtained from the who was at the bedside risk and benefit explained details. The patient was placed in supine position. The left-sided initially was accessed via the ultrasound and was very small IJ measuring less than 5 mm and it was difficult to manipulate. On the right side using ultrasound guidance at the level of the anterior IJ, the skin was prepped with chlorhexidine, under strict sterile field using 5 mL of 1% lidocaine injected to the skin, using Seldinger technique, no scalpel and only dilated, the line was placed to 15 cm, and secured with 2 sutures, all ports were flushed with normal saline, the line was covered with surgical dressing, tip of the line was at the SVC, no pneumothorax and no immediate complication, tolerated the procedure very well. Complications: none
[2017-05-12] VITALS (23 sets, daily range): BP systolic 135–183; BP diastolic 70–104; PULSE 82–103; TEMP 36.5–37.6; O2SAT 91–98
[2017-05-12] MEDS: VANCOMYCIN HCL 125 MG/2.5ML SOLN PO SCH ×4 (02:31→20:29)
[2017-05-12] MEDS: RASPBERRY SYRUP 5 ML UDP PO SCH ×4 (02:31→20:29)
[2017-05-12 06:00] LABS: HEMOGLOBIN 9.5 g/dL (12.0-16.0); MEAN CELL VOLUME 88.6 fL (80-100); MEAN CORPUSCULAR HEMOGLOBIN 27.1 pg (25-34); MEAN CORPUSCULAR HGB CONC 30.6 g/dl (32-36); MEAN PLATELET VOLUME 8.5 fL (7.4-10.4); PLATELET COUNT 398 K/uL (130-400); RED CELL DISTRIBUTION WIDTH CV 16.6 % (11.5-14.5); RED CELL DISTRIBUTION WIDTH SD 51.6 fL (36.4-46.3); WHITE BLOOD COUNT 18.98 K/uL (4.8-10.8)
[2017-05-12] MEDS: INSULIN ASPART 100 UNITS/ML 3 ML PEN SC SCH ×3 (06:39→17:46)
[2017-05-12 06:41] LABS: CALCIUM 8.2 mg/dl (8.5-10.1); CREATININE 0.41 mg/dl (0.60-1.20); PHOSPHORUS 2.7 mg/dl (2.5-4.9); POTASSIUM 2.7 mmol/L (3.5-5.1)
[2017-05-12] MEDS: PAROXETINE 20 MG TAB PO SCH (08:21)
[2017-05-12] MEDS: DOCUSATE SODIUM/SENNA 50/8.6MG TAB PO SCH ×2 (08:23→20:29)
[2017-05-12] MEDS: INSULIN GLARGINE SOLOSTAR 100 UNITS/ML 3 ML PEN SC SCH ×2 (09:00→21:00)
[2017-05-12] MEDS ORDERED: NURSING VERBAL MED ORDER ONE (09:00)
[2017-05-12] MEDS ORDERED: MAGNESIUM SULFATE 1GM / D5W 1 GM in PREMIXED IN D5W 100 ML IV ONE (09:45)
[2017-05-12] MEDS: POTASSIUM CHLR 20 MEQ / WTR 20 MEQ in PREMIXED WATER 100 ML IV SCH ×4 (09:45→17:24)
--- NOTE | 2017-05-12 14:43 | Progress Note ---
Internal Med Progress Note Date of Service: May 12, 2017. Provider Documentation: SUBJECTIVE: The patient was seen and examined Feels much better today Abdominal discomfort and distension better Bowel moved 05/11 Aspirated this morning while eating breakfast Code Purple followed by Code Blue Hypoxic respiratory followed by Cardiopulmonary arrest Required Intubation during resuscitation Transferred to ICU 05/12 Extubated yesterday following bronchoscopic clean out of the food substance Feels better this AM OBJECTIVE: Vital Signs-as noted below Exam: General-sedated and intubated Eyes-closed ENT-normal Neck-supple Lungs-Decreased breath sound bilaterally Transmitted sound anteriorly Heart-Regular,no murmur Abdomen-Mildly distended,Mildly tender Extremities-Trace edema bilaterally .left extremities flexor deformities Secondary to MS Neuro-sedated on Vent Lab data as noted below. ASSESSMENT & PLAN: Cardiopulmonary Arrest Aspiration>Respiratory arrest followed by Cardiac arrest Required Intubation to maintain Saturation Transferred to ICU Bronchoscopy in ICU -a considerable amount of food materials sucked out Likely extubation today and resume oral medications thereafter Clinically better Transfer n[back to Tele Has H/O recurrent aspiration with esophageal dysmotility before Will need supervised feeding to avoid aspiration The is not yet ready to have her the PEG tube SEPSIS Met criteria for sepsis per 2001 definition and current CMS guidelines ( UTI, tachycardia, leukocytosis). Elevated WBC and lactate on admission,Received IVF Urine cx grew Z-Soea-Lbmkejaiqdiz Blood cx -negative Was On Rocephin and Vanco Vanco Discontinued 05/09 Rocephin was changed to ertapenem Complete 7 days course of IV abx (Rocephin later changed to ertapenem) Cdiff stool positive for C-diff since pt was NPO, she was starting on flagyl IV Continue PO vanco to complete 14 days monitor electrolytes No diarrhea Abdominal Tenderness Unchanged severe distention of the colon with gas and stool. Recommend disimpaction. Pt had 2 BM today Will give Dulcolax 1 repeat xray in am-decreasing fecal load Bowel is moving GI bleed INR increased to 10 Received vit k Hgb stable at 9.5 Resume coumadin 2.5 mg INR 1.4 on 05/10 ACUTE KIDNEY INJURY Serum creatinine 1.3 compared to recent baseline of 0.6-0.8. Creatine stable D/C IVF Monitor BMP. Resolved ELEVATED TROPONIN Serum troponin = 0.343. EKG shows sinus rhythm, nonspecific T-wave changes. Serum troponin trending down to 0.13 Asymptomatic Hypokalemia K replaced Monitor BMP Will need more replacement CONSTIPATION CT abdomen CT abd showed massive amount of stool within the rectum and moderate to large amount of stool within the colon consistent with significant fecal impaction. No bowel obstruction had diarrhea/cdiff Moving bowel DM TYPE 2 Hba1c 6.8 ( on 05/04/17) Lantus + NovoLog per protocol. MULTIPLE SCLEROSIS Advanced disease. Aspiration precautions. Symptomatic management. URINARY RETENTION Secondary to multiple sclerosis. Continue indwelling Lemos catheter Will change Lemos cath ABDOMINAL MASS Previously noted and evaluated by Surgery. Resection not pursued due to advanced MS and multiple comorbidities. DECUBITUS ULCERS Avoid pressure. Local care. Continue daily wound care VTE PROPHYLAXIS / HISTORY OF PULMONARY EMBOLISM INR 1.4 Continue Coumadin SCDs RESUSCITATION STATUS DNR DISPOSITION Likely to dicharge in a day or two Vital Signs: Date Time Temp Pulse Resp B/P (MAP) Pulse Ox O2 Delivery O2 Flow Rate FiO2 05/12/17 12:15 Nasal Cannula 2.0 05/12/17 12:01 36.5 97 20 146/85 (105) 95 Nasal Cannula 2.0 05/12/17 11:01 100 23 135/91 (106) 96 05/12/17 11:00 91 22 98 05/12/17 10:01 94 24 175/97 (123) 94 05/12/17 09:01 97 183/96 (125) 93 05/12/17 09:00 96 92 05/12/17 08:20 Nasal Cannula 2.0 05/12/17 08:01 36.5 88 174/91 (118) 97 Nasal Cannula 2.0 05/12/17 08:00 90 96 05/12/17 07:31 90 167/85 (112) 96 05/12/17 07:01 82 167/84 (111) 97 05/12/17 07:00 83 96 05/12/17 06:00 85 166/82 (91) 97 05/12/17 06:00 85 166/82 (110) 97 Nasal Cannula 2.0 05/12/17 05:00 89 21 150/83 (105) 96 Nasal Cannula 2.0 05/12/17 05:00 89 21 150/83 (102) 96 05/12/17 04:00 36.6 85 22 145/76 (99) 95 Nasal Cannula 2.0 05/12/17 04:00 85 22 145/76 (95) 95 05/12/17 04:00 Nasal Cannula 2.0 05/12/17 03:00 95 179/91 (108) 91 05/12/17 03:00 95 179/91 (120) 91 Nasal Cannula 2.0 05/12/17 02:00 89 169/104 (119) 95 05/12/17 02:00 89 169/104 (125) 95 Nasal Cannula 2.0 05/12/17 01:00 93 21 162/86 (111) 95 Nasal Cannula 2.0 05/12/17 01:00 93 21 162/86 (113) 95 05/12/17 00:00 91 21 158/91 (113) 95 Nasal Cannula 2.0 05/12/17 00:00 91 21 158/91 (109) 95 05/11/17 23:59 Nasal Cannula 2.0 05/11/17 23:00 94 25 182/104 (129) 93 05/11/17 23:00 94 25 182/104 (130) 93 Nasal Cannula 2.0 05/11/17 22:00 90 23 185/95 (110) 05/11/17 22:00 90 23 185/95 (125) Nasal Cannula 2.0 05/11/17 21:00 87 23 95 05/11/17 21:00 87 23 95 Nasal Cannula 2.0 05/11/17 20:00 Nasal Cannula 2.0 05/11/17 20:00 78 150/88 (127) 96 05/11/17 20:00 37.1 78 150/88 (108) 96 Nasal Cannula 2.0 05/11/17 19:01 85 167/84 (111) 91 Nasal Cannula 2.0 05/11/17 19:00 83 90 05/11/17 19:00 83 167/84 (109) 90 05/11/17 18:31 83 167/95 (119) 93 05/11/17 18:01 78 163/85 (111) 94 Nasal Cannula 2.0 05/11/17 18:00 83 92 05/11/17 17:31 76 156/75 (102) 94 Nasal Cannula 2.0 05/11/17 17:01 75 135/74 (94) 95 05/11/17 17:00 71 94 05/11/17 16:31 36.7 80 139/71 (93) 98 Nasal Cannula 2.0 05/11/17 16:30 93 Nasal Cannula Humidified Oxygen 05/11/17 16:16 75 141/71 (94) 97 05/11/17 16:01 80 134/70 (91) 97 05/11/17 16:00 77 97 05/11/17 15:46 83 133/68 (89) 96 05/11/17 15:31 80 126/67 (86) 95 05/11/17 15:16 83 133/71 (91) 97 05/11/17 15:01 85 138/69 (92) 98 05/11/17 15:00 85 98 05/11/17 14:46 89 133/68 (89) 97 Lab Results: Results Past 24 Hours Test 05/11/17 17:06 05/11/17 20:58 05/12/17 01:02 05/12/17 05:44 Range/Units Bedside Glucose 182 128 140 70-90 mg/dl White Blood Count 18.98 4.8-10.8 K/uL Red Blood Count 3.50 4.2-5.4 M/uL Hemoglobin 9.5 12.0-16.0 g/dL Hematocrit 31.0 37-47 % Mean Corpuscular Volume 88.6 80-100 fL Mean Corpuscular Hemoglobin 27.1 25-34 pg Mean Corpuscular Hemoglobin Concent 30.6 32-36 g/dl RDW Standard Deviation 51.6 36.4-46.3 fL RDW Coefficient of Variation 16.6 11.5-14.5 % Platelet Count 398 130-400 K/uL Mean Platelet Volume 8.5 7.4-10.4 fL Sodium Level 141 136-145 mmol/L Potassium Level 2.7 3.5-5.1 mmol/L Chloride Level 104 98-107 mmol/L Carbon Dioxide Level 31 21-32 mmol/L Anion Gap 6.0 3-11 mmol/L Blood Urea Nitrogen 7 7-18 mg/dl Creatinine 0.41 0.60-1.20 mg/dl Est Creatinine Clear Calc Drug Dose 137.3 ml/min Estimated GFR () 125.7 Estimated GFR (Non- 108.4 BUN/Creatinine Ratio 17.9 10-20 Random Glucose 117 70-99 mg/dl Calcium Level 8.2 8.5-10.1 mg/dl Phosphorus Level 2.7 2.5-4.9 mg/dl Magnesium Level 1.7 1.8-2.4 mg/dl Test 05/12/17 05:48 05/12/17 11:57 Range/Units Bedside Glucose 118 136 70-90 mg/dl
--- NOTE | 2017-05-12 14:45 | DIAGNOSTIC IMAGING REPORT ---
VIDEO SWALLOW CLINICAL HISTORY: 67 years-old Female presenting with dysphagia with choking event. TECHNIQUE: Video fluoroscopic evaluation of swallowing was performed in the AP and lateral projections in conjunction with speech pathology. The patient was administered various textures, including honey thick liquids, barium pudding, and a barium coated cracker. COMPARISON: 05/06/2017. FINDINGS: Thin liquids and nectar thick liquids were not administered. Poor deflection of the epiglottis. Large residual the valleculae with various textures. Silent aspiration identified with honey thick liquids. Intermittent silent aspiration also evident with pudding consistency. No aspiration of solids. Fluoroscopy dosage (mGy): Not available. Fluoroscopy time: 2.9 minutes. Number of fluoroscopic spot images: 0. IMPRESSION: 1. Significant silent aspiration. 2. Please see the speech pathologist report for detailed findings and recommendations. Electronically signed by: Taran Gonzalez M.D. 05/12/2017 2:43 PM Dictated Date/Time: 05/12/2017 2:32 PM
[2017-05-12] MEDS: WARFARIN SOD 2.5 MG TAB PO SCH (16:22)
[2017-05-12] MEDS ORDERED: NURSING DECISION MEDICATION ORDER SCH (17:15)
--- NOTE | 2017-05-12 17:56 | Critical Care Progress Note ---
Critical Care Progress Note Date of Service May 12, 2017. Attending Dr. Soto Subjective The patient is more awake following commands however she could not tolerate oral intake. The patient went to modified barium swallow and failed at every level of consistency. She has no shortness of breath and no pain reported. She does have cough but moderately able to raise her sputum. Objective Physical exam on 05/12/2017, showed the patient is not in respiratory distress at the moment. She is tolerating room air and her O2 sat is 93%. Upper airway sounding. Crackles at the bases. S1-S2 regular without rhythm. Abdomen is distended but benign. Muscle contractions 4 extremities. Neurologically she is bedridden with minimal movement in the right upper extremity more than the left. Assessment & Plan 1. Cardiac arrest secondary to choking event. 2. Dysphagia with high risk of aspiration. 3. Multiple sclerosis. 4. Chemical aspiration. Plan: 1. Modified barium swallow was done and discussed with speech pathology, appreciate their input. The patient failed a speech eval. 2. Discussed with the patient the need for nutrition via PEG tube. She will discuss it with her and she is in agreement with further intervention such as PEG. 3. I will consult GI in the morning for evaluation for PEG tube. 4. Continue with current treatment including IV fluids. 5. Stop all antibiotics as the patient does not have evidence of infectious process. Aspiration of food most likely chemical aspirations are than infectious. If the patient develop any signs of constitutional symptoms, antibiotics can be restarted. 6. The patient can be transferred to telemetry floor. 7. Appreciate the hospitalist input accepting this patient. The case discussed with the staff, with palliative care, with speech pathology, appreciate their input. Critical care time spent with the patient was 35 minutes. Data Medications: Current Inpatient Medications Medications (Trade) Dose Ordered Sig/Dwain Route Start Time Stop Time Status Last Admin Dose Admin Paroxetine HCl (pAXil TAB) 40 mg QAM PO 05/04/17 09:00 06/03/17 08:59 05/12/17 08:21 40 MG Glucose (Glucose 40% Gel) 15-30 GRAMS 15 GRAMS... UD PRN PO 05/03/17 18:30 06/02/17 18:29 Glucose (Glucose Chew Tab) 4-8 Tablets 4 Tabl... UD PRN PO 05/03/17 18:30 06/02/17 18:29 Dextrose (Dextrose 50% 50ML Syringe) 25-50ML OF 50% DW IV FOR... UD PRN IV 05/03/17 18:30 06/02/17 18:29 Glucagon (Glucagon Inj) 1 mg UD PRN SQ 05/03/17 18:30 06/02/17 18:29 Senna/Docusate Sodium (Senokot S Tab) 2 tab BID PO 05/04/17 09:00 06/03/17 08:59 05/12/17 08:23 2 TAB Acetaminophen (Tylenol Tab) 650 mg Q6 PRN PO 05/04/17 17:30 06/03/17 17:29 05/09/17 18:07 650 MG Acetaminophen 650 mg/Empty Bag 65 ml @ 260 mls/hr Q12 PRN IV 05/04/17 18:45 06/03/17 18:44 Vancomycin HCl (Vancomycin Oral Soln) 125 mg Q6H PO 05/04/17 21:00 05/18/17 20:59 05/12/17 15:09 125 MG Raspberry (Raspberry Syrup 5ml Cup) 5 ml Q6H PO 05/04/17 21:00 05/18/17 20:59 05/12/17 15:09 5 ML Ipratropium [place] (Atrovent 0.02% 0.5MG/2.5ML Neb) 0.5 mg Q4H PRN INH 05/05/17 00:15 06/04/17 00:14 Levalbuterol (Xopenex 1.25MG/ 0.5ML Neb) 1.25 mg Q4H PRN INH 05/05/17 00:15 06/04/17 00:14 Warfarin Sodium (Coumadin Tab) 2.5 mg DAILY@16 PO 05/08/17 16:00 06/07/17 15:59 05/12/17 16:22 2.5 MG Insulin Glargine (Lantus Solostar Pen) 10 units BID SC 05/09/17 21:00 06/04/17 20:59 05/11/17 20:52 10 UNITS Heparin Sodium (Porcine) (Heparin 10 Unit/ ml 5 ml Flush) 5 ml PRN PRN FLUSH 05/12/17 01:00 06/11/17 00:59 Insulin Aspart (novoLOG ASPART) Sliding Scale Q6H SC 05/12/17 18:00 06/08/17 06:29 I & O: 24-Hour Column 05/13/17 07:59 Intake Total 348 ml Output Total 600 ml Balance -252 ml Vital Signs: Date Time Temp Pulse Resp B/P (MAP) Pulse Ox O2 Delivery O2 Flow Rate FiO2 05/12/17 16:00 95 Nasal Cannula 2.0 05/12/17 16:00 37.6 98 27 166/92 (116) 95 Nasal Cannula 2.0 05/12/17 12:15 Nasal Cannula 2.0 05/12/17 12:01 36.5 97 20 146/85 (105) 95 Nasal Cannula 2.0 05/12/17 11:01 100 23 135/91 (106) 96 05/12/17 11:00 91 22 98 05/12/17 10:01 94 24 175/97 (123) 94 05/12/17 09:01 97 183/96 (125) 93 05/12/17 09:00 96 92 05/12/17 08:20 Nasal Cannula 2.0 05/12/17 08:01 36.5 88 174/91 (118) 97 Nasal Cannula 2.0 05/12/17 08:00 90 96 05/12/17 07:31 90 167/85 (112) 96 05/12/17 07:01 82 167/84 (111) 97 05/12/17 07:00 83 96 05/12/17 06:00 85 166/82 (91) 97 05/12/17 06:00 85 166/82 (110) 97 Nasal Cannula 2.0 05/12/17 05:00 89 21 150/83 (105) 96 Nasal Cannula 2.0 05/12/17 05:00 89 21 150/83 (102) 96 05/12/17 04:00 36.6 85 22 145/76 (99) 95 Nasal Cannula 2.0 05/12/17 04:00 85 22 145/76 (95) 95 05/12/17 04:00 Nasal Cannula 2.0 05/12/17 03:00 95 179/91 (108) 91 05/12/17 03:00 95 179/91 (120) 91 Nasal Cannula 2.0 05/12/17 02:00 89 169/104 (119) 95 05/12/17 02:00 89 169/104 (125) 95 Nasal Cannula 2.0 05/12/17 01:00 93 21 162/86 (111) 95 Nasal Cannula 2.0 05/12/17 01:00 93 21 162/86 (113) 95 05/12/17 00:00 91 21 158/91 (113) 95 Nasal Cannula 2.0 05/12/17 00:00 91 21 158/91 (109) 95 05/11/17 23:59 Nasal Cannula 2.0 05/11/17 23:00 94 25 182/104 (129) 93 05/11/17 23:00 94 25 182/104 (130) 93 Nasal Cannula 2.0 05/11/17 22:00 90 23 185/95 (110) 05/11/17 22:00 90 23 185/95 (125) Nasal Cannula 2.0 05/11/17 21:00 87 23 95 05/11/17 21:00 87 23 95 Nasal Cannula 2.0 05/11/17 20:00 Nasal Cannula 2.0 05/11/17 20:00 78 150/88 (127) 96 05/11/17 20:00 37.1 78 150/88 (108) 96 Nasal Cannula 2.0 05/11/17 19:01 85 167/84 (111) 91 Nasal Cannula 2.0 05/11/17 19:00 83 90 05/11/17 19:00 83 167/84 (109) 90 05/11/17 18:31 83 167/95 (119) 93 05/11/17 18:01 78 163/85 (111) 94 Nasal Cannula 2.0 05/11/17 18:00 83 92 Laboratory Results: Last 24 Hours Test 05/11/17 20:58 05/12/17 01:02 05/12/17 05:44 05/12/17 05:48 Bedside Glucose 128 mg/dl 140 mg/dl 118 mg/dl White Blood Count 18.98 K/uL Red Blood Count 3.50 M/uL Hemoglobin 9.5 g/dL Hematocrit 31.0 % Mean Corpuscular Volume 88.6 fL Mean Corpuscular Hemoglobin 27.1 pg Mean Corpuscular Hemoglobin Concent 30.6 g/dl RDW Standard Deviation 51.6 fL RDW Coefficient of Variation 16.6 % Platelet Count 398 K/uL Mean Platelet Volume 8.5 fL Sodium Level 141 mmol/L Potassium Level 2.7 mmol/L Chloride Level 104 mmol/L Carbon Dioxide Level 31 mmol/L Anion Gap 6.0 mmol/L Blood Urea Nitrogen 7 mg/dl Creatinine 0.41 mg/dl Est Creatinine Clear Calc Drug Dose 137.3 ml/min Estimated GFR () 125.7 Estimated GFR (Non- 108.4 BUN/Creatinine Ratio 17.9 Random Glucose 117 mg/dl Calcium Level 8.2 mg/dl Phosphorus Level 2.7 mg/dl Magnesium Level 1.7 mg/dl Test 05/12/17 11:57 Bedside Glucose 136 mg/dl
[2017-05-12 18:36] LABS: CALCIUM 8.5 mg/dl (8.5-10.1); CREATININE 0.6 mg/dl (0.60-1.20); PHOSPHORUS 1.9 mg/dl (2.5-4.9); POTASSIUM 3.7 mmol/L (3.5-5.1)
[2017-05-12] MEDS ORDERED: POTASSIUM PHOS 3 MMOL/1 ML INFUSION IV STA (18:55)
[2017-05-12] MEDS ORDERED: POTASSIUM PHOSPHATE INJ 24 MMOL in SODIUM CHLORIDE 0.9% 500ML 500 ML IV ONE (19:30)
[2017-05-13] VITALS (21 sets, daily range): BP systolic 90–207; BP diastolic 50–137; PULSE 96–180; TEMP 36.9–38.2; O2SAT 91–100
[2017-05-13] MEDS: RASPBERRY SYRUP 5 ML UDP PO SCH ×3 (02:53→15:00)
[2017-05-13] MEDS: VANCOMYCIN HCL 125 MG/2.5ML SOLN PO SCH ×3 (02:53→15:00)
[2017-05-13] MEDS: INSULIN ASPART 100 UNITS/ML 3 ML PEN SC SCH ×4 (06:00→17:48)
[2017-05-13] MEDS: ACETAMINOPHEN IV 650 MG in EMPTY BAG 0 ML IV PRN (07:48)
[2017-05-13 08:58] LABS: HEMATOCRIT 28.2 % (37-47); HEMOGLOBIN 9.2 g/dL (12.0-16.0); MEAN CELL VOLUME 87.6 fL (80-100); MEAN CORPUSCULAR HEMOGLOBIN 28.6 pg (25-34); MEAN CORPUSCULAR HGB CONC 32.6 g/dl (32-36); MEAN PLATELET VOLUME 8.6 fL (7.4-10.4); PLATELET COUNT 371 K/uL (130-400); RED CELL DISTRIBUTION WIDTH CV 17.2 % (11.5-14.5); RED CELL DISTRIBUTION WIDTH SD 53.5 fL (36.4-46.3); WHITE BLOOD COUNT 16.78 K/uL (4.8-10.8)
[2017-05-13] MEDS: DOCUSATE SODIUM/SENNA 50/8.6MG TAB PO SCH (09:00)
[2017-05-13] MEDS: INSULIN GLARGINE SOLOSTAR 100 UNITS/ML 3 ML PEN SC SCH ×2 (09:00→21:00)
[2017-05-13] MEDS: PAROXETINE 20 MG TAB PO SCH (09:00)
[2017-05-13 09:06] LABS: INR 3.1 (0.9-1.1)
[2017-05-13 09:30] LABS: CALCIUM 8.2 mg/dl (8.5-10.1); CREATININE 0.37 mg/dl (0.60-1.20); POTASSIUM 3.6 mmol/L (3.5-5.1)
[2017-05-13 09:32] LABS: PHOSPHORUS 2.1 mg/dl (2.5-4.9)
--- NOTE | 2017-05-13 14:11 | Gastrointestinal Consultation ---
Gastrointestinal Consultation Date of Consultation: May 13, 2017 Attending Physician: Vale Moyer Consulting Physician: Alla Win Reason for Consultation: PEG placement History of Present Illness Patient is a 67 year old female currently being seen for possible PEG placement. She has hx of MS, recurrent UTIs w indwelling catheter, gastric duplication cyst, brought to ED for increased confusion, lethargy and fever. Workup showed she has Ecoli UTI and is positive for Cdiff. On 05/11 she had an aspiration episode while eating breakfast and became unresponsive. Code Blue started, she was also intubated. She is currently extubated and on the Telemetry floor. Video swallow study done yesterday showed she has silent aspiration with all liquid consistency, no aspiration with solids. ST recommended pt to be NPO. Discussion about possible PEG for alternative form of feeding was discussed with pt's . Pt currently is unable to communicate much to me. She has thick oral secretions preventing her from verbalizing well. She also appears to be weak. Though alert enough to nod/shake and follow commands. I am unable to obtain enough ROS from her. Past Medical/Surgical History Medical Problems: (1) Altered mental status Status: Acute (2) Bronchitis Status: Acute (3) Change in mental status Status: Acute (4) Decubitus ulcer Status: Acute (5) Dehydration Status: Acute (6) Diarrhea Status: Acute (7) Dyspnea Status: Acute (8) Elevated INR Status: Acute (9) Elevated INR Status: Acute (10) Elevated troponin Status: Acute (11) Fecal impaction Status: Acute (12) Pyelonephritis Status: Acute (13) Respiratory distress Status: Acute (14) Sepsis Status: Acute (15) Sepsis Status: Acute (16) UTI (urinary tract infection) Status: Acute Past Medical History: (1) Abdominal mass Permanent Comment: evaluated in [place] - 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, poor surgical candidate CT abd 02/18/14 [facility] hypodense mass 11 cm in greatest diameter CT chest 03/28/12 LUQ lobulated cystic lesion 7.5 cm in greatest diameter CT chest 01/04/06 LUQ bilobed cystic structure 5.1 cm in greatest diameter Status: Chronic (2) Depression Status: Chronic (3) Diabetes mellitus, type II Status: Chronic (4) Dyslipidemia Status: Chronic (5) History of pulmonary embolism Permanent Comment: May 2012, on chronic warfarin therapy Status: Chronic (6) Multiple sclerosis Status: Chronic (7) Neurogenic bladder Status: Chronic (8) Recurrent UTI Status: Chronic Past Surgical History: Surgical Problems: (1) Status post hysterectomy Status: Chronic (2) Status post partial colectomy Permanent Comment: 1995 ? diverticular abscess w/ colostomy s/p reversal Status: Chronic . Family History Cardiac disorder FATHER Social History Smoking Status: Former Smoker Alcohol Use: none Drug Use: none Marital Status: Housing Status: lives with family Allergies Coded Allergies: Levofloxacin (Verified Allergy, Unknown, 01/04/17) Clavulanic Acid (Verified Adverse Reaction, Intermediate, GI INTOLERANCE ( AUGMENTIN), 01/04/17) Penicillins (Verified Adverse Reaction, Intermediate, GI INTOLERANCE ( AUGMENTIN), 01/04/17) Current Medications Home Meds and Scripts Medications Dose Route/Sig Max Daily Dose Days Date Category Dose Instructions Novolog Flexpen (Insulin Aspart) 100 Units/Ml Inj 1 Dose SC UD PRN 05/03/17 Reported COVERAGE DIRECTED BY SLIDING [employer] Lipitor (Atorvastatin Calcium) 40 Mg Tab 40 Mg PO DAILY 06/04/16 Reported Lantus Solostar (Insulin Glargine) 100 Unit/Ml Inj 10 Units SC AMPM 06/04/16 Reported Vitamin D2 (Ergocalciferol) 400 Unit Tab 400 Inter.unit PO DAILY 06/04/16 Reported Paroxetine HCl (Paroxetine) 40 Mg Tab 40 Mg PO QAM 11/05/15 Reported Methenamine Hippurate 1 Gm Tab 1 Gm PO BID 11/05/15 Reported Lisinopril 5 Mg Tab 5 Mg PO DAILY 11/05/15 Reported Coumadin (Warfarin Sodium) 5 Mg Tab 2.5 Mg PO 3XWK 10/24/15 Reported TAKE 2.5 MG EVERY TUESDAY,TUESDAY AND OR OTHERWISE DIRECTED TO TAKE BY ANTICOAGULATION CLINIC/MD Tylenol (Acetaminophen) 325 Mg Tab 650 Mg PO Q4H PRN 10/24/15 Reported Warfarin Sodium 5 Mg Tab 5 Mg PO 4XWK 10/24/15 Reported TAKE 5 MG EVERY Tuesday,TUESDAY AND TUESDAY OR OTHERWISE DIRECTED TO TAKE BY ANTICOAGULATION CLINIC/ Cranberry (Cranberry (Vaccinium Macrocarp) 300 Mg Tab 300 Mg PO QAM 10/24/15 Reported Colace (Docusate Sodium) 100 Mg Cap 100 Mg PO DAILY PRN 2/2/16 Reported Ditropan (Oxybutynin Chloride) 5 Mg Tab 5 Mg PO TID 02/09/15 Reported Miralax (Polyethylene Glycol 3350) 1 Pow Pow 1 Tbs PO DAILY PRN 02/18/14 Reported Mix with 8 ounces of water Ascorbic Acid 500 Mg Tab 500 Mg PO HS 06/15/12 Reported Review of Systems Constitutional: + see HPI Physical Exam Date Time Temp Pulse Resp B/P (MAP) Pulse Ox O2 Delivery O2 Flow Rate FiO2 05/13/17 12:00 93 Room Air 05/13/17 11:45 37.1 96 20 136/73 (94) 93 Room Air 05/13/17 08:00 94 Nasal Cannula 05/13/17 07:37 38.2 104 28 163/75 (104) 94 Nasal Cannula 2.5 05/13/17 04:00 Nasal Cannula 2.0 05/13/17 04:00 37.6 107 20 157/61 (93) 94 Nasal Cannula 2.0 05/13/17 00:00 Nasal Cannula 2.0 05/12/17 23:59 37.6 103 20 145/81 (102) 98 05/12/17 20:05 37.2 101 24 147/84 (105) 94 Nasal Cannula 3.0 05/12/17 20:00 36.8 98 22 145/70 (95) 98 Nasal Cannula 2.0 05/12/17 18:00 36.5 97 24 151/89 (109) 97 Nasal Cannula 2.0 05/12/17 16:00 95 Nasal Cannula 2.0 05/12/17 16:00 37.6 98 27 166/92 (116) 95 Nasal Cannula 2.0 General Appearance: no apparent distress ENT: + pertinent finding (thick oral secretions) Neck: supple, no JVD, trachea midline Respiratory/Chest: no accessory muscle use, + crackles, + rhonchi Cardiovascular: regular rate, rhythm, no gallop, no murmur Abdomen: non tender, soft, + abnormal bowel sounds (hypoactive) Extremities: + swelling (generalized non pitting ) Neurologic/Psych: alert, + depressed affect Skin: normal color, warm/dry, no rash Laboratory Results Last 24 Hours Test 05/12/17 17:44 05/12/17 18:00 05/12/17 20:35 05/13/17 00:06 Bedside Glucose 145 mg/dl 132 mg/dl 132 mg/dl Sodium Level 139 mmol/L Potassium Level 3.7 mmol/L Chloride Level 103 mmol/L Carbon Dioxide Level 30 mmol/L Anion Gap 6.0 mmol/L Blood Urea Nitrogen 6 mg/dl Creatinine 0.60 mg/dl Est Creatinine Clear Calc Drug Dose 93.9 ml/min Estimated GFR () 110.9 Estimated GFR (Non- 95.7 BUN/Creatinine Ratio 10.1 Random Glucose 144 mg/dl Calcium Level 8.5 mg/dl Phosphorus Level 1.9 mg/dl Magnesium Level 2.1 mg/dl Test 05/13/17 06:36 05/13/17 08:37 05/13/17 11:01 Bedside Glucose 128 mg/dl 115 mg/dl White Blood Count 16.78 K/uL Red Blood Count 3.22 M/uL Hemoglobin 9.2 g/dL Hematocrit 28.2 % Mean Corpuscular Volume 87.6 fL Mean Corpuscular Hemoglobin 28.6 pg Mean Corpuscular Hemoglobin Concent 32.6 g/dl RDW Standard Deviation 53.5 fL RDW Coefficient of Variation 17.2 % Platelet Count 371 K/uL Mean Platelet Volume 8.6 fL Prothrombin Time 32.1 SECONDS Prothromb Time International Ratio 3.1 Sodium Level 138 mmol/L Potassium Level 3.6 mmol/L Chloride Level 104 mmol/L Carbon Dioxide Level 25 mmol/L Anion Gap 9.0 mmol/L Blood Urea Nitrogen 6 mg/dl Creatinine 0.37 mg/dl Est Creatinine Clear Calc Drug Dose 156.3 ml/min Estimated GFR () 130.0 Estimated GFR (Non- 112.1 BUN/Creatinine Ratio 15.6 Random Glucose 111 mg/dl Calcium Level 8.2 mg/dl Phosphorus Level 2.1 mg/dl Magnesium Level 1.8 mg/dl Impression Patient is a 67 year old female currently seen for PEG placement evaluation. She has hx of MS, recurrent UTI and currently Cdiff infection. 2 days ago had aspiration episode during breakfast and coded. She had since been extubated. She had video swallow study which showed she has significant silent aspiration with all consistency of liquids, no aspiration with solids. Plan - I had a long and thorough discussion with pt's over the phone about my concerns in regarding PEG placement for pt. said that he was told PEG or G-J tube is a good option for pt as it will eliminate risk for aspiration and also reduce pt's UTI recurrence from diarrhea. I first clarified to him that these would not be the case. There's still risk of aspiration with any form of tube feeding. Also usually patients can get worsening of diarrhea with tube feeding. From medical standpoint, I think she's at high risk for cardiopulmonary complications during any procedure which would require anesthesia. She also has a chronic gastric duplication cyst which may interfere with placement of a PEG tube in her stomach area. We can re-evaluate her candidacy again in next few days. Another option is to consider temporary NGT feeding, but I inform pt's that this also has aspiration risk for pt. This can be discussed with the primary team. I did also mention to pt's about her poor prognosis given her worsening chronic medical condition. I offered palliative care consult which accepts. He will discuss with primary hospitalist (Dr. Moyer) on pt's code status and the specifics. Late entry: Patient was seen and examined, events of hospitalization, history reviewed with DARLYN Obando on 05/13. Her note reflects our findings and conversations with patient's family. Aspiration risk remains an issue with a G tube. Ideally, a surgically placed J tube may be the best option if there is a plan for aggressive care.
[2017-05-13] MEDS ORDERED: SCOPOLAMINE 1.5 MG TDSY TD SCH (16:00)
[2017-05-13] MEDS ORDERED: CHECK SCOPOLAMINE PATCH PLACEMENT SCH (16:00)
--- NOTE | 2017-05-13 16:01 | Palliative Care Consultation ---
Consultation Date of Consultation: May 13, 2017. Requesting Physician: Dr. Moyer Attending Physician: Dr Moyer Reason for Consultation: Determining goals of care History of Present Illness Patient is a 67-year-old female with multiple sclerosis, who is currently bedbound. Patient was admitted to the hospital on 05/03 for 24 hours of altered mental status and was found to have a UTI. Patient has improved with treatment for her pansensitive E. coli UTI. On 05/11 patient had a cardiopulmonary arrest due to aspiration of a large amount of food. Patient was intubated and then bronched with removal of food -patient was able to be extubated on 05/12. Patient failed her swallow eval with all consistencies and was offered G-tube placement. Patient states she discussed having a G-tube placed with her and would like to proceed. Patient also has excess oral secretions, and has difficulty clearing them. Past Medical/Surgical History Medical History: Multiple sclerosis, diabetes, urinary retention, abdominal massadjacent to the stomach, mild contractures, C. difficile, HLD, constipation. Surgical History: DONA, partial colectomy with colostomy, status post reversal Family History Positive for heart disease Social History Smoking Status: Former Smoker History of Alcohol Use: No Drug Use: none Marital Status: Housing Status: lives with family Review of Systems Constitutional: No fever, No chills Eyes: No worsening of vision ENT: No hearing loss Respiratory: + problem reported (Excess oral secretions) Cardiac: No chest pain, No orthopnea Abdomen: + constipation, No pain Musculoskeletal: + problem reported (Contractures) Female : + problem reported (Urinary retention, has a chronic indwelling Lemos) Neurologic: No memory loss Psychiatric: No depression symptoms Skin: No rash Allergies Coded Allergies: Levofloxacin (Verified Allergy, Unknown, 01/04/17) Clavulanic Acid (Verified Adverse Reaction, Intermediate, GI INTOLERANCE ( AUGMENTIN), 01/04/17) Penicillins (Verified Adverse Reaction, Intermediate, GI INTOLERANCE ( AUGMENTIN), 01/04/17) Medications Current Inpatient Medications Medications (Trade) Dose Ordered Sig/Dwain Route Start Time Stop Time Status Last Admin Dose Admin Glucose (Glucose 40% Gel) 15-30 GRAMS 15 GRAMS... UD PRN PO 05/03/17 18:30 06/02/17 18:29 Glucose (Glucose Chew Tab) 4-8 Tablets 4 Tabl... UD PRN PO 05/03/17 18:30 06/02/17 18:29 Dextrose (Dextrose 50% 50ML Syringe) 25-50ML OF 50% DW IV FOR... UD PRN IV 05/03/17 18:30 06/02/17 18:29 Glucagon (Glucagon Inj) 1 mg UD PRN SQ 05/03/17 18:30 06/02/17 18:29 Acetaminophen 650 mg/Empty Bag 65 ml @ 260 mls/hr Q12 PRN IV 05/04/17 18:45 06/03/17 18:44 05/13/17 07:48 260 MLS/HR Ipratropium [place] (Atrovent 0.02% 0.5MG/2.5ML Neb) 0.5 mg Q4H PRN INH 05/05/17 00:15 06/04/17 00:14 Levalbuterol (Xopenex 1.25MG/ 0.5ML Neb) 1.25 mg Q4H PRN INH 05/05/17 00:15 06/04/17 00:14 Insulin Glargine (Lantus Solostar Pen) 10 units BID SC 05/09/17 21:00 06/04/17 20:59 05/11/17 20:52 10 UNITS Heparin Sodium (Porcine) (Heparin 10 Unit/ ml 5 ml Flush) 5 ml PRN PRN FLUSH 05/12/17 01:00 06/11/17 00:59 Insulin Aspart (novoLOG ASPART) Sliding Scale Q6H SC 05/12/17 18:00 06/08/17 06:29 Enoxaparin Sodium (Lovenox Inj) 60 mg Q12H SQ 05/13/17 15:45 06/12/17 15:44 UNV Pantoprazole Sodium 40 mg/ Syringe 10 ml @ 5 mls/min DAILY@11 IV 05/14/17 11:00 06/13/17 10:59 UNV Physical Exam Date Time Temp Pulse Resp B/P (MAP) Pulse Ox O2 Delivery O2 Flow Rate FiO2 05/13/17 15:00 36.9 96 20 178/82 (114) 94 Nasal Cannula 05/13/17 12:00 93 Room Air 05/13/17 11:45 37.1 96 20 136/73 (94) 93 Room Air 05/13/17 08:00 94 Nasal Cannula 05/13/17 07:37 38.2 104 28 163/75 (104) 94 Nasal Cannula 2.5 05/13/17 04:00 Nasal Cannula 2.0 05/13/17 04:00 37.6 107 20 157/61 (93) 94 Nasal Cannula 2.0 05/13/17 00:00 Nasal Cannula 2.0 05/12/17 23:59 37.6 103 20 145/81 (102) 98 05/12/17 20:05 37.2 101 24 147/84 (105) 94 Nasal Cannula 3.0 05/12/17 20:00 36.8 98 22 145/70 (95) 98 Nasal Cannula 2.0 05/12/17 18:00 36.5 97 24 151/89 (109) 97 Nasal Cannula 2.0 05/12/17 16:00 95 Nasal Cannula 2.0 05/12/17 16:00 37.6 98 27 166/92 (116) 95 Nasal Cannula 2.0 General Appearance: no apparent distress, + pertinent finding (Alert and oriented 4) Eyes: EOMI ENT: hearing grossly normal Neck: trachea midline Respiratory: no respiratory distress, + pertinent finding (Transmitted upper airway noises) Cardiovascular: regular rate, rhythm Abdomen: non tender, soft Musculoskeletal: pertinent finding (Patient with contractures) Neurologic/Psychiatric: alert, normal mood/affect Skin: warm/dry Laboratory Results Last 24 Hours Test 05/12/17 17:44 05/12/17 18:00 05/12/17 20:35 05/13/17 00:06 Bedside Glucose 145 mg/dl 132 mg/dl 132 mg/dl Sodium Level 139 mmol/L Potassium Level 3.7 mmol/L Chloride Level 103 mmol/L Carbon Dioxide Level 30 mmol/L Anion Gap 6.0 mmol/L Blood Urea Nitrogen 6 mg/dl Creatinine 0.60 mg/dl Est Creatinine Clear Calc Drug Dose 93.9 ml/min Estimated GFR () 110.9 Estimated GFR (Non- 95.7 BUN/Creatinine Ratio 10.1 Random Glucose 144 mg/dl Calcium Level 8.5 mg/dl Phosphorus Level 1.9 mg/dl Magnesium Level 2.1 mg/dl Test 05/13/17 06:36 05/13/17 08:37 05/13/17 11:01 Bedside Glucose 128 mg/dl 115 mg/dl White Blood Count 16.78 K/uL Red Blood Count 3.22 M/uL Hemoglobin 9.2 g/dL Hematocrit 28.2 % Mean Corpuscular Volume 87.6 fL Mean Corpuscular Hemoglobin 28.6 pg Mean Corpuscular Hemoglobin Concent 32.6 g/dl RDW Standard Deviation 53.5 fL RDW Coefficient of Variation 17.2 % Platelet Count 371 K/uL Mean Platelet Volume 8.6 fL Prothrombin Time 32.1 SECONDS Prothromb Time International Ratio 3.1 Sodium Level 138 mmol/L Potassium Level 3.6 mmol/L Chloride Level 104 mmol/L Carbon Dioxide Level 25 mmol/L Anion Gap 9.0 mmol/L Blood Urea Nitrogen 6 mg/dl Creatinine 0.37 mg/dl Est Creatinine Clear Calc Drug Dose 156.3 ml/min Estimated GFR () 130.0 Estimated GFR (Non- 112.1 BUN/Creatinine Ratio 15.6 Random Glucose 111 mg/dl Calcium Level 8.2 mg/dl Phosphorus Level 2.1 mg/dl Magnesium Level 1.8 mg/dl Assessment & Plan Palliative Performance Scale: 30 % (1) Dysphagia causing pulmonary aspiration with swallowing Status: Acute Assessment & Plan: Patient would like to proceed with PEG tube placement. Excess oral secretions, patient willing to try a scopolamine patch (2) Multiple sclerosis Status: Chronic Assessment & Plan: Patient is cared for at home by her , no other additional help (3) UTI (urinary tract infection) Status: Acute Assessment & Plan: Improved on IV antibiotics Patient is a 67-year-old woman with multiple sclerosis who is now bedbound and has an indwelling Lemos catheter who is showing disease progression with significant dysphasia. Patient had an episode of large amount of food aspirated , states she is willing to go forward with PEG tube placement Counseling and Coordination Total time spent 55 minutes with greater than 50% of the time spent evaluating patient and discussing goals of care
[2017-05-13] MEDS ORDERED: METRONIDAZOLE / NSS 500 MG in PREMIXED NSS 100 ML IV ONE (16:30)
--- NOTE | 2017-05-13 16:32 | Progress Note ---
Internal Med Progress Note Date of Service: May 13, 2017. Provider Documentation: SUBJECTIVE: The patient was seen and examined Feels much better today Abdominal discomfort and distension better Bowel moved 05/11 Aspirated this morning while eating breakfast Code Purple followed by Code Blue Hypoxic respiratory followed by Cardiopulmonary arrest Required Intubation during resuscitation Transferred to ICU 05/12 Extubated yesterday following bronchoscopic clean out of the food substance Feels better this AM 05/13 Mild SOB at rest Transmitted sound from respiratory secretions Need to discuss about PEG tube and Resus issue OBJECTIVE: Vital Signs-as noted below Exam: General-Mild SOB at rest Eyes-closed ENT-normal Neck-supple Lungs-Decreased breath sound bilaterally Transmitted sound all over Heart-Regular,no murmur Abdomen-Mildly distended,Mildly tender Extremities-Trace edema bilaterally .left extremities flexor deformities Secondary to MS Neuro-sedated on Vent Lab data as noted below. ASSESSMENT & PLAN: Cardiopulmonary Arrest Aspiration>Respiratory arrest followed by Cardiac arrest Required Intubation to maintain Saturation Transferred to ICU Bronchoscopy in ICU -a considerable amount of food materials sucked out Likely extubation today and resume oral medications thereafter Clinically better Transfer back to [facility] Has H/O recurrent aspiration with esophageal dysmotility before Wants to have PEG tube as per discussion with other provider Will discuss with the this evening to discuss further management plan Will put her on IV Flagyl to cover Aspiration and C Diff Colitis SEPSIS Met criteria for sepsis per 2001 definition and current CMS guidelines ( UTI, tachycardia, leukocytosis). Elevated WBC and lactate on admission,Received IVF Urine cx grew F-[id number]-Ufzybghuwhri Blood cx -negative Was On Rocephin and Vanco Vanco Discontinued 05/09 Rocephin was changed to ertapenem Completed 7 days course of IV abx (Rocephin later changed to ertapenem) Cdiff stool positive for C-diff since pt was NPO, she was starting on flagyl IV Continue PO vanco to complete 14 days monitor electrolytes No diarrhea IV Flagyl Abdominal Tenderness Unchanged severe distention of the colon with gas and stool. Recommend disimpaction. Pt had 2 BM today Will give Dulcolax 1 repeat xray in am-decreasing fecal load Bowel is moving GI bleed INR increased to 10 Received vit k Hgb stable at 9.5 Resume coumadin 2.5 mg INR 1.4 on 05/10 ACUTE KIDNEY INJURY Serum creatinine 1.3 compared to recent baseline of 0.6-0.8. Creatine stable D/C IVF Monitor BMP. Resolved ELEVATED TROPONIN Serum troponin = 0.343. EKG shows sinus rhythm, nonspecific T-wave changes. Serum troponin trending down to 0.13 Asymptomatic Hypokalemia K replaced Monitor BMP Will need more replacement CONSTIPATION CT abdomen CT abd showed massive amount of stool within the rectum and moderate to large amount of stool within the colon consistent with significant fecal impaction. No bowel obstruction had diarrhea/cdiff Moving bowel DM TYPE 2 Hba1c 6.8 ( on 05/04/17) Lantus + NovoLog per protocol. MULTIPLE SCLEROSIS Advanced disease. Aspiration precautions. Symptomatic management. URINARY RETENTION Secondary to multiple sclerosis. Continue indwelling Lemos catheter Will change Lemos cath ABDOMINAL MASS Previously noted and evaluated by Surgery. Resection not pursued due to advanced MS and multiple comorbidities. DECUBITUS ULCERS Avoid pressure. Local care. Continue daily wound care VTE PROPHYLAXIS / HISTORY OF PULMONARY EMBOLISM INR 1.4 Continue Coumadin SCDs Will start SQ Lovenox RESUSCITATION STATUS DNR DISPOSITION Likely to discharge in a day or two Vital Signs: Date Time Temp Pulse Resp B/P (MAP) Pulse Ox O2 Delivery O2 Flow Rate FiO2 05/13/17 15:00 36.9 96 20 178/82 (114) 94 Nasal Cannula 05/13/17 12:00 93 Room Air 05/13/17 11:45 37.1 96 20 136/73 (94) 93 Room Air 05/13/17 08:00 94 Nasal Cannula 05/13/17 07:37 38.2 104 28 163/75 (104) 94 Nasal Cannula 2.5 05/13/17 04:00 Nasal Cannula 2.0 05/13/17 04:00 37.6 107 20 157/61 (93) 94 Nasal Cannula 2.0 05/13/17 00:00 Nasal Cannula 2.0 05/12/17 23:59 37.6 103 20 145/81 (102) 98 05/12/17 20:05 37.2 101 24 147/84 (105) 94 Nasal Cannula 3.0 05/12/17 20:00 36.8 98 22 145/70 (95) 98 Nasal Cannula 2.0 05/12/17 18:00 36.5 97 24 151/89 (109) 97 Nasal Cannula 2.0 Lab Results: Results Past 24 Hours Test 05/12/17 17:44 05/12/17 18:00 05/12/17 20:35 05/13/17 00:06 Range/Units Bedside Glucose 145 132 132 70-90 mg/dl Sodium Level 139 136-145 mmol/L Potassium Level 3.7 3.5-5.1 mmol/L Chloride Level 103 98-107 mmol/L Carbon Dioxide Level 30 21-32 mmol/L Anion Gap 6.0 3-11 mmol/L Blood Urea Nitrogen 6 7-18 mg/dl Creatinine 0.60 0.60-1.20 mg/dl Est Creatinine Clear Calc Drug Dose 93.9 ml/min Estimated GFR () 110.9 Estimated GFR (Non- 95.7 BUN/Creatinine Ratio 10.1 10-20 Random Glucose 144 70-99 mg/dl Calcium Level 8.5 8.5-10.1 mg/dl Phosphorus Level 1.9 2.5-4.9 mg/dl Magnesium Level 2.1 1.8-2.4 mg/dl Test 05/13/17 06:36 05/13/17 08:37 05/13/17 11:01 Range/Units Bedside Glucose 128 115 70-90 mg/dl White Blood Count 16.78 4.8-10.8 K/uL Red Blood Count 3.22 4.2-5.4 M/uL Hemoglobin 9.2 12.0-16.0 g/dL Hematocrit 28.2 37-47 % Mean Corpuscular Volume 87.6 80-100 fL Mean Corpuscular Hemoglobin 28.6 25-34 pg Mean Corpuscular Hemoglobin Concent 32.6 32-36 g/dl RDW Standard Deviation 53.5 36.4-46.3 fL RDW Coefficient of Variation 17.2 11.5-14.5 % Platelet Count 371 130-400 K/uL Mean Platelet Volume 8.6 7.4-10.4 fL Prothrombin Time 32.1 9.0-12.0 SECONDS Prothromb Time International Ratio 3.1 0.9-1.1 Sodium Level 138 136-145 mmol/L Potassium Level 3.6 3.5-5.1 mmol/L Chloride Level 104 98-107 mmol/L Carbon Dioxide Level 25 21-32 mmol/L Anion Gap 9.0 3-11 mmol/L Blood Urea Nitrogen 6 7-18 mg/dl Creatinine 0.37 0.60-1.20 mg/dl Est Creatinine Clear Calc Drug Dose 156.3 ml/min Estimated GFR () 130.0 Estimated GFR (Non- 112.1 BUN/Creatinine Ratio 15.6 10-20 Random Glucose 111 70-99 mg/dl Calcium Level 8.2 8.5-10.1 mg/dl Phosphorus Level 2.1 2.5-4.9 mg/dl Magnesium Level 1.8 1.8-2.4 mg/dl
[2017-05-13] MEDS ORDERED: FUROSEMIDE 40 MG/4 ML VIAL ONE (19:09)
--- NOTE | 2017-05-13 19:36 | Progress Note ---
Progress Note Date of Service May 13, 2017. Progress Note Around 7:05 PM, night [facility] medical doctor informed that patient having trouble with breathing. Code called. Medical doctor arrived. Patient at the time on nasal cannula and oxygen saturation on pulse oximetry between 70s to 80s. Heart rate was in the 120s. Patient was responsive however taking labored breaths. ICU notified. 40 mg IV Lasix ordered and patient on BIPAP with improving saturation however still tachycardic. Chest X ray obtained did not appear to show lobar consolidation. May have been possible that patient has aspirated. Patient's primary medical doctor was notified and between the discussions with primary care doctor on the phone, with [facility] medical doctor, with patient and patient's Vicente Reis, patient remains full code status. Main concern at this time is whether patient needs to be intubated tonight. Will transfer to ICU for further respiratory and cardiac management. Patient and patient's is in agreement to the plan
--- NOTE | 2017-05-13 19:48 | DIAGNOSTIC IMAGING REPORT ---
CHEST ONE VIEW PORTABLE CLINICAL HISTORY: 67 years-old Female presenting with sob. TECHNIQUE: Portable upright AP view of the chest was obtained. COMPARISON: 05/11/2017. FINDINGS: Right internal jugular central venous catheter terminates in the mid SVC. Atherosclerosis of the aortic arch. Cardiac silhouette normal in size. Decreased aeration of the left lung base with increased opacity and obscuration of the left hemidiaphragm. Trace left pleural effusion is present. No large pneumothorax. Osseous structures normal. Numerous external leads overlie the right upper quadrant. IMPRESSION: 1. Left lower lobe consolidation remains concerning for pneumonia. Electronically signed by: Taran Gonzalez M.D. 05/13/2017 7:46 PM Dictated Date/Time: 05/13/2017 7:45 PM
[2017-05-13 19:50] LABS: ISTAT POTASSIUM 3.7 mEq/L (3.3-5.0)
[2017-05-13] MEDS ORDERED: MIDAZOLAM HCL 1 MG/ML 2ML VIAL ONE ×2 (20:11→20:30)
[2017-05-13] MEDS ORDERED: FENTANYL CITRATE INJ 50 MCG/1 ML 2 ML VIAL ONE (20:11)
--- NOTE | 2017-05-13 20:48 | Critical Care Progress Note ---
Critical Care Progress Note Date of Service May 13, 2017. Attending Dr. Soto Subjective The patient was found in the floor to be in agonal breathing, her O2 saturation was 55%, the was at the bedside, the patient was dozing and unresponsive , she was placed on the BiPAP and transferred to the ICU for further management. Review of system was not available. The patient was is well-known to me from the past with a history of multiple sclerosis and recently suffered from cardiac arrest secondary to aspiration into her airways. The patient underwent a bronchoscopy with large amount of food material has been taken out. When she arrived in the ICU, she is still appeared lethargic but she was able to answer with yes and no, she was on the BiPAP at 100%, her PO2 was 60, I have discussed with her and with her the need for urgent bronchoscopy and possible intubation. I could not give a consent from her but the is in agreement with it. The bronchoscopy was done and dictated separately. Objective Physical exam on 05/12/2017, showed the patient is not in respiratory distress at the moment. She is tolerating room air and her O2 sat is 93%. Upper airway sounding. Crackles at the bases. S1-S2 regular without rhythm. Abdomen is distended but benign. Muscle contractions 4 extremities. Neurologically she is bedridden with minimal movement in the right upper extremity more than the left. Her physical exam on May 13 2017 showed vital signs consistent with heart rate of 140, blood pressure was 190/90, upper airway sounding bilateral crackles , S1-S2 tachycardic, abdomen is benign, no edema but she is contracted 4 extremities. Laboratory also pending and x-ray was reviewed which showed minimal infiltrate in the right lower lobe. Assessment & Plan 1. Cardiac arrest secondary to choking event. 2. Dysphagia with high risk of aspiration. Likely she aspirated on this presentation. 3. Multiple sclerosis. 4. Chemical aspiration. 5. C. difficile colitis. 6. Venous thromboembolic event. Plan: 1. stat bronchoscopy was done, removal of large amount of aspirated material from every segment of her lungs bilaterally. Dictated separately. 2. The patient O2 saturation was after was 95% even on room air. Did not require any additional support. 3. Broad-spectrum antibiotic given the fact that she had a second aspiration while she is in the hospital. 4. I would place the patient back again in the BiPAP. 5. I would discuss with the family the need for tracheostomy and a PEG tube. Apparently GI did not recommend PEG tube however J-tube can be entertained given the difficulty placing PEG tube according to GI. 6. No need for intubation at this point. 7. We will reassess in the morning. 8. Considering that the patient and the family based on the patient wishes they would like to proceed with aggressive measures at this point. The aggressive measures will include tracheostomy and feeding tube placement. 9. Case discussed with the staff as well as with the family, will continue also with current treatment including anti-correlation. I have reviewed all her labs and her x-rays personally. Critical care time spent with the patient was 45 minutes excluding bronchoscopy time. Data Medications: Current Inpatient Medications Medications (Trade) Dose Ordered Sig/Dwain Route Start Time Stop Time Status Last Admin Dose Admin Glucose (Glucose 40% Gel) 15-30 GRAMS 15 GRAMS... UD PRN PO 05/03/17 18:30 06/02/17 18:29 Glucose (Glucose Chew Tab) 4-8 Tablets 4 Tabl... UD PRN PO 05/03/17 18:30 06/02/17 18:29 Dextrose (Dextrose 50% 50ML Syringe) 25-50ML OF 50% DW IV FOR... UD PRN IV 05/03/17 18:30 06/02/17 18:29 Glucagon (Glucagon Inj) 1 mg UD PRN SQ 05/03/17 18:30 06/02/17 18:29 Acetaminophen 650 mg/Empty Bag 65 ml @ 260 mls/hr Q12 PRN IV 05/04/17 18:45 06/03/17 18:44 05/13/17 07:48 260 MLS/HR Ipratropium [place] (Atrovent 0.02% 0.5MG/2.5ML Neb) 0.5 mg Q4H PRN INH 05/05/17 00:15 06/04/17 00:14 Levalbuterol (Xopenex 1.25MG/ 0.5ML Neb) 1.25 mg Q4H PRN INH 05/05/17 00:15 06/04/17 00:14 Insulin Glargine (Lantus Solostar Pen) 10 units BID SC 05/09/17 21:00 4/14/18 20:59 05/11/17 20:52 10 UNITS Heparin Sodium (Porcine) (Heparin 10 Unit/ ml 5 ml Flush) 5 ml PRN PRN FLUSH 05/12/17 01:00 06/11/17 00:59 Insulin Aspart (novoLOG ASPART) Sliding Scale Q6H SC 05/12/17 18:00 06/08/17 06:29 Enoxaparin Sodium (Lovenox Inj) 60 mg Q12H SQ 05/14/17 09:00 06/13/17 08:59 Future Hold Pantoprazole Sodium 40 mg/ Syringe 10 ml @ 5 mls/min DAILY@11 IV 05/14/17 11:00 06/13/17 10:59 Miscellaneous Information (Pending Order) 1 ea DAILY@10 N/A 05/14/17 10:00 06/13/17 09:59 Scopolamine (Transderm-Scop Patch) 1.5 mg Q72H TD 05/13/17 16:00 06/12/17 15:59 05/13/17 16:47 1.5 MG Miscellaneous (Remove Transderm-Scop Patch) 1 ea Q72H N/A 05/16/17 16:00 06/15/17 15:59 Miscellaneous Information (Check Scopolamine Patch Placement) 1 ea QS N/A 05/13/17 16:00 06/12/17 15:59 05/13/17 16:47 1 EA Metronidazole 500 mg/Prmx 100 ml @ 100 mls/hr Q8H IV 05/14/17 00:00 05/23/17 15:59 I & O: 24-Hour Column 05/14/17 08:00 Intake Total 100 ml Output Total 600 ml Balance -500 ml Vital Signs: Date Time Temp Pulse Resp B/P (MAP) Pulse Ox O2 Delivery O2 Flow Rate FiO2 05/13/17 20:37 38.1 144 16 106/62 94 Nasal Cannula 6.0 05/13/17 20:32 145 16 207/137 94 Non-Rebreather 100 05/13/17 20:26 150 20 101/77 95 Non-Rebreather 100 05/13/17 20:20 180 18 134/84 100 Non-Rebreather 05/13/17 19:15 114 93 05/13/17 16:00 94 Nasal Cannula 2.5 30 05/13/17 15:00 36.9 96 20 178/82 (114) 94 Nasal Cannula 05/13/17 12:00 93 Room Air 05/13/17 11:45 37.1 96 20 136/73 (94) 93 Room Air 05/13/17 08:00 94 Nasal Cannula 05/13/17 07:37 38.2 104 28 163/75 (104) 94 Nasal Cannula 2.5 05/13/17 04:00 Nasal Cannula 2.0 05/13/17 04:00 37.6 107 20 157/61 (93) 94 Nasal Cannula 2.0 05/13/17 00:00 Nasal Cannula 2.0 05/12/17 23:59 37.6 103 20 145/81 (102) 98 Laboratory Results: Last 24 Hours Test 05/13/17 00:06 05/13/17 06:36 05/13/17 08:37 05/13/17 11:01 Bedside Glucose 132 mg/dl 128 mg/dl 115 mg/dl White Blood Count 16.78 K/uL Red Blood Count 3.22 M/uL Hemoglobin 9.2 g/dL Hematocrit 28.2 % Mean Corpuscular Volume 87.6 fL Mean Corpuscular Hemoglobin 28.6 pg Mean Corpuscular Hemoglobin Concent 32.6 g/dl RDW Standard Deviation 53.5 fL RDW Coefficient of Variation 17.2 % Platelet Count 371 K/uL Mean Platelet Volume 8.6 fL Prothrombin Time 32.1 SECONDS Prothromb Time International Ratio 3.1 Sodium Level 138 mmol/L Potassium Level 3.6 mmol/L Chloride Level 104 mmol/L Carbon Dioxide Level 25 mmol/L Anion Gap 9.0 mmol/L Blood Urea Nitrogen 6 mg/dl Creatinine 0.37 mg/dl Est Creatinine Clear Calc Drug Dose 156.3 ml/min Estimated GFR () 130.0 Estimated GFR (Non- 112.1 BUN/Creatinine Ratio 15.6 Random Glucose 111 mg/dl Calcium Level 8.2 mg/dl Phosphorus Level 2.1 mg/dl Magnesium Level 1.8 mg/dl Test 05/13/17 16:21 05/13/17 19:21 05/13/17 19:37 Bedside Glucose 105 mg/dl Bedside Hemoglobin 10.5 g/dl Bedside Hematocrit 31 % Bedside FiO2 100 % Bedside Sodium 138 mEq/L Bedside Potassium 3.7 mEq/L
--- NOTE | 2017-05-13 20:52 | Procedure Note ---
Procedure Note Procedure Date May 13, 2017. Procedure Description Procedure Name: Bronchoscopy. Procedure time out: side/site verified, patient ID confirmed, correct procedure Consent obtained: verbal Performed by: attending Indications: diagnostic, therapeutic Contraindications: none Description: Bronchoscopy was done emergently, timeout was performed by the nurses, verbal consent obtained from the . Indication is shannon aspiration in the patient was noted to have recurrent aspiration. The patient was in the ICU bed 5. The patient was placed on facemask using a bite block and the procedure was done through the oral cavity. The patient monitored throughout the entire procedure with ICU's time for monitoring. The bronchoscope passed through the bite-block and the findings as follows: 1. Vocal cords were mobile, large amount of secretions were at the aperture of the vocal cord. 2. The tracheal bronchial tree examined to the sub-subsegmental level. 3. Large amount of milky colored secretions were noted throughout the entire tracheal bronchial tree occluding almost every single segment of her airways. After the bronchus intermedius and the left main and right main bronchus. All suctioned to clear. No specimen was obtained due to the urgency of the procedure. After the procedure was completed, the patient also saturation maintained in the 90s even on 6 L of oxygen. The patient will be placed back again on the BiPAP and will be kept overnight on BiPAP. Keep the patient n.p.o. Antibiotics.
[2017-05-13 21:37] LABS: HEMATOCRIT 31.2 % (37-47); MEAN CELL VOLUME 88.4 fL (80-100); MEAN CORPUSCULAR HEMOGLOBIN 28.3 pg (25-34); MEAN PLATELET VOLUME 8.7 fL (7.4-10.4); NUCLEATED RED BLOOD CELL ABS 0.02 K/uL (0-0); PLATELET COUNT 427 K/uL (130-400); RED CELL DISTRIBUTION WIDTH CV 16.6 % (11.5-14.5); RED CELL DISTRIBUTION WIDTH SD 52.9 fL (36.4-46.3); WHITE BLOOD COUNT 23.36 K/uL (4.8-10.8)
[2017-05-13 21:42] LABS: MEAN CORPUSCULAR HGB CONC 32.1 g/dl (32-36)
[2017-05-13] MEDS ORDERED: VANCOMYCIN CONSULT ACTIVE PRN (21:45)
[2017-05-13] MEDS: AZTREONAM IV 1,000 MG in DEXTROSE 5% 100ML 100 ML IV SCH (22:11)
[2017-05-13 22:12] LABS: CALCIUM 8.4 mg/dl (8.5-10.1); CREATININE 0.5 mg/dl (0.60-1.20); POTASSIUM 3.8 mmol/L (3.5-5.1)
--- NOTE | 2017-05-13 22:26 | DIAGNOSTIC IMAGING REPORT ---
KUB CLINICAL HISTORY: 67 years-old Female presenting with NGT placement. TECHNIQUE: Single supine view of the abdomen was obtained. COMPARISON: 05/10/2017. FINDINGS: Nasogastric tube terminates the body of the stomach with side hole at gastroesophageal junction. Marked stool burden in the rectum. Retained contrast in the right colon. No bowel obstruction. No gross pneumoperitoneum. Multiple surgical clips and radiodense sutures noted. Indeterminate calcification in the region of the left renal hilum, possibly renal calculi or atherosclerosis. Osseous structures normal. IMPRESSION: 1. Marked stool burden in the rectum. Consider disimpaction. No bowel obstruction. 2. Nasogastric tube terminates in the body of the stomach with sidehole at the gastroesophageal junction; consider advancement. Electronically signed by: Taran Gonzalez M.D. 05/13/2017 10:25 PM Dictated Date/Time: 05/13/2017 10:18 PM
[2017-05-13] MEDS ORDERED: VANCOMYCIN IV 1,500 MG in SODIUM CHLORIDE 0.9% 500ML 500 ML IV SCH (22:30)
--- NOTE | 2017-05-13 22:42 | Critical Care Progress Note ---
Critical Care Progress Note Date of Service May 13, 2017. Critical Care Progress Note Upon my arrival at 1900, a code purple had been initiated on the patient. I did arrive with code rhett to find the patient with BiPAP in place in respiratory distress. Her saturations were in the low 90s. I removed the patient from recent ICU admission. Reportedly, she was resting comfortably and developed an acute hypoxic state. She responded to suctioning and BiPAP. I had a conversation with the patient and she would wish to undergo intubation if need be. At this point, decision was made to transfer the patient to the ICU for further evaluation and airway management. Please refer to my attending physician's dictation for complete assessment and procedural evaluation.
[2017-05-14] VITALS (36 sets, daily range): BP systolic 78–148; BP diastolic 50–96; PULSE 97–119; TEMP 36.7–37.7; O2SAT 92–97
[2017-05-14] MEDS ORDERED: NORMOSOL R 500 ML IV SCH (04:15)
[2017-05-14] MEDS: NORMOSOL R 1,000 ML IV SCH ×2 (05:10→09:40)
[2017-05-14] MEDS: AZTREONAM IV 1,000 MG in DEXTROSE 5% 100ML 100 ML IV SCH ×4 (05:34→23:32)
[2017-05-14] MEDS: VANCOMYCIN HCL 125 MG/2.5ML SOLN NG SCH ×4 (05:34→17:52)
[2017-05-14] MEDS ORDERED: VANCOMYCIN IV 1,250 MG in SODIUM CHLORIDE 0.9% 250ML 250 ML IV SCH (06:00)
[2017-05-14] MEDS: INSULIN ASPART 100 UNITS/ML 3 ML PEN SC SCH ×4 (06:00→17:56)
[2017-05-14 06:03] LABS: HEMATOCRIT 26.9 % (37-47); HEMOGLOBIN 8.7 g/dL (12.0-16.0); MEAN CELL VOLUME 87.6 fL (80-100); MEAN CORPUSCULAR HEMOGLOBIN 28.3 pg (25-34); MEAN CORPUSCULAR HGB CONC 32.3 g/dl (32-36); MEAN PLATELET VOLUME 8.6 fL (7.4-10.4); PLATELET COUNT 361 K/uL (130-400); RED CELL DISTRIBUTION WIDTH CV 16.9 % (11.5-14.5); RED CELL DISTRIBUTION WIDTH SD 52.9 fL (36.4-46.3); WHITE BLOOD COUNT 22.79 K/uL (4.8-10.8)
[2017-05-14 06:33] LABS: CREATININE 0.51 mg/dl (0.60-1.20); PHOSPHORUS 2.4 mg/dl (2.5-4.9); POTASSIUM 3.4 mmol/L (3.5-5.1)
[2017-05-14 06:37] LABS: INR 4.9 (0.9-1.1)
[2017-05-14] MEDS: METRONIDAZOLE / NSS 500 MG in PREMIXED NSS 100 ML IV SCH ×2 (07:42)
[2017-05-14] MEDS: INSULIN GLARGINE SOLOSTAR 100 UNITS/ML 3 ML PEN SC SCH ×2 (07:55→20:52)
[2017-05-14] MEDS ORDERED: SOAP SUDS ENEMA PR PRN (08:30)
[2017-05-14] MEDS ORDERED: POTASSIUM PHOS 3 MMOL/1 ML INFUSION IV STA (08:31)
[2017-05-14] MEDS ORDERED: POTASSIUM PHOSPHATE INJ 30 MMOL in SODIUM CHLORIDE 0.9% 500ML 500 ML IV ONE (08:45)
[2017-05-14] MEDS ORDERED: ENOXAPARIN 60 MG/0.6 ML SYR SQ SCH (09:00)
[2017-05-14] MEDS ORDERED: VANCOMYCIN IV 1,000 MG in SODIUM CHLORIDE 0.9% 250ML 250 ML IV SCH ×2 (09:00→14:00)
--- NOTE | 2017-05-14 10:12 | Pharmacy Progress Note ---
Pharmacy Abx Dose Short Note Date of Service May 14, 2017. Assessment & Plan Assessment 67 year old female receiving VANCOMCYIN for treatment of pulmonary process. Day # 2 of antimicrobial therapy. Plan Dosing regimen by overnight pharmacist as follows: Vancomycin * 1500mg X1 followed by 1250mg q8h * I will adjust to 1000mg q8h given apparent weight change from 77.8 to 71.3kg * Level scheduled for 05/14 @2130 Pharmacy will continue to follow and will adjust dose/frequency as necessary. Thank you.
[2017-05-14] MEDS: PANTOprazole INJ 40 MG in SYRINGE 0 ML IV SCH (10:53)
--- NOTE | 2017-05-14 12:13 | Progress Note ---
Internal Med Progress Note Date of Service: May 14, 2017. Provider Documentation: SUBJECTIVE: The patient was seen and examined Feels much better today Abdominal discomfort and distension better Bowel moved 05/11 Aspirated this morning while eating breakfast Code Purple followed by Code Blue Hypoxic respiratory followed by Cardiopulmonary arrest Required Intubation during resuscitation Transferred to ICU 05/12 Extubated yesterday following bronchoscopic clean out of the food substance Feels better this AM 05/13 Mild SOB at rest Transmitted sound from respiratory secretions Need to discuss about PEG tube and Resus issue 05/14 Has had a long discussion with the and the daughter yesterday in the evening. Pros and cons of PEG tube/jejunal tube placement discussed. They wanted to have her PEG tube placed. She is reverted back to full resuscitation status. Has had a Code Purple called last evening and the patient was transferred to ICU. She did not require intubation and with aggressive suctioning her condition improved. She will call for PEG tube placement and possible tracheostomy down the line. OBJECTIVE: Vital Signs-as noted below Exam: General-Mild SOB at rest Eyes-normal ENT-normal Neck-supple Lungs-Decreased breath sound bilaterally Transmitted sound all over,minimal crackles at the bases Heart-Regular,no murmur Abdomen-Mildly distended,Mildly tender Extremities-Trace edema bilaterally .left extremities flexor deformities Secondary to MS Neuro-sedated on Vent Lab data as noted below. ASSESSMENT & PLAN: Cardiopulmonary Arrest Aspiration>Respiratory arrest followed by Cardiac arrest Required Intubation to maintain Saturation Transferred to ICU Bronchoscopy in ICU -a considerable amount of food materials sucked out Likely extubation today and resume oral medications thereafter Clinically better Transfer back to [facility] Has H/O recurrent aspiration with esophageal dysmotility before Another episode of Aspiration last evening Broad spectrum antibiotics added Another attack of near respiratory failure Has had a Code Purple called last evening and the patient was transferred to ICU. She did not require intubation and with aggressive suctioning her condition improved. She will call for PEG tube placement and possible tracheostomy down the line. Appreciate Court Commissioner input SEPSIS Met criteria for sepsis per 2001 definition and current CMS guidelines ( UTI, tachycardia, leukocytosis). Elevated WBC and lactate on admission,Received IVF Urine cx grew V-Psbf-Nkfuhlaefiko Blood cx -negative Was On Rocephin and Vanco Vanco Discontinued 05/09 Rocephin was changed to ertapenem Completed 7 days course of IV abx (Rocephin later changed to ertapenem) Now on Broad spectrum antibiotics for recurrent aspiration Cdiff stool positive for C-diff since pt was NPO, she was starting on flagyl IV Continue PO vanco to complete 14 days monitor electrolytes No diarrhea NGT-Vancomycin Abdominal Tenderness Unchanged severe distention of the colon with gas and stool. Recommend disimpaction. Pt had 2 BM today Will give Dulcolax 1 repeat xray in am-decreasing fecal load Bowel is moving GI bleed INR increased to 10 Received vit k Hgb stable at 9.5 Resume coumadin 2.5 mg INR 1.4 on 05/10 ACUTE KIDNEY INJURY Serum creatinine 1.3 compared to recent baseline of 0.6-0.8. Creatine stable D/C IVF Monitor BMP. Resolved ELEVATED TROPONIN Serum troponin = 0.343. EKG shows sinus rhythm, nonspecific T-wave changes. Serum troponin trending down to 0.13 Asymptomatic Hypokalemia K replaced Monitor BMP Will need more replacement CONSTIPATION CT abdomen CT abd showed massive amount of stool within the rectum and moderate to large amount of stool within the colon consistent with significant fecal impaction. No bowel obstruction had diarrhea/cdiff Moving bowel DM TYPE 2 Hba1c 6.8 ( on 05/04/17) Lantus + NovoLog per protocol. MULTIPLE SCLEROSIS Advanced disease. Aspiration precautions. Symptomatic management. URINARY RETENTION Secondary to multiple sclerosis. Continue indwelling Lemos catheter Will change Lemos cath ABDOMINAL MASS Previously noted and evaluated by Surgery. Resection not pursued due to advanced MS and multiple comorbidities. DECUBITUS ULCERS Avoid pressure. Local care. Continue daily wound care VTE PROPHYLAXIS / HISTORY OF PULMONARY EMBOLISM INR 1.4 Continue Coumadin SCDs Will start SQ Lovenox RESUSCITATION STATUS::FULL CODE DISPOSITION Has had a long discussion with the and the daughter yesterday, 05/13 in the evening. Pros and cons of PEG tube/jejunal tube placement discussed. They wanted to have PEG tube placed. She is reverted back to full resuscitation status. Has had a Code Purple called last evening and the patient was transferred to ICU. She did not require intubation and with aggressive suctioning her condition improved. She will call for PEG tube placement and possible tracheostomy down the line. Vital Signs: Date Time Temp Pulse Resp B/P (MAP) Pulse Ox O2 Delivery O2 Flow Rate FiO2 05/14/17 11:01 100 24 116/73 (87) 96 Nasal Cannula 5.0 Humidified Oxygen 05/14/17 10:00 101 24 115/69 (84) 95 Nasal Cannula 5.0 Humidified Oxygen 05/14/17 09:01 103 25 136/64 (88) 96 Nasal Cannula 5.0 Humidified Oxygen 05/14/17 08:00 106 27 128/63 (84) 96 Nasal Cannula 5.0 Humidified Oxygen 05/14/17 08:00 96 Nasal Cannula 5.0 Humidified Oxygen 05/14/17 06:01 37.0 97 23 102/61 (75) 94 05/14/17 05:01 100 22 91/52 (65) 94 05/14/17 04:58 102 95 40 05/14/17 04:48 BiPAP 40 05/14/17 04:43 98 23 97/55 (69) 95 05/14/17 04:15 110 24 90/61 (71) 96 05/14/17 04:02 110 24 78/53 (61) 92 05/14/17 04:01 37.6 110 25 82/65 (71) 93 05/14/17 03:01 108 22 91/52 (65) 93 05/14/17 02:01 110 24 91/61 (71) 93 05/14/17 01:58 111 94 40 05/14/17 01:01 24 108/54 (72) 95 05/14/17 00:31 107 96/54 (68) 95 05/14/17 00:16 111 103/57 (72) 93 05/14/17 00:04 95 BiPAP 40 05/14/17 00:01 37.0 113 104/50 (68) 94 05/13/17 23:46 110 108/51 (70) 92 05/13/17 23:31 112 96/50 (65) 91 05/13/17 23:16 112 113/51 (71) 94 05/13/17 23:06 114 95 50 05/13/17 23:01 114 109/58 (75) 93 05/13/17 22:00 119 20 90/60 (70) 95 BiPAP 50 119 05/13/17 20:52 135 24 94/65 94 BiPAP 50 05/13/17 20:50 141 91 50 05/13/17 20:37 38.1 144 16 106/62 94 Nasal Cannula 6.0 05/13/17 20:32 145 16 207/137 94 Non-Rebreather 100 3/23/18 20:26 150 20 101/77 95 Non-Rebreather 100 05/13/17 20:21 Non-Rebreather 05/13/17 20:20 180 18 134/84 100 Non-Rebreather 05/13/17 20:00 131 20 91/63 94 BiPAP 50 05/13/17 20:00 BiPAP 50 05/13/17 19:15 114 93 100 05/13/17 16:00 94 Nasal Cannula 2.5 30 05/13/17 15:00 36.9 96 20 178/82 (114) 94 Nasal Cannula Lab Results: Results Past 24 Hours Test 05/13/17 16:21 05/13/17 19:37 05/13/17 21:25 05/13/17 23:58 Range/Units Bedside Glucose 105 159 70-90 mg/dl Bedside Hemoglobin 10.5 12.0-16.0 g/dl Bedside Hematocrit 31 37-47 % Bedside FiO2 100 % Bedside Sodium 138 135-144 mEq/L Bedside Potassium 3.7 3.3-5.0 mEq/L White Blood Count 23.36 4.8-10.8 K/uL Red Blood Count 3.53 4.2-5.4 M/uL Hemoglobin 10.0 12.0-16.0 g/dL Hematocrit 31.2 37-47 % Mean Corpuscular Volume 88.4 80-100 fL Mean Corpuscular Hemoglobin 28.3 25-34 pg Mean Corpuscular Hemoglobin Concent 32.1 32-36 g/dl RDW Standard Deviation 52.9 36.4-46.3 fL RDW Coefficient of Variation 16.6 11.5-14.5 % Platelet Count 427 130-400 K/uL Mean Platelet Volume 8.7 7.4-10.4 fL Nucleated RBC Absolute Count (auto) 0.02 0-0 K/uL Nucleated Red Blood Cells % 0.1 % Sodium Level 138 136-145 mmol/L Potassium Level 3.8 3.5-5.1 mmol/L Chloride Level 102 98-107 mmol/L Carbon Dioxide Level 24 21-32 mmol/L Anion Gap 12.0 3-11 mmol/L Blood Urea Nitrogen 7 7-18 mg/dl Creatinine 0.50 0.60-1.20 mg/dl Est Creatinine Clear Calc Drug Dose 115.7 ml/min Estimated GFR () 117.7 Estimated GFR (Non- 101.6 BUN/Creatinine Ratio 13.4 10-20 Random Glucose 141 70-99 mg/dl Lactic Acid Level 1.5 0.4-2.0 mmol/L Calcium Level 8.4 8.5-10.1 mg/dl Procalcitonin 0.22 0-0.5 ng/ml Test 05/14/17 05:33 05/14/17 06:05 Range/Units White Blood Count 22.79 4.8-10.8 K/uL Red Blood Count 3.07 4.2-5.4 M/uL Hemoglobin 8.7 12.0-16.0 g/dL Hematocrit 26.9 37-47 % Mean Corpuscular Volume 87.6 80-100 fL Mean Corpuscular Hemoglobin 28.3 25-34 pg Mean Corpuscular Hemoglobin Concent 32.3 32-36 g/dl RDW Standard Deviation 52.9 36.4-46.3 fL RDW Coefficient of Variation 16.9 11.5-14.5 % Platelet Count 361 130-400 K/uL Mean Platelet Volume 8.6 7.4-10.4 fL Prothrombin Time 50.1 9.0-12.0 SECONDS Prothromb Time International Ratio 4.9 0.9-1.1 Sodium Level 139 136-145 mmol/L Potassium Level 3.4 3.5-5.1 mmol/L Chloride Level 103 98-107 mmol/L Carbon Dioxide Level 25 21-32 mmol/L Anion Gap 11.0 3-11 mmol/L Blood Urea Nitrogen 10 7-18 mg/dl Creatinine 0.51 0.60-1.20 mg/dl Est Creatinine Clear Calc Drug Dose 108.9 ml/min Estimated GFR () 117.0 Estimated GFR (Non- 100.9 BUN/Creatinine Ratio 19.2 10-20 Random Glucose 121 70-99 mg/dl Calcium Level 8.0 8.5-10.1 mg/dl Phosphorus Level 2.4 2.5-4.9 mg/dl Magnesium Level 1.9 1.8-2.4 mg/dl Bedside Glucose 128 70-90 mg/dl
--- NOTE | 2017-05-14 12:28 | Critical Care Progress Note ---
Critical Care Progress Note Date of Service May 14, 2017. Attending Dr. Soto Subjective No events occurred overnight after the patient had an event last night with aspiration requiring emergent bronchoscopy. The patient was taken off the BiPAP today in the morning and she has been doing well on nasal cannula. She is still having dysphagia and garbled speech. Objective Physical exam on 05/12/2017, showed the patient is not in respiratory distress at the moment. She is tolerating room air and her O2 sat is 93%. Upper airway sounding. Crackles at the bases. S1-S2 regular without rhythm. Abdomen is distended but benign. Muscle contractions 4 extremities. Neurologically she is bedridden with minimal movement in the right upper extremity more than the left. Her physical exam on May 13 2017 showed vital signs consistent with heart rate of 140, blood pressure was 190/90, upper airway sounding bilateral crackles , S1-S2 tachycardic, abdomen is benign, no edema but she is contracted 4 extremities. Laboratory also pending and x-ray was reviewed which showed minimal infiltrate in the right lower lobe. Physical exam on May 14, 2017 revealed stable vital signs, O2 saturation 95% on nasal cannula, still having difficulty phonating, dysphagia continue to be a problem even to her own saliva. No stridor, bilateral crackles, S1-S2 regular rate and rhythm, abdomen is benign, trace edema, contracted limbs. I have reviewed her labs which showed slight hypokalemia. Assessment & Plan 1. Recurrent aspiration secondary to advanced multiple sclerosis. The patient dysphagia resulted in cardiac arrest on an event earlier this week. Return back again to the ICU with similar event with hypoxia and acute respiratory failure. This has been an ongoing diagnosis for this patient. 2. Multiple sclerosis, advanced stage. 3. Dysphagia with recurrent aspiration. 4. C. difficile colitis. 5. Aspiration pneumonia due to the above. 6. History of venous thromboembolic event on Coumadin. Plan: 1. I have reviewed her laboratory and imaging myself. 2. The patient had an NG tube placed for administration of feeding and medications. And KUB showed the NG tube tip is below the diaphragm in the gastric bubble. 3. I will continue with current antibiotics for aspiration. 4. Continue with Vanco via the NG tube. 5. The KUB showed large stool impaction in the rectal area and I will start the patient on rectal enema. 6. Also patient started on tube feeding to reach her goal we will stop the IV fluid. 7. Nutrition consult for determination of the formula for the tube feeding. 8. Start glycopyrrolate to reduce amount of her secretions. The patient was n.p.o. and should continue even to have difficulty guarding her airways from her own saliva. 9. Continue with Vanco p.o. 10. Replacement of her potassium. 11. Stop Flagyl. 12. I would not use scopolamine as it altered her mental status in the past. 13. Surgical consult for tracheostomy and J tube on Tuesday. 14. Long Discussion Took Pl. with the and with the patient herself as she would like to pursue further treatment, by her own words, she is not ready to go on comfort care. 15. Case discussed with the staff on rounds. Critical care time spent with the patient was 45 minutes. Data Medications: Current Inpatient Medications Medications (Trade) Dose Ordered Sig/Dwain Route Start Time Stop Time Status Last Admin Dose Admin Glucose (Glucose 40% Gel) 15-30 GRAMS 15 GRAMS... UD PRN PO 05/03/17 18:30 06/02/17 18:29 Glucose (Glucose Chew Tab) 4-8 Tablets 4 Tabl... UD PRN PO 05/03/17 18:30 06/02/17 18:29 Dextrose (Dextrose 50% 50ML Syringe) 25-50ML OF 50% DW IV FOR... UD PRN IV 05/03/17 18:30 06/02/17 18:29 Glucagon (Glucagon Inj) 1 mg UD PRN SQ 05/03/17 18:30 06/02/17 18:29 Acetaminophen 650 mg/Empty Bag 65 ml @ 260 mls/hr Q12 PRN IV 05/04/17 18:45 06/03/17 18:44 05/13/17 07:48 260 MLS/HR Ipratropium [place] (Atrovent 0.02% 0.5MG/2.5ML Neb) 0.5 mg Q4H PRN INH 05/05/17 00:15 06/04/17 00:14 Levalbuterol (Xopenex 1.25MG/ 0.5ML Neb) 1.25 mg Q4H PRN INH 05/05/17 00:15 06/04/17 00:14 Insulin Glargine (Lantus Solostar Pen) 10 units BID SC 05/09/17 21:00 06/04/17 20:59 05/14/17 07:55 10 UNITS Heparin Sodium (Porcine) (Heparin 10 Unit/ ml 5 ml Flush) 5 ml PRN PRN FLUSH 05/12/17 01:00 06/11/17 00:59 Insulin Aspart (novoLOG ASPART) Sliding Scale Q6H SC 05/12/17 18:00 06/08/17 06:29 Pantoprazole Sodium 40 mg/ Syringe 10 ml @ 5 mls/min DAILY@11 IV 05/14/17 11:00 06/13/17 10:59 05/14/17 10:53 5 MLS/MIN Miscellaneous Information (Consult) 1 ea UD PRN N/A 05/13/17 21:45 06/12/17 21:44 Aztreonam 1000 mg/ Dextrose 110 ml @ 100 mls/hr Q8H IV 05/13/17 22:00 05/20/17 21:59 05/14/17 05:34 100 MLS/HR Vancomycin HCl (Vancomycin Oral Soln) 125 mg Q6 NG 05/14/17 00:00 05/28/17 00:00 05/14/17 10:53 125 MG Parenteral Electrolyte Solution 1,000 ml @ 100 mls/hr Q10H IV 05/14/17 04:45 06/13/17 04:44 05/14/17 09:40 100 MLS/HR Glycopyrrolate (Robinul Inj) 0.2 mg Q6 IV 05/14/17 12:00 06/13/17 11:59 Miscellaneous (Soap Suds Enema) 1 ea Q12 PRN IL 05/14/17 08:30 06/13/17 08:29 05/14/17 10:59 1 EA Potassium Phosphate 30 mmol/ Sodium Chloride 510 ml @ 102 mls/hr NOW ONCE IV 05/14/17 08:45 05/14/17 13:44 05/14/17 09:09 102 MLS/HR Vancomycin HCl 1000 mg/Sodium Chloride 270 ml @ 125 mls/hr Q8 IV 05/14/17 14:00 05/21/17 13:59 Vital Signs: Date Time Temp Pulse Resp B/P (MAP) Pulse Ox O2 Delivery O2 Flow Rate FiO2 05/14/17 12:09 37.1 05/14/17 12:02 Nasal Cannula 5.0 Humidified Oxygen 05/14/17 12:00 37.7 105 25 122/65 (84) 94 Nasal Cannula 5.0 Humidified Oxygen 05/14/17 11:01 100 24 116/73 (87) 96 Nasal Cannula 5.0 Humidified Oxygen 05/14/17 10:00 101 24 115/69 (84) 95 Nasal Cannula 5.0 Humidified Oxygen 05/14/17 09:01 103 25 136/64 (88) 96 Nasal Cannula 5.0 Humidified Oxygen 05/14/17 08:00 106 27 128/63 (84) 96 Nasal Cannula 5.0 Humidified Oxygen 05/14/17 08:00 96 Nasal Cannula 5.0 Humidified Oxygen 05/14/17 06:01 37.0 97 23 102/61 (75) 94 05/14/17 05:01 100 22 91/52 (65) 94 05/14/17 04:58 102 95 40 05/14/17 04:48 BiPAP 40 05/14/17 04:43 98 23 97/55 (69) 95 05/14/17 04:15 110 24 90/61 (71) 96 05/14/17 04:02 110 24 78/53 (61) 92 05/14/17 04:01 37.6 110 25 82/65 (71) 93 05/14/17 03:01 108 22 91/52 (65) 93 05/14/17 02:01 110 24 91/61 (71) 93 05/14/17 01:58 111 94 40 05/14/17 01:01 24 108/54 (72) 95 05/14/17 00:31 107 96/54 (68) 95 18 00:16 111 103/57 (72) 93 05/14/17 00:04 95 BiPAP 40 05/14/17 00:01 37.0 113 104/50 (68) 94 18 23:46 110 108/51 (70) 92 18 23:31 112 96/50 (65) 91 05/13/17 23:16 112 113/51 (71) 94 18 23:06 114 95 50 05/13/17 23:01 114 109/58 (75) 93 05/13/17 22:00 119 20 90/60 (70) 95 BiPAP 50 119 05/13/17 20:52 135 24 94/65 94 BiPAP 50 05/13/17 20:50 141 91 50 05/13/17 20:37 38.1 144 16 106/62 94 Nasal Cannula 6.0 05/13/17 20:32 145 16 207/137 94 Non-Rebreather 100 05/13/17 20:26 150 20 101/77 95 Non-Rebreather 100 05/13/17 20:21 Non-Rebreather 05/13/17 20:20 180 18 134/84 100 Non-Rebreather 05/13/17 20:00 131 20 91/63 94 BiPAP 50 05/13/17 20:00 BiPAP 50 05/13/17 19:15 114 93 100 05/13/17 16:00 94 Nasal Cannula 2.5 30 05/13/17 15:00 36.9 96 20 178/82 (114) 94 Nasal Cannula Laboratory Results: Last 24 Hours Test 05/13/17 16:21 05/13/17 19:37 05/13/17 21:25 05/13/17 23:58 Bedside Glucose 105 mg/dl 159 mg/dl Bedside Hemoglobin 10.5 g/dl Bedside Hematocrit 31 % Bedside FiO2 100 % Bedside Sodium 138 mEq/L Bedside Potassium 3.7 mEq/L White Blood Count 23.36 K/uL Red Blood Count 3.53 M/uL Hemoglobin 10.0 g/dL Hematocrit 31.2 % Mean Corpuscular Volume 88.4 fL Mean Corpuscular Hemoglobin 28.3 pg Mean Corpuscular Hemoglobin Concent 32.1 g/dl RDW Standard Deviation 52.9 fL RDW Coefficient of Variation 16.6 % Platelet Count 427 K/uL Mean Platelet Volume 8.7 fL Nucleated RBC Absolute Count (auto) 0.02 K/uL Nucleated Red Blood Cells % 0.1 % Sodium Level 138 mmol/L Potassium Level 3.8 mmol/L Chloride Level 102 mmol/L Carbon Dioxide Level 24 mmol/L Anion Gap 12.0 mmol/L Blood Urea Nitrogen 7 mg/dl Creatinine 0.50 mg/dl Est Creatinine Clear Calc Drug Dose 115.7 ml/min Estimated GFR () 117.7 Estimated GFR (Non- 101.6 BUN/Creatinine Ratio 13.4 Random Glucose 141 mg/dl Lactic Acid Level 1.5 mmol/L Calcium Level 8.4 mg/dl Procalcitonin 0.22 ng/ml Test 05/14/17 05:33 05/14/17 06:05 05/14/17 11:51 White Blood Count 22.79 K/uL Red Blood Count 3.07 M/uL Hemoglobin 8.7 g/dL Hematocrit 26.9 % Mean Corpuscular Volume 87.6 fL Mean Corpuscular Hemoglobin 28.3 pg Mean Corpuscular Hemoglobin Concent 32.3 g/dl RDW Standard Deviation 52.9 fL RDW Coefficient of Variation 16.9 % Platelet Count 361 K/uL Mean Platelet Volume 8.6 fL Prothrombin Time 50.1 SECONDS Prothromb Time International Ratio 4.9 Sodium Level 139 mmol/L Potassium Level 3.4 mmol/L Chloride Level 103 mmol/L Carbon Dioxide Level 25 mmol/L Anion Gap 11.0 mmol/L Blood Urea Nitrogen 10 mg/dl Creatinine 0.51 mg/dl Est Creatinine Clear Calc Drug Dose 108.9 ml/min Estimated GFR () 117.0 Estimated GFR (Non- 100.9 BUN/Creatinine Ratio 19.2 Random Glucose 121 mg/dl Calcium Level 8.0 mg/dl Phosphorus Level 2.4 mg/dl Magnesium Level 1.9 mg/dl Bedside Glucose 128 mg/dl 98 mg/dl
[2017-05-14] MEDS: GLYCOPYRROLATE INJ 0.2 MG/ML VIAL IV SCH ×2 (13:34→17:49)
[2017-05-14] MEDS ORDERED: LEVALBUTEROL/IPRATROPIUM NEB INH PRN (20:00)
[2017-05-14] MEDS: LEVALBUTEROL 1.25MG/0.5ML NEB INH PRN ×2 (20:04→23:21)
[2017-05-14] MEDS: IPRATROPIUM BROMIDE NEB SOLN 0.02% 2.5 ML VIAL INH PRN ×2 (20:04→23:22)
[2017-05-14] MEDS ORDERED: IPRATROPIUM BROMIDE NEB SOLN 0.02% 2.5 ML VIAL INH PRN (20:15)
[2017-05-14] MEDS ORDERED: LEVALBUTEROL 1.25MG/0.5ML NEB INH PRN (20:15)
[2017-05-14] MEDS: D5W NORMOSOL-R 1,000 ML IV SCH (20:43)
[2017-05-14] MEDS ORDERED: VANCOMYCIN TROUGH ONE (21:30)
--- NOTE | 2017-05-14 22:48 | Critical Care Progress Note ---
Critical Care Progress Note Date of Service May 14, 2017. Critical Care Progress Note Patient had an episode of desaturation with increasing secretions. On evaluation at bedside, the patient is on nasal cannula alone. Her oxygen was increased to 6 L and she was saturating in the low 80s. On evaluation, the patient has what sounds like upper airway secretions. I did suction the patient with a Yankauer suction which only seemed to slightly clear the secretions. She was placed on her BiPAP machine at this point. She has a weak cough. She was placed on the bed modulator for respiratory support to hopefully help mobilize secretions. Did respond nicely with O2 saturations in the mid 90s while on BiPAP.
[2017-05-15] VITALS (44 sets, daily range): BP systolic 97–187; BP diastolic 58–87; PULSE 81–122; TEMP 36.7–37.8; O2SAT 79–100
[2017-05-15] MEDS: GLYCOPYRROLATE INJ 0.2 MG/ML VIAL IV SCH ×4 (00:23→16:41)
[2017-05-15] MEDS: VANCOMYCIN HCL 125 MG/2.5ML SOLN NG SCH ×4 (00:34→16:46)
[2017-05-15] MEDS: INSULIN ASPART 100 UNITS/ML 3 ML PEN SC SCH ×4 (05:44→17:53)
[2017-05-15] MEDS: AZTREONAM IV 1,000 MG in DEXTROSE 5% 100ML 100 ML IV SCH ×3 (05:44→22:29)
[2017-05-15] MEDS: D5W NORMOSOL-R 1,000 ML IV SCH (05:46)
[2017-05-15 05:56] LABS: HEMATOCRIT 25.9 % (37-47); HEMOGLOBIN 8.4 g/dL (12.0-16.0); MEAN CELL VOLUME 87.2 fL (80-100); MEAN CORPUSCULAR HEMOGLOBIN 28.3 pg (25-34); MEAN CORPUSCULAR HGB CONC 32.4 g/dl (32-36); MEAN PLATELET VOLUME 8.4 fL (7.4-10.4); PLATELET COUNT 334 K/uL (130-400); RED CELL DISTRIBUTION WIDTH CV 16.8 % (11.5-14.5); RED CELL DISTRIBUTION WIDTH SD 53.3 fL (36.4-46.3); WHITE BLOOD COUNT 16.89 K/uL (4.8-10.8)
[2017-05-15 06:37] LABS: CALCIUM 7.8 mg/dl (8.5-10.1); CREATININE 0.4 mg/dl (0.60-1.20); PHOSPHORUS 2.2 mg/dl (2.5-4.9); POTASSIUM 3.4 mmol/L (3.5-5.1)
[2017-05-15 08:14] LABS: INR 5.3 (0.9-1.1)
[2017-05-15] MEDS: INSULIN GLARGINE SOLOSTAR 100 UNITS/ML 3 ML PEN SC SCH ×2 (08:52→20:33)
--- NOTE | 2017-05-15 09:19 | Pharmacy Progress Note ---
Pharmacy Abx Dose Short Note Date of Service May 15, 2017. Assessment & Plan Assessment 67 year old female receiving vancomycin for treatment of pulmonary process. Day # 3 of antimicrobial therapy. Plan Vancomycin * Trough level of 24.3 mcg/mL last night was supratherapeutic, however repeat random ~8 hours later was significantly lower at 15.3 mcg/ml. * Given the drug has likely cleared even more, I will give a slightly hgiher dose of 1250mg X1 now before starting new maintenance regimen * Maintenance regimen: 1000 mg IV every 10 hours * Goal trough level for pneumonia : 15 to 20 mcg/mL * Trough or random level ordered for: 05/16/17 @1530 Pharmacy will continue to follow and will adjust dose/frequency as necessary. Thank you.
[2017-05-15] MEDS ORDERED: VANCOMYCIN IV 1,250 MG in SODIUM CHLORIDE 0.9% 250ML 250 ML IV ONE (10:00)
[2017-05-15] MEDS ORDERED: PHYTONADIONE INJ 5 MG in SODIUM CHLORIDE 0.9% 50ML 50 ML IV ONE (10:00)
[2017-05-15] MEDS: ACETAMINOPHEN IV 650 MG in EMPTY BAG 0 ML IV PRN (10:31)
[2017-05-15] MEDS: PANTOprazole INJ 40 MG in SYRINGE 0 ML IV SCH (10:35)
--- NOTE | 2017-05-15 11:13 | Progress Note ---
Internal Med Progress Note Date of Service: May 15, 2017. Provider Documentation: SUBJECTIVE: The patient was seen and examined Feels much better today Abdominal discomfort and distension better Bowel moved 05/11 Aspirated this morning while eating breakfast Code Purple followed by Code Blue Hypoxic respiratory followed by Cardiopulmonary arrest Required Intubation during resuscitation Transferred to ICU 05/12 Extubated yesterday following bronchoscopic clean out of the food substance Feels better this AM 05/13 Mild SOB at rest Transmitted sound from respiratory secretions Need to discuss about PEG tube and Resus issue 05/14 Has had a long discussion with the and the daughter yesterday in the evening. Pros and cons of PEG tube/jejunal tube placement discussed. They wanted to have her PEG tube placed. She is reverted back to full resuscitation status. Has had a Code Purple called last evening and the patient was transferred to ICU. She did not require intubation and with aggressive suctioning her condition improved. She will call for PEG tube placement and possible tracheostomy down the line. 05/15 Remains stable in ICU High risk of aspiration of her own secretion Planning to have tracheostomy and J tube placement to minimize aspiration OBJECTIVE: Vital Signs-as noted below Exam: General-Mild SOB at rest Eyes-normal ENT-normal Neck-supple,flexed position Lungs-Decreased breath sound bilaterally Transmitted sound all over,minimal crackles at the bases Heart-Regular,no murmur Abdomen-Mildly distended,Mildly tender Extremities-Trace edema bilaterally .left extremities flexor deformities Secondary to MS Neuro-sedated on Vent Lab data as noted below. ASSESSMENT & PLAN: Cardiopulmonary Arrest Aspiration>Respiratory arrest followed by Cardiac arrest Required Intubation to maintain Saturation Transferred to ICU Bronchoscopy in ICU -a considerable amount of food materials sucked out Likely extubation today and resume oral medications thereafter Clinically better Transfer back to [facility] Has H/O recurrent aspiration with esophageal dysmotility before Another episode of Aspiration last evening Broad spectrum antibiotics added High risk of aspiration of her own secretion Planning to have tracheostomy and J tube placement to minimize aspiration ENT and Surgery will be consulted Another attack of near respiratory failure Has had a Code Purple called last evening and the patient was transferred to ICU. She did not require intubation and with aggressive suctioning her condition improved. She will call for PEG tube placement and possible tracheostomy down the line. Appreciate Line Tender Flakeboard input SEPSIS Met criteria for sepsis per 2001 definition and current CMS guidelines ( UTI, tachycardia, leukocytosis). Elevated WBC and lactate on admission,Received IVF Urine cx grew [id number] Blood cx -negative Was On Rocephin and Vanco Vanco Discontinued 05/09 Rocephin was changed to ertapenem Completed 7 days course of IV abx (Rocephin later changed to ertapenem) Now on Broad spectrum antibiotics for recurrent aspiration Cdiff stool positive for C-diff since pt was NPO, she was starting on flagyl IV Continue PO vanco to complete 14 days monitor electrolytes No diarrhea NGT-Vancomycin Abdominal Tenderness Unchanged severe distention of the colon with gas and stool. Recommend disimpaction. Pt had 2 BM today Will give Dulcolax 1 repeat xray in am-decreasing fecal load Bowel is moving GI bleed INR increased to 10 Received vit k Hgb stable at 9.5 Resume coumadin 2.5 mg INR 5.3on 05/15-receiving Vit K Will monitor ACUTE KIDNEY INJURY Serum creatinine 1.3 compared to recent baseline of 0.6-0.8. Creatine stable D/C IVF Monitor BMP. Resolved ELEVATED TROPONIN Serum troponin = 0.343. EKG shows sinus rhythm, nonspecific T-wave changes. Serum troponin trending down to 0.13 Asymptomatic Hypokalemia K replaced Monitor BMP Will need more replacement CONSTIPATION CT abdomen CT abd showed massive amount of stool within the rectum and moderate to large amount of stool within the colon consistent with significant fecal impaction. No bowel obstruction had diarrhea/cdiff Moving bowel DM TYPE 2 Hba1c 6.8 ( on 05/04/17) Lantus + NovoLog per protocol. MULTIPLE SCLEROSIS Advanced disease. Aspiration precautions. Symptomatic management. URINARY RETENTION Secondary to multiple sclerosis. Continue indwelling Lemos catheter Will change Lemos cath ABDOMINAL MASS Previously noted and evaluated by Surgery. Resection not pursued due to advanced MS and multiple comorbidities. DECUBITUS ULCERS Avoid pressure. Local care. Continue daily wound care VTE PROPHYLAXIS / HISTORY OF PULMONARY EMBOLISM INR 1.4 Continue Coumadin SCDs Will start SQ Lovenox RESUSCITATION STATUS::FULL CODE DISPOSITION Has had a long discussion with the and the daughter yesterday, 05/13 in the evening. Pros and cons of PEG tube/jejunal tube placement discussed. They wanted to have PEG tube placed. She is reverted back to full resuscitation status. Has had a Code Purple called last evening and the patient was transferred to ICU. She did not require intubation and with aggressive suctioning her condition improved. She will be for PEG tube placement and possible tracheostomy down the line. Vital Signs: Date Time Temp Pulse Resp B/P (MAP) Pulse Ox O2 Delivery O2 Flow Rate FiO2 05/15/17 10:45 98 23 129/76 (93) 98 BiPAP 40 05/15/17 10:30 100 26 136/76 (96) 98 BiPAP 40 05/15/17 10:15 98 25 131/84 (100) 97 BiPAP 40 05/15/17 10:00 99 25 113/86 (95) 97 BiPAP 40 05/15/17 09:30 37.8 79 Nasal Cannula 6.0 Humidified Oxygen 05/15/17 09:00 102 30 153/82 (105) 96 Nasal Cannula 6.0 Humidified Oxygen 05/15/17 08:11 Nasal Cannula 6.0 Humidified Oxygen 05/15/17 08:00 102 24 134/87 (103) 94 Nasal Cannula 6.0 Humidified Oxygen 05/15/17 07:00 109 26 147/69 (95) 97 Nasal Cannula 6.0 Humidified Oxygen 05/15/17 06:01 114 25 151/73 (99) 96 05/15/17 05:01 102 22 141/71 (94) 96 05/15/17 04:04 BiPAP 05/15/17 04:01 37.2 103 24 142/76 (98) 98 05/15/17 03:02 103 26 138/65 (89) 96 05/15/17 02:01 108 27 132/58 (82) 96 05/15/17 01:02 111 26 136/67 (90) 95 05/15/17 00:26 BiPAP 05/15/17 00:01 36.7 108 27 137/74 (95) 93 05/14/17 23:23 101 95 40 05/14/17 23:22 107 24 95 BiPAP/CPAP 40 05/14/17 23:01 22 115/62 (79) 95 05/14/17 22:01 115 26 130/73 (92) 93 05/14/17 21:01 115 26 131/58 (82) 94 05/14/17 20:07 114 23 96 Nasal Cannula 4.0 05/14/17 20:01 Nasal Cannula 5.0 Humidified Oxygen 05/14/17 20:01 117 27 112/64 (80) 94 05/14/17 19:29 36.7 05/14/17 19:14 37.3 05/14/17 19:01 113 27 131/64 (86) 95 05/14/17 18:00 119 25 110/57 (74) 97 Nasal Cannula 5.0 Humidified Oxygen 05/14/17 17:00 106 25 123/61 (81) 95 05/14/17 16:00 Nasal Cannula 5.0 Humidified Oxygen 05/14/17 16:00 37.1 103 24 118/71 (87) 95 Nasal Cannula 5.0 Humidified Oxygen 05/14/17 14:00 117 23 147/96 (113) 93 05/14/17 13:00 112 24 148/59 (88) 95 Nasal Cannula 5.0 Humidified Oxygen 05/14/17 12:09 37.1 05/14/17 12:02 Nasal Cannula 5.0 Humidified Oxygen 05/14/17 12:00 37.7 105 25 122/65 (84) 94 Nasal Cannula 5.0 Humidified Oxygen Lab Results: Results Past 24 Hours Test 05/14/17 11:51 05/14/17 17:54 05/14/17 20:46 05/14/17 21:29 Range/Units Bedside Glucose 98 77 86 70-90 mg/dl Vancomycin Level Trough 24.3 SEE COMMENT mcg/ml Test 05/15/17 00:07 05/15/17 05:33 05/15/17 05:39 Range/Units Bedside Glucose 122 136 70-90 mg/dl White Blood Count 16.89 4.8-10.8 K/uL Red Blood Count 2.97 4.2-5.4 M/uL Hemoglobin 8.4 12.0-16.0 g/dL Hematocrit 25.9 37-47 % Mean Corpuscular Volume 87.2 80-100 fL Mean Corpuscular Hemoglobin 28.3 25-34 pg Mean Corpuscular Hemoglobin Concent 32.4 32-36 g/dl RDW Standard Deviation 53.3 36.4-46.3 fL RDW Coefficient of Variation 16.8 11.5-14.5 % Platelet Count 334 130-400 K/uL Mean Platelet Volume 8.4 7.4-10.4 fL Prothrombin Time 54.3 9.0-12.0 SECONDS Prothromb Time International Ratio 5.3 0.9-1.1 Sodium Level 140 136-145 mmol/L Potassium Level 3.4 3.5-5.1 mmol/L Chloride Level 106 98-107 mmol/L Carbon Dioxide Level 26 21-32 mmol/L Anion Gap 8.0 3-11 mmol/L Blood Urea Nitrogen 6 7-18 mg/dl Creatinine 0.40 0.60-1.20 mg/dl Est Creatinine Clear Calc Drug Dose 138.8 ml/min Estimated GFR () 126.7 Estimated GFR (Non- 109.3 BUN/Creatinine Ratio 13.9 10-20 Random Glucose 129 70-99 mg/dl Calcium Level 7.8 8.5-10.1 mg/dl Phosphorus Level 2.2 2.5-4.9 mg/dl Magnesium Level 2.1 1.8-2.4 mg/dl Random Vancomycin Level 15.3 mcg/ml
[2017-05-15] MEDS ORDERED: NORMOSOL R 1,000 ML IV SCH (14:00)
--- NOTE | 2017-05-15 14:05 | Critical Care Progress Note ---
Critical Care Progress Note Date of Service May 15, 2017. Attending Dr. Soto Subjective The patient did have 2 events overnight where she become hypoxic requiring BiPAP again. Likely this is from the patient having difficulty handling her secretions. Otherwise uneventful night. She denies any pain or shortness of breath while she is on the BiPAP. The patient is poor historian due to her body habitus and difficulty phonating. Objective Physical exam on 05/12/2017, showed the patient is not in respiratory distress at the moment. She is tolerating room air and her O2 sat is 93%. Upper airway sounding. Crackles at the bases. S1-S2 regular without rhythm. Abdomen is distended but benign. Muscle contractions 4 extremities. Neurologically she is bedridden with minimal movement in the right upper extremity more than the left. Her physical exam on May 13 2017 showed vital signs consistent with heart rate of 140, blood pressure was 190/90, upper airway sounding bilateral crackles , S1-S2 tachycardic, abdomen is benign, no edema but she is contracted 4 extremities. Laboratory also pending and x-ray was reviewed which showed minimal infiltrate in the right lower lobe. Physical exam on May 14, 2017 revealed stable vital signs, O2 saturation 95% on nasal cannula, still having difficulty phonating, dysphagia continue to be a problem even to her own saliva. No stridor, bilateral crackles, S1-S2 regular rate and rhythm, abdomen is benign, trace edema, contracted limbs. I have reviewed her labs which showed slight hypokalemia. Physical exam on May 15, 2017 revealed vital signs currently are stable, S1- S2 regular rate and rhythm, O2 saturation is 97% on the BiPAP. Her labs has been reviewed which include INR of 5, potassium and phosphorus reported low. And replaced. Assessment & Plan 1. Recurrent aspiration secondary to advanced multiple sclerosis. The patient dysphagia resulted in cardiac arrest on an event earlier this week. Return back again to the ICU with similar event with hypoxia and acute respiratory failure. This has been an ongoing diagnosis for this patient. 2. Multiple sclerosis, advanced stage. 3. Dysphagia with recurrent aspiration. Also the patient has very poor cough reflex to the point that she cannot cough up her own secretions as well. 4. C. difficile colitis. 5. Aspiration pneumonia due to the above. 6. History of venous thromboembolic event on Coumadin. Currently on hold for possible procedures. Plan: 1. I have reviewed her laboratory and imaging myself. 2. I will give the patient vitamin K to reverse her Coumadin and repeat INR in the afternoon. 3. I will continue with current antibiotics for aspiration. 4. Continue with Vanco via the NG tube for C. difficile colitis. 5. The KUB showed large stool impaction in the rectal area and I will start the patient on rectal enema. Still without bowel movement. 6. Also patient started on tube feeding to reach her goal we will stop the IV fluid. Meanwhile, I will hold off on her tube feeding at the moment for preparation for the bronchus, and preparation for possible trach and J-tube in the morning. 7. Nutrition consult for determination of the formula for the tube feeding. 8. Start glycopyrrolate to reduce amount of her secretions. I will decrease the dose to 0.1 mg due to notable tachycardia. 9. Continue with Vanco p.o. 10. Replacement of her potassium. 11. Stop Flagyl. 12. I would not use scopolamine as it altered her mental status in the past. 13. Surgical consult for tracheostomy and J tube on Tuesday. The case discussed with Dr. Brown and he suggested ENT consult which I Placed it already. 14. Discussed with the in regard of the need for the above. Patient wishes is to continue with aggressive measures at this point and she is not ready for DNR. 15. Case discussed with the staff on rounds. Critical care time spent with the patient was 45 minutes. Excluding procedure time. Data Medications: Current Inpatient Medications Medications (Trade) Dose Ordered Sig/Dwain Route Start Time Stop Time Status Last Admin Dose Admin Glucose (Glucose 40% Gel) 15-30 GRAMS 15 GRAMS... UD PRN PO 05/03/17 18:30 06/02/17 18:29 Glucose (Glucose Chew Tab) 4-8 Tablets 4 Tabl... UD PRN PO 05/03/17 18:30 06/02/17 18:29 Dextrose (Dextrose 50% 50ML Syringe) 25-50ML OF 50% DW IV FOR... UD PRN IV 05/03/17 18:30 06/02/17 18:29 Glucagon (Glucagon Inj) 1 mg UD PRN SQ 05/03/17 18:30 06/02/17 18:29 Acetaminophen 650 mg/Empty Bag 65 ml @ 260 mls/hr Q12 PRN IV 3/14/18 18:45 06/03/17 18:44 05/15/17 10:31 260 MLS/HR Ipratropium [place] (Atrovent 0.02% 0.5MG/2.5ML Neb) 0.5 mg Q4H PRN INH 05/05/17 00:15 06/04/17 00:14 05/14/17 23:22 0.5 MG Levalbuterol (Xopenex 1.25MG/ 0.5ML Neb) 1.25 mg Q4H PRN INH 05/05/17 00:15 06/04/17 00:14 05/14/17 23:21 1.25 MG Insulin Glargine (Lantus Solostar Pen) 10 units BID SC 05/09/17 21:00 06/04/17 20:59 05/15/17 08:52 10 UNITS Heparin Sodium (Porcine) (Heparin 10 Unit/ ml 5 ml Flush) 5 ml PRN PRN FLUSH 05/12/17 01:00 06/11/17 00:59 Insulin Aspart (novoLOG ASPART) Sliding Scale Q6H SC 05/12/17 18:00 06/08/17 06:29 05/15/17 11:54 2 UNITS Pantoprazole Sodium 40 mg/ Syringe 10 ml @ 5 mls/min DAILY@11 IV 05/14/17 11:00 06/13/17 10:59 05/15/17 10:35 5 MLS/MIN Miscellaneous Information (Consult) 1 ea UD PRN N/A 05/13/17 21:45 06/12/17 21:44 Aztreonam 1000 mg/ Dextrose 110 ml @ 100 mls/hr Q8H IV 05/13/17 22:00 05/20/17 21:59 05/15/17 05:44 100 MLS/HR Vancomycin HCl (Vancomycin Oral Soln) 125 mg Q6 NG 05/14/17 00:00 05/28/17 00:00 05/15/17 11:54 125 MG Glycopyrrolate (Robinul Inj) 0.2 mg Q6 IV 05/14/17 12:00 06/13/17 11:59 05/15/17 11:54 0.2 MG Miscellaneous (Soap Suds Enema) 1 ea Q12 PRN OR 05/14/17 08:30 06/13/17 08:29 05/14/17 10:59 1 EA Ipratropium [place] (Atrovent 0.02% 0.5MG/2.5ML Neb) 0.5 mg Q4R PRN INH 05/14/17 20:15 06/13/17 20:14 Levalbuterol (Xopenex 1.25MG/ 0.5ML Neb) 1.25 mg Q4R PRN INH 05/14/17 20:15 06/13/17 20:14 Vancomycin HCl 1000 mg/Sodium Chloride 270 ml @ 125 mls/hr Q10H IV 05/15/17 20:00 05/19/17 23:59 Enteral Nutritional Formula (Peptamen 1.5) 1,000 ml UD NG 05/15/17 10:45 06/14/17 10:44 Enteral Nutritional Formula (Prosource No Carb) 30 ml DAILY NG 05/16/17 09:00 06/15/17 08:59 Parenteral Electrolyte Solution 1,000 ml @ 100 mls/hr Q10H IV 05/15/17 14:00 06/14/17 13:59 Sodium Chloride 1,000 ml @ 75 mls/hr [id number] IV 05/15/17 13:45 06/14/17 13:44 UNV I & O: 24-Hour Column 05/16/17 08:00 Intake Total 1299 ml Output Total 1600 ml Balance -301 ml Vital Signs: Date Time Temp Pulse Resp B/P (MAP) Pulse Ox O2 Delivery O2 Flow Rate FiO2 05/15/17 13:00 93 18 116/59 (78) 95 BiPAP 40 05/15/17 12:03 96 BiPAP 40 05/15/17 12:00 103 19 132/60 (84) 96 BiPAP 40 05/15/17 11:00 37.6 95 22 136/79 (98) 99 BiPAP 40 05/15/17 10:45 98 23 129/76 (93) 98 BiPAP 40 05/15/17 10:30 100 26 136/76 (96) 98 BiPAP 40 05/15/17 10:15 98 25 131/84 (100) 97 BiPAP 40 05/15/17 10:00 99 25 113/86 (95) 97 BiPAP 40 05/15/17 09:30 37.8 79 Nasal Cannula 6.0 Humidified Oxygen 05/15/17 09:00 102 30 153/82 (105) 96 Nasal Cannula 6.0 Humidified Oxygen 05/15/17 08:11 Nasal Cannula 6.0 Humidified Oxygen 05/15/17 08:00 102 24 134/87 (103) 94 Nasal Cannula 6.0 Humidified Oxygen 05/15/17 07:00 109 26 147/69 (95) 97 Nasal Cannula 6.0 Humidified Oxygen 05/15/17 06:01 114 25 151/73 (99) 96 05/15/17 05:01 102 22 141/71 (94) 96 05/15/17 04:04 BiPAP 05/15/17 04:01 37.2 103 24 142/76 (98) 98 05/15/17 03:02 103 26 138/65 (89) 96 05/15/17 02:01 108 27 132/58 (82) 96 05/15/17 01:02 111 26 136/67 (90) 95 05/15/17 00:26 BiPAP 05/15/17 00:01 36.7 108 27 137/74 (95) 93 05/14/17 23:23 101 95 40 05/14/17 23:22 107 24 95 BiPAP/CPAP 40 05/14/17 23:01 22 115/62 (79) 95 05/14/17 22:01 115 26 130/73 (92) 93 05/14/17 21:01 115 26 131/58 (82) 94 05/14/17 20:07 114 23 96 Nasal Cannula 4.0 05/14/17 20:01 Nasal Cannula 5.0 Humidified Oxygen 05/14/17 20:01 117 27 112/64 (80) 94 05/14/17 19:29 36.7 05/14/17 19:14 37.3 05/14/17 19:01 113 27 131/64 (86) 95 05/14/17 18:00 119 25 110/57 (74) 97 Nasal Cannula 5.0 Humidified Oxygen 05/14/17 17:00 106 25 123/61 (81) 95 05/14/17 16:00 Nasal Cannula 5.0 Humidified Oxygen 05/14/17 16:00 37.1 103 24 118/71 (87) 95 Nasal Cannula 5.0 Humidified Oxygen 05/14/17 14:00 117 23 147/96 (075) 29 Laboratory Results: Last 24 Hours Test 05/14/17 17:54 05/14/17 20:46 05/14/17 21:29 05/15/17 00:07 Bedside Glucose 77 mg/dl 86 mg/dl 122 mg/dl Vancomycin Level Trough 24.3 mcg/ml Test 05/15/17 05:33 05/15/17 05:39 05/15/17 11:44 White Blood Count 16.89 K/uL Red Blood Count 2.97 M/uL Hemoglobin 8.4 g/dL Hematocrit 25.9 % Mean Corpuscular Volume 87.2 fL Mean Corpuscular Hemoglobin 28.3 pg Mean Corpuscular Hemoglobin Concent 32.4 g/dl RDW Standard Deviation 53.3 fL RDW Coefficient of Variation 16.8 % Platelet Count 334 K/uL Mean Platelet Volume 8.4 fL Prothrombin Time 54.3 SECONDS Prothromb Time International Ratio 5.3 Sodium Level 140 mmol/L Potassium Level 3.4 mmol/L Chloride Level 106 mmol/L Carbon Dioxide Level 26 mmol/L Anion Gap 8.0 mmol/L Blood Urea Nitrogen 6 mg/dl Creatinine 0.40 mg/dl Est Creatinine Clear Calc Drug Dose 138.8 ml/min Estimated GFR () 126.7 Estimated GFR (Non- 109.3 BUN/Creatinine Ratio 13.9 Random Glucose 129 mg/dl Calcium Level 7.8 mg/dl Phosphorus Level 2.2 mg/dl Magnesium Level 2.1 mg/dl Random Vancomycin Level 15.3 mcg/ml Bedside Glucose 136 mg/dl 196 mg/dl
[2017-05-15 14:18] LABS: INR 1.8 (0.9-1.1)
[2017-05-15] MEDS ORDERED: FENTANYL CITRATE INJ 50 MCG/1 ML 2 ML VIAL ONE (15:14)
[2017-05-15] MEDS ORDERED: MIDAZOLAM HCL 1 MG/ML 2ML VIAL ONE (15:15)
[2017-05-15] MEDS: PEPTAMEN 1.5 CAL 1000ML BAG NG SCH (16:41)
[2017-05-15] MEDS: SODIUM CHLORIDE 0.9% 1000ML 1,000 ML IV SCH (16:45)
--- NOTE | 2017-05-15 16:59 | Procedure Note ---
Procedure Note Procedure Date May 15, 2017. Procedure Description Procedure Name: Bronchoscopy. Procedure time out: side/site verified, patient ID confirmed, correct procedure Consent obtained: written, verbal Performed by: attending Indications: diagnostic, therapeutic Contraindications: none Description: The patient needed a bronchoscopy due to hypoxia and known having poor cough reflex with pooling of her tracheobronchial secretions. Consent obtained from the verbally and from the patient. Previous consent was activated as well. The patient and are aware of the procedure. The patient monitored throughout the entire procedure in the ICU room 5, using ICU monitoring style. The patient received 10 mL of 1% lidocaine nebulized and total of 10 mL of lidocaine 1% injectable throughout the entire bronchoscopy. The patient was given total of 50 mics of fentanyl and 2 mg of Versed for the procedure. The procedure was done with the presence of a nurse certified for conscious sedation. Timeout was performed by the nursing staff as well. I appreciate their input. The bronchoscope passed through the bite-block through the oral cavity, and the findings as follows: 1. The vocal cords are mobile, visualized very well. 2. Thick bloody secretions around the opening of the vocal cord was suctioned to clear. 3. The bronchoscope passed through the vocal cord into the tracheobronchial tree, large amount of blood-tinged secretions was noted occluding the takeoff of the left lower lobe and its branches as well as the right lower lobe. 4. Specimen was obtained from the left lower lobe. 5. Multiple passage using saline up to 20 mL on the to flush the airways was done throughout the entire procedure. 6. Complete patency of the segments and subsegments were noted. 7. The patient tolerated the procedure very well. No immediate complication. 8. Specimen was sent for cultures and Gram stain. Complications: none Patient tolerated procedure: well
[2017-05-15] MEDS ORDERED: NURSING VERBAL MED ORDER ONE (17:30)
[2017-05-15] MEDS ORDERED: SODIUM CHLORIDE 0.9% 1000ML 1,000 ML IV SCH (17:30)
[2017-05-15] MEDS ORDERED: POTASSIUM PHOS 3 MMOL/1 ML INFUSION IV STA (17:49)
[2017-05-15] MEDS ORDERED: POTASSIUM PHOSPHATE INJ 24 MMOL in SODIUM CHLORIDE 0.9% 500ML 500 ML IV ONE (18:30)
[2017-05-15] MEDS: VANCOMYCIN IV 1,000 MG in SODIUM CHLORIDE 0.9% 250ML 250 ML IV SCH (20:28)
[2017-05-16] VITALS (44 sets, daily range): BP systolic 120–191; BP diastolic 60–101; PULSE 62–135; TEMP 37–37.2; O2SAT 80–100
[2017-05-16] MEDS: VANCOMYCIN HCL 125 MG/2.5ML SOLN NG SCH ×5 (00:23→23:53)
[2017-05-16] MEDS: GLYCOPYRROLATE INJ 0.2 MG/ML VIAL IV SCH ×4 (00:24→17:25)
[2017-05-16 05:35] LABS: HEMATOCRIT 27.6 % (37-47); HEMOGLOBIN 8.5 g/dL (12.0-16.0); MEAN CELL VOLUME 88.7 fL (80-100); MEAN CORPUSCULAR HEMOGLOBIN 27.3 pg (25-34); MEAN CORPUSCULAR HGB CONC 30.8 g/dl (32-36); MEAN PLATELET VOLUME 8.4 fL (7.4-10.4); PLATELET COUNT 363 K/uL (130-400); RED CELL DISTRIBUTION WIDTH SD 54.9 fL (36.4-46.3); WHITE BLOOD COUNT 15.96 K/uL (4.8-10.8)
[2017-05-16] MEDS: INSULIN ASPART 100 UNITS/ML 3 ML PEN SC SCH ×4 (05:43→18:00)
[2017-05-16] MEDS: AZTREONAM IV 1,000 MG in DEXTROSE 5% 100ML 100 ML IV SCH ×3 (05:58→20:43)
[2017-05-16] MEDS: VANCOMYCIN IV 1,000 MG in SODIUM CHLORIDE 0.9% 250ML 250 ML IV SCH (05:58)
[2017-05-16] MEDS: SODIUM CHLORIDE 0.9% 1000ML 1,000 ML IV SCH (05:59)
[2017-05-16 06:14] LABS: CALCIUM 7.9 mg/dl (8.5-10.1); CREATININE 0.38 mg/dl (0.60-1.20); POTASSIUM 3.5 mmol/L (3.5-5.1)
[2017-05-16 06:17] LABS: PHOSPHORUS 2.8 mg/dl (2.5-4.9)
[2017-05-16 06:39] LABS: INR 1.1 (0.9-1.1)
--- NOTE | 2017-05-16 07:15 | DIAGNOSTIC IMAGING REPORT ---
SINGLE VIEW CHEST CLINICAL HISTORY: Aspiration. FINDINGS: An AP, portable, semierect chest radiograph is compared to study dated 05/13/2017. The examination is significantly degraded by portable technique and patient rotation, as well as by the patient's head largely obscuring the right apex. An enteric tube has been placed. The tip is located below the diaphragm. A right subclavian central venous catheter is unchanged in position. The heart is enlarged. The pulmonary vasculature is noncongested. There is left lower lobe consolidation and a small left pleural effusion. The right lung appears clear. No pneumothorax is seen. The skeletal structures are osteopenic. The bony thorax is grossly intact. IMPRESSION: 1. An enteric tube is new from previous. 2. Left basilar consolidation and a small left pleural effusion are unchanged from 05/13/2017. 3. Cardiomegaly. Electronically signed by: Jabari Hicks M.D. 05/16/2017 7:14 AM Dictated Date/Time: 05/16/2017 7:12 AM
[2017-05-16] MEDS ORDERED: MIDAZOLAM HCL 5 MG/ML 2ML VIAL IV ONE (07:41)
[2017-05-16] MEDS ORDERED: FENTANYL CITRATE INJ 50 MCG/1 ML 2 ML VIAL IV ONE (07:41)
[2017-05-16] MEDS: PROSOURCE NOCARB 30ML/PKT NG SCH (09:00)
[2017-05-16 09:37] LABS: PTT PATIENT 43.1 SECONDS (21.0-31.0)
--- NOTE | 2017-05-16 09:54 | Critical Care Progress Note ---
Critical Care Progress Note Date of Service May 16, 2017. ICU Day ICU Day Number: 6; hospital day #[address] Streeter Subjective No overnight events, is off BiPAP this morning. Denies any pain or shortness of breath. Obvious difficulty phonating Objective Physical exam on 05/12/2017, showed the patient is not in respiratory distress at the moment. She is tolerating room air and her O2 sat is 93%. Upper airway sounding. Crackles at the bases. S1-S2 regular without rhythm. Abdomen is distended but benign. Muscle contractions 4 extremities. Neurologically she is bedridden with minimal movement in the right upper extremity more than the left. Her physical exam on May 13 2017 showed vital signs consistent with heart rate of 140, blood pressure was 190/90, upper airway sounding bilateral crackles , S1-S2 tachycardic, abdomen is benign, no edema but she is contracted 4 extremities. Laboratory also pending and x-ray was reviewed which showed minimal infiltrate in the right lower lobe. Physical exam on May 14, 2017 revealed stable vital signs, O2 saturation 95% on nasal cannula, still having difficulty phonating, dysphagia continue to be a problem even to her own saliva. No stridor, bilateral crackles, S1-S2 regular rate and rhythm, abdomen is benign, trace edema, contracted limbs. I have reviewed her labs which showed slight hypokalemia. Physical exam on May 15, 2017 revealed vital signs currently are stable, S1- S2 regular rate and rhythm, O2 saturation is 97% on the BiPAP. Her labs has been reviewed which include INR of 5, potassium and phosphorus reported low. And replaced. Physical exam on May 16, 2017 revealed vital signs currently are stable, S1- S2 regular rate and rhythm, O2 saturation is 97% on nasal cannula, there is no respiratory distress. Assessment & Plan 1. Recurrent aspiration secondary to advanced multiple sclerosis. The patient dysphagia resulted in cardiac arrest on an event earlier this week. Return back again to the ICU with similar event with hypoxia and acute respiratory failure. This has been an ongoing diagnosis for this patient. 2. Multiple sclerosis, advanced stage. 3. Dysphagia with recurrent aspiration. Also the patient has very poor cough reflex to the point that she cannot cough up her own secretions as well. 4. C. difficile colitis. 5. Aspiration pneumonia due to the above. 6. History of venous thromboembolic event on Coumadin. Plan: 1. I have reviewed her laboratory and imaging myself. 2. INR within normal limits, will start heparin infusion for thrombotic coverage which can be discontinued in case of operative intervention 3. I will continue aztreonam for a total of 14 days of effective therapy, discontinue the vancomycin at this time 4. Continue with Vanco via the NG tube for C. difficile colitis. Continue for 7 days after discontinuation of additional antibiotics 5. Patient has not had a bowel movement, will start a bowel regimen after planning for possible J-tube is been finalized 6. Switch fluids to LR given the mild hyperchloremia, meanwhile, I will hold off on her tube feeding at the moment for preparation for the bronchus, and preparation for possible trach and J-tube in the morning. 7. Nutrition consult for determination of the formula for the tube feeding. 8. Start glycopyrrolate to reduce amount of her secretions. I will decrease the dose to 0.1 mg due to notable tachycardia. 9. Continue with Vanco p.o. 10. Replacement of her potassium. 11. Stop Flagyl. 12. I would not use scopolamine as it altered her mental status in the past. 13. Surgical consult for tracheostomy and J tube on Tuesday. The case discussed with Dr. Brown and he suggested ENT consult which I Placed it already. 14. Discussed with the in regard of the need for the above. Patient wishes is to continue with aggressive measures at this point and she is not ready for DNR. 15. Case discussed with the staff on rounds. 16. At risk for hypoxic respiratory failure, vital capacity only 500 mL's NIF - 10, low threshold for intubation due to poor respiratory pump, severe neuromuscular disease Patient is critically ill due to impending respiratory failure I have personally spent 60 minutes of critical care time in the direct management of this patient. This is a life/limb threatening event. This includes time spent evaluating patient, direct bedside care, chart review, placing orders, interpretation of diagnostic studies, discussion with consultants, patient, and/or family members regarding treatment decisions, as well as other required patient management activities. This time is exclusive of all separately billable procedures, and teaching time and separate from and in addition to any other critical care service time. Data Medications: Current Inpatient Medications Medications (Trade) Dose Ordered Sig/Dwain Route Start Time Stop Time Status Last Admin Dose Admin Glucose (Glucose 40% Gel) 15-30 GRAMS 15 GRAMS... UD PRN PO 05/03/17 18:30 06/02/17 18:29 Glucose (Glucose Chew Tab) 4-8 Tablets 4 Tabl... UD PRN PO 05/03/17 18:30 06/02/17 18:29 Dextrose (Dextrose 50% 50ML Syringe) 25-50ML OF 50% DW IV FOR... UD PRN IV 05/03/17 18:30 06/02/17 18:29 Glucagon (Glucagon Inj) 1 mg UD PRN SQ 05/03/17 18:30 06/02/17 18:29 Acetaminophen 650 mg/Empty Bag 65 ml @ 260 mls/hr Q12 PRN IV 05/04/17 18:45 06/03/17 18:44 05/15/17 10:31 260 MLS/HR Insulin Glargine (Lantus Solostar Pen) 10 units BID SC 05/09/17 21:00 06/04/17 20:59 05/15/17 20:33 10 UNITS Heparin Sodium (Porcine) (Heparin 10 Unit/ ml 5 ml Flush) 5 ml PRN PRN FLUSH 05/12/17 01:00 06/11/17 00:59 Insulin Aspart (novoLOG ASPART) Sliding Scale Q6H SC 05/12/17 18:00 06/08/17 06:29 05/15/17 11:54 2 UNITS Aztreonam 1000 mg/ Dextrose 110 ml @ 100 mls/hr Q8H IV 05/13/17 22:00 05/27/17 21:59 05/16/17 05:58 100 MLS/HR Vancomycin HCl (Vancomycin Oral Soln) 125 mg Q6 NG 05/14/17 00:00 05/28/17 00:00 05/16/17 05:58 125 MG Miscellaneous (Soap Suds Enema) 1 ea Q12 PRN [place] 05/14/17 08:30 06/13/17 08:29 05/14/17 10:59 1 EA Ipratropium [place] (Atrovent 0.02% 0.5MG/2.5ML Neb) 0.5 mg Q4R PRN INH 05/14/17 20:15 06/13/17 20:14 Levalbuterol (Xopenex 1.25MG/ 0.5ML Neb) 1.25 mg Q4R PRN INH 05/14/17 20:15 06/13/17 20:14 Enteral Nutritional Formula (Peptamen 1.5) 1,000 ml UD NG 05/15/17 10:45 06/14/17 10:44 05/15/17 16:41 1,000 ML Enteral Nutritional Formula (Prosource No Carb) 30 ml DAILY NG 05/16/17 09:00 06/15/17 08:59 Glycopyrrolate (Robinul Inj) 0.1 mg Q6 IV 05/16/17 00:00 06/13/17 11:59 05/16/17 05:58 0.1 MG Heparin Sodium/ Dextrose 500 ml @ 22 mls/hr [id number] IV 05/16/17 09:45 06/15/17 09:44 Lactated Ringer's 1,000 ml @ 75 mls/hr [id number] IV 05/16/17 09:30 06/15/17 09:29 Famotidine 20 mg/ Syringe 5 ml @ 2.5 mls/min Q12 IV 05/16/17 10:30 06/15/17 10:29 Magnesium Oxide (Mag-Ox Tab) 400 mg HS PO 05/16/17 21:00 06/15/17 20:59 Vital Signs: Date Time Temp Pulse Resp B/P (MAP) Pulse Ox O2 Delivery O2 Flow Rate FiO2 05/16/17 08:01 82 99 40 05/16/17 06:17 102 98 40 05/16/17 06:01 21 151/81 (104) 97 Nasal Cannula 6.0 Humidified Oxygen 05/16/17 05:36 25 159/101 (120) 97 Nasal Cannula 6.0 Humidified Oxygen 05/16/17 05:32 26 191/89 (123) 91 Nasal Cannula 6.0 Humidified Oxygen 05/16/17 05:01 23 166/84 (111) 93 Nasal Cannula 6.0 Humidified Oxygen 05/16/17 04:12 Nasal Cannula 6.0 Humidified Oxygen 05/16/17 04:01 93 21 155/90 (111) 97 Nasal Cannula 6.0 Humidified Oxygen 05/16/17 03:31 146/79 (101) Nasal Cannula 6.0 Humidified Oxygen 05/16/17 03:01 95 20 148/91 (110) 97 Nasal Cannula 5.0 Humidified Oxygen 05/16/17 02:31 94 20 149/96 (113) 97 Nasal Cannula 5.0 Humidified Oxygen 05/16/17 02:01 94 21 153/83 (106) 100 Nasal Cannula 5.0 Humidified Oxygen 05/16/17 01:31 98 22 140/73 (95) 100 Nasal Cannula 5.0 Humidified Oxygen 05/16/17 01:01 101 21 156/87 (110) 100 Nasal Cannula 5.0 Humidified Oxygen 05/16/17 00:38 Nasal Cannula 5.0 Humidified Oxygen 05/16/17 00:31 94 18 128/70 (89) 100 Nasal Cannula 5.0 Humidified Oxygen 05/16/17 00:01 95 21 152/91 (111) 100 Nasal Cannula 5.0 Humidified Oxygen 05/15/17 23:31 93 21 132/77 (95) 99 Nasal Cannula 5.0 Humidified Oxygen 05/15/17 23:01 89 21 142/83 (102) 100 Nasal Cannula 5.0 Humidified Oxygen 05/15/17 22:31 86 18 135/80 (98) 100 Nasal Cannula 5.0 Humidified Oxygen 05/15/17 22:01 82 19 131/76 (94) 100 Nasal Cannula 5.0 Humidified Oxygen 05/15/17 21:31 81 17 136/76 (96) 100 Nasal Cannula 5.0 Humidified Oxygen 05/15/17 21:01 91 17 127/75 (92) 100 Nasal Cannula 5.0 Humidified Oxygen 05/15/17 20:48 Nasal Cannula 5.0 Humidified Oxygen 05/15/17 20:31 95 22 144/69 (94) 100 Nasal Cannula 6.0 Humidified Oxygen 05/15/17 20:01 36.9 99 21 128/79 (95) 100 Nasal Cannula 6.0 Humidified Oxygen 05/15/17 19:31 100 20 123/68 (86) 99 Nasal Cannula 6.0 Humidified Oxygen 05/15/17 19:01 104 23 122/70 (87) 99 Nasal Cannula 6.0 Humidified Oxygen 05/15/17 18:00 101 23 103/68 (80) 100 Nasal Cannula 6.0 Humidified Oxygen 05/15/17 17:00 96 17 112/59 (76) 96 BiPAP 40 05/15/17 16:30 90 18 109/60 (76) 96 BiPAP 40 05/15/17 16:15 92 19 110/60 (77) 96 BiPAP 40 05/15/17 16:00 97 BiPAP 40 05/15/17 16:00 37.0 97 21 97/69 (78) 96 BiPAP 40 05/15/17 15:51 122 25 122/66 97 Mask 7.0 05/15/17 15:50 92 97 40 05/15/17 15:46 108 25 130/67 98 Mask 7.0 05/15/17 15:41 105 25 144/72 98 Mask 7.0 05/15/17 15:36 120 25 187/75 98 Mask 7.0 05/15/17 15:31 119 27 178/73 98 Mask 7.0 05/15/17 15:26 113 23 138/68 98 Mask 7.0 05/15/17 15:20 104 18 132/60 98 Mask 7.0 05/15/17 14:50 90 96 40 05/15/17 14:00 92 19 115/61 (79) 97 BiPAP 40 05/15/17 13:00 93 18 116/59 (78) 95 BiPAP 40 05/15/17 12:03 96 BiPAP 40 05/15/17 12:00 103 19 132/60 (84) 96 BiPAP 40 05/15/17 11:00 37.6 95 22 136/79 (98) 99 BiPAP 40 05/15/17 10:45 98 23 129/76 (93) 98 BiPAP 40 05/15/17 10:30 100 26 136/76 (96) 98 BiPAP 40 05/15/17 10:15 98 25 131/84 (100) 97 BiPAP 40 05/15/17 10:00 99 25 113/86 (95) 97 BiPAP 40 Laboratory Results: Last 24 Hours Test 05/15/17 11:44 05/15/17 13:59 05/15/17 17:42 05/15/17 20:30 Bedside Glucose 196 mg/dl 139 mg/dl 152 mg/dl Prothrombin Time 18.8 SECONDS Prothromb Time International Ratio 1.8 Test 05/16/17 00:22 05/16/17 05:21 05/16/17 05:27 Bedside Glucose 149 mg/dl 105 mg/dl White Blood Count 15.96 K/uL Red Blood Count 3.11 M/uL Hemoglobin 8.5 g/dL Hematocrit 27.6 % Mean Corpuscular Volume 88.7 fL Mean Corpuscular Hemoglobin 27.3 pg Mean Corpuscular Hemoglobin Concent 30.8 g/dl RDW Standard Deviation 54.9 fL RDW Coefficient of Variation 17.0 % Platelet Count 363 K/uL Mean Platelet Volume 8.4 fL Prothrombin Time 11.4 SECONDS Prothromb Time International Ratio 1.1 Activated Partial Thromboplast Time 43.1 SECONDS Partial Thromboplastin Ratio 1.7 Sodium Level 142 mmol/L Potassium Level 3.5 mmol/L Chloride Level 109 mmol/L Carbon Dioxide Level 28 mmol/L Anion Gap 6.0 mmol/L Blood Urea Nitrogen 5 mg/dl Creatinine 0.38 mg/dl Est Creatinine Clear Calc Drug Dose 146.1 ml/min Estimated GFR () 128.8 Estimated GFR (Non- 111.2 BUN/Creatinine Ratio 14.2 Random Glucose 97 mg/dl Calcium Level 7.9 mg/dl Phosphorus Level 2.8 mg/dl Magnesium Level 1.9 mg/dl
[2017-05-16 09:58] LABS: BASO % 0.1 %; BASO ABS # 0.02 K/uL (0-0.2); EOS % 3.6 %; EOS ABS # 0.58 K/uL (0-0.5); IG# 0.07 K/uL (0.00-0.02); LYMPH % 10.2 %; LYMPH ABS # 1.64 K/uL (1.2-3.4); MONO % 8.5 %; MONO ABS # 1.37 K/uL (0.11-0.59); NEUT % 77.2 %; NEUT ABS # 12.47 K/uL (1.4-6.5)
[2017-05-16] MEDS: LACTATED RINGER'S 1000ML 1,000 ML IV SCH ×2 (09:58→20:43)
[2017-05-16] MEDS: FAMOTIDINE IV INJ 20 MG in SYRINGE 3 ML IV SCH ×2 (10:01→20:07)
[2017-05-16] MEDS: INSULIN GLARGINE SOLOSTAR 100 UNITS/ML 3 ML PEN SC SCH ×2 (10:07→20:45)
[2017-05-16] MEDS: HEPARIN 25,000 UNIT/500ML D5W 500 ML IV SCH (10:28)
[2017-05-16] MEDS ORDERED: RAPID SEQUENCE INDUCTION BAG ONE (12:31)
[2017-05-16] MEDS ORDERED: METOPROLOL TARTRATE 1 MG/ML VIAL ONE (12:41)
[2017-05-16] MEDS ORDERED: NURSING VERBAL MED ORDER ONE ×3 (13:00→19:15)
[2017-05-16] MEDS ORDERED: METOPROLOL TARTRATE 1 MG/ML VIAL IV STA (13:13)
--- NOTE | 2017-05-16 13:23 | Procedure Note ---
Procedure Note Date of Service May 16, 2017. Procedure Note Procedure Date: May 16, 2017 Procedure: Endotracheal intubation Pre-procedure Diagnosis: Hypoxic respiratory failure Post-procedure Diagnosis: same as above Prior to Procedure: Informed Consent: emergent Attending Staff: Raulito Streeter DO Indications: Acute hypoxic respiratory failure secondary to respiratory insufficiency secondary to end-stage multiple sclerosis The identity of the patient was confirmed and a bedside time out was performed. Description of Procedure: Patient was evaluated and required intubation for impending respiratory failure. The patient was prepared in the usual fashion. A Quinones 2 laryngoscope was used. A 7.5 Fr endotrachial tube was placed endotracheally to 24 cm at the teeth. A grade 1 view was obtained. The endotracheal tube was noted to pass through the vocal cords. Chest rise was bilateral. Bilateral breath sounds were heard without air sounds in the abdomen. Mist was noted in the endotracheal tube. End-tidal CO2 measurement was positive. Chest x-ray shows proper endotracheal tube placement. Complications: None Findings: shannon aspiration of oral pharyngeal secretions Specimens: not applicable Estimated blood loss: Zero
--- NOTE | 2017-05-16 14:06 | Surgery Consultation ---
Consultation Date of Consultation: May 16, 2017. SAW PATIENT AT 11:30 AM Attending Physician: Vale Moyer M.D. Reason for Consultation: J-tube placement History of Present Illness Consultation for j-tube placement. Gabriella is a 67 year-old female who has hx of MS, recurrent UTIs w indwelling catheter, gastric duplication cyst, brought to ED for increased confusion, lethargy and fever. Workup showed she has Ecoli UTI and is positive for C. diff. On 05/11 she had an aspiration episode while eating breakfast and became unresponsive. Code Blue started, she was also intubated. She was transferred to ICU. She underwent video swallow study which showed she had silent aspiration with all liquid consistency, no aspiration with solids. ST recommended pt to be NPO. Discussion about possible PEG for alternative form of feeding was discussed with pt's originally on Tuesday. Palliative care was also consulted on Tuesday. Our services now consulted for possible j- tube placement. Per Dr. Streeter patient was originally DNR. The is to come in later today and to discuss further management options. Pt currently is unable to communicate much to me. She has thick oral secretions preventing her from verbalizing well. She currently has BIPAP on and appears to be weak. Though alert enough to nod/shake and follow commands. I am unable to obtain ROS. Past Medical/Surgical History Medical Problems: (1) Altered mental status Status: Acute (2) Bronchitis Status: Acute (3) Change in mental status Status: Acute (4) Decubitus ulcer Status: Acute (5) Dehydration Status: Acute (6) Diarrhea Status: Acute (7) Dyspnea Status: Acute (8) Elevated INR Status: Acute (9) Elevated INR Status: Acute (10) Elevated troponin Status: Acute (11) Fecal impaction Status: Acute (12) Pyelonephritis Status: Acute (13) Respiratory distress Status: Acute (14) Sepsis Status: Acute (15) Sepsis Status: Acute (16) UTI (urinary tract infection) Status: Acute Family History Cardiac disorder FATHER Social History Smoking Status: Former Smoker Drug Use: none Marital Status: Housing Status: lives with family Allergies Coded Allergies: Levofloxacin (Verified Allergy, Unknown, 01/04/17) Clavulanic Acid (Verified Adverse Reaction, Intermediate, GI INTOLERANCE ( AUGMENTIN), 01/04/17) Penicillins (Verified Adverse Reaction, Intermediate, GI INTOLERANCE ( AUGMENTIN), 01/04/17) Home Medications Scheduled Ascorbic Acid (Ascorbic Acid), 500 MG PO HS Atorvastatin (Lipitor), 40 MG PO DAILY Cranberry (Vaccinium Macrocarp (Cranberry), 300 MG PO QAM Ergocalciferol (Vitamin D2), 400 INTER.UNIT PO DAILY Insulin Glargine (Lantus Solostar), 10 UNITS SC AMPM Lisinopril (Lisinopril), 5 MG PO DAILY Methenamine Hippurate (Methenamine Hippurate), 1 GM PO BID Oxybutynin Chloride (Ditropan), 5 MG PO TID Paroxetine (Paroxetine HCl), 40 MG PO QAM Warfarin Sodium (Warfarin Sodium), 5 MG PO [id number] Warfarin Sodium (Coumadin), 2.5 MG PO [id number] Scheduled PRN Acetaminophen (Tylenol), 650 MG PO Q4H PRN for Pain or Fever Docusate Sodium (Colace), 100 MG PO DAILY PRN for Constipation Insulin Aspart (Novolog Flexpen), 1 DOSE SC UD PRN for BSG Coverage Polyethylene Glycol 3350 (Miralax), 1 TBS PO DAILY PRN for Constipation Current Inpatient Medications Current Inpatient Medications Medications (Trade) Dose Ordered Sig/Dwain Route Start Time Stop Time Status Last Admin Dose Admin Glucose (Glucose 40% Gel) 15-30 GRAMS 15 GRAMS... UD PRN PO 05/03/17 18:30 06/02/17 18:29 Glucose (Glucose Chew Tab) 4-8 Tablets 4 Tabl... UD PRN PO 05/03/17 18:30 06/02/17 18:29 Dextrose (Dextrose 50% 50ML Syringe) 25-50ML OF 50% DW IV FOR... UD PRN IV 05/03/17 18:30 06/02/17 18:29 Glucagon (Glucagon Inj) 1 mg UD PRN SQ 05/03/17 18:30 06/02/17 18:29 Acetaminophen 650 mg/Empty Bag 65 ml @ 260 mls/hr Q12 PRN IV 05/04/17 18:45 06/03/17 18:44 05/15/17 10:31 260 MLS/HR Insulin Glargine (Lantus Solostar Pen) 10 units BID SC 05/09/17 21:00 06/04/17 20:59 05/16/17 10:07 10 UNITS Heparin Sodium (Porcine) (Heparin 10 Unit/ ml 5 ml Flush) 5 ml PRN PRN FLUSH 05/12/17 01:00 06/11/17 00:59 Insulin Aspart (novoLOG ASPART) Sliding Scale Q6H SC 05/12/17 18:00 06/08/17 06:29 05/15/17 11:54 2 UNITS Aztreonam 1000 mg/ Dextrose 110 ml @ 100 mls/hr Q8H IV 05/13/17 22:00 05/27/17 21:59 05/16/17 13:08 100 MLS/HR Vancomycin HCl (Vancomycin Oral Soln) 125 mg Q6 NG 05/14/17 00:00 06/03/17 21:59 05/16/17 13:04 125 MG Miscellaneous (Soap Suds Enema) 1 ea Q12 PRN [place] 05/14/17 08:30 06/13/17 08:29 05/14/17 10:59 1 EA Ipratropium [place] (Atrovent 0.02% 0.5MG/2.5ML Neb) 0.5 mg Q4R PRN INH 05/14/17 20:15 06/13/17 20:14 Levalbuterol (Xopenex 1.25MG/ 0.5ML Neb) 1.25 mg Q4R PRN INH 05/14/17 20:15 06/13/17 20:14 Enteral Nutritional Formula (Peptamen 1.5) 1,000 ml UD NG 05/15/17 10:45 06/14/17 10:44 05/15/17 16:41 1,000 ML Enteral Nutritional Formula (Prosource No Carb) 30 ml DAILY NG 05/16/17 09:00 06/15/17 08:59 Glycopyrrolate (Robinul Inj) 0.1 mg Q6 IV 05/16/17 00:00 06/13/17 11:59 05/16/17 05:58 0.1 MG Heparin Sodium/ Dextrose 500 ml @ 22 mls/hr [id number] IV 05/16/17 09:45 06/15/17 09:44 05/16/17 10:28 22 MLS/HR Lactated Ringer's 1,000 ml @ 75 mls/hr [id number] IV 05/16/17 09:30 06/15/17 09:29 05/16/17 09:58 75 MLS/HR Famotidine 20 mg/ Syringe 5 ml @ 2.5 mls/min Q12 IV 05/16/17 10:30 06/15/17 10:29 05/16/17 10:01 2.5 MLS/MIN Magnesium Oxide (Mag-Ox Tab) 400 mg HS PO 05/16/17 21:00 06/15/17 20:59 Physical Exam Date Time Temp Pulse Resp B/P (MAP) Pulse Ox O2 Delivery O2 Flow Rate FiO2 05/16/17 13:04 128 05/16/17 13:01 100 05/16/17 12:00 95 BiPAP 40 05/16/17 11:00 102 22 147/79 (101) 95 BiPAP 40 05/16/17 10:02 97 27 153/86 (108) 98 BiPAP 40 05/16/17 09:15 80 Oxymask 15.0 05/16/17 09:00 103 24 149/100 (116) 89 Oxymask 13.0 05/16/17 08:01 82 99 40 05/16/17 08:00 37.2 81 20 141/73 (95) 98 Oxymask 13.0 05/16/17 08:00 Oxymask 13.0 05/16/17 07:00 100 20 127/87 (100) 97 BiPAP 05/16/17 06:17 102 98 40 05/16/17 06:01 21 151/81 (104) 97 Nasal Cannula 6.0 Humidified Oxygen 05/16/17 05:36 25 159/101 (120) 97 Nasal Cannula 6.0 Humidified Oxygen 05/16/17 05:32 26 191/89 (123) 91 Nasal Cannula 6.0 Humidified Oxygen 05/16/17 05:01 23 166/84 (111) 93 Nasal Cannula 6.0 Humidified Oxygen 05/16/17 04:12 Nasal Cannula 6.0 Humidified Oxygen 05/16/17 04:01 93 21 155/90 (111) 97 Nasal Cannula 6.0 Humidified Oxygen 05/16/17 03:31 146/79 (101) Nasal Cannula 6.0 Humidified Oxygen 05/16/17 03:01 95 20 148/91 (110) 97 Nasal Cannula 5.0 Humidified Oxygen 05/16/17 02:31 94 20 149/96 (113) 97 Nasal Cannula 5.0 Humidified Oxygen 05/16/17 02:01 94 21 153/83 (106) 100 Nasal Cannula 5.0 Humidified Oxygen 05/16/17 01:31 98 22 140/73 (95) 100 Nasal Cannula 5.0 Humidified Oxygen 05/16/17 01:01 101 21 156/87 (110) 100 Nasal Cannula 5.0 Humidified Oxygen 05/16/17 00:38 Nasal Cannula 5.0 Humidified Oxygen 05/16/17 00:31 94 18 128/70 (89) 100 Nasal Cannula 5.0 Humidified Oxygen 05/16/17 00:01 95 21 152/91 (111) 100 Nasal Cannula 5.0 Humidified Oxygen 05/15/17 23:31 93 21 132/77 (95) 99 Nasal Cannula 5.0 Humidified Oxygen 05/15/17 23:01 89 21 142/83 (102) 100 Nasal Cannula 5.0 Humidified Oxygen 05/15/17 22:31 86 18 135/80 (98) 100 Nasal Cannula 5.0 Humidified Oxygen 05/15/17 22:01 82 19 131/76 (94) 100 Nasal Cannula 5.0 Humidified Oxygen 05/15/17 21:31 81 17 136/76 (96) 100 Nasal Cannula 5.0 Humidified Oxygen 05/15/17 21:01 91 17 127/75 (92) 100 Nasal Cannula 5.0 Humidified Oxygen 05/15/17 20:48 Nasal Cannula 5.0 Humidified Oxygen 05/15/17 20:31 95 22 144/69 (94) 100 Nasal Cannula 6.0 Humidified Oxygen 05/15/17 20:01 36.9 99 21 128/79 (95) 100 Nasal Cannula 6.0 Humidified Oxygen 05/15/17 19:31 100 20 123/68 (86) 99 Nasal Cannula 6.0 Humidified Oxygen 05/15/17 19:01 104 23 122/70 (87) 99 Nasal Cannula 6.0 Humidified Oxygen 05/15/17 18:00 101 23 103/68 (80) 100 Nasal Cannula 6.0 Humidified Oxygen 05/15/17 17:00 96 17 112/59 (76) 96 BiPAP 40 05/15/17 16:30 90 18 109/60 (76) 96 BiPAP 40 05/15/17 16:15 92 19 110/60 (77) 96 BiPAP 40 05/15/17 16:00 97 BiPAP 40 05/15/17 16:00 37.0 97 21 97/69 (78) 96 BiPAP 40 05/15/17 15:51 122 25 122/66 97 Mask 7.0 05/15/17 15:50 92 97 40 05/15/17 15:46 108 25 130/67 98 Mask 7.0 05/15/17 15:41 105 25 144/72 98 Mask 7.0 05/15/17 15:36 120 25 187/75 98 Mask 7.0 05/15/17 15:31 119 27 178/73 98 Mask 7.0 05/15/17 15:26 113 23 138/68 98 Mask 7.0 05/15/17 15:20 104 18 132/60 98 Mask 7.0 05/15/17 14:50 90 96 40 05/15/17 14:00 92 19 115/61 (79) 97 BiPAP 40 General Appearance: + moderate distress, + obese Head: normocephalic, atraumatic Eyes: sclerae normal ENT: hearing grossly normal Neck: trachea midline Respiratory/Chest: + respiratory distress (moderate), + pertinent finding ( BIPAP machine present) Abdomen/GI: non tender, soft, no organomegaly, no pulsatile mass, + pertinent finding (midline laparotomy scar present) Extremities/Musculoskelatal: + swelling Neurologic/Psych: alert Skin: normal color, warm/dry, no rash Laboratory Results Last 24 Hours Test 05/15/17 13:59 05/15/17 17:42 05/15/17 20:30 05/16/17 00:22 Prothrombin Time 18.8 SECONDS Prothromb Time International Ratio 1.8 Bedside Glucose 139 mg/dl 152 mg/dl 149 mg/dl Test 05/16/17 05:21 05/16/17 05:27 White Blood Count 15.96 K/uL Red Blood Count 3.11 M/uL Hemoglobin 8.5 g/dL Hematocrit 27.6 % Mean Corpuscular Volume 88.7 fL Mean Corpuscular Hemoglobin 27.3 pg Mean Corpuscular Hemoglobin Concent 30.8 g/dl Platelet Count 363 K/uL Mean Platelet Volume 8.4 fL Neutrophils (%) (Auto) 77.2 % Lymphocytes (%) (Auto) 10.2 % Monocytes (%) (Auto) 8.5 % Eosinophils (%) (Auto) 3.6 % Basophils (%) (Auto) 0.1 % Neutrophils # (Auto) 12.47 K/uL Lymphocytes # (Auto) 1.64 K/uL Monocytes # (Auto) 1.37 K/uL Eosinophils # (Auto) 0.58 K/uL Basophils # (Auto) 0.02 K/uL RDW Standard Deviation 54.9 fL RDW Coefficient of Variation 17.0 % Immature Granulocyte % (Auto) 0.4 % Immature Granulocyte # (Auto) 0.07 K/uL Nucleated RBC Absolute Count (auto) 0.00 K/uL Nucleated Red Blood Cells % 0.0 % Polychromasia 1+ Hypochromasia PRESENT Prothrombin Time 11.4 SECONDS Prothromb Time International Ratio 1.1 Activated Partial Thromboplast Time 43.1 SECONDS Partial Thromboplastin Ratio 1.7 Sodium Level 142 mmol/L Potassium Level 3.5 mmol/L Chloride Level 109 mmol/L Carbon Dioxide Level 28 mmol/L Anion Gap 6.0 mmol/L Blood Urea Nitrogen 5 mg/dl Creatinine 0.38 mg/dl Est Creatinine Clear Calc Drug Dose 146.1 ml/min Estimated GFR () 128.8 Estimated GFR (Non- 111.2 BUN/Creatinine Ratio 14.2 Random Glucose 97 mg/dl Calcium Level 7.9 mg/dl Phosphorus Level 2.8 mg/dl Magnesium Level 1.9 mg/dl Bedside Glucose 105 mg/dl Assessment & Plan Advanced multiple sclerosis with recurrent episodes of aspiration secondary to dysphagia Aspiration pneumonia C. diff colitis. -Currently requiring BIPAP , moderate respiratory distress. Plan: Patient was evaluated by GI on Tuesday for possible PEG tube placement. Patient also seen by Palliative care. Patient at that time, wished to continue with aggressive measures and was not ready for DNR. Patient requiring BIPAP this morning. coming into hospital later today. Dr. Streeter to discuss further management with and patient in regards to J-tube placement/ further aggressive treatment. If patient were to want a J-tube would need hemoglobin/hematocrit to improve to roughly 9-10/30 respectively and WBC to decrease. Continue current ICU management Will follow Dr. Lawson has seen and examined patient, developed assessment and plan.
[2017-05-16] MEDS ORDERED: FENTANYL CITRATE INJ 50 MCG/1 ML 2 ML VIAL ONE (14:19)
[2017-05-16] MEDS ORDERED: MIDAZOLAM HCL 1 MG/ML 2ML VIAL ONE (14:20)
[2017-05-16] MEDS ORDERED: VANCOMYCIN TROUGH ONE (15:30)
--- NOTE | 2017-05-16 16:03 | Progress Note ---
Internal Med Progress Note Date of Service: May 16, 2017. Provider Documentation: SUBJECTIVE: The patient was seen and examined Feels much better today Abdominal discomfort and distension better Bowel moved 05/11 Aspirated this morning while eating breakfast Code Purple followed by Code Blue Hypoxic respiratory followed by Cardiopulmonary arrest Required Intubation during resuscitation Transferred to ICU 05/12 Extubated yesterday following bronchoscopic clean out of the food substance Feels better this AM 05/13 Mild SOB at rest Transmitted sound from respiratory secretions Need to discuss about PEG tube and Resus issue 05/14 Has had a long discussion with the and the daughter yesterday in the evening. Pros and cons of PEG tube/jejunal tube placement discussed. They wanted to have her PEG tube placed. She is reverted back to full resuscitation status. Has had a Code Purple called last evening and the patient was transferred to ICU. She did not require intubation and with aggressive suctioning her condition improved. She will call for PEG tube placement and possible tracheostomy down the line. 05/15 Remains stable in ICU High risk of aspiration of her own secretion Planning to have tracheostomy and J tube placement to minimize aspiration 05/16 Has had another episode of Acute Respiratory Failure required Intubation OBJECTIVE: Vital Signs-as noted below Exam: General-Sedated on Vent Eyes-closed ENT-normal Neck-supple,flexed position Lungs-Decreased breath sound bilaterally Transmitted sound all over,minimal crackles at the bases Heart-Regular,no murmur Abdomen-Mildly distended,Mildly tender Extremities-Trace edema bilaterally .left extremities flexor deformities Secondary to MS Neuro-sedated on Vent Lab data as noted below. ASSESSMENT & PLAN: S/P Intubation-05/16/17 Another attack of near respiratory failure 2 days before Has had a Code Purple called last evening and the patient was transferred to ICU. She did not require intubation and with aggressive suctioning her condition improved She is up for PEG tube placement and possible tracheostomy down the line. Appreciate [employer] input Acute Respiratory Failure-Required Endotracheal Intubation -05/16/17 Awaiting further discussion with the family members for further management Cardiopulmonary Arrest Aspiration>Respiratory arrest followed by Cardiac arrest Required Intubation to maintain Saturation Transferred to ICU Bronchoscopy in ICU -a considerable amount of food materials sucked out Likely extubation today and resume oral medications thereafter Clinically better Transfer back to [facility] Has H/O recurrent aspiration with esophageal dysmotility before Another episode of Aspiration last evening Broad spectrum antibiotics added -now on Aztreonam High risk of aspiration of her own secretion Planning to have tracheostomy and J tube placement to minimize aspiration ENT and Surgery will be consulted-appreciate input Awaiting decision on Tracheostomy and J Tube placement SEPSIS Met criteria for sepsis per 2001 definition and current CMS guidelines ( UTI, tachycardia, leukocytosis). Elevated WBC and lactate on admission,Received IVF Urine cx grew G-[id number] Blood cx -negative Was On Rocephin and Vanco Vanco Discontinued 05/09 Rocephin was changed to ertapenem Completed 7 days course of IV abx (Rocephin later changed to ertapenem) Now on Broad spectrum antibiotics for recurrent aspiration Cdiff stool positive for C-diff since pt was NPO, she was starting on flagyl IV-stopped Continue PO vanco to complete 14 days monitor electrolytes No diarrhea NGT-Vancomycin Abdominal Tenderness Unchanged severe distention of the colon with gas and stool. Recommend disimpaction. Pt had 2 BM today Will give Dulcolax 1 repeat xray in am-decreasing fecal load Bowel is moving GI bleed INR increased to 10 Received vit k Hgb stable at 9.5 Resume Coumadin 2.5 mg INR 5.3on 05/15-receiving Vit K Will monitor ACUTE KIDNEY INJURY Serum creatinine 1.3 compared to recent baseline of 0.6-0.8. Creatine stable D/C IVF Monitor BMP. Resolved ELEVATED TROPONIN Serum troponin = 0.343. EKG shows sinus rhythm, nonspecific T-wave changes. Serum troponin trending down to 0.13 Asymptomatic Hypokalemia K replaced Monitor BMP Will need more replacement CONSTIPATION CT abdomen CT abd showed massive amount of stool within the rectum and moderate to large amount of stool within the colon consistent with significant fecal impaction. No bowel obstruction had diarrhea/cdiff Moving bowel DM TYPE 2 Hba1c 6.8 ( on 05/04/17) Lantus + NovoLog per protocol. MULTIPLE SCLEROSIS Advanced disease. Aspiration precautions. Symptomatic management. URINARY RETENTION Secondary to multiple sclerosis. Continue indwelling Lemos catheter Will change Lemos cath ABDOMINAL MASS Previously noted and evaluated by Surgery. Resection not pursued due to advanced MS and multiple comorbidities. DECUBITUS ULCERS Avoid pressure. Local care. Continue daily wound care VTE PROPHYLAXIS / HISTORY OF PULMONARY EMBOLISM Was on Coumadin and changed to Lovenox Now on IV Heparin RESUSCITATION STATUS::FULL CODE DISPOSITION Has had a long discussion with the and the daughter yesterday, 05/13 in the evening. Pros and cons of PEG tube/jejunal tube placement discussed. They wanted to have PEG tube placed. She is reverted back to full resuscitation status. Has had a Code Purple called last evening and the patient was transferred to ICU. She did not require intubation and with aggressive suctioning her condition improved. She will be for PEG tube placement and possible tracheostomy down the line. Vital Signs: Date Time Temp Pulse Resp B/P (MAP) Pulse Ox O2 Delivery O2 Flow Rate FiO2 05/16/17 14:47 70 05/16/17 14:00 87 15 142/65 (90) 99 05/16/17 13:45 89 15 124/68 (86) 98 Mechanical Ventilator 05/16/17 13:30 89 16 133/68 (89) 98 Mechanical Ventilator 05/16/17 13:15 37.1 89 18 132/75 (94) 98 Mechanical Ventilator 05/16/17 13:04 128 05/16/17 13:01 100 05/16/17 13:00 89 17 132/71 (91) 99 Mechanical Ventilator 05/16/17 12:51 99 22 166/88 (114) 99 Mechanical Ventilator 05/16/17 12:46 101 24 162/86 (111) 98 Mechanical Ventilator 05/16/17 12:41 134 19 178/90 (119) 98 Mechanical Ventilator 05/16/17 12:37 135 21 187/98 (127) 91 Mechanical Ventilator 05/16/17 12:00 109 26 184/87 (119) 95 BiPAP 40 05/16/17 12:00 95 BiPAP 40 05/16/17 11:00 102 22 147/79 (101) 95 BiPAP 40 05/16/17 10:02 97 27 153/86 (108) 98 BiPAP 40 05/16/17 09:15 80 Oxymask 15.0 05/16/17 09:00 103 24 149/100 (116) 89 Oxymask 13.0 05/16/17 08:01 82 99 40 05/16/17 08:00 37.2 81 20 141/73 (95) 98 Oxymask 13.0 05/16/17 08:00 Oxymask 13.0 05/16/17 07:00 100 20 127/87 (100) 97 BiPAP 05/16/17 06:17 102 98 40 05/16/17 06:01 21 151/81 (104) 97 Nasal Cannula 6.0 Humidified Oxygen 05/16/17 05:36 25 159/101 (120) 97 Nasal Cannula 6.0 Humidified Oxygen 05/16/17 05:32 26 191/89 (123) 91 Nasal Cannula 6.0 Humidified Oxygen 05/16/17 05:01 23 166/84 (111) 93 Nasal Cannula 6.0 Humidified Oxygen 05/16/17 04:12 Nasal Cannula 6.0 Humidified Oxygen 05/16/17 04:01 93 21 155/90 (111) 97 Nasal Cannula 6.0 Humidified Oxygen 05/16/17 03:31 146/79 (101) Nasal Cannula 6.0 Humidified Oxygen 05/16/17 03:01 95 20 148/91 (110) 97 Nasal Cannula 5.0 Humidified Oxygen 05/16/17 02:31 94 20 149/96 (113) 97 Nasal Cannula 5.0 Humidified Oxygen 05/16/17 02:01 94 21 153/83 (106) 100 Nasal Cannula 5.0 Humidified Oxygen 05/16/17 01:31 98 22 140/73 (95) 100 Nasal Cannula 5.0 Humidified Oxygen 05/16/17 01:01 101 21 156/87 (110) 100 Nasal Cannula 5.0 Humidified Oxygen 05/16/17 00:38 Nasal Cannula 5.0 Humidified Oxygen 05/16/17 00:31 94 18 128/70 (89) 100 Nasal Cannula 5.0 Humidified Oxygen 05/16/17 00:01 95 21 152/91 (111) 100 Nasal Cannula 5.0 Humidified Oxygen 05/15/17 23:31 93 21 132/77 (95) 99 Nasal Cannula 5.0 Humidified Oxygen 05/15/17 23:01 89 21 142/83 (102) 100 Nasal Cannula 5.0 Humidified Oxygen 05/15/17 22:31 86 18 135/80 (98) 100 Nasal Cannula 5.0 Humidified Oxygen 05/15/17 22:01 82 19 131/76 (94) 100 Nasal Cannula 5.0 Humidified Oxygen 05/15/17 21:31 81 17 136/76 (96) 100 Nasal Cannula 5.0 Humidified Oxygen 05/15/17 21:01 91 17 127/75 (92) 100 Nasal Cannula 5.0 Humidified Oxygen 05/15/17 20:48 Nasal Cannula 5.0 Humidified Oxygen 05/15/17 20:31 95 22 144/69 (94) 100 Nasal Cannula 6.0 Humidified Oxygen 05/15/17 20:01 36.9 99 21 128/79 (95) 100 Nasal Cannula 6.0 Humidified Oxygen 05/15/17 19:31 100 20 123/68 (86) 99 Nasal Cannula 6.0 Humidified Oxygen 05/15/17 19:01 104 23 122/70 (87) 99 Nasal Cannula 6.0 Humidified Oxygen 05/15/17 18:00 101 23 103/68 (80) 100 Nasal Cannula 6.0 Humidified Oxygen 05/15/17 17:00 96 17 112/59 (76) 96 BiPAP 40 05/15/17 16:30 90 18 109/60 (76) 96 BiPAP 40 05/15/17 16:15 92 19 110/60 (77) 96 BiPAP 40 05/15/17 16:00 97 BiPAP 40 05/15/17 16:00 37.0 97 21 97/69 (78) 96 BiPAP 40 Lab Results: Results Past 24 Hours Test 05/15/17 17:42 05/15/17 20:30 05/16/17 00:22 05/16/17 05:21 Range/Units Bedside Glucose 139 152 149 70-90 mg/dl White Blood Count 15.96 4.8-10.8 K/uL Red Blood Count 3.11 4.2-5.4 M/uL Hemoglobin 8.5 12.0-16.0 g/dL Hematocrit 27.6 37-47 % Mean Corpuscular Volume 88.7 80-100 fL Mean Corpuscular Hemoglobin 27.3 25-34 pg Mean Corpuscular Hemoglobin Concent 30.8 32-36 g/dl Platelet Count 363 130-400 K/uL Mean Platelet Volume 8.4 7.4-10.4 fL Neutrophils (%) (Auto) 77.2 % Lymphocytes (%) (Auto) 10.2 % Monocytes (%) (Auto) 8.5 % Eosinophils (%) (Auto) 3.6 % Basophils (%) (Auto) 0.1 % Neutrophils # (Auto) 12.47 1.4-6.5 K/uL Lymphocytes # (Auto) 1.64 1.2-3.4 K/uL Monocytes # (Auto) 1.37 0.11-0.59 K/uL Eosinophils # (Auto) 0.58 0-0.5 K/uL Basophils # (Auto) 0.02 0-0.2 K/uL RDW Standard Deviation 54.9 36.4-46.3 fL RDW Coefficient of Variation 17.0 11.5-14.5 % Immature Granulocyte % (Auto) 0.4 % Immature Granulocyte # (Auto) 0.07 0.00-0.02 K/uL Nucleated RBC Absolute Count (auto) 0.00 0-0 K/uL Nucleated Red Blood Cells % 0.0 % Polychromasia 1+ Hypochromasia PRESENT Prothrombin Time 11.4 9.0-12.0 SECONDS Prothromb Time International Ratio 1.1 0.9-1.1 Activated Partial Thromboplast Time 43.1 21.0-31.0 SECONDS Partial Thromboplastin Ratio 1.7 Sodium Level 142 136-145 mmol/L Potassium Level 3.5 3.5-5.1 mmol/L Chloride Level 109 98-107 mmol/L Carbon Dioxide Level 28 21-32 mmol/L Anion Gap 6.0 3-11 mmol/L Blood Urea Nitrogen 5 7-18 mg/dl Creatinine 0.38 0.60-1.20 mg/dl Est Creatinine Clear Calc Drug Dose 146.1 ml/min Estimated GFR () 128.8 Estimated GFR (Non- 111.2 BUN/Creatinine Ratio 14.2 10-20 Random Glucose 97 70-99 mg/dl Calcium Level 7.9 8.5-10.1 mg/dl Phosphorus Level 2.8 2.5-4.9 mg/dl Magnesium Level 1.9 1.8-2.4 mg/dl Test 05/16/17 05:27 05/16/17 11:54 Range/Units Bedside Glucose 105 111 70-90 mg/dl
--- NOTE | 2017-05-16 16:33 | Procedure Note ---
Procedure Note Date of Service May 16, 2017. Procedure Note Procedure date: May 16, 2017 Procedure: fiberoptic bronchoscopy Pre-procedure Diagnosis: Acute hypoxic respiratory failure Post-procedure Diagnosis: same as above Prior to Procedure: Informed Consent: The risks, benefits, indications, potential complications, and alternatives were explained to the patient/family and informed consent obtained. Attending Staff: Raulito Streeter DO Resident/APC: Syl Chavez Skin Prep: Not applicable Anesthesia: 50 mcg fentanyl IV 1 Indications: Patient is a 67-year-old female with end-stage multiple sclerosis who has a history of mucus impaction and respiratory insufficiency secondary to her neuromuscular disease. Patient was intubated for hypoxic respiratory failure and was concern for subsequent mucus impaction. The identity of the patient was confirmed and a bedside time out was performed. Description of Procedure: Fiberoptic bronchoscopy was performed via endotracheal tube. Bronchioalveolar lavage left and right lobes was performed. Findings included: Thick mucus impaction of the distal left long, thick white mucus impaction of the right upper lobe, the bronchus intermedius was completely occluded by a large clot that was ultimately suctioned. Significant improvement in the patient's respiratory status was noted after the bronchoscopy. Complications: None Specimens: None. Estimated blood loss: Zero
--- NOTE | 2017-05-16 16:56 | Palliative Care Progress Note ---
Palliative Care Progress Note Date of Service May 16, 2017. Subjective Pt evaluation today including: conversation w/ family, physical exam, chart review, conversation w/ senior solutions workflow consultant Pain: None on exam, patient intubated and sedated PO Intake: None Voiding: aguilar catheter in place Patient was initially seen on 05/13 had full discussion with the patient he wanted to proceed with G-tube placement. Over the weekend patient decompensated with aspiration of oral secretions. Patient had been started on a scopolamine patch to attempt to control oral secretions. Met with , daughter, cousin and ICU attending to discuss patient's prognosis and to develop a plan of care. Family aware of patient's decline, they would like to have the sedation decreased so patient can respond and discuss with the patient whether or not she would want trach placement. Patient in the past has stated that she would not want to go to a jail for care if she were on a vent. Review of Systems Unable to obtain patient intubated and sedated Objective Vital Signs Date Time Temp Pulse Resp B/P (MAP) Pulse Ox O2 Delivery O2 Flow Rate FiO2 05/16/17 16:00 100 Mechanical Ventilator 70 05/16/17 14:47 70 05/16/17 14:00 87 15 142/65 (90) 99 05/16/17 13:45 89 15 124/68 (86) 98 Mechanical Ventilator 05/16/17 13:30 89 16 133/68 (89) 98 Mechanical Ventilator 05/16/17 13:15 37.1 89 18 132/75 (94) 98 Mechanical Ventilator 05/16/17 13:04 128 05/16/17 13:01 100 05/16/17 13:00 89 17 132/71 (91) 99 Mechanical Ventilator 05/16/17 12:51 99 22 166/88 (114) 99 Mechanical Ventilator 05/16/17 12:46 101 24 162/86 (111) 98 Mechanical Ventilator 05/16/17 12:41 134 19 178/90 (119) 98 Mechanical Ventilator 05/16/17 12:37 135 21 187/98 (127) 91 Mechanical Ventilator 05/16/17 12:00 109 26 184/87 (119) 95 BiPAP 40 05/16/17 12:00 95 BiPAP 40 05/16/17 11:00 102 22 147/79 (101) 95 BiPAP 40 05/16/17 10:02 97 27 153/86 (108) 98 BiPAP 40 05/16/17 09:15 80 Oxymask 15.0 05/16/17 09:00 103 24 149/100 (116) 89 Oxymask 13.0 05/16/17 08:01 82 99 40 05/16/17 08:00 37.2 81 20 141/73 (95) 98 Oxymask 13.0 05/16/17 08:00 Oxymask 13.0 05/16/17 07:00 100 20 127/87 (100) 97 BiPAP 05/16/17 06:17 102 98 40 05/16/17 06:01 21 151/81 (104) 97 Nasal Cannula 6.0 Humidified Oxygen 05/16/17 05:36 25 159/101 (120) 97 Nasal Cannula 6.0 Humidified Oxygen 05/16/17 05:32 26 191/89 (123) 91 Nasal Cannula 6.0 Humidified Oxygen 05/16/17 05:01 23 166/84 (111) 93 Nasal Cannula 6.0 Humidified Oxygen 05/16/17 04:12 Nasal Cannula 6.0 Humidified Oxygen 05/16/17 04:01 93 21 155/90 (111) 97 Nasal Cannula 6.0 Humidified Oxygen 05/16/17 03:31 146/79 (101) Nasal Cannula 6.0 Humidified Oxygen 05/16/17 03:01 95 20 148/91 (110) 97 Nasal Cannula 5.0 Humidified Oxygen 05/16/17 02:31 94 20 149/96 (113) 97 Nasal Cannula 5.0 Humidified Oxygen 05/16/17 02:01 94 21 153/83 (106) 100 Nasal Cannula 5.0 Humidified Oxygen 05/16/17 01:31 98 22 140/73 (95) 100 Nasal Cannula 5.0 Humidified Oxygen 05/16/17 01:01 101 21 156/87 (110) 100 Nasal Cannula 5.0 Humidified Oxygen 05/16/17 00:38 Nasal Cannula 5.0 Humidified Oxygen 05/16/17 00:31 94 18 128/70 (89) 100 Nasal Cannula 5.0 Humidified Oxygen 05/16/17 00:01 95 21 152/91 (111) 100 Nasal Cannula 5.0 Humidified Oxygen 05/15/17 23:31 93 21 132/77 (95) 99 Nasal Cannula 5.0 Humidified Oxygen 05/15/17 23:01 89 21 142/83 (102) 100 Nasal Cannula 5.0 Humidified Oxygen 05/15/17 22:31 86 18 135/80 (98) 100 Nasal Cannula 5.0 Humidified Oxygen 05/15/17 22:01 82 19 131/76 (94) 100 Nasal Cannula 5.0 Humidified Oxygen 05/15/17 21:31 81 17 136/76 (96) 100 Nasal Cannula 5.0 Humidified Oxygen 05/15/17 21:01 91 17 127/75 (92) 100 Nasal Cannula 5.0 Humidified Oxygen 05/15/17 20:48 Nasal Cannula 5.0 Humidified Oxygen 05/15/17 20:31 95 22 144/69 (94) 100 Nasal Cannula 6.0 Humidified Oxygen 05/15/17 20:01 36.9 99 21 128/79 (95) 100 Nasal Cannula 6.0 Humidified Oxygen 05/15/17 19:31 100 20 123/68 (86) 99 Nasal Cannula 6.0 Humidified Oxygen 05/15/17 19:01 104 23 122/70 (87) 99 Nasal Cannula 6.0 Humidified Oxygen 05/15/17 18:00 101 23 103/68 (80) 100 Nasal Cannula 6.0 Humidified Oxygen 05/15/17 17:00 96 17 112/59 (76) 96 BiPAP 40 Physical Exam General Appearance: + pertinent finding (Patient intubated and sedated, did not respond to voice or touch) Respiratory/Chest: + decreased breath sounds, + rhonchi Cardiovascular: regular rate, rhythm Abdomen: soft Extremities: + pertinent finding (Contractures at the ankles) Neurologic/Psychiatric: + pertinent finding (Patient intubated and sedated) Skin: warm/dry Laboratory Results Last 24 Hours Test 05/15/17 17:42 05/15/17 20:30 05/16/17 00:22 05/16/17 05:21 Bedside Glucose 139 mg/dl 152 mg/dl 149 mg/dl White Blood Count 15.96 K/uL Red Blood Count 3.11 M/uL Hemoglobin 8.5 g/dL Hematocrit 27.6 % Mean Corpuscular Volume 88.7 fL Mean Corpuscular Hemoglobin 27.3 pg Mean Corpuscular Hemoglobin Concent 30.8 g/dl Platelet Count 363 K/uL Mean Platelet Volume 8.4 fL Neutrophils (%) (Auto) 77.2 % Lymphocytes (%) (Auto) 10.2 % Monocytes (%) (Auto) 8.5 % Eosinophils (%) (Auto) 3.6 % Basophils (%) (Auto) 0.1 % Neutrophils # (Auto) 12.47 K/uL Lymphocytes # (Auto) 1.64 K/uL Monocytes # (Auto) 1.37 K/uL Eosinophils # (Auto) 0.58 K/uL Basophils # (Auto) 0.02 K/uL RDW Standard Deviation 54.9 fL RDW Coefficient of Variation 17.0 % Immature Granulocyte % (Auto) 0.4 % Immature Granulocyte # (Auto) 0.07 K/uL Nucleated RBC Absolute Count (auto) 0.00 K/uL Nucleated Red Blood Cells % 0.0 % Polychromasia 1+ Hypochromasia PRESENT Prothrombin Time 11.4 SECONDS Prothromb Time International Ratio 1.1 Activated Partial Thromboplast Time 43.1 SECONDS Partial Thromboplastin Ratio 1.7 Sodium Level 142 mmol/L Potassium Level 3.5 mmol/L Chloride Level 109 mmol/L Carbon Dioxide Level 28 mmol/L Anion Gap 6.0 mmol/L Blood Urea Nitrogen 5 mg/dl Creatinine 0.38 mg/dl Est Creatinine Clear Calc Drug Dose 146.1 ml/min Estimated GFR () 128.8 Estimated GFR (Non- 111.2 BUN/Creatinine Ratio 14.2 Random Glucose 97 mg/dl Calcium Level 7.9 mg/dl Phosphorus Level 2.8 mg/dl Magnesium Level 1.9 mg/dl Test 05/16/17 05:27 05/16/17 11:54 05/16/17 16:33 Bedside Glucose 105 mg/dl 111 mg/dl Assessment and Plan (1) Dysphagia causing pulmonary aspiration with swallowing Status: Acute Assessment & Plan: Patient requiring intubation, will wait till sedation wears off so family can speak with patient regarding trach placement (2) Multiple sclerosis Status: Chronic Assessment & Plan: Disease progressing, she now has a poor cough and is not able to handle her own secretions (3) UTI (urinary tract infection) Status: Acute Assessment & Plan: Treated Palliative Performance Scale: 30 % Continued [facility] [place] stay due to: other (Intubated) Discharge planning: uncertain Counseling and Coordination Total time 50 minutes with greater than 50% of time spent with , daughter and cousin discussing prognosis, treatment options, and goals of care.
[2017-05-16 17:16] LABS: PTT PATIENT 110.9 SECONDS (21.0-31.0)
[2017-05-16] MEDS: MAGNESIUM OXIDE 400 MG TAB PO SCH (20:08)
[2017-05-17] VITALS (30 sets, daily range): BP systolic 129–160; BP diastolic 59–82; PULSE 57–87; TEMP 36.7–36.9; O2SAT 92–100; Ht 165.1 cm; Wt 74.9 kg
[2017-05-17 00:42] LABS: PTT PATIENT 95.6 SECONDS (21.0-31.0)
[2017-05-17] MEDS: HEPARIN 25,000 UNIT/500ML D5W 500 ML IV SCH ×2 (01:57→16:35)
[2017-05-17] MEDS: VANCOMYCIN HCL 125 MG/2.5ML SOLN NG SCH ×3 (05:01→17:32)
[2017-05-17] MEDS: AZTREONAM IV 1,000 MG in DEXTROSE 5% 100ML 100 ML IV SCH ×3 (05:01→21:16)
[2017-05-17] MEDS: INSULIN ASPART 100 UNITS/ML 3 ML PEN SC SCH ×4 (05:08→18:00)
[2017-05-17 05:44] LABS: HEMOGLOBIN 7.3 g/dL (12.0-16.0); MEAN CELL VOLUME 86.8 fL (80-100); MEAN CORPUSCULAR HEMOGLOBIN 27.5 pg (25-34); MEAN CORPUSCULAR HGB CONC 31.7 g/dl (32-36); MEAN PLATELET VOLUME 8.4 fL (7.4-10.4); PLATELET COUNT 333 K/uL (130-400); RED CELL DISTRIBUTION WIDTH CV 16.8 % (11.5-14.5); WHITE BLOOD COUNT 12.98 K/uL (4.8-10.8)
[2017-05-17 06:27] LABS: CALCIUM 8.2 mg/dl (8.5-10.1); CREATININE 0.32 mg/dl (0.60-1.20); PHOSPHORUS 2.2 mg/dl (2.5-4.9); POTASSIUM 2.8 mmol/L (3.5-5.1)
[2017-05-17] MEDS ORDERED: POTASSIUM CHLORIDE 20 MEQ/15 ML UDC PO STA (06:37)
[2017-05-17] MEDS ORDERED: POTASSIUM PHOS 3 MMOL/1 ML INFUSION IV STA (06:37)
[2017-05-17] MEDS ORDERED: POTASSIUM PHOSPHATE INJ 15 MMOL in SODIUM CHLORIDE 0.9% 250ML 250 ML IV ONE (07:00)
--- NOTE | 2017-05-17 07:21 | DIAGNOSTIC IMAGING REPORT ---
CHEST ONE VIEW PORTABLE CLINICAL HISTORY: Respiratory failure. COMPARISON STUDY: Radiograph May 16, 2017. FINDINGS: Tip of nasogastric tube is below the lower aspect of the image but at least within the proximal stomach. The tip of the endotracheal tube is likely 3 cm above the gregorio. An additional tube projects to the right of the gregorio. This may be on rather than within the patient. A right subclavian central line remains in place but there is no pneumothorax. A small left pleural effusion with left basilar airspace opacity persists. There is mild right infrahilar opacity. There is no evidence for pulmonary edema. IMPRESSION: 1. Tip of endotracheal tube likely 3 cm above the gregorio. Apparent additional tube projecting just to the right of the gregorio is likely on rather than within the patient and may reflect the external portion of the endotracheal tube. This could be correlated clinically. 2. Small left pleural effusion with left basilar opacity which may reflect pneumonia or atelectasis. Mild right infrahilar opacity. Electronically signed by: Nolberto Alejandra M.D. 05/17/2017 7:19 AM Dictated Date/Time: 05/17/2017 7:12 AM
[2017-05-17] MEDS: MAGNESIUM SULFATE 1GM / D5W 1 GM in PREMIXED IN D5W 100 ML IV SCH ×2 (07:27→08:39)
[2017-05-17] MEDS: PROSOURCE NOCARB 30ML/PKT NG SCH (07:28)
[2017-05-17] MEDS: FAMOTIDINE IV INJ 20 MG in SYRINGE 3 ML IV SCH ×2 (07:31→21:16)
[2017-05-17 07:43] LABS: INR 1.1 (0.9-1.1); PTT PATIENT 63.9 SECONDS (21.0-31.0)
[2017-05-17] MEDS: INSULIN GLARGINE SOLOSTAR 100 UNITS/ML 3 ML PEN SC SCH ×2 (10:20→20:44)
[2017-05-17] MEDS ORDERED: MINERAL OIL 30 ML UDC PO ONE (10:45)
--- NOTE | 2017-05-17 11:30 | Palliative Care Progress Note ---
Palliative Care Progress Note Date of Service May 17, 2017. Subjective Pt evaluation today including: conversation w/ patient, physical exam, chart review, lab review, conversation w/ science consultant, review of inpatient medication list Pain: None on exam PO Intake: NG feeds Voiding: aguilar catheter in place Patient is awake and alert this a.m. was able to have a shannon discussion with her regarding decision needed regarding placement of G-tube and trach. Patient able to nod yes to some questions. No family at bedside, attended ICU rounds. Review of Systems Unable to obtain full review of systems, patient intubated Objective Vital Signs Date Time Temp Pulse Resp B/P (MAP) Pulse Ox O2 Delivery O2 Flow Rate FiO2 05/17/17 10:02 71 15 145/79 (101) 98 05/17/17 10:00 73 18 97 Mechanical Ventilator 40 05/17/17 09:02 73 17 154/70 (98) 99 05/17/17 09:00 65 15 98 05/17/17 08:01 36.9 83 16 157/71 (99) 98 Mechanical Ventilator 40 05/17/17 08:00 78 16 98 05/17/17 07:30 100 Mechanical Ventilator 40 05/17/17 07:30 40 05/17/17 07:05 40 05/17/17 07:02 64 14 143/65 (91) 98 05/17/17 06:02 36.7 70 15 141/74 (96) 96 Mechanical Ventilator 40 05/17/17 05:46 40 05/17/17 04:01 73 15 141/71 (94) 98 Mechanical Ventilator 40 05/17/17 04:00 40 05/17/17 04:00 99 Mechanical Ventilator 40 05/17/17 02:15 40 05/17/17 02:01 58 15 133/64 (87) 98 Mechanical Ventilator 40 05/17/17 00:01 36.7 74 16 146/78 (100) 96 Mechanical Ventilator 40 05/16/17 23:59 40 05/16/17 23:59 99 Mechanical Ventilator 40 05/16/17 23:00 40 05/16/17 22:01 62 17 132/68 (89) 98 Mechanical Ventilator 40 05/16/17 20:01 37.1 69 16 128/61 (83) 97 Mechanical Ventilator 40 05/16/17 20:00 40 05/16/17 20:00 40 05/16/17 20:00 99 Mechanical Ventilator 40 05/16/17 18:07 40 05/16/17 18:00 78 15 144/68 (93) 99 Mechanical Ventilator 40 05/16/17 18:00 40 05/16/17 17:00 82 17 140/67 (91) 99 Mechanical Ventilator 70 05/16/17 16:30 81 17 150/67 (94) 100 Mechanical Ventilator 70 05/16/17 16:16 67 17 131/61 (84) 99 Mechanical Ventilator 70 05/16/17 16:00 100 Mechanical Ventilator 70 05/16/17 16:00 70 05/16/17 16:00 37.0 75 16 120/61 (80) 99 Mechanical Ventilator 70 05/16/17 15:45 77 15 123/62 (82) 99 Mechanical Ventilator 05/16/17 15:31 79 15 128/60 (82) 99 Mechanical Ventilator 05/16/17 15:10 83 17 123/64 (83) 98 Mechanical Ventilator 05/16/17 15:01 86 16 129/64 (85) 98 Mechanical Ventilator 05/16/17 14:47 70 05/16/17 14:00 87 15 142/65 (90) 99 05/16/17 13:45 89 15 124/68 (86) 98 Mechanical Ventilator 05/16/17 13:30 89 16 133/68 (89) 98 Mechanical Ventilator 05/16/17 13:15 37.1 89 18 132/75 (94) 98 Mechanical Ventilator 05/16/17 13:04 128 05/16/17 13:01 100 05/16/17 13:00 89 17 132/71 (91) 99 Mechanical Ventilator 05/16/17 12:51 99 22 166/88 (114) 99 Mechanical Ventilator 05/16/17 12:46 101 24 162/86 (111) 98 Mechanical Ventilator 05/16/17 12:41 134 19 178/90 (119) 98 Mechanical Ventilator 05/16/17 12:37 135 21 187/98 (127) 91 Mechanical Ventilator 05/16/17 12:00 109 26 184/87 (119) 95 BiPAP 40 05/16/17 12:00 95 BiPAP 40 Physical Exam General Appearance: + pertinent finding (Patient placing her hand up to the trach tube, indicating she would like to have it removed, asked her to wait until her family could be present.) Eyes: EOMI ENT: hearing grossly normal Respiratory/Chest: no respiratory distress, + decreased breath sounds, + rhonchi Cardiovascular: regular rate, rhythm Abdomen: non tender, soft Extremities: + pertinent finding (Moderate contractures) Neurologic/Psychiatric: alert Skin: warm/dry Laboratory Results Last 24 Hours Test 05/16/17 11:54 05/16/17 16:33 05/16/17 18:04 05/16/17 20:12 Bedside Glucose 111 mg/dl 116 mg/dl 100 mg/dl Activated Partial Thromboplast Time 110.9 SECONDS Partial Thromboplastin Ratio 4.3 Test 05/16/17 23:56 05/17/17 00:10 05/17/17 05:05 05/17/17 05:26 Bedside Glucose 89 mg/dl 69 mg/dl 161 mg/dl Activated Partial Thromboplast Time 95.6 SECONDS Partial Thromboplastin Ratio 3.7 Test 05/17/17 05:31 White Blood Count 12.98 K/uL Red Blood Count 2.65 M/uL Hemoglobin 7.3 g/dL Hematocrit 23.0 % Mean Corpuscular Volume 86.8 fL Mean Corpuscular Hemoglobin 27.5 pg Mean Corpuscular Hemoglobin Concent 31.7 g/dl RDW Standard Deviation 53.0 fL RDW Coefficient of Variation 16.8 % Platelet Count 333 K/uL Mean Platelet Volume 8.4 fL Prothrombin Time 11.4 SECONDS Prothromb Time International Ratio 1.1 Activated Partial Thromboplast Time 63.9 SECONDS Partial Thromboplastin Ratio 2.5 Venous Blood pH 7.43 Venous Blood Partial Pressure CO2 44 mmHg Venous Blood Partial Pressure O2 39 mmHg Venous Blood HCO3 29 mmol/L Venous Blood Oxygen Saturation 72.0 % Venous Blood Base Excess 4.0 mEq/L Sodium Level 142 mmol/L Potassium Level 2.8 mmol/L Chloride Level 107 mmol/L Carbon Dioxide Level 26 mmol/L Anion Gap 9.0 mmol/L Blood Urea Nitrogen 6 mg/dl Creatinine 0.32 mg/dl Est Creatinine Clear Calc Drug Dose 173.5 ml/min Estimated GFR () 136.3 Estimated GFR (Non- 117.6 BUN/Creatinine Ratio 18.3 Random Glucose 144 mg/dl Calcium Level 8.2 mg/dl Phosphorus Level 2.2 mg/dl Magnesium Level 1.7 mg/dl Assessment and Plan (1) Dysphagia causing pulmonary aspiration with swallowing Status: Acute Assessment & Plan: Patient failed trial of scopolamine to help dry secretions. Patient not able to handle her own secretions, very weak cough. (2) Multiple sclerosis Status: Chronic Assessment & Plan: Disease is progressing to end-stage (3) UTI (urinary tract infection) Status: Acute Assessment & Plan: On IV antibiotics (4) Palliative care encounter Status: Acute Assessment & Plan: Met with family yesterday, wished to discuss with patient when she was more alert. Awaiting family arrival at bedside today. Patient's son is traveling from [place] and will likely not arrive until late this evening. Returned to room early this afternoon, had been in to visit but had to leave to take the car for repairs, patient's cousin Roxi, was present at bedside. Spoke again with patient regarding decisions that needed to be made, patient nodded yes she was very aware of needing to have a discussion with her regarding trach and G-tube. We will continue to follow and support patient and family with decision making. Palliative Performance Scale: 30 % Continued [facility] stay due to: other (Intubated, unable to handle oral secretions) Discharge planning: uncertain Counseling and Coordination Total time 35 minutes with greater than 50% of the time spent at bedside speaking with patient and reviewing treatment options.
--- NOTE | 2017-05-17 11:42 | Progress Note ---
Progress Note Date of Service May 17, 2017. Progress Note Pt desaturated on bipap into 70s yesterday afternoon and required intubation. Palliative care spoke with family yesterday in regards to tracheostomy and G- tube/J-tube placement. wanted sedation to wear off to speak with patient in regards to her wishes. Son traveling from [place] however will not be in until late this evening. Will await patient/family wishes on feeding tube placement. Once patient stable , hematocrit 30, and white count improves would consider J-tube placement. Please call when decision is made by patient/family.
[2017-05-17] MEDS: LACTATED RINGER'S 1000ML 1,000 ML IV SCH (13:18)
[2017-05-17] MEDS: PEPTAMEN 1.5 CAL 1000ML BAG NG SCH (13:50)
[2017-05-17] MEDS: FENTANYL CITRATE INJ 50 MCG/1 ML 2 ML VIAL IV PRN ×2 (16:45→17:32)
--- NOTE | 2017-05-17 17:04 | Critical Care Progress Note ---
Critical Care Progress Note Date of Service May 17, 2017. ICU Day ICU Day Number: 7; hospital day #[address] Streeter Subjective No overnight events Patient remains alert, interacting with questions appropriately Objective Physical exam on 05/12/2017, showed the patient is not in respiratory distress at the moment. She is tolerating room air and her O2 sat is 93%. Upper airway sounding. Crackles at the bases. S1-S2 regular without rhythm. Abdomen is distended but benign. Muscle contractions 4 extremities. Neurologically she is bedridden with minimal movement in the right upper extremity more than the left. Her physical exam on May 13 2017 showed vital signs consistent with heart rate of 140, blood pressure was 190/90, upper airway sounding bilateral crackles , S1-S2 tachycardic, abdomen is benign, no edema but she is contracted 4 extremities. Laboratory also pending and x-ray was reviewed which showed minimal infiltrate in the right lower lobe. Physical exam on May 14, 2017 revealed stable vital signs, O2 saturation 95% on nasal cannula, still having difficulty phonating, dysphagia continue to be a problem even to her own saliva. No stridor, bilateral crackles, S1-S2 regular rate and rhythm, abdomen is benign, trace edema, contracted limbs. I have reviewed her labs which showed slight hypokalemia. Physical exam on May 15, 2017 revealed vital signs currently are stable, S1- S2 regular rate and rhythm, O2 saturation is 97% on the BiPAP. Her labs has been reviewed which include INR of 5, potassium and phosphorus reported low. And replaced. Physical exam on May 16, 2017 revealed vital signs currently are stable, S1- S2 regular rate and rhythm, O2 saturation is 97% on nasal cannula, there is no respiratory distress. Physical exam on May 17, 2017 revealed vital signs currently are stable, S1- S2 regular rate and rhythm, O2 saturation is 97% on mechanical ventilator, there is no respiratory distress. Assessment & Plan 1. Recurrent aspiration secondary to advanced multiple sclerosis. The patient dysphagia resulted in cardiac arrest on an event earlier this week. Return back again to the ICU with similar event with hypoxia and acute respiratory failure. This has been an ongoing diagnosis for this patient. 2. Multiple sclerosis, advanced stage. 3. Dysphagia with recurrent aspiration. Also the patient has very poor cough reflex to the point that she cannot cough up her own secretions as well. 4. C. difficile colitis. 5. Aspiration pneumonia due to the above. 6. History of venous thromboembolic event on Coumadin as an outpatient Plan: 1. I have reviewed her laboratory and imaging myself. 2. INR within normal limits, continuing heparin infusion for thrombotic coverage 3. I will continue aztreonam for a total of 14 days of effective therapy 4. Continue with Vanco via the NG tube for C. difficile colitis. Continue for 7 days after discontinuation of additional antibiotics 5. Patient has not had a bowel movement, will start a bowel regimen after planning for possible J-tube is been finalized 6. Discontinuing IV fluids and increasing tube feeds. 7. Nutrition consult reviewed. 8. Glycopyrrolate discontinued at this time 9. Continue with Vanco p.o. 10. Replacement of her potassium. 11. Stop Flagyl. 12. I would not use scopolamine as it altered her mental status in the past. 13. Thoracic surgery deferring tracheostomy to ENT, ENT on leave of absence, we will address tracheostomy needs should they arise in the conversation the next 24-48 hours 14. Engage palliative care with regard to end-stage wishes. The outlook has transitioned from her initial agreement to aggressive measures, I believe the patient will likely need chronic ventilatory support given her significant neuromuscular disease 15. Case discussed with the staff on rounds. 16. Continue to follow serial H&H given drop status post heparin infusion for history of venous thromboembolism. Would consider filter placement if continuing aggressive measures Patient is critically ill due to acute respiratory failure and inability to handle respiratory secretions I have personally spent 45 minutes of critical care time in the direct management of this patient. This is a life/limb threatening event. This includes time spent evaluating patient, direct bedside care, chart review, placing orders, interpretation of diagnostic studies, discussion with consultants, patient, and/or family members regarding treatment decisions, as well as other required patient management activities. This time is exclusive of all separately billable procedures, and teaching time and separate from and in addition to any other critical care service time. Data Medications: Current Inpatient Medications Medications (Trade) Dose Ordered Sig/Dwain Route Start Time Stop Time Status Last Admin Dose Admin Glucose (Glucose 40% Gel) 15-30 GRAMS 15 GRAMS... UD PRN PO 05/03/17 18:30 06/02/17 18:29 Glucose (Glucose Chew Tab) 4-8 Tablets 4 Tabl... UD PRN PO 05/03/17 18:30 06/02/17 18:29 Dextrose (Dextrose 50% 50ML Syringe) 25-50ML OF 50% DW IV FOR... UD PRN IV 05/03/17 18:30 06/02/17 18:29 05/17/17 05:10 25 ML Glucagon (Glucagon Inj) 1 mg UD PRN SQ 05/03/17 18:30 06/02/17 18:29 Heparin Sodium (Porcine) (Heparin 10 Unit/ ml 5 ml Flush) 5 ml PRN PRN FLUSH 05/12/17 01:00 06/11/17 00:59 Insulin Aspart (novoLOG ASPART) Sliding Scale Q6H SC 05/12/17 18:00 06/08/17 06:29 05/15/17 11:54 2 UNITS Aztreonam 1000 mg/ Dextrose 110 ml @ 100 mls/hr Q8H IV 05/13/17 22:00 05/27/17 21:59 05/17/17 13:17 100 MLS/HR Vancomycin HCl (Vancomycin Oral Soln) 125 mg Q6 NG 05/14/17 00:00 06/03/17 21:59 05/17/17 13:18 125 MG Ipratropium Hamel (Atrovent 0.02% 0.5MG/2.5ML Neb) 0.5 mg Q4R PRN INH 05/14/17 20:15 06/13/17 20:14 Levalbuterol (Xopenex 1.25MG/ 0.5ML Neb) 1.25 mg Q4R PRN INH 05/14/17 20:15 06/13/17 20:14 Enteral Nutritional Formula (Peptamen 1.5) 1,000 ml UD NG 05/15/17 10:45 06/14/17 10:44 05/17/17 13:50 1,000 ML Enteral Nutritional Formula (Prosource No Carb) 30 ml DAILY NG 05/16/17 09:00 06/15/17 08:59 Heparin Sodium/ Dextrose 500 ml @ 16 mls/hr Q24H IV 05/16/17 09:45 06/15/17 09:44 05/17/17 16:35 16 MLS/HR Lactated Ringer's 1,000 ml @ 75 mls/hr [id number] IV 05/16/17 09:30 06/15/17 09:29 05/17/17 13:18 75 MLS/HR Famotidine 20 mg/ Syringe 5 ml @ 2.5 mls/min Q12 IV 05/16/17 10:30 06/15/17 10:29 05/17/17 07:31 2.5 MLS/MIN Magnesium Oxide (Mag-Ox Tab) 400 mg HS PO 05/16/17 21:00 06/15/17 20:59 05/16/17 20:08 400 MG Insulin Glargine (Lantus Solostar Pen) 5 units BID SC 05/17/17 09:00 06/04/17 20:59 05/17/17 10:20 5 UNITS Fentanyl Citrate (Fentanyl Inj) 50 mcg Q2H PRN IV 05/17/17 10:30 05/31/17 10:29 I & O: 24-Hour Column 05/18/17 07:59 Intake Total 1412 ml Output Total 1550 ml Balance -138 ml Vital Signs: Date Time Temp Pulse Resp B/P (MAP) Pulse Ox O2 Delivery O2 Flow Rate FiO2 05/17/17 16:00 36.9 86 19 137/65 (89) 99 05/17/17 15:01 73 15 145/69 (94) 97 Mechanical Ventilator 40 05/17/17 14:00 78 15 100 Mechanical Ventilator 40 05/17/17 13:27 40 05/17/17 13:02 72 26 138/80 (99) 98 05/17/17 13:00 62 16 100 05/17/17 12:01 36.9 77 18 142/79 (100) 100 Mechanical Ventilator 40 05/17/17 12:00 100 Mechanical Ventilator 40 05/17/17 12:00 77 18 98 05/17/17 12:00 40 05/17/17 11:35 40 05/17/17 11:01 57 14 136/64 (88) 100 05/17/17 11:00 59 16 99 05/17/17 10:02 71 15 145/79 (101) 98 05/17/17 10:00 73 18 97 Mechanical Ventilator 40 05/17/17 09:02 73 17 154/70 (98) 99 05/17/17 09:00 65 15 98 05/17/17 08:01 36.9 83 16 157/71 (99) 98 Mechanical Ventilator 40 05/17/17 08:00 78 16 98 05/17/17 08:00 Mechanical Ventilator 40 05/17/17 07:30 100 Mechanical Ventilator 40 05/17/17 07:30 40 05/17/17 07:05 40 05/17/17 07:02 64 14 143/65 (91) 98 05/17/17 06:02 36.7 70 15 141/74 (96) 96 Mechanical Ventilator 40 05/17/17 05:46 40 05/17/17 04:01 73 15 141/71 (94) 98 Mechanical Ventilator 40 05/17/17 04:00 40 05/17/17 04:00 99 Mechanical Ventilator 40 05/17/17 02:15 40 05/17/17 02:01 58 15 133/64 (87) 98 Mechanical Ventilator 40 05/17/17 00:01 36.7 74 16 146/78 (100) 96 Mechanical Ventilator 40 05/16/17 23:59 40 05/16/17 23:59 99 Mechanical Ventilator 40 05/16/17 23:00 40 05/16/17 22:01 62 17 132/68 (89) 98 Mechanical Ventilator 40 05/16/17 20:01 37.1 69 16 128/61 (83) 97 Mechanical Ventilator 40 05/16/17 20:00 40 05/16/17 20:00 40 05/16/17 20:00 99 Mechanical Ventilator 40 05/16/17 18:07 40 05/16/17 18:00 78 15 144/68 (93) 99 Mechanical Ventilator 40 05/16/17 18:00 40 05/16/17 17:00 82 17 140/67 (91) 99 Mechanical Ventilator 70 Laboratory Results: Last 24 Hours Test 05/16/17 18:04 05/16/17 20:12 05/16/17 23:56 05/17/17 00:10 Bedside Glucose 116 mg/dl 100 mg/dl 89 mg/dl Activated Partial Thromboplast Time 95.6 SECONDS Partial Thromboplastin Ratio 3.7 Test 05/17/17 05:05 05/17/17 05:26 05/17/17 05:31 05/17/17 11:40 Bedside Glucose 69 mg/dl 161 mg/dl 139 mg/dl White Blood Count 12.98 K/uL Red Blood Count 2.65 M/uL Hemoglobin 7.3 g/dL Hematocrit 23.0 % Mean Corpuscular Volume 86.8 fL Mean Corpuscular Hemoglobin 27.5 pg Mean Corpuscular Hemoglobin Concent 31.7 g/dl RDW Standard Deviation 53.0 fL RDW Coefficient of Variation 16.8 % Platelet Count 333 K/uL Mean Platelet Volume 8.4 fL Prothrombin Time 11.4 SECONDS Prothromb Time International Ratio 1.1 Activated Partial Thromboplast Time 63.9 SECONDS Partial Thromboplastin Ratio 2.5 Venous Blood pH 7.43 Venous Blood Partial Pressure CO2 44 mmHg Venous Blood Partial Pressure O2 39 mmHg Venous Blood HCO3 29 mmol/L Venous Blood Oxygen Saturation 72.0 % Venous Blood Base Excess 4.0 mEq/L Sodium Level 142 mmol/L Potassium Level 2.8 mmol/L Chloride Level 107 mmol/L Carbon Dioxide Level 26 mmol/L Anion Gap 9.0 mmol/L Blood Urea Nitrogen 6 mg/dl Creatinine 0.32 mg/dl Est Creatinine Clear Calc Drug Dose 173.5 ml/min Estimated GFR () 136.3 Estimated GFR (Non- 117.6 BUN/Creatinine Ratio 18.3 Random Glucose 144 mg/dl Calcium Level 8.2 mg/dl Phosphorus Level 2.2 mg/dl Magnesium Level 1.7 mg/dl
[2017-05-17] MEDS ORDERED: NURSING VERBAL MED ORDER ONE (17:45)
[2017-05-17] MEDS ORDERED: FENTANYL CITRATE INJ 50 MCG/1 ML 2 ML VIAL IV ONE (18:00)
--- NOTE | 2017-05-17 19:50 | Progress Note ---
Subjective Date of Service: May 17, 2017. Subjective Pt evaluation today including: conversation w/ patient, physical exam, lab review, review of studies, review of inpatient medication list Saw/examined the patient in room 105 family in the room currently intubated she is awake/alert significant amount of secretions Problem List Medical Problems: (1) Altered mental status Status: Acute (2) Bronchitis Status: Acute (3) Change in mental status Status: Acute (4) Decubitus ulcer Status: Acute (5) Dehydration Status: Acute (6) Diarrhea Status: Acute (7) Dyspnea Status: Acute (8) Elevated INR Status: Acute (9) Elevated INR Status: Acute (10) Elevated troponin Status: Acute (11) Fecal impaction Status: Acute (12) Pyelonephritis Status: Acute (13) Respiratory distress Status: Acute (14) Sepsis Status: Acute (15) Sepsis Status: Acute (16) UTI (urinary tract infection) Status: Acute Medications Current Inpatient Medications Medications (Trade) Dose Ordered Sig/Dwain Route Start Time Stop Time Status Last Admin Dose Admin Glucose (Glucose 40% Gel) 15-30 GRAMS 15 GRAMS... UD PRN PO 05/03/17 18:30 06/02/17 18:29 Glucose (Glucose Chew Tab) 4-8 Tablets 4 Tabl... UD PRN PO 05/03/17 18:30 06/02/17 18:29 Dextrose (Dextrose 50% 50ML Syringe) 25-50ML OF 50% DW IV FOR... UD PRN IV 05/03/17 18:30 06/02/17 18:29 05/17/17 05:10 25 ML Glucagon (Glucagon Inj) 1 mg UD PRN SQ 05/03/17 18:30 06/02/17 18:29 Heparin Sodium (Porcine) (Heparin 10 Unit/ ml 5 ml Flush) 5 ml PRN PRN FLUSH 05/12/17 01:00 06/11/17 00:59 Insulin Aspart (novoLOG ASPART) Sliding Scale Q6H SC 05/12/17 18:00 06/08/17 06:29 05/15/17 11:54 2 UNITS Aztreonam 1000 mg/ Dextrose 110 ml @ 100 mls/hr Q8H IV 05/13/17 22:00 05/27/17 21:59 05/17/17 13:17 100 MLS/HR Vancomycin HCl (Vancomycin Oral Soln) 125 mg Q6 NG 05/14/17 00:00 06/03/17 21:59 05/17/17 17:32 125 MG Ipratropium [place] (Atrovent 0.02% 0.5MG/2.5ML Neb) 0.5 mg Q4R PRN INH 05/14/17 20:15 06/13/17 20:14 Levalbuterol (Xopenex 1.25MG/ 0.5ML Neb) 1.25 mg Q4R PRN INH 05/14/17 20:15 06/13/17 20:14 Enteral Nutritional Formula (Peptamen 1.5) 1,000 ml UD NG 05/15/17 10:45 06/14/17 10:44 05/17/17 13:50 1,000 ML Enteral Nutritional Formula (Prosource No Carb) 30 ml DAILY NG 05/16/17 09:00 06/15/17 08:59 Heparin Sodium/ Dextrose 500 ml @ 16 mls/hr Q24H IV 05/16/17 09:45 06/15/17 09:44 05/17/17 16:35 16 MLS/HR Lactated Ringer's 1,000 ml @ 75 mls/hr [id number] IV 05/16/17 09:30 06/15/17 09:29 05/17/17 13:18 75 MLS/HR Famotidine 20 mg/ Syringe 5 ml @ 2.5 mls/min Q12 IV 05/16/17 10:30 06/15/17 10:29 05/17/17 07:31 2.5 MLS/MIN Magnesium Oxide (Mag-Ox Tab) 400 mg HS PO 05/16/17 21:00 06/15/17 20:59 05/16/17 20:08 400 MG Insulin Glargine (Lantus Solostar Pen) 5 units BID SC 05/17/17 09:00 06/04/17 20:59 05/17/17 10:20 5 UNITS Fentanyl Citrate (Fentanyl Inj) 50 mcg Q2H PRN IV 05/17/17 10:30 05/31/17 10:29 05/17/17 17:32 50 MCG Objective Vital Signs Date Time Temp Pulse Resp B/P (MAP) Pulse Ox O2 Delivery O2 Flow Rate FiO2 05/17/17 18:01 30 05/17/17 16:00 36.9 86 19 137/65 (89) 99 05/17/17 16:00 97 Mechanical Ventilator 40 05/17/17 15:01 73 15 145/69 (94) 97 Mechanical Ventilator 40 05/17/17 14:00 78 15 100 Mechanical Ventilator 40 05/17/17 13:27 40 05/17/17 13:02 72 26 138/80 (99) 98 05/17/17 13:00 62 16 100 05/17/17 12:01 36.9 77 18 142/79 (100) 100 Mechanical Ventilator 40 05/17/17 12:00 100 Mechanical Ventilator 40 05/17/17 12:00 77 18 98 05/17/17 12:00 40 05/17/17 11:35 40 05/17/17 11:01 57 14 136/64 (88) 100 05/17/17 11:00 59 16 99 05/17/17 10:02 71 15 145/79 (101) 98 05/17/17 10:00 73 18 97 Mechanical Ventilator 40 05/17/17 09:02 73 17 154/70 (98) 99 05/17/17 09:00 65 15 98 05/17/17 08:01 36.9 83 16 157/71 (99) 98 Mechanical Ventilator 40 05/17/17 08:00 78 16 98 05/17/17 08:00 Mechanical Ventilator 40 05/17/17 07:30 100 Mechanical Ventilator 40 05/17/17 07:30 40 05/17/17 07:05 40 05/17/17 07:02 64 14 143/65 (91) 98 05/17/17 06:02 36.7 70 15 141/74 (96) 96 Mechanical Ventilator 40 05/17/17 05:46 40 05/17/17 04:01 73 15 141/71 (94) 98 Mechanical Ventilator 40 05/17/17 04:00 40 05/17/17 04:00 99 Mechanical Ventilator 40 05/17/17 02:15 40 05/17/17 02:01 58 15 133/64 (87) 98 Mechanical Ventilator 40 05/17/17 00:01 36.7 74 16 146/78 (100) 96 Mechanical Ventilator 40 05/16/17 23:59 40 05/16/17 23:59 99 Mechanical Ventilator 40 05/16/17 23:00 40 05/16/17 22:01 62 17 132/68 (89) 98 Mechanical Ventilator 40 05/16/17 20:01 37.1 69 16 128/61 (83) 97 Mechanical Ventilator 40 05/16/17 20:00 40 05/16/17 20:00 40 05/16/17 20:00 99 Mechanical Ventilator 40 Physical Exam General Appearance: no apparent distress, + pertinent finding (intubated, secretions) Respiratory/Chest: + decreased breath sounds, + crackles Cardiovascular: regular rate, rhythm Extremities: normal inspection, no pedal edema Laboratory Results Last 24 Hours Test 05/16/17 20:12 05/16/17 23:56 05/17/17 00:10 05/17/17 05:05 Bedside Glucose 100 mg/dl 89 mg/dl 69 mg/dl Activated Partial Thromboplast Time 95.6 SECONDS Partial Thromboplastin Ratio 3.7 Test 05/17/17 05:26 05/17/17 05:31 05/17/17 11:40 05/17/17 19:09 Bedside Glucose 161 mg/dl 139 mg/dl 125 mg/dl White Blood Count 12.98 K/uL Red Blood Count 2.65 M/uL Hemoglobin 7.3 g/dL Hematocrit 23.0 % Mean Corpuscular Volume 86.8 fL Mean Corpuscular Hemoglobin 27.5 pg Mean Corpuscular Hemoglobin Concent 31.7 g/dl RDW Standard Deviation 53.0 fL RDW Coefficient of Variation 16.8 % Platelet Count 333 K/uL Mean Platelet Volume 8.4 fL Prothrombin Time 11.4 SECONDS Prothromb Time International Ratio 1.1 Activated Partial Thromboplast Time 63.9 SECONDS Partial Thromboplastin Ratio 2.5 Venous Blood pH 7.43 Venous Blood Partial Pressure CO2 44 mmHg Venous Blood Partial Pressure O2 39 mmHg Venous Blood HCO3 29 mmol/L Venous Blood Oxygen Saturation 72.0 % Venous Blood Base Excess 4.0 mEq/L Sodium Level 142 mmol/L Potassium Level 2.8 mmol/L Chloride Level 107 mmol/L Carbon Dioxide Level 26 mmol/L Anion Gap 9.0 mmol/L Blood Urea Nitrogen 6 mg/dl Creatinine 0.32 mg/dl Est Creatinine Clear Calc Drug Dose 173.5 ml/min Estimated GFR () 136.3 Estimated GFR (Non- 117.6 BUN/Creatinine Ratio 18.3 Random Glucose 144 mg/dl Calcium Level 8.2 mg/dl Phosphorus Level 2.2 mg/dl Magnesium Level 1.7 mg/dl Assessment and Plan 05/17 s/p intubation plan initially was for trach and PEG insertion palliative consulted freight coordinator input appreciated at this point, palliation may be the best course of action for now, continue secretion control, possible addition of atropine? S/P Intubation-05/16/17 Another attack of near respiratory failure 2 days before Has had a Code Purple called last evening and the patient was transferred to ICU. She did not require intubation and with aggressive suctioning her condition improved She is up for PEG tube placement and possible tracheostomy down the line. Appreciate Fast Food Cashier input Acute Respiratory Failure-Required Endotracheal Intubation -05/16/17 Awaiting further discussion with the family members for further management Cardiopulmonary Arrest Aspiration>Respiratory arrest followed by Cardiac arrest Required Intubation to maintain Saturation Transferred to ICU Bronchoscopy in ICU -a considerable amount of food materials sucked out Likely extubation today and resume oral medications thereafter Clinically better Transfer back to [facility] Has H/O recurrent aspiration with esophageal dysmotility before Another episode of Aspiration last evening Broad spectrum antibiotics added -now on Aztreonam High risk of aspiration of her own secretion Planning to have tracheostomy and J tube placement to minimize aspiration ENT and Surgery will be consulted-appreciate input Awaiting decision on Tracheostomy and J Tube placement SEPSIS Met criteria for sepsis per 2001 definition and current CMS guidelines ( UTI, tachycardia, leukocytosis). Elevated WBC and lactate on admission,Received IVF Urine cx grew [id number] Blood cx -negative Was On Rocephin and Vanco Vanco Discontinued 05/09 Rocephin was changed to ertapenem Completed 7 days course of IV abx (Rocephin later changed to ertapenem) Now on Broad spectrum antibiotics for recurrent aspiration Cdiff stool positive for C-diff since pt was NPO, she was starting on flagyl IV-stopped Continue PO vanco to complete 14 days monitor electrolytes No diarrhea NGT-Vancomycin Abdominal Tenderness Unchanged severe distention of the colon with gas and stool. Recommend disimpaction. Pt had 2 BM today Will give Dulcolax 1 repeat xray in am-decreasing fecal load Bowel is moving GI bleed INR increased to 10 Received vit k Hgb stable at 9.5 Resume Coumadin 2.5 mg INR 5.3on 3/25-receiving Vit K Will monitor ACUTE KIDNEY INJURY Serum creatinine 1.3 compared to recent baseline of 0.6-0.8. Creatine stable D/C IVF Monitor BMP. Resolved ELEVATED TROPONIN Serum troponin = 0.343. EKG shows sinus rhythm, nonspecific T-wave changes. Serum troponin trending down to 0.13 Asymptomatic Hypokalemia K replaced Monitor BMP Will need more replacement CONSTIPATION CT abdomen CT abd showed massive amount of stool within the rectum and moderate to large amount of stool within the colon consistent with significant fecal impaction. No bowel obstruction had diarrhea/cdiff Moving bowel DM TYPE 2 Hba1c 6.8 ( on 05/04/17) Lantus + NovoLog per protocol. MULTIPLE SCLEROSIS Advanced disease. Aspiration precautions. Symptomatic management. URINARY RETENTION Secondary to multiple sclerosis. Continue indwelling Lemos catheter Will change Lemos cath ABDOMINAL MASS Previously noted and evaluated by Surgery. Resection not pursued due to advanced MS and multiple comorbidities. DECUBITUS ULCERS Avoid pressure. Local care. Continue daily wound care VTE PROPHYLAXIS / HISTORY OF PULMONARY EMBOLISM Was on Coumadin and changed to Lovenox Now on IV Heparin RESUSCITATION STATUS::FULL CODE DISPOSITION Has had a long discussion with the and the daughter yesterday, 05/13 in the evening. Pros and cons of PEG tube/jejunal tube placement discussed. They wanted to have PEG tube placed. She is reverted back to full resuscitation status. Has had a Code Purple called last evening and the patient was transferred to ICU. She did not require intubation and with aggressive suctioning her condition improved. She will be for PEG tube placement and possible tracheostomy down the line. Continued [facility] stay due to: other (Intubated, unable to handle oral secretions) Discharge planning: uncertain
[2017-05-17] MEDS: MAGNESIUM OXIDE 400 MG TAB PO SCH (20:43)
[2017-05-18] VITALS (14 sets, daily range): BP systolic 103–143; BP diastolic 51–77; PULSE 75–92; TEMP 36.9–37.3; O2SAT 92–98
[2017-05-18] MEDS: FENTANYL CITRATE INJ 50 MCG/1 ML 2 ML VIAL IV PRN (00:31)
[2017-05-18] MEDS: VANCOMYCIN HCL 125 MG/2.5ML SOLN NG SCH ×4 (00:31→23:52)
[2017-05-18 05:42] LABS: HEMATOCRIT 23.2 % (37-47); HEMOGLOBIN 7.5 g/dL (12.0-16.0); MEAN CELL VOLUME 85.9 fL (80-100); MEAN CORPUSCULAR HEMOGLOBIN 27.8 pg (25-34); MEAN CORPUSCULAR HGB CONC 32.3 g/dl (32-36); MEAN PLATELET VOLUME 8.3 fL (7.4-10.4); PLATELET COUNT 362 K/uL (130-400); RED CELL DISTRIBUTION WIDTH CV 16.9 % (11.5-14.5); RED CELL DISTRIBUTION WIDTH SD 52.4 fL (36.4-46.3); WHITE BLOOD COUNT 10.09 K/uL (4.8-10.8)
[2017-05-18 06:12] LABS: CALCIUM 8.4 mg/dl (8.5-10.1); CREATININE 0.4 mg/dl (0.60-1.20); POTASSIUM 3.4 mmol/L (3.5-5.1)
[2017-05-18 06:18] LABS: PHOSPHORUS 2.6 mg/dl (2.5-4.9)
[2017-05-18] MEDS: AZTREONAM IV 1,000 MG in DEXTROSE 5% 100ML 100 ML IV SCH ×2 (06:19→14:04)
[2017-05-18 06:25] LABS: PTT PATIENT 67.9 SECONDS (21.0-31.0)
[2017-05-18] MEDS: INSULIN ASPART 100 UNITS/ML 3 ML PEN SC SCH ×4 (06:30→23:54)
[2017-05-18] MEDS: LACTATED RINGER'S 1000ML 1,000 ML IV SCH (07:20)
--- NOTE | 2017-05-18 07:37 | DIAGNOSTIC IMAGING REPORT ---
CHEST ONE VIEW PORTABLE CLINICAL HISTORY: Respiratory Failure COMPARISON STUDY: 05/17/2017 FINDINGS: There is a nasogastric tube within the stomach. There is an endotracheal tube 7.7 cm above the gregorio. The cardiac and mediastinal contours remain stable. There is a small left pleural effusion. There is left lower lobe atelectasis/consolidation.[ The previous identified right-sided central venous catheter has been removed. There is a stable nonspecific right infrahilar opacity. IMPRESSION: 1. Left lower lobe atelectasis/consolidation. Stable nonspecific right infrahilar opacity 2. Small left pleural effusion 3. Endotracheal tube 7.7 cm above the gregorio. Electronically signed by: Red Mckinney M.D. 05/18/2017 7:36 AM Dictated Date/Time: 05/18/2017 7:34 AM
[2017-05-18] MEDS: POTASSIUM CHLORIDE 20 MEQ/15 ML UDC PO SCH ×3 (07:48→14:25)
[2017-05-18] MEDS: PROSOURCE NOCARB 30ML/PKT NG SCH (07:49)
[2017-05-18] MEDS: FAMOTIDINE IV INJ 20 MG in SYRINGE 3 ML IV SCH ×2 (07:49→21:00)
[2017-05-18] MEDS ORDERED: DOCUSATE SODIUM 100 MG CAP PO PRN (08:30)
[2017-05-18] MEDS ORDERED: MINERAL OIL 30 ML UDC PO ONE (08:30)
[2017-05-18] MEDS: INSULIN GLARGINE SOLOSTAR 100 UNITS/ML 3 ML PEN SC SCH ×2 (09:05→21:00)
[2017-05-18] MEDS ORDERED: NURSING VERBAL MED ORDER ONE (09:30)
[2017-05-18] MEDS: DOCUSATE SODIUM 100 MG/10 ML UDC PO PRN (10:39)
[2017-05-18] MEDS: MAGNESIUM OXIDE 400 MG TAB PO SCH (21:00)
[2017-05-18] MEDS: PEPTAMEN 1.5 CAL 1000ML BAG NG SCH (22:47)
[2017-05-19] VITALS (10 sets, daily range): BP systolic 108–177; BP diastolic 55–93; PULSE 72–126; TEMP 36.9–37.6; O2SAT 92–97
[2017-05-19] MEDS: HEPARIN 25,000 UNIT/500ML D5W 500 ML IV SCH (00:43)
[2017-05-19] MEDS: AZTREONAM IV 1,000 MG in DEXTROSE 5% 100ML 100 ML IV SCH ×2 (05:24→13:51)
[2017-05-19] MEDS: VANCOMYCIN HCL 125 MG/2.5ML SOLN NG SCH ×2 (05:24→11:31)
[2017-05-19] MEDS: INSULIN ASPART 100 UNITS/ML 3 ML PEN SC SCH ×4 (05:48→21:42)
[2017-05-19 06:16] LABS: HEMATOCRIT 22.8 % (37-47); HEMOGLOBIN 7.2 g/dL (12.0-16.0); MEAN CELL VOLUME 86.7 fL (80-100); MEAN CORPUSCULAR HEMOGLOBIN 27.4 pg (25-34); MEAN CORPUSCULAR HGB CONC 31.6 g/dl (32-36); MEAN PLATELET VOLUME 8.8 fL (7.4-10.4); NUCLEATED RED BLOOD CELL ABS 0.05 K/uL (0-0); PLATELET COUNT 352 K/uL (130-400); RED CELL DISTRIBUTION WIDTH CV 16.8 % (11.5-14.5); RED CELL DISTRIBUTION WIDTH SD 52.9 fL (36.4-46.3); WHITE BLOOD COUNT 9.63 K/uL (4.8-10.8)
[2017-05-19 06:27] LABS: INR 1.1 (0.9-1.1)
[2017-05-19] MEDS: FENTANYL CITRATE INJ 50 MCG/1 ML 2 ML VIAL IV PRN (06:31)
[2017-05-19 06:47] LABS: CALCIUM 8.5 mg/dl (8.5-10.1); CREATININE 0.45 mg/dl (0.60-1.20); PHOSPHORUS 2.3 mg/dl (2.5-4.9); POTASSIUM 4.1 mmol/L (3.5-5.1)
--- NOTE | 2017-05-19 07:20 | DIAGNOSTIC IMAGING REPORT ---
CHEST ONE VIEW PORTABLE CLINICAL HISTORY: resp Failure dyspnea COMPARISON STUDY: 05/18/2017 FINDINGS: Endotracheal tube 7 cm above the gregorio. Unchanging parenchymal infiltrate/consolidative change left lung base. Small right infrahilar infiltrate also unchanged. Nasogastric tube within the stomach. IMPRESSION: 1. Unchanging parenchymal infiltrate/consolidative change left lung base. 2. Small right infrahilar infiltrate also unchanged. 3. Endotracheal tube 7 cm above the gregorio. 4. Nasogastric tube within the stomach. The above report was generated using voice recognition software. It may contain grammatical, syntax or spelling errors. Electronically signed by: Jewel Vigil M.D. 05/19/2017 7:19 AM Dictated Date/Time: 05/19/2017 7:17 AM
--- NOTE | 2017-05-19 07:35 | Progress Note ---
Subjective Date of Service: May 19, 2017. LATE ENTRY FOR MAY 18, 2017 Subjective Pt evaluation today including: conversation w/ patient, physical exam, lab review, review of studies, review of inpatient medication list Saw/examined the patient in room 105 on May 18, 2017 currently intubated, but doing well overall. As per nursing, her son from [place] has come over. Problem List Medical Problems: (1) Altered mental status Status: Acute (2) Bronchitis Status: Acute (3) Change in mental status Status: Acute (4) Decubitus ulcer Status: Acute (5) Dehydration Status: Acute (6) Diarrhea Status: Acute (7) Dyspnea Status: Acute (8) Elevated INR Status: Acute (9) Elevated INR Status: Acute (10) Elevated troponin Status: Acute (11) Fecal impaction Status: Acute (12) Pyelonephritis Status: Acute (13) Respiratory distress Status: Acute (14) Sepsis Status: Acute (15) Sepsis Status: Acute (16) UTI (urinary tract infection) Status: Acute Medications Current Inpatient Medications Medications (Trade) Dose Ordered Sig/Dwain Route Start Time Stop Time Status Last Admin Dose Admin Glucose (Glucose 40% Gel) 15-30 GRAMS 15 GRAMS... UD PRN PO 05/03/17 18:30 06/02/17 18:29 Glucose (Glucose Chew Tab) 4-8 Tablets 4 Tabl... UD PRN PO 05/03/17 18:30 06/02/17 18:29 Dextrose (Dextrose 50% 50ML Syringe) 25-50ML OF 50% DW IV FOR... UD PRN IV 05/03/17 18:30 06/02/17 18:29 05/17/17 05:10 25 ML Glucagon (Glucagon Inj) 1 mg UD PRN SQ 05/03/17 18:30 06/02/17 18:29 Heparin Sodium (Porcine) (Heparin 10 Unit/ ml 5 ml Flush) 5 ml PRN PRN FLUSH 05/12/17 01:00 06/11/17 00:59 Insulin Aspart (novoLOG ASPART) Sliding Scale Q6H SC 05/12/17 18:00 06/08/17 06:29 05/19/17 05:48 4 UNITS Aztreonam 1000 mg/ Dextrose 110 ml @ 100 mls/hr Q8H IV 05/13/17 22:00 05/27/17 21:59 05/19/17 05:24 100 MLS/HR Vancomycin HCl (Vancomycin Oral Soln) 125 mg Q6 NG 05/14/17 00:00 06/03/17 21:59 05/19/17 05:24 125 MG Ipratropium [place] (Atrovent 0.02% 0.5MG/2.5ML Neb) 0.5 mg Q4R PRN INH 05/14/17 20:15 06/13/17 20:14 Levalbuterol (Xopenex 1.25MG/ 0.5ML Neb) 1.25 mg Q4R PRN INH 05/14/17 20:15 06/13/17 20:14 Enteral Nutritional Formula (Peptamen 1.5) 1,000 ml UD NG 05/15/17 10:45 06/14/17 10:44 05/18/17 22:47 1,000 ML Enteral Nutritional Formula (Prosource No Carb) 30 ml DAILY NG 05/16/17 09:00 06/15/17 08:59 05/18/17 07:49 30 ML Heparin Sodium/ Dextrose 500 ml @ 16 mls/hr Q24H IV 05/16/17 09:45 06/15/17 09:44 05/19/17 00:43 16 MLS/HR Famotidine 20 mg/ Syringe 5 ml @ 2.5 mls/min Q12 IV 05/16/17 10:30 06/15/17 10:29 05/18/17 07:49 2.5 MLS/MIN Magnesium Oxide (Mag-Ox Tab) 400 mg HS PO 05/16/17 21:00 06/15/17 20:59 05/17/17 20:43 400 MG Fentanyl Citrate (Fentanyl Inj) 50 mcg Q2H PRN IV 05/17/17 10:30 05/31/17 10:29 05/19/17 06:31 50 MCG Insulin Glargine (Lantus Solostar Pen) BID SC 05/18/17 09:00 06/17/17 08:59 05/18/17 09:05 10 UNITS Docusate Sodium (coLACE SYRUP) 100 mg BID PRN PO 05/18/17 09:30 06/17/17 09:29 05/18/17 10:39 100 MG Objective Vital Signs Date Time Temp Pulse Resp B/P (MAP) Pulse Ox O2 Delivery O2 Flow Rate FiO2 05/19/17 07:10 30 05/19/17 06:00 78 18 121/68 (85) 95 30 05/19/17 05:28 30 05/19/17 04:00 94 Mechanical Ventilator 30 05/19/17 04:00 30 05/19/17 04:00 36.9 78 16 108/57 (74) 92 Mechanical Ventilator 30 05/19/17 02:00 30 05/19/17 02:00 75 18 122/60 (80) 96 Mechanical Ventilator 30 05/19/17 00:01 37.5 94 15 151/62 (91) 93 Mechanical Ventilator 30 05/18/17 23:59 30 05/18/17 23:59 94 Mechanical Ventilator 30 05/18/17 22:22 30 05/18/17 19:15 30 05/18/17 16:51 30 05/18/17 16:03 30 05/18/17 16:03 97 Mechanical Ventilator 30 05/18/17 16:00 37.2 84 25 142/77 (98) 98 Mechanical Ventilator 30 05/18/17 15:00 84 15 130/72 (91) 94 05/18/17 15:00 30 05/18/17 12:00 Mechanical Ventilator 30 05/18/17 12:00 30 05/18/17 12:00 37.1 84 16 137/77 (97) 97 Mechanical Ventilator 30 05/18/17 11:24 30 05/18/17 10:00 75 16 103/51 (68) 95 Mechanical Ventilator 30 05/18/17 08:00 Mechanical Ventilator 30 05/18/17 08:00 37.1 79 16 118/59 (78) 95 Mechanical Ventilator 30 05/18/17 08:00 Mechanical Ventilator 30 05/18/17 08:00 30 05/18/17 07:43 30 Physical Exam General Appearance: no apparent distress, + pertinent finding (currently intubated) Respiratory/Chest: lungs clear, normal breath sounds, no respiratory distress, no accessory muscle use Cardiovascular: regular rate, rhythm, no edema, no murmur Neurologic/Psychiatric: alert, + pertinent finding (difficult to converse due to intubation) Laboratory Results Last 24 Hours Test 05/18/17 12:21 05/18/17 18:30 05/18/17 21:00 05/18/17 23:44 Bedside Glucose 179 mg/dl 210 mg/dl 198 mg/dl 217 mg/dl Test 05/19/17 05:30 05/19/17 05:53 Bedside Glucose 236 mg/dl White Blood Count 9.63 K/uL Red Blood Count 2.63 M/uL Hemoglobin 7.2 g/dL Hematocrit 22.8 % Mean Corpuscular Volume 86.7 fL Mean Corpuscular Hemoglobin 27.4 pg Mean Corpuscular Hemoglobin Concent 31.6 g/dl RDW Standard Deviation 52.9 fL RDW Coefficient of Variation 16.8 % Platelet Count 352 K/uL Mean Platelet Volume 8.8 fL Nucleated RBC Absolute Count (auto) 0.05 K/uL Nucleated Red Blood Cells % 0.5 % Prothrombin Time 11.4 SECONDS Prothromb Time International Ratio 1.1 Activated Partial Thromboplast Time 56.0 SECONDS Partial Thromboplastin Ratio 2.2 Venous Blood pH 7.47 Venous Blood Partial Pressure CO2 38 mmHg Venous Blood Partial Pressure O2 46 mmHg Venous Blood HCO3 27 mmol/L Venous Blood Oxygen Saturation 81.3 % Venous Blood Base Excess 3.5 mEq/L Sodium Level 136 mmol/L Potassium Level 4.1 mmol/L Chloride Level 105 mmol/L Carbon Dioxide Level 25 mmol/L Anion Gap 6.0 mmol/L Blood Urea Nitrogen 9 mg/dl Creatinine 0.45 mg/dl Est Creatinine Clear Calc Drug Dose 126.2 ml/min Estimated GFR () 121.9 Estimated GFR (Non- 105.1 BUN/Creatinine Ratio 19.0 Random Glucose 226 mg/dl Calcium Level 8.5 mg/dl Phosphorus Level 2.3 mg/dl Magnesium Level 2.1 mg/dl Assessment and Plan 05/18 s/p intubated clinically stable no issues to note today WBC resolved as of 05/18 plan for possible home hospice? janitor caretaker and palliative care on board 05/17 s/p intubation plan initially was for trach and PEG insertion palliative consulted janitor caretaker input appreciated at this point, palliation may be the best course of action for now, continue secretion control, possible addition of atropine? S/P Intubation-05/16/17 Another attack of near respiratory failure 2 days before Has had a Code Purple called last evening and the patient was transferred to ICU. She did not require intubation and with aggressive suctioning her condition improved She is up for PEG tube placement and possible tracheostomy down the line. Appreciate Barrel Dedenting Machine Operator input Acute Respiratory Failure-Required Endotracheal Intubation -05/16/17 Awaiting further discussion with the family members for further management Cardiopulmonary Arrest Aspiration>Respiratory arrest followed by Cardiac arrest Required Intubation to maintain Saturation Transferred to ICU Bronchoscopy in ICU -a considerable amount of food materials sucked out Likely extubation today and resume oral medications thereafter Clinically better Transfer back to [facility] Has H/O recurrent aspiration with esophageal dysmotility before Another episode of Aspiration last evening Broad spectrum antibiotics added -now on Aztreonam High risk of aspiration of her own secretion Planning to have tracheostomy and J tube placement to minimize aspiration ENT and Surgery will be consulted-appreciate input Awaiting decision on Tracheostomy and J Tube placement SEPSIS Met criteria for sepsis per 2001 definition and current CMS guidelines ( UTI, tachycardia, leukocytosis). Elevated WBC and lactate on admission,Received IVF Urine cx grew [id number] Blood cx -negative Was On Rocephin and Vanco Vanco Discontinued 05/09 Rocephin was changed to ertapenem Completed 7 days course of IV abx (Rocephin later changed to ertapenem) Now on Broad spectrum antibiotics for recurrent aspiration Cdiff stool positive for C-diff since pt was NPO, she was starting on flagyl IV-stopped Continue PO vanco to complete 14 days monitor electrolytes No diarrhea NGT-Vancomycin Abdominal Tenderness Unchanged severe distention of the colon with gas and stool. Recommend disimpaction. Pt had 2 BM today Will give Dulcolax 1 repeat xray in am-decreasing fecal load Bowel is moving GI bleed INR increased to 10 Received vit k Hgb stable at 9.5 Resume Coumadin 2.5 mg INR 5.3on 05/15-receiving Vit K Will monitor ACUTE KIDNEY INJURY Serum creatinine 1.3 compared to recent baseline of 0.6-0.8. Creatine stable D/C IVF Monitor BMP. Resolved ELEVATED TROPONIN Serum troponin = 0.343. EKG shows sinus rhythm, nonspecific T-wave changes. Serum troponin trending down to 0.13 Asymptomatic Hypokalemia K replaced Monitor BMP Will need more replacement CONSTIPATION CT abdomen CT abd showed massive amount of stool within the rectum and moderate to large amount of stool within the colon consistent with significant fecal impaction. No bowel obstruction had diarrhea/cdiff Moving bowel DM TYPE 2 Hba1c 6.8 ( on 05/04/17) Lantus + NovoLog per protocol. MULTIPLE SCLEROSIS Advanced disease. Aspiration precautions. Symptomatic management. URINARY RETENTION Secondary to multiple sclerosis. Continue indwelling Lemos catheter Will change Lemos cath ABDOMINAL MASS Previously noted and evaluated by Surgery. Resection not pursued due to advanced MS and multiple comorbidities. DECUBITUS ULCERS Avoid pressure. Local care. Continue daily wound care VTE PROPHYLAXIS / HISTORY OF PULMONARY EMBOLISM Was on Coumadin and changed to Lovenox Now on IV Heparin RESUSCITATION STATUS::FULL CODE DISPOSITION Has had a long discussion with the and the daughter yesterday, 05/13 in the evening. Pros and cons of PEG tube/jejunal tube placement discussed. They wanted to have PEG tube placed. She is reverted back to full resuscitation status. Has had a Code Purple called last evening and the patient was transferred to ICU. She did not require intubation and with aggressive suctioning her condition improved. She will be for PEG tube placement and possible tracheostomy down the line. Continued [facility] stay due to: other (Intubated, unable to handle oral secretions) Discharge planning: uncertain
--- NOTE | 2017-05-19 07:43 | Critical Care Progress Note ---
Critical Care Progress Note Date of Service May 18, 2017. This is a delayed chart entry secondary to [facility] downtime preventing inclusion of the daily note. ICU Day ICU Day Number: 8; hospital day #[address] Streeter Subjective No overnight events Patient remains alert, interacting with questions appropriately Objective Physical exam on 05/12/2017, showed the patient is not in respiratory distress at the moment. She is tolerating room air and her O2 sat is 93%. Upper airway sounding. Crackles at the bases. S1-S2 regular without rhythm. Abdomen is distended but benign. Muscle contractions 4 extremities. Neurologically she is bedridden with minimal movement in the right upper extremity more than the left. Her physical exam on May 13 2017 showed vital signs consistent with heart rate of 140, blood pressure was 190/90, upper airway sounding bilateral crackles , S1-S2 tachycardic, abdomen is benign, no edema but she is contracted 4 extremities. Laboratory also pending and x-ray was reviewed which showed minimal infiltrate in the right lower lobe. Physical exam on May 14, 2017 revealed stable vital signs, O2 saturation 95% on nasal cannula, still having difficulty phonating, dysphagia continue to be a problem even to her own saliva. No stridor, bilateral crackles, S1-S2 regular rate and rhythm, abdomen is benign, trace edema, contracted limbs. I have reviewed her labs which showed slight hypokalemia. Physical exam on May 15, 2017 revealed vital signs currently are stable, S1- S2 regular rate and rhythm, O2 saturation is 97% on the BiPAP. Her labs has been reviewed which include INR of 5, potassium and phosphorus reported low. And replaced. Physical exam on May 16, 2017 revealed vital signs currently are stable, S1- S2 regular rate and rhythm, O2 saturation is 97% on nasal cannula, there is no respiratory distress. Physical exam on May 17, 2017 revealed vital signs currently are stable, S1- S2 regular rate and rhythm, O2 saturation is 97% on mechanical ventilator, there is no respiratory distress. Physical exam on May 18, 2017 revealed vital signs currently are stable, S1- S2 regular rate and rhythm, O2 saturation is 97% on mechanical ventilator, there is no respiratory distress. Assessment & Plan 1. Recurrent aspiration secondary to advanced multiple sclerosis. The patient dysphagia resulted in cardiac arrest on an event earlier this week. Return back again to the ICU with similar event with hypoxia and acute respiratory failure. This has been an ongoing diagnosis for this patient. 2. Multiple sclerosis, advanced stage. 3. Dysphagia with recurrent aspiration. Also the patient has very poor cough reflex to the point that she cannot cough up her own secretions as well. 4. C. difficile colitis. 5. Aspiration pneumonia due to the above. 6. History of venous thromboembolic event on Coumadin as an outpatient Plan: 1. I have reviewed her laboratory and imaging myself. 2. INR within normal limits, continuing heparin infusion for thrombotic coverage 3. I will continue aztreonam for a total of 14 days of effective therapy 4. Continue with Vanco via the NG tube for C. difficile colitis. Continue for 7 days after discontinuation of additional antibiotics 5. Patient has not had a bowel movement, will start a bowel regimen after planning for possible J-tube is been finalized 6. Discontinuing IV fluids and increasing tube feeds. 7. Nutrition consult reviewed. 8. Glycopyrrolate discontinued at this time 9. Continue with Vanco p.o. 10. Replacement of her potassium. 11. Stop Flagyl. 12. I would not use scopolamine as it altered her mental status in the past. 13. Thoracic surgery deferring tracheostomy to ENT, ENT on leave of absence, we will address tracheostomy needs should they arise in the conversation the next 24-48 hours 14. Engage palliative care with regard to end-stage wishes. The outlook has transitioned from her initial agreement to aggressive measures, I believe the patient will likely need chronic ventilatory support given her significant neuromuscular disease 15. Case discussed with the staff on rounds. 16. Continue to follow serial H&H given drop status post heparin infusion for history of venous thromboembolism. Would consider filter placement if continuing aggressive measures Patient is critically ill due to acute respiratory failure and inability to handle respiratory secretions An extensive discussion with the patient's , daughter, son regarding goals of care. There are several family members that are coming in from outlying institutions. The family actively questions her amount of understanding and ability to rationalize the information she has been given, they report that she kind of waxes and wanes with her mental status. Our goal will be tomorrow at around 1:59 in the afternoon to have a extensive discussion including the patient with regards of goals of care. Everyone is in agreement that the long-standing belief is that they would not want chronic ventilator support. I have personally spent 35 minutes of critical care time in the direct management of this patient. This is a life/limb threatening event. This includes time spent evaluating patient, direct bedside care, chart review, placing orders, interpretation of diagnostic studies, discussion with consultants, patient, and/or family members regarding treatment decisions, as well as other required patient management activities. This time is exclusive of all separately billable procedures, and teaching time and separate from and in addition to any other critical care service time. Data Medications: Current Inpatient Medications Medications (Trade) Dose Ordered Sig/Dwain Route Start Time Stop Time Status Last Admin Dose Admin Glucose (Glucose 40% Gel) 15-30 GRAMS 15 GRAMS... UD PRN PO 05/03/17 18:30 06/02/17 18:29 Glucose (Glucose Chew Tab) 4-8 Tablets 4 Tabl... UD PRN PO 05/03/17 18:30 06/02/17 18:29 Dextrose (Dextrose 50% 50ML Syringe) 25-50ML OF 50% DW IV FOR... UD PRN IV 05/03/17 18:30 06/02/17 18:29 05/17/17 05:10 25 ML Glucagon (Glucagon Inj) 1 mg UD PRN SQ 05/03/17 18:30 06/02/17 18:29 Heparin Sodium (Porcine) (Heparin 10 Unit/ ml 5 ml Flush) 5 ml PRN PRN FLUSH 05/12/17 01:00 06/11/17 00:59 Insulin Aspart (novoLOG ASPART) Sliding Scale Q6H SC 05/12/17 18:00 06/08/17 06:29 05/19/17 05:48 4 UNITS Aztreonam 1000 mg/ Dextrose 110 ml @ 100 mls/hr Q8H IV 05/13/17 22:00 05/27/17 21:59 05/19/17 05:24 100 MLS/HR Vancomycin HCl (Vancomycin Oral Soln) 125 mg Q6 NG 05/14/17 00:00 06/03/17 21:59 05/19/17 05:24 125 MG Ipratropium [place] (Atrovent 0.02% 0.5MG/2.5ML Neb) 0.5 mg Q4R PRN INH 05/14/17 20:15 06/13/17 20:14 Levalbuterol (Xopenex 1.25MG/ 0.5ML Neb) 1.25 mg Q4R PRN INH 05/14/17 20:15 06/13/17 20:14 Enteral Nutritional Formula (Peptamen 1.5) 1,000 ml UD NG 05/15/17 10:45 06/14/17 10:44 05/18/17 22:47 1,000 ML Enteral Nutritional Formula (Prosource No Carb) 30 ml DAILY NG 05/16/17 09:00 06/15/17 08:59 05/18/17 07:49 30 ML Heparin Sodium/ Dextrose 500 ml @ 16 mls/hr Q24H IV 05/16/17 09:45 06/15/17 09:44 05/19/17 00:43 16 MLS/HR Famotidine 20 mg/ Syringe 5 ml @ 2.5 mls/min Q12 IV 05/16/17 10:30 06/15/17 10:29 05/18/17 07:49 2.5 MLS/MIN Magnesium Oxide (Mag-Ox Tab) 400 mg HS PO 05/16/17 21:00 06/15/17 20:59 05/17/17 20:43 400 MG Fentanyl Citrate (Fentanyl Inj) 50 mcg Q2H PRN IV 05/17/17 10:30 05/31/17 10:29 05/19/17 06:31 50 MCG Insulin Glargine (Lantus Solostar Pen) BID SC 05/18/17 09:00 06/17/17 08:59 05/18/17 09:05 10 UNITS Docusate Sodium (coLACE SYRUP) 100 mg BID PRN PO 05/18/17 09:30 06/17/17 09:29 05/18/17 10:39 100 MG Vital Signs: Date Time Temp Pulse Resp B/P (MAP) Pulse Ox O2 Delivery O2 Flow Rate FiO2 05/19/17 07:10 30 05/19/17 06:00 78 18 121/68 (85) 95 30 05/19/17 05:28 30 05/19/17 04:00 94 Mechanical Ventilator 30 05/19/17 04:00 30 05/19/17 04:00 36.9 78 16 108/57 (74) 92 Mechanical Ventilator 30 05/19/17 02:00 30 05/19/17 02:00 75 18 122/60 (80) 96 Mechanical Ventilator 30 05/19/17 00:01 37.5 94 15 151/62 (91) 93 Mechanical Ventilator 30 05/18/17 23:59 30 05/18/17 23:59 94 Mechanical Ventilator 30 05/18/17 22:22 30 05/18/17 19:15 30 05/18/17 16:51 30 05/18/17 16:03 30 05/18/17 16:03 97 Mechanical Ventilator 30 05/18/17 16:00 37.2 84 25 142/77 (98) 98 Mechanical Ventilator 30 05/18/17 15:00 84 15 130/72 (91) 94 05/18/17 15:00 30 05/18/17 12:00 Mechanical Ventilator 30 05/18/17 12:00 30 05/18/17 12:00 37.1 84 16 137/77 (97) 97 Mechanical Ventilator 30 05/18/17 11:24 30 05/18/17 10:00 75 16 103/51 (68) 95 Mechanical Ventilator 30 05/18/17 08:00 Mechanical Ventilator 30 05/18/17 08:00 37.1 79 16 118/59 (78) 95 Mechanical Ventilator 30 05/18/17 08:00 Mechanical Ventilator 30 05/18/17 08:00 30 05/18/17 07:43 30 Laboratory Results: Last 24 Hours Test 05/18/17 12:21 05/18/17 18:30 05/18/17 21:00 05/18/17 23:44 Bedside Glucose 179 mg/dl 210 mg/dl 198 mg/dl 217 mg/dl Test 05/19/17 05:30 05/19/17 05:53 Bedside Glucose 236 mg/dl White Blood Count 9.63 K/uL Red Blood Count 2.63 M/uL Hemoglobin 7.2 g/dL Hematocrit 22.8 % Mean Corpuscular Volume 86.7 fL Mean Corpuscular Hemoglobin 27.4 pg Mean Corpuscular Hemoglobin Concent 31.6 g/dl RDW Standard Deviation 52.9 fL RDW Coefficient of Variation 16.8 % Platelet Count 352 K/uL Mean Platelet Volume 8.8 fL Nucleated RBC Absolute Count (auto) 0.05 K/uL Nucleated Red Blood Cells % 0.5 % Prothrombin Time 11.4 SECONDS Prothromb Time International Ratio 1.1 Activated Partial Thromboplast Time 56.0 SECONDS Partial Thromboplastin Ratio 2.2 Venous Blood pH 7.47 Venous Blood Partial Pressure CO2 38 mmHg Venous Blood Partial Pressure O2 46 mmHg Venous Blood HCO3 27 mmol/L Venous Blood Oxygen Saturation 81.3 % Venous Blood Base Excess 3.5 mEq/L Sodium Level 136 mmol/L Potassium Level 4.1 mmol/L Chloride Level 105 mmol/L Carbon Dioxide Level 25 mmol/L Anion Gap 6.0 mmol/L Blood Urea Nitrogen 9 mg/dl Creatinine 0.45 mg/dl Est Creatinine Clear Calc Drug Dose 126.2 ml/min Estimated GFR () 121.9 Estimated GFR (Non- 105.1 BUN/Creatinine Ratio 19.0 Random Glucose 226 mg/dl Calcium Level 8.5 mg/dl Phosphorus Level 2.3 mg/dl Magnesium Level 2.1 mg/dl
[2017-05-19] MEDS ORDERED: PHARMACY GLYCEMIC MGMT CONSULT STA (08:12)
[2017-05-19] MEDS ORDERED: BISACODYL 10 MG SUPP PR ONE (08:15)
[2017-05-19] MEDS ORDERED: PHARMACY GLYCEMIC MGMT CONSULT PRN (08:15)
[2017-05-19] MEDS ORDERED: MINERAL OIL 30 ML UDC PO ONE (08:15)
[2017-05-19] MEDS ORDERED: INSULIN ASPART 100 UNITS/ML 3 ML PEN SC STA (08:20)
[2017-05-19] MEDS: FAMOTIDINE IV INJ 20 MG in SYRINGE 3 ML IV SCH ×2 (09:03→21:35)
[2017-05-19] MEDS: PROSOURCE NOCARB 30ML/PKT NG SCH (09:04)
[2017-05-19] MEDS: INSULIN GLARGINE SOLOSTAR 100 UNITS/ML 3 ML PEN SC SCH ×2 (09:07→21:55)
[2017-05-19] MEDS: DOCUSATE SODIUM 100 MG/10 ML UDC PO PRN (10:18)
--- NOTE | 2017-05-19 10:22 | Critical Care Progress Note ---
Critical Care Progress Note Date of Service May 19, 2017. ICU Day ICU Day Number: 9, hospital day [address] Streeter Subjective Following commands, desires endotracheal tube removed Objective Physical exam on 05/12/2017, showed the patient is not in respiratory distress at the moment. She is tolerating room air and her O2 sat is 93%. Upper airway sounding. Crackles at the bases. S1-S2 regular without rhythm. Abdomen is distended but benign. Muscle contractions 4 extremities. Neurologically she is bedridden with minimal movement in the right upper extremity more than the left. Her physical exam on May 13 2017 showed vital signs consistent with heart rate of 140, blood pressure was 190/90, upper airway sounding bilateral crackles , S1-S2 tachycardic, abdomen is benign, no edema but she is contracted 4 extremities. Laboratory also pending and x-ray was reviewed which showed minimal infiltrate in the right lower lobe. Physical exam on May 14, 2017 revealed stable vital signs, O2 saturation 95% on nasal cannula, still having difficulty phonating, dysphagia continue to be a problem even to her own saliva. No stridor, bilateral crackles, S1-S2 regular rate and rhythm, abdomen is benign, trace edema, contracted limbs. I have reviewed her labs which showed slight hypokalemia. Physical exam on May 15, 2017 revealed vital signs currently are stable, S1- S2 regular rate and rhythm, O2 saturation is 97% on the BiPAP. Her labs has been reviewed which include INR of 5, potassium and phosphorus reported low. And replaced. Physical exam on May 16, 2017 revealed vital signs currently are stable, S1- S2 regular rate and rhythm, O2 saturation is 97% on nasal cannula, there is no respiratory distress. Physical exam on May 17, 2017 revealed vital signs currently are stable, S1- S2 regular rate and rhythm, O2 saturation is 97% on mechanical ventilator, there is no respiratory distress. Physical exam on May 18, 2017 revealed vital signs currently are stable, S1- S2 regular rate and rhythm, O2 saturation is 97% on mechanical ventilator, there is no respiratory distress. Physical exam on May 19, 2017 revealed vital signs currently are stable, S1- S2 regular rate and rhythm, O2 saturation is 97% on mechanical ventilator, minimal ventilatory settings, there is no respiratory distress Assessment & Plan 1. Recurrent aspiration secondary to advanced multiple sclerosis. The patient dysphagia resulted in cardiac arrest on an event earlier this week. Return back again to the ICU with similar event with hypoxia and acute respiratory failure. This has been an ongoing diagnosis for this patient. 2. Multiple sclerosis, advanced stage. 3. Dysphagia with recurrent aspiration. Also the patient has very poor cough reflex to the point that she cannot cough up her own secretions as well. 4. C. difficile colitis. 5. Aspiration pneumonia due to the above. 6. History of venous thromboembolic event on Coumadin as an outpatient Plan: 1. I have reviewed her laboratory and imaging myself. 2. INR within normal limits, continuing heparin infusion for thrombotic coverage 3. I will convert aztreonam to Cefdinir for a total of 14 days of effective therapy, this was based off of E. coli sensitivities 4. Continue with Vanco via the NG tube for C. difficile colitis. Continue for 7 days after discontinuation of additional antibiotics 5. Patient has not had a bowel movement, will continue bowel regimen. 6. Discontinuing IV fluids and increasing tube feeds. 7. Nutrition consult reviewed. 8. Glycopyrrolate discontinued at this time 9. Continue with Vanco p.o. 10. Replacement of her potassium. 11. Stop Flagyl. 12. I would not use scopolamine as it altered her mental status in the past. 13. Thoracic surgery deferring tracheostomy to ENT, ENT on leave of absence, we will address tracheostomy needs should they arise in the conversation the next 24-48 hours 14. Engage palliative care with regard to end-stage wishes. The outlook has transitioned from her initial agreement to aggressive measures, I believe the patient will likely need chronic ventilatory support given her significant neuromuscular disease 15. Case discussed with the staff on rounds. 16. Continue to follow serial H&H given drop status post heparin infusion for history of venous thromboembolism. Would consider filter placement if continuing aggressive measures 17. Start iron 325 every morning along with 500 mg vitamin C for anemia Patient is critically ill due to acute respiratory failure Family planning discussion at 2 PM, palliative care available approximately 1- 130 to assist with family discussion. At this point it appears the family is leaning towards terminal extubation and comfort measures. I do believe the patient is in the terminal end-stage medical condition without chance of meaningful recovery with meaningful recovery as defined by the patient's family in accordance with the patient's long-standing beliefs. If all including the patient are in agreement I would certainly agree with terminal extubation and comfort measures. I have personally spent 30 minutes of critical care time in the direct management of this patient. This is a life/limb threatening event. This includes time spent evaluating patient, direct bedside care, chart review, placing orders, interpretation of diagnostic studies, discussion with consultants, patient, and/or family members regarding treatment decisions, as well as other required patient management activities. This time is exclusive of all separately billable procedures, and teaching time and separate from and in addition to any other critical care service time. Data Medications: Current Inpatient Medications Medications (Trade) Dose Ordered Sig/Dwain Route Start Time Stop Time Status Last Admin Dose Admin Glucose (Glucose 40% Gel) 15-30 GRAMS 15 GRAMS... UD PRN PO 05/03/17 18:30 06/02/17 18:29 Glucose (Glucose Chew Tab) 4-8 Tablets 4 Tabl... UD PRN PO 05/03/17 18:30 06/02/17 18:29 Dextrose (Dextrose 50% 50ML Syringe) 25-50ML OF 50% DW IV FOR... UD PRN IV 05/03/17 18:30 06/02/17 18:29 05/17/17 05:10 25 ML Glucagon (Glucagon Inj) 1 mg UD PRN SQ 05/03/17 18:30 06/02/17 18:29 Heparin Sodium (Porcine) (Heparin 10 Unit/ ml 5 ml Flush) 5 ml PRN PRN FLUSH 05/12/17 01:00 06/11/17 00:59 Insulin Aspart (novoLOG ASPART) Sliding Scale Q6H SC 05/12/17 18:00 06/08/17 06:29 05/19/17 05:48 4 UNITS Aztreonam 1000 mg/ Dextrose 110 ml @ 100 mls/hr Q8H IV 05/13/17 22:00 05/19/17 15:00 05/19/17 05:24 100 MLS/HR Vancomycin HCl (Vancomycin Oral Soln) 125 mg Q6 NG 05/14/17 00:00 06/03/17 21:59 05/19/17 05:24 125 MG Ipratropium [place] (Atrovent 0.02% 0.5MG/2.5ML Neb) 0.5 mg Q4R PRN INH 05/14/17 20:15 06/13/17 20:14 Levalbuterol (Xopenex 1.25MG/ 0.5ML Neb) 1.25 mg Q4R PRN INH 05/14/17 20:15 06/13/17 20:14 Enteral Nutritional Formula (Peptamen 1.5) 1,000 ml UD NG 05/15/17 10:45 06/14/17 10:44 05/18/17 22:47 1,000 ML Enteral Nutritional Formula (Prosource No Carb) 30 ml DAILY NG 05/16/17 09:00 06/15/17 08:59 05/19/17 09:04 30 ML Heparin Sodium/ Dextrose 500 ml @ 16 mls/hr Q24H IV 05/16/17 09:45 06/15/17 09:44 05/19/17 00:43 16 MLS/HR Famotidine 20 mg/ Syringe 5 ml @ 2.5 mls/min Q12 IV 05/16/17 10:30 06/15/17 10:29 05/19/17 09:03 2.5 MLS/MIN Magnesium Oxide (Mag-Ox Tab) 400 mg HS PO 05/16/17 21:00 06/15/17 20:59 05/17/17 20:43 400 MG Fentanyl Citrate (Fentanyl Inj) 50 mcg Q2H PRN IV 05/17/17 10:30 05/31/17 10:29 05/19/17 06:31 50 MCG Insulin Glargine (Lantus Solostar Pen) BID SC 05/18/17 09:00 06/17/17 08:59 05/19/17 09:07 12 UNITS Docusate Sodium (coLACE SYRUP) 100 mg BID PRN PO 05/18/17 09:30 06/17/17 09:29 05/18/17 10:39 100 MG Miscellaneous Information (Consult Glycemic Management Pharmacy) 1 ea UD PRN N/A 05/19/17 08:15 06/18/17 08:14 Cefdinir (Omnicef Cap) 300 mg BID PO 05/19/17 21:00 05/27/17 20:59 Ferrous Sulfate (Feosol Tab) 325 mg QAM PO 05/19/17 10:30 06/18/17 10:29 Ascorbic Acid (Vitamin C Tab) 500 mg QAM PO 05/19/17 10:30 06/18/17 10:29 Vital Signs: Date Time Temp Pulse Resp B/P (MAP) Pulse Ox O2 Delivery O2 Flow Rate FiO2 05/19/17 10:00 79 15 117/66 (83) 97 30 05/19/17 08:00 30 05/19/17 08:00 Mechanical Ventilator 30 05/19/17 08:00 37.1 72 14 111/55 (73) 95 Mechanical Ventilator 30 05/19/17 07:10 30 05/19/17 06:00 78 18 121/68 (85) 95 30 05/19/17 05:28 30 05/19/17 04:00 94 Mechanical Ventilator 30 05/19/17 04:00 30 05/19/17 04:00 36.9 78 16 108/57 (74) 92 Mechanical Ventilator 30 05/19/17 02:00 30 05/19/17 02:00 75 18 122/60 (80) 96 Mechanical Ventilator 30 05/19/17 00:01 37.5 94 15 151/62 (91) 93 Mechanical Ventilator 30 05/18/17 23:59 30 05/18/17 23:59 94 Mechanical Ventilator 30 05/18/17 22:22 30 05/18/17 19:15 30 05/18/17 16:51 30 05/18/17 16:03 30 05/18/17 16:03 97 Mechanical Ventilator 30 05/18/17 16:00 37.2 84 25 142/77 (98) 98 Mechanical Ventilator 30 05/18/17 15:00 84 15 130/72 (91) 94 05/18/17 15:00 30 05/18/17 12:00 Mechanical Ventilator 30 05/18/17 12:00 30 05/18/17 12:00 37.1 84 16 137/77 (97) 97 Mechanical Ventilator 30 05/18/17 11:24 30 Laboratory Results: Last 24 Hours Test 05/18/17 12:21 05/18/17 18:30 05/18/17 21:00 05/18/17 23:44 Bedside Glucose 179 mg/dl 210 mg/dl 198 mg/dl 217 mg/dl Test 05/19/17 05:30 05/19/17 05:53 Bedside Glucose 236 mg/dl White Blood Count 9.63 K/uL Red Blood Count 2.63 M/uL Hemoglobin 7.2 g/dL Hematocrit 22.8 % Mean Corpuscular Volume 86.7 fL Mean Corpuscular Hemoglobin 27.4 pg Mean Corpuscular Hemoglobin Concent 31.6 g/dl RDW Standard Deviation 52.9 fL RDW Coefficient of Variation 16.8 % Platelet Count 352 K/uL Mean Platelet Volume 8.8 fL Nucleated RBC Absolute Count (auto) 0.05 K/uL Nucleated Red Blood Cells % 0.5 % Prothrombin Time 11.4 SECONDS Prothromb Time International Ratio 1.1 Activated Partial Thromboplast Time 56.0 SECONDS Partial Thromboplastin Ratio 2.2 Venous Blood pH 7.47 Venous Blood Partial Pressure CO2 38 mmHg Venous Blood Partial Pressure O2 46 mmHg Venous Blood HCO3 27 mmol/L Venous Blood Oxygen Saturation 81.3 % Venous Blood Base Excess 3.5 mEq/L Sodium Level 136 mmol/L Potassium Level 4.1 mmol/L Chloride Level 105 mmol/L Carbon Dioxide Level 25 mmol/L Anion Gap 6.0 mmol/L Blood Urea Nitrogen 9 mg/dl Creatinine 0.45 mg/dl Est Creatinine Clear Calc Drug Dose 126.2 ml/min Estimated GFR () 121.9 Estimated GFR (Non- 105.1 BUN/Creatinine Ratio 19.0 Random Glucose 226 mg/dl Calcium Level 8.5 mg/dl Phosphorus Level 2.3 mg/dl Magnesium Level 2.1 mg/dl
[2017-05-19] MEDS ORDERED: ASCORBIC ACID 500 MG TAB PO SCH (10:30)
[2017-05-19] MEDS ORDERED: FERROUS SULFATE 325 MG TAB PO SCH (10:30)
--- NOTE | 2017-05-19 11:49 | Pharmacy Progress Note ---
Glycemic Control Intl Consult Date of Service May 19, 2017. Scope Glycemic Pharmacist consulted by Dr Streeter on 05/19/17 for glycemic control and to write orders per [facility] inpatient glycemic control protocol Objective Weight (Kilograms): 74.900 Accuchecks BSG (last 24hrs): Test 05/18/17 12:21 05/18/17 18:30 05/18/17 21:00 05/18/17 23:44 Bedside Glucose 179 mg/dl (70-90) 210 mg/dl (70-90) 198 mg/dl (70-90) 217 mg/dl (70-90) Test 05/19/17 05:30 05/19/17 05:53 Bedside Glucose 236 mg/dl (70-90) Random Glucose 226 mg/dl (70-99) Laboratory Data (last 24hrs) Test 05/19/17 05:53 Anion Gap 6.0 mmol/L BUN/Creatinine Ratio 19.0 Blood Urea Nitrogen 9 mg/dl Creatinine 0.45 mg/dl Potassium Level 4.1 mmol/L Sodium Level 136 mmol/L White Blood Count 9.63 K/uL HbA1c Test 05/04/17 07:03 Hemoglobin A1c 6.8 % (4.5-5.6) H Recent Pertinent Medications Outpatient Anti-diabetic Regimen: * Lantus 10 units SC BID * Novolog UD prn * A1c = 6.8 % on 05/04/17 The patient is currently receiving: * Basal insulin: Lantus 10 units every 12 hours * Correctional Insulin: Novolog Correction per scale ACHS Goal Range: Low 120 mg/dL - High 160 mg/dL Correction Factor: 25 mg/dL/unit * Prandial insulin: None Risk Factors for Insulin Resistance: * Infection: complicated UTI and C. diff * IVF: heparin drip * Continuous tubefeeds Assessment & Plan ASSESSMENT: * 67 yo F with T2DM and MS admitted w sepsis 2nd urinary source (chronic indwelling [place]), then aspirated in-house leading to cardiac arrest * Recent mild hypoglycemia on 05/17 to 69 mg/dL * Patient now persistently hyperglycemic x24 hours, likely 2nd tubefeeds increased to goal rate of 45 mL/hr yesterday AM without prandial coverage * Will add CHO coverage, based on tubefeed rate - weight-based moderate stress * Will increase checks to q4h as Novolog only lasts ~ 4 hours and must have consistent coverage w continuous tubefeeds * OK to slightly decrease goal range * Will slightly loosen correction factor to weight-based moderate stress * OK to give slightly higher Lantus dose x1 this AM, but will then decrease to Lantus 10 units BID (less for BSG < 120 mg/dL) as concern for hypoglycemia above that dose 2nd recent patient history of hypoglycemia PLAN FOR INPATIENT GLYCEMIC CONTROL: * Increase basal insulin with LANTUS 12 units SQ x1 this AM then ongoing BID based on BSG * 7 units for BSG less than 120 mg/dL * 10 units for BSG 120 mg/dL or greater * Correctional Insulin with NOVOLOG per scale q4h * Decrease Goal Range: Low 120 mg/dL - High 150 mg/dL * Loosen Correction Factor: 30 mg/dL/unit * Add Nutritional / Prandial insulin per carb ratio of 1 unit per 10 grams CHO consumed * Please note that the plan above was derived based on current level of insulin resistance and hospital stress. These recommendations are appropriate for inpatient admission only. Plan of care upon discharge will need to be reassessed to avoid potential outpatient hypo/hyperglycemia. Thank you.
[2017-05-19] MEDS ORDERED: GLYCOPYRROLATE INJ 0.2 MG/ML VIAL ONE (14:32)
[2017-05-19] MEDS: GLYCOPYRROLATE INJ 0.2 MG/ML VIAL IV SCH ×2 (14:45→21:35)
[2017-05-19] MEDS ORDERED: SCOPOLAMINE 1.5 MG TDSY TD ONE (15:30)
[2017-05-19] MEDS ORDERED: MoRPHine SULFATE 2 MG/ML CARP IV PRN (15:30)
--- NOTE | 2017-05-19 15:34 | Critical Care Progress Note ---
Critical Care Progress Note Date of Service May 19, 2017. Critical Care Progress Note Had family discussion with patient's and Dr. Forbes. Patient was clear in understanding that after removing breathing tube, if secretions were to reaccumulate and we do not replace the breathing tube she would pass away. Was also clear that the patient did not want a tracheostomy nor long-term placement into a nursing facility or ventilator facility. Is also clear that she did not want a artificial feeding tube. Patient has been extubated in accordance with her wishes. Our goal will be to manage any discomfort associated with respiratory insufficiency and respiratory failure. Her CODE STATUS has been updated to DNR DNI. I have discontinued all oral medication at this point, I have ordered glycopyrrolate as well as a scopolamine patch to help manage secretions. I have discussed the case with the hospitalist and are transferring her to the medicine floor.
--- NOTE | 2017-05-19 17:55 | Palliative Care Progress Note ---
Palliative Care Progress Note Date of Service May 19, 2017. Subjective Pt evaluation today including: conversation w/ patient, conversation w/ family , physical exam, chart review, lab review, conversation w/ x ray consultant Pain: None PO Intake: Patient on NG feeds while intubated Voiding: aguilar catheter in place Had family meeting with Dr. Teresa, patient's nurse Sofy, , son, daughter, and 2 friends. Patient had indicated to staff as well as during the family meeting that she wanted the NG tube and ET tube removed. Discussed the need for possible trach due to difficulty handling oral secretions, patient did not wish to have one placed. Patient adamant that she does not want to be maintained on a ventilator as this would mean most likely LTAC placement. Has been tearful at times but appropriate. Patient was then extubated after the family meeting, her first statement to me was she did not want to " in the hospital, (she) wanted to go home". not sure he could care for her at home for end-of-life. We will continue to provide support to patient and family regarding goals of care. Review of Systems Unable to obtain patient intubated Objective Vital Signs Date Time Temp Pulse Resp B/P (MAP) Pulse Ox O2 Delivery O2 Flow Rate FiO2 05/19/17 14:00 37.6 107 14 150/82 (104) 95 Mechanical Ventilator 30 05/19/17 12:00 37.1 77 14 118/61 (80) 96 Mechanical Ventilator 30 05/19/17 12:00 30 05/19/17 12:00 Mechanical Ventilator 30 05/19/17 10:55 30 05/19/17 10:00 79 15 117/66 (83) 97 30 05/19/17 08:00 30 05/19/17 08:00 Mechanical Ventilator 30 05/19/17 08:00 Mechanical Ventilator 30 05/19/17 08:00 37.1 72 14 111/55 (73) 95 Mechanical Ventilator 30 05/19/17 07:10 30 05/19/17 06:00 78 18 121/68 (85) 95 30 05/19/17 05:28 30 05/19/17 04:00 94 Mechanical Ventilator 30 05/19/17 04:00 30 05/19/17 04:00 36.9 78 16 108/57 (74) 92 Mechanical Ventilator 30 05/19/17 02:00 30 05/19/17 02:00 75 18 122/60 (80) 96 Mechanical Ventilator 30 05/19/17 00:01 37.5 94 15 151/62 (91) 93 Mechanical Ventilator 30 05/18/17 23:59 30 05/18/17 23:59 94 Mechanical Ventilator 30 05/18/17 22:22 30 05/18/17 19:15 30 Physical Exam General Appearance: + pertinent finding (Alert, indicating she wanted the ET tube removed as well as the NG tube) Eyes: EOMI ENT: hearing grossly normal Neck: supple Respiratory/Chest: + decreased breath sounds, + rhonchi Cardiovascular: regular rate, rhythm Abdomen: non tender, soft Extremities: + pertinent finding (Moderate contractures) Neurologic/Psychiatric: alert Skin: + pallor Laboratory Results Last 24 Hours Test 05/18/17 18:30 05/18/17 21:00 05/18/17 23:44 05/19/17 05:30 Bedside Glucose 210 mg/dl 198 mg/dl 217 mg/dl 236 mg/dl Test 05/19/17 05:53 05/19/17 11:33 05/19/17 16:35 White Blood Count 9.63 K/uL Red Blood Count 2.63 M/uL Hemoglobin 7.2 g/dL Hematocrit 22.8 % Mean Corpuscular Volume 86.7 fL Mean Corpuscular Hemoglobin 27.4 pg Mean Corpuscular Hemoglobin Concent 31.6 g/dl RDW Standard Deviation 52.9 fL RDW Coefficient of Variation 16.8 % Platelet Count 352 K/uL Mean Platelet Volume 8.8 fL Nucleated RBC Absolute Count (auto) 0.05 K/uL Nucleated Red Blood Cells % 0.5 % Prothrombin Time 11.4 SECONDS Prothromb Time International Ratio 1.1 Activated Partial Thromboplast Time 56.0 SECONDS Partial Thromboplastin Ratio 2.2 Venous Blood pH 7.47 Venous Blood Partial Pressure CO2 38 mmHg Venous Blood Partial Pressure O2 46 mmHg Venous Blood HCO3 27 mmol/L Venous Blood Oxygen Saturation 81.3 % Venous Blood Base Excess 3.5 mEq/L Sodium Level 136 mmol/L Potassium Level 4.1 mmol/L Chloride Level 105 mmol/L Carbon Dioxide Level 25 mmol/L Anion Gap 6.0 mmol/L Blood Urea Nitrogen 9 mg/dl Creatinine 0.45 mg/dl Est Creatinine Clear Calc Drug Dose 126.2 ml/min Estimated GFR () 121.9 Estimated GFR (Non- 105.1 BUN/Creatinine Ratio 19.0 Random Glucose 226 mg/dl Calcium Level 8.5 mg/dl Phosphorus Level 2.3 mg/dl Magnesium Level 2.1 mg/dl Bedside Glucose 192 mg/dl 197 mg/dl Assessment and Plan (1) Dysphagia causing pulmonary aspiration with swallowing Status: Acute Assessment & Plan: Patient extubated, patient given suction catheter to help with oral secretions. Consider placing 2 scopolamine patches to help control secretions as one patch was not adequate prior to her aspiration event. (2) Multiple sclerosis Status: Chronic Assessment & Plan: Patient with end-stage MS (3) UTI (urinary tract infection) Status: Acute Assessment & Plan: Completed treatment (4) Palliative care encounter Status: Acute Assessment & Plan: We will continue to provide support to patient and family regarding end-of-life issues as well as goals of care. We will see how patient does over the next 24-48 hours before discussing any plans about returning home with hospice. Palliative Performance Scale: 20 % Continued [facility] stay due to: inadequate po fluid intake, other Discharge planning: uncertain Counseling and Coordination Time in 1415, time out 1450, total time 35 minutes with entire time was spent at bedside with patient and family.
[2017-05-19] MEDS ORDERED: LORAZEPAM 2 MG/ML 1 ML VIAL IV PRN (18:45)
[2017-05-19] MEDS ORDERED: NURSING VERBAL MED ORDER ONE ×2 (19:00→22:15)
[2017-05-19] MEDS ORDERED: CLINDAMYCIN IV 600 MG in DEXTROSE 5% 50ML 50 ML IV SCH (19:15)
--- NOTE | 2017-05-19 19:24 | Progress Note ---
Subjective Date of Service: May 19, 2017. Subjective Pt evaluation today including: conversation w/ patient, physical exam, lab review, review of studies, review of inpatient medication list Saw/examined the patient in room 406 she has been extubated and moved from the ICU code status changed from full code to DNR/DNI IV heparin and antibiotics continue Patient states she feels fine, no shortness of breath or chest pain/ palpitations. She has significant congestion; audible rhonchi. States she is scared about what will happen next. Notes indicate she does not want to in the hospital and wants to go home. Met with director drug safety and foreclosure specialist. Problem List Medical Problems: (1) Altered mental status Status: Acute (2) Bronchitis Status: Acute (3) Change in mental status Status: Acute (4) Decubitus ulcer Status: Acute (5) Dehydration Status: Acute (6) Diarrhea Status: Acute (7) Dyspnea Status: Acute (8) Elevated INR Status: Acute (9) Elevated INR Status: Acute (10) Elevated troponin Status: Acute (11) Fecal impaction Status: Acute (12) Pyelonephritis Status: Acute (13) Respiratory distress Status: Acute (14) Sepsis Status: Acute (15) Sepsis Status: Acute (16) UTI (urinary tract infection) Status: Acute Review of Systems Constitutional: No fever, No chills ENT: No sore throat Respiratory: + cough, + sputum, No wheezing, No shortness of breath, No dyspnea on exertion, No dyspnea at rest, No hemoptysis Cardiac: No chest pain, No edema, No palpitations Abdomen: No pain, No nausea, No vomiting, No diarrhea Medications Current Inpatient Medications Medications (Trade) Dose Ordered Sig/Dwain Route Start Time Stop Time Status Last Admin Dose Admin Glucose (Glucose 40% Gel) 15-30 GRAMS 15 GRAMS... UD PRN PO 05/03/17 18:30 06/02/17 18:29 Glucose (Glucose Chew Tab) 4-8 Tablets 4 Tabl... UD PRN PO 05/03/17 18:30 06/02/17 18:29 Dextrose (Dextrose 50% 50ML Syringe) 25-50ML OF 50% DW IV FOR... UD PRN IV 05/03/17 18:30 06/02/17 18:29 05/17/17 05:10 25 ML Glucagon (Glucagon Inj) 1 mg UD PRN SQ 05/03/17 18:30 06/02/17 18:29 Heparin Sodium (Porcine) (Heparin 10 Unit/ ml 5 ml Flush) 5 ml PRN PRN FLUSH 05/12/17 01:00 06/11/17 00:59 Vancomycin HCl (Vancomycin Oral Soln) 125 mg Q6 NG 05/14/17 00:00 06/03/17 21:59 Future Hold 05/19/17 11:31 125 MG Ipratropium [place] (Atrovent 0.02% 0.5MG/2.5ML Neb) 0.5 mg Q4R PRN INH 05/14/17 20:15 06/13/17 20:14 Levalbuterol (Xopenex 1.25MG/ 0.5ML Neb) 1.25 mg Q4R PRN INH 05/14/17 20:15 06/13/17 20:14 Heparin Sodium/ Dextrose 500 ml @ 16 mls/hr Q24H IV 05/16/17 09:45 06/15/17 09:44 05/19/17 00:43 16 MLS/HR Famotidine 20 mg/ Syringe 5 ml @ 2.5 mls/min Q12 IV 05/16/17 10:30 06/15/17 10:29 05/19/17 09:03 2.5 MLS/MIN Magnesium Oxide (Mag-Ox Tab) 400 mg HS PO 05/16/17 21:00 06/15/17 20:59 Future Hold 05/17/17 20:43 400 MG Insulin Glargine (Lantus Solostar Pen) BID SC 05/18/17 09:00 06/17/17 08:59 05/19/17 09:07 12 UNITS Miscellaneous Information (Consult Glycemic Management Pharmacy) 1 ea UD PRN N/A 05/19/17 08:15 06/18/17 08:14 Ferrous Sulfate (Feosol Tab) 325 mg QAM PO 05/19/17 10:30 06/18/17 10:29 Future Hold 05/19/17 10:17 325 MG Ascorbic Acid (Vitamin C Tab) 500 mg QAM PO 05/19/17 10:30 06/18/17 10:29 Future Hold 05/19/17 10:18 500 MG Insulin Aspart (novoLOG ASPART) Sliding Scale Q4 SC 05/19/17 12:00 06/18/17 11:59 05/19/17 16:47 2 UNITS Docusate Sodium (coLACE SYRUP) 100 mg BID PO 05/19/17 20:00 06/18/17 20:59 Glycopyrrolate (Robinul Inj) 0.1 mg Q6H IV 05/19/17 14:45 06/18/17 14:44 Ceftriaxone Sodium 1 gm/ Dextrose 50 ml @ 100 mls/hr DAILY@2100 IV 05/19/17 21:00 05/27/17 20:59 Scopolamine (Transderm-Scop Patch) 1.5 mg Q3D@1600 TD 05/22/17 16:00 06/21/17 15:59 Miscellaneous (Remove Transderm-Scop Patch) 1 ea Q3D@1559 N/A 05/22/17 15:59 06/21/17 15:58 Miscellaneous Information (Check Scopolamine Patch Placement) 1 ea QS N/A 05/20/17 00:00 06/19/17 00:00 Morphine Sulfate (MoRPHine SULFATE INJ) 2 mg Q15M PRN IV 05/19/17 15:30 06/02/17 15:29 Lorazepam (Ativan Inj) 0.5 mg Q4H PRN IV 05/19/17 18:45 06/18/17 18:44 UNV Objective Vital Signs Date Time Temp Pulse Resp B/P (MAP) Pulse Ox O2 Delivery O2 Flow Rate FiO2 05/19/17 18:26 37.1 108 20 161/79 (106) 96 Nasal Cannula 5.0 05/19/17 14:00 37.6 107 14 150/82 (104) 95 Mechanical Ventilator 30 05/19/17 12:00 37.1 77 14 118/61 (80) 96 Mechanical Ventilator 30 05/19/17 12:00 30 05/19/17 12:00 Mechanical Ventilator 30 05/19/17 10:55 30 05/19/17 10:00 79 15 117/66 (83) 97 30 05/19/17 08:00 30 05/19/17 08:00 Mechanical Ventilator 30 05/19/17 08:00 Mechanical Ventilator 30 05/19/17 08:00 37.1 72 14 111/55 (73) 95 Mechanical Ventilator 30 05/19/17 07:10 30 05/19/17 06:00 78 18 121/68 (85) 95 30 05/19/17 05:28 30 05/19/17 04:00 94 Mechanical Ventilator 30 05/19/17 04:00 30 05/19/17 04:00 36.9 78 16 108/57 (74) 92 Mechanical Ventilator 30 05/19/17 02:00 30 05/19/17 02:00 75 18 122/60 (80) 96 Mechanical Ventilator 30 05/19/17 00:01 37.5 94 15 151/62 (91) 93 Mechanical Ventilator 30 05/18/17 23:59 30 05/18/17 23:59 94 Mechanical Ventilator 30 05/18/17 22:22 30 05/18/17 19:15 30 Physical Exam General Appearance: no apparent distress, + pertinent finding (+anxious appearing; chronically bed-ridden, with diffuse muscle weakness, minimal R sided movement) Respiratory/Chest: no respiratory distress, no accessory muscle use, + rhonchi (diffuse) Cardiovascular: regular rate, rhythm, no edema, no murmur Extremities: normal inspection, no pedal edema Neurologic/Psychiatric: alert, + motor weakness, + depressed affect Laboratory Results Last 24 Hours Test 05/18/17 21:00 05/18/17 23:44 05/19/17 05:30 05/19/17 05:53 Bedside Glucose 198 mg/dl 217 mg/dl 236 mg/dl White Blood Count 9.63 K/uL Red Blood Count 2.63 M/uL Hemoglobin 7.2 g/dL Hematocrit 22.8 % Mean Corpuscular Volume 86.7 fL Mean Corpuscular Hemoglobin 27.4 pg Mean Corpuscular Hemoglobin Concent 31.6 g/dl RDW Standard Deviation 52.9 fL RDW Coefficient of Variation 16.8 % Platelet Count 352 K/uL Mean Platelet Volume 8.8 fL Nucleated RBC Absolute Count (auto) 0.05 K/uL Nucleated Red Blood Cells % 0.5 % Prothrombin Time 11.4 SECONDS Prothromb Time International Ratio 1.1 Activated Partial Thromboplast Time 56.0 SECONDS Partial Thromboplastin Ratio 2.2 Venous Blood pH 7.47 Venous Blood Partial Pressure CO2 38 mmHg Venous Blood Partial Pressure O2 46 mmHg Venous Blood HCO3 27 mmol/L Venous Blood Oxygen Saturation 81.3 % Venous Blood Base Excess 3.5 mEq/L Sodium Level 136 mmol/L Potassium Level 4.1 mmol/L Chloride Level 105 mmol/L Carbon Dioxide Level 25 mmol/L Anion Gap 6.0 mmol/L Blood Urea Nitrogen 9 mg/dl Creatinine 0.45 mg/dl Est Creatinine Clear Calc Drug Dose 126.2 ml/min Estimated GFR () 121.9 Estimated GFR (Non- 105.1 BUN/Creatinine Ratio 19.0 Random Glucose 226 mg/dl Calcium Level 8.5 mg/dl Phosphorus Level 2.3 mg/dl Magnesium Level 2.1 mg/dl Test 05/19/17 11:33 05/19/17 16:35 Bedside Glucose 192 mg/dl 197 mg/dl Assessment and Plan This is a 67 year old female with a PMH of multiple sclerosis, chronically bed- ridden due to muscle weakness leading to decubitus ulcers, insulin dependent DM2 , hx. of PE and DVT with long-term Coumadin use, neurogenic bladder and chronic indwelling catheter with recurrent UTIs and on chronic antibiotic prophylaxis therapy - presented on May 03 with increased lethargy/confusion - noted to have sepsis at that time likely due to another urinary tract infection. This was further complicated with a C. Diff Infection on May 04. On May 11, code blue was called due to patient choking on her breakfast. She had respiratory arrest leading to cardiopulmonary arrest. She was intubated and a bronchoscopy was performed. She was initially transferred out of the ICU and then transferred back when agonal breathing. She was re-intubated at that time due to likely re-aspiration and hypoxic respiratory failure on May 16. Initially family wanted to be aggressive with her measures; including tracheostomy and PEG tube. Palliative care was consulted - she was extubated on May 19 and brought back to the floor with a DNR status. Advanced Stage Multiple Sclerosis with Recurrent Aspiration and Dysphagia leading to Acute Hypoxic Respiratory Failure Aspiration Pneumonia - as noted above, patient has had multiple and recurrent episodes of aspiration , requiring endotracheal intubation x2 - initial plan was for trach and PEG tube - appreciate director drug safety and palliative care consultation and input - patient is now DNR status - she is transferred to the fourth floor - will restart antibiotics; currently on Rocephin for UTI, which will cover possible pneumonia as well - will add Flagyl for anaerobic coverage as well as C. Diff coverage - continue scopolamine patch x2 and glycopyrrolate for secretions; will add PRN atropine SL drops - monitor for aspiration; precautions - will need speech evaluation Sepsis secondary to Recurrent UTI in the setting of Chronic Indwelling Catheter secondary to Neurogenic Bladder - patient presented with sepsis, WBC now resolved - mild temp persists, vitals otherwise stable - will continue Rocephin, this will cover pansensitive E. coli for UTI - continue with indwelling catheter C. Diff Infection - adding IV Flagyl, which will cover anaerobic pulmonary infection as well as C. diff - she would likely aspiration oral Vancomycin Hx. of PE - currently on IV heparin due to NPO status DNR/DNI plan to symptomatically treat the patient palliative care is currently on board - further management and disposition as per hospice 05/18 s/p intubated clinically stable no issues to note today WBC resolved as of 05/18 plan for possible home hospice? director drug safety and palliative care on board 05/17 s/p intubation plan initially was for trach and PEG insertion palliative consulted director drug safety input appreciated at this point, palliation may be the best course of action for now, continue secretion control, possible addition of atropine? S/P Intubation-05/16/17 Another attack of near respiratory failure 2 days before Has had a Code Purple called last evening and the patient was transferred to ICU. She did not require intubation and with aggressive suctioning her condition improved She is up for PEG tube placement and possible tracheostomy down the line. Appreciate Rec Therapist input Acute Respiratory Failure-Required Endotracheal Intubation -05/16/17 Awaiting further discussion with the family members for further management Cardiopulmonary Arrest Aspiration>Respiratory arrest followed by Cardiac arrest Required Intubation to maintain Saturation Transferred to ICU Bronchoscopy in ICU -a considerable amount of food materials sucked out Likely extubation today and resume oral medications thereafter Clinically better Transfer back to [facility] Has H/O recurrent aspiration with esophageal dysmotility before Another episode of Aspiration last evening Broad spectrum antibiotics added -now on Aztreonam High risk of aspiration of her own secretion Planning to have tracheostomy and J tube placement to minimize aspiration ENT and Surgery will be consulted-appreciate input Awaiting decision on Tracheostomy and J Tube placement SEPSIS Met criteria for sepsis per 2001 definition and current CMS guidelines ( UTI, tachycardia, leukocytosis). Elevated WBC and lactate on admission,Received IVF Urine cx grew [id number] Blood cx -negative Was On Rocephin and Vanco Vanco Discontinued 05/09 Rocephin was changed to ertapenem Completed 7 days course of IV abx (Rocephin later changed to ertapenem) Now on Broad spectrum antibiotics for recurrent aspiration Cdiff stool positive for C-diff since pt was NPO, she was starting on flagyl IV-stopped Continue PO vanco to complete 14 days monitor electrolytes No diarrhea NGT-Vancomycin Abdominal Tenderness Unchanged severe distention of the colon with gas and stool. Recommend disimpaction. Pt had 2 BM today Will give Dulcolax 1 repeat xray in am-decreasing fecal load Bowel is moving GI bleed INR increased to 10 Received vit k Hgb stable at 9.5 Resume Coumadin 2.5 mg INR 5.3on 05/15-receiving Vit K Will monitor ACUTE KIDNEY INJURY Serum creatinine 1.3 compared to recent baseline of 0.6-0.8. Creatine stable D/C IVF Monitor BMP. Resolved ELEVATED TROPONIN Serum troponin = 0.343. EKG shows sinus rhythm, nonspecific T-wave changes. Serum troponin trending down to 0.13 Asymptomatic Hypokalemia K replaced Monitor BMP Will need more replacement CONSTIPATION CT abdomen CT abd showed massive amount of stool within the rectum and moderate to large amount of stool within the colon consistent with significant fecal impaction. No bowel obstruction had diarrhea/cdiff Moving bowel DM TYPE 2 Hba1c 6.8 ( on 05/04/17) Lantus + NovoLog per protocol. MULTIPLE SCLEROSIS Advanced disease. Aspiration precautions. Symptomatic management. URINARY RETENTION Secondary to multiple sclerosis. Continue indwelling Lemos catheter Will change Lemos cath ABDOMINAL MASS Previously noted and evaluated by Surgery. Resection not pursued due to advanced MS and multiple comorbidities. DECUBITUS ULCERS Avoid pressure. Local care. Continue daily wound care VTE PROPHYLAXIS / HISTORY OF PULMONARY EMBOLISM Was on Coumadin and changed to Lovenox Now on IV Heparin RESUSCITATION STATUS::FULL CODE DISPOSITION Has had a long discussion with the and the daughter yesterday, 05/13 in the evening. Pros and cons of PEG tube/jejunal tube placement discussed. They wanted to have PEG tube placed. She is reverted back to full resuscitation status. Has had a Code Purple called last evening and the patient was transferred to ICU. She did not require intubation and with aggressive suctioning her condition improved. She will be for PEG tube placement and possible tracheostomy down the line. Continued [facility] stay due to: inadequate po fluid intake, other Discharge planning: uncertain
[2017-05-19] MEDS ORDERED: BEER 1 CAN PO PRN (19:30)
[2017-05-19] MEDS ORDERED: LORAZEPAM INJ 0.5 MG in SYRINGE 0.75 ML IV PRN (19:30)
[2017-05-19] MEDS: DOCUSATE SODIUM 100 MG/10 ML UDC PO SCH (20:00)
[2017-05-19] MEDS ORDERED: CEFDINIR 300 MG CAP PO SCH (20:00)
[2017-05-19] MEDS: METRONIDAZOLE / NSS 500 MG in PREMIXED NSS 100 ML IV SCH (20:04)
[2017-05-19] MEDS: ATROPINE SULFATE 1% OP SOLN 5 ML BTL SL PRN (21:35)
[2017-05-19] MEDS: CEFTRIAXONE SOD INJ 1000 MG in DEXTROSE 5% 50ML IV SCH (21:35)
[2017-05-20] MEDS: CHECK SCOPOLAMINE PATCH PLACEMENT SCH ×4 (00:45→23:53)
[2017-05-20] MEDS: ATROPINE SULFATE 1% OP SOLN 5 ML BTL SL PRN ×2 (03:48→09:53)
[2017-05-20] MEDS: METRONIDAZOLE / NSS 500 MG in PREMIXED NSS 100 ML IV SCH ×3 (03:50→20:46)
[2017-05-20] MEDS: GLYCOPYRROLATE INJ 0.2 MG/ML VIAL IV SCH ×4 (03:50→21:28)
[2017-05-20] MEDS: INSULIN ASPART 100 UNITS/ML 3 ML PEN SC SCH ×2 (06:00)
[2017-05-20 06:26] LABS: HEMOGLOBIN 8.3 g/dL (12.0-16.0); MEAN CELL VOLUME 86.4 fL (80-100); MEAN CORPUSCULAR HEMOGLOBIN 27.6 pg (25-34); MEAN CORPUSCULAR HGB CONC 31.9 g/dl (32-36); MEAN PLATELET VOLUME 8.7 fL (7.4-10.4); PLATELET COUNT 388 K/uL (130-400); RED CELL DISTRIBUTION WIDTH SD 53.7 fL (36.4-46.3); WHITE BLOOD COUNT 13.43 K/uL (4.8-10.8)
[2017-05-20 06:44] LABS: PTT PATIENT 52.1 SECONDS (21.0-31.0)
--- NOTE | 2017-05-20 07:05 | DIAGNOSTIC IMAGING REPORT ---
CHEST ONE VIEW PORTABLE CLINICAL HISTORY: f/u infiltrate pneumonia COMPARISON STUDY: 05/19/2017 FINDINGS: Interval extubation. Unchanging left lower lobe consolidative change. Small left effusion. The lungs appear similar compared to the prior study. The right lung currently is clear. IMPRESSION: Unchanging left lower lobe consolidative change. Small left effusion also unchanged. Right lung is clear. The above report was generated using voice recognition software. It may contain grammatical, syntax or spelling errors. Electronically signed by: Jewel Vigil M.D. 05/20/2017 7:03 AM Dictated Date/Time: 05/20/2017 7:00 AM
[2017-05-20 07:06] LABS: CALCIUM 8.8 mg/dl (8.5-10.1); CREATININE 0.45 mg/dl (0.60-1.20); POTASSIUM 3.9 mmol/L (3.5-5.1)
[2017-05-20 07:25] VITALS: BP 161/70; PULSE 98; TEMP 37.8; O2SAT 87
[2017-05-20] MEDS: DOCUSATE SODIUM 100 MG/10 ML UDC PO SCH ×2 (07:27→20:47)
[2017-05-20 08:00] VITALS: O2SAT 98
[2017-05-20] MEDS: FAMOTIDINE IV INJ 20 MG in SYRINGE 3 ML IV SCH ×2 (08:23→21:28)
[2017-05-20] MEDS: INSULIN GLARGINE SOLOSTAR 100 UNITS/ML 3 ML PEN SC SCH ×2 (08:26→20:52)
[2017-05-20] MEDS: HEPARIN 25,000 UNIT/500ML D5W 500 ML IV SCH ×2 (08:27→23:13)
--- NOTE | 2017-05-20 10:31 | Pharmacy Progress Note ---
Pharmacy Glycemic Sign Off Nt Date of Service May 20, 2017. Assessment & Plan ASSESSMENT: * Comfort measures initiated, tubefeeds stopped, patient at high aspiration risk therefore NPO * OK to stop Novolog as tubefeeds have stopped and goals of care geared towards comfort - Dr. Guerrier aware * Will decrease Lantus from home dose of 10 units BID as patient had recent mild hypoglycemia to 69 mg/dL on that regimen during time of minimal CHO intake. Would like to avoid uncomfortable symptoms of hypoglycemia * Discussed with Dr. Guerrier r/e pharmacy signing off from glycemic management at this time PLAN FOR INPATIENT GLYCEMIC CONTROL: * Continue basal insulin with Lantus SQ BID based on BSG * Hold for BSG less than 120 mg/dL * 4 units for BSG 120-180 mg/dL * 8 units for BSG greater than 180 mg/dL * Discontinue NovoLog * Pharmacy is signing off of glycemic consult and will no longer be making adjustments to inpatient regimen. Please feel free to re-consult if needed. Thank you. DISCHARGE RECOMMENDATIONS: * Discontinue Novolog to increase comfort * Reduce home dose of Lantus to prevent hypoglycemia. May consider discontinuing depending on patient/family preferences.
[2017-05-20 15:24] VITALS: BP 157/86; PULSE 95; TEMP 36.5; O2SAT 99
--- NOTE | 2017-05-20 15:52 | Progress Note ---
Subjective Date of Service: May 20, 2017. Subjective Pt evaluation today including: conversation w/ patient, physical exam, lab review, review of studies, review of inpatient medication list Saw/examined the patient in room 406 Continues to have chest congestion, secretions Lethargic today, but states she has no issues at this time Problem List Medical Problems: (1) Altered mental status Status: Acute (2) Bronchitis Status: Acute (3) Change in mental status Status: Acute (4) Decubitus ulcer Status: Acute (5) Dehydration Status: Acute (6) Diarrhea Status: Acute (7) Dyspnea Status: Acute (8) Elevated INR Status: Acute (9) Elevated INR Status: Acute (10) Elevated troponin Status: Acute (11) Fecal impaction Status: Acute (12) Pyelonephritis Status: Acute (13) Respiratory distress Status: Acute (14) Sepsis Status: Acute (15) Sepsis Status: Acute (16) UTI (urinary tract infection) Status: Acute Review of Systems Respiratory: + cough, + sputum, No wheezing, No shortness of breath, No dyspnea on exertion Cardiac: No chest pain Medications Current Inpatient Medications Medications (Trade) Dose Ordered Sig/Dwain Route Start Time Stop Time Status Last Admin Dose Admin Glucose (Glucose 40% Gel) 15-30 GRAMS 15 GRAMS... UD PRN PO 05/03/17 18:30 06/02/17 18:29 Glucose (Glucose Chew Tab) 4-8 Tablets 4 Tabl... UD PRN PO 05/03/17 18:30 06/02/17 18:29 Dextrose (Dextrose 50% 50ML Syringe) 25-50ML OF 50% DW IV FOR... UD PRN IV 05/03/17 18:30 06/02/17 18:29 05/17/17 05:10 25 ML Glucagon (Glucagon Inj) 1 mg UD PRN SQ 05/03/17 18:30 06/02/17 18:29 Heparin Sodium (Porcine) (Heparin 10 Unit/ ml 5 ml Flush) 5 ml PRN PRN FLUSH 05/12/17 01:00 06/11/17 00:59 Vancomycin HCl (Vancomycin Oral Soln) 125 mg Q6 NG 05/14/17 00:00 06/03/17 21:59 Future Hold 05/19/17 11:31 125 MG Ipratropium [place] (Atrovent 0.02% 0.5MG/2.5ML Neb) 0.5 mg Q4R PRN INH 05/14/17 20:15 06/13/17 20:14 Levalbuterol (Xopenex 1.25MG/ 0.5ML Neb) 1.25 mg Q4R PRN INH 05/14/17 20:15 06/13/17 20:14 Heparin Sodium/ Dextrose 500 ml @ 16 mls/hr Q24H IV 05/16/17 09:45 06/15/17 09:44 05/20/17 08:27 16 MLS/HR Famotidine 20 mg/ Syringe 5 ml @ 2.5 mls/min Q12 IV 05/16/17 10:30 06/15/17 10:29 05/20/17 08:23 2.5 MLS/MIN Magnesium Oxide (Mag-Ox Tab) 400 mg HS PO 05/16/17 21:00 06/15/17 20:59 Future Hold 05/17/17 20:43 400 MG Insulin Glargine (Lantus Solostar Pen) BID SC 05/18/17 09:00 06/17/17 08:59 05/20/17 08:26 10 UNITS Ferrous Sulfate (Feosol Tab) 325 mg QAM PO 05/19/17 10:30 06/18/17 10:29 Future Hold 05/19/17 10:17 325 MG Ascorbic Acid (Vitamin C Tab) 500 mg QAM PO 05/19/17 10:30 06/18/17 10:29 Future Hold 05/19/17 10:18 500 MG Docusate Sodium (coLACE SYRUP) 100 mg BID PO 05/19/17 20:00 06/18/17 20:59 Glycopyrrolate (Robinul Inj) 0.1 mg Q6H IV 05/19/17 14:45 06/18/17 14:44 05/20/17 14:06 0.1 MG Ceftriaxone Sodium 1 gm/ Dextrose 50 ml @ 100 mls/hr DAILY@2100 IV 05/19/17 21:00 05/27/17 20:59 05/19/17 21:35 100 MLS/HR Scopolamine (Transderm-Scop Patch) 1.5 mg Q3D@1600 TD 05/22/17 16:00 06/21/17 15:59 Miscellaneous (Remove Transderm-Scop Patch) 1 ea Q3D@1559 N/A 05/22/17 15:59 06/21/17 15:58 Miscellaneous Information (Check Scopolamine Patch Placement) 1 ea QS N/A 05/20/17 00:00 06/19/17 00:00 05/20/17 08:16 1 EA Morphine Sulfate (MoRPHine SULFATE INJ) 2 mg Q15M PRN IV 05/19/17 15:30 06/02/17 15:29 Lorazepam (Ativan Inj) 0.5 mg Q4H PRN IV 05/19/17 18:45 06/18/17 18:44 Lorazepam 0.5 mg/ Syringe 1 ml @ 1 mls/min Q4H PRN IV 05/19/17 19:30 06/18/17 19:29 Atropine Sulfate (Atropine Sulfate 1% Oph Soln) 2 drops Q6H PRN SL 05/19/17 19:15 06/18/17 19:14 05/20/17 09:53 2 DROPS Metronidazole 500 mg/Prmx 100 ml @ 100 mls/hr Q8H IV 05/19/17 20:00 05/26/17 19:59 05/20/17 12:26 100 MLS/HR Non-Formulary Medication (Beer) 1 can PRN PRN PO 05/19/17 19:30 06/18/17 19:29 Objective Vital Signs Date Time Temp Pulse Resp B/P (MAP) Pulse Ox O2 Delivery O2 Flow Rate FiO2 05/20/17 15:24 36.5 95 20 157/86 (109) 99 Nasal Cannula 5.0 05/20/17 08:00 98 Nasal Cannula 5.0 05/20/17 07:25 37.8 98 22 161/70 (100) 87 Nasal Cannula 5.0 05/20/17 00:01 Nasal Cannula 5.0 05/19/17 23:44 37.0 126 22 177/93 (121) 94 Nasal Cannula 5.0 05/19/17 21:00 Nasal Cannula 5.0 05/19/17 18:26 37.1 108 20 161/79 (106) 96 Nasal Cannula 5.0 Physical Exam General Appearance: + pertinent finding (lethargic, decreased motor function due to MS) Respiratory/Chest: no respiratory distress, no accessory muscle use, + rhonchi Cardiovascular: regular rate, rhythm, no murmur Neurologic/Psychiatric: alert, + motor weakness Laboratory Results Last 24 Hours Test 05/19/17 16:35 05/19/17 21:08 05/20/17 00:42 05/20/17 05:51 Bedside Glucose 197 mg/dl 166 mg/dl 143 mg/dl White Blood Count 13.43 K/uL Red Blood Count 3.01 M/uL Hemoglobin 8.3 g/dL Hematocrit 26.0 % Mean Corpuscular Volume 86.4 fL Mean Corpuscular Hemoglobin 27.6 pg Mean Corpuscular Hemoglobin Concent 31.9 g/dl RDW Standard Deviation 53.7 fL RDW Coefficient of Variation 17.0 % Platelet Count 388 K/uL Mean Platelet Volume 8.7 fL Prothrombin Time 10.7 SECONDS Prothromb Time International Ratio 1.0 Activated Partial Thromboplast Time 52.1 SECONDS Partial Thromboplastin Ratio 2.0 Sodium Level 138 mmol/L Potassium Level 3.9 mmol/L Chloride Level 106 mmol/L Carbon Dioxide Level 24 mmol/L Anion Gap 8.0 mmol/L Blood Urea Nitrogen 10 mg/dl Creatinine 0.45 mg/dl Est Creatinine Clear Calc Drug Dose 126.2 ml/min Estimated GFR () 121.9 Estimated GFR (Non- 105.1 BUN/Creatinine Ratio 23.1 Random Glucose 145 mg/dl Calcium Level 8.8 mg/dl Test 05/20/17 06:15 05/20/17 11:45 Bedside Glucose 134 mg/dl 119 mg/dl Assessment and Plan This is a 67 year old female with a PMH of multiple sclerosis, chronically bed- ridden due to muscle weakness leading to decubitus ulcers, insulin dependent DM2 , hx. of PE and DVT with long-term Coumadin use, neurogenic bladder and chronic indwelling catheter with recurrent UTIs and on chronic antibiotic prophylaxis therapy - presented on May 03 with increased lethargy/confusion - noted to have sepsis at that time likely due to another urinary tract infection. This was further complicated with a C. Diff Infection on May 04. On May 11, natalya joiner was called due to patient choking on her breakfast. She had respiratory arrest leading to cardiopulmonary arrest. She was intubated and a bronchoscopy was performed. She was initially transferred out of the ICU and then transferred back when agonal breathing. She was re-intubated at that time due to likely re-aspiration and hypoxic respiratory failure on May 16. Initially family wanted to be aggressive with her measures; including tracheostomy and PEG tube. Palliative care was consulted - she was extubated on May 19 and brought back to the floor with a DNR status. Advanced Stage Multiple Sclerosis with Recurrent Aspiration and Dysphagia leading to Acute Hypoxic Respiratory Failure Aspiration Pneumonia 05/20 - no acute issues - poor prognosis - continue current measures; palliative care on board 05/19 - as noted above, patient has had multiple and recurrent episodes of aspiration , requiring endotracheal intubation x2 - initial plan was for trach and PEG tube - appreciate solid glass rod dowel machine operator and palliative care consultation and input - patient is now DNR status - she is transferred to the fourth floor - will restart antibiotics; currently on Rocephin for UTI, which will cover possible pneumonia as well - will add Flagyl for anaerobic coverage as well as C. Diff coverage - continue scopolamine patch x2 and glycopyrrolate for secretions; will add PRN atropine SL drops - monitor for aspiration; precautions - will need speech evaluation Sepsis secondary to Recurrent UTI in the setting of Chronic Indwelling Catheter secondary to Neurogenic Bladder - patient presented with sepsis, WBC now resolved - mild temp persists, vitals otherwise stable - will continue Rocephin, this will cover pansensitive E. coli for UTI - continue with indwelling catheter C. Diff Infection - adding IV Flagyl, which will cover anaerobic pulmonary infection as well as C. diff - she would likely aspiration oral Vancomycin Hx. of PE - currently on IV heparin due to NPO status DNR/DNI plan to symptomatically treat the patient palliative care is currently on board - further management and disposition as per hospice 05/18 s/p intubated clinically stable no issues to note today WBC resolved as of 05/18 plan for possible home hospice? solid glass rod dowel machine operator and palliative care on board 05/17 s/p intubation plan initially was for trach and PEG insertion palliative consulted solid glass rod dowel machine operator input appreciated at this point, palliation may be the best course of action for now, continue secretion control, possible addition of atropine? S/P Intubation-05/16/17 Another attack of near respiratory failure 2 days before Has had a Code Purple called last evening and the patient was transferred to ICU. She did not require intubation and with aggressive suctioning her condition improved She is up for PEG tube placement and possible tracheostomy down the line. Appreciate Center Machine Operator input Acute Respiratory Failure-Required Endotracheal Intubation -05/16/17 Awaiting further discussion with the family members for further management Cardiopulmonary Arrest Aspiration>Respiratory arrest followed by Cardiac arrest Required Intubation to maintain Saturation Transferred to ICU Bronchoscopy in ICU -a considerable amount of food materials sucked out Likely extubation today and resume oral medications thereafter Clinically better Transfer back to [facility] Has H/O recurrent aspiration with esophageal dysmotility before Another episode of Aspiration last evening Broad spectrum antibiotics added -now on Aztreonam High risk of aspiration of her own secretion Planning to have tracheostomy and J tube placement to minimize aspiration ENT and Surgery will be consulted-appreciate input Awaiting decision on Tracheostomy and J Tube placement SEPSIS Met criteria for sepsis per 2001 definition and current CMS guidelines ( UTI, tachycardia, leukocytosis). Elevated WBC and lactate on admission,Received IVF Urine cx grew A-Adro-Kholvljzneql Blood cx -negative Was On Rocephin and Vanco Vanco Discontinued 05/09 Rocephin was changed to ertapenem Completed 7 days course of IV abx (Rocephin later changed to ertapenem) Now on Broad spectrum antibiotics for recurrent aspiration Cdiff stool positive for C-diff since pt was NPO, she was starting on flagyl IV-stopped Continue PO vanco to complete 14 days monitor electrolytes No diarrhea NGT-Vancomycin Abdominal Tenderness Unchanged severe distention of the colon with gas and stool. Recommend disimpaction. Pt had 2 BM today Will give Dulcolax 1 repeat xray in am-decreasing fecal load Bowel is moving GI bleed INR increased to 10 Received vit k Hgb stable at 9.5 Resume Coumadin 2.5 mg INR 5.3on 05/15-receiving Vit K Will monitor ACUTE KIDNEY INJURY Serum creatinine 1.3 compared to recent baseline of 0.6-0.8. Creatine stable D/C IVF Monitor BMP. Resolved ELEVATED TROPONIN Serum troponin = 0.343. EKG shows sinus rhythm, nonspecific T-wave changes. Serum troponin trending down to 0.13 Asymptomatic Hypokalemia K replaced Monitor BMP Will need more replacement CONSTIPATION CT abdomen CT abd showed massive amount of stool within the rectum and moderate to large amount of stool within the colon consistent with significant fecal impaction. No bowel obstruction had diarrhea/cdiff Moving bowel DM TYPE 2 Hba1c 6.8 ( on 05/04/17) Lantus + NovoLog per protocol. MULTIPLE SCLEROSIS Advanced disease. Aspiration precautions. Symptomatic management. URINARY RETENTION Secondary to multiple sclerosis. Continue indwelling Lemos catheter Will change Lemos cath ABDOMINAL MASS Previously noted and evaluated by Surgery. Resection not pursued due to advanced MS and multiple comorbidities. DECUBITUS ULCERS Avoid pressure. Local care. Continue daily wound care VTE PROPHYLAXIS / HISTORY OF PULMONARY EMBOLISM Was on Coumadin and changed to Lovenox Now on IV Heparin RESUSCITATION STATUS::FULL CODE DISPOSITION Has had a long discussion with the and the daughter yesterday, 05/13 in the evening. Pros and cons of PEG tube/jejunal tube placement discussed. They wanted to have PEG tube placed. She is reverted back to full resuscitation status. Has had a Code Purple called last evening and the patient was transferred to ICU. She did not require intubation and with aggressive suctioning her condition improved. She will be for PEG tube placement and possible tracheostomy down the line. Continued [facility] stay due to: inadequate po fluid intake, other Discharge planning: uncertain
--- NOTE | 2017-05-20 19:07 | Palliative Care Progress Note ---
Palliative Care Progress Note Date of Service May 20, 2017. Subjective Pt evaluation today including: conversation w/ patient, conversation w/ family , physical exam, conversation w/ beverage sales consultant Pain: Patient denies any pain PO Intake: Minimal, patient with difficulty handling oral secretions Voiding: aguilar catheter in place Met with patient and at bedside. Oral secretions are improved with scopolamine patch, patient indicates she is comfortable. If oral secretions continue to be a problem, a second scopolamine patch may be placed. Patient requiring as needed suction for oral secretions. Review of Systems Constitutional: No fever Eyes: No worsening of vision ENT: No hearing loss Respiratory: + cough (Weak, ineffective cough), + problem reported (Patient denies feeling short of breath) Cardiac: No chest pain Abdomen: No pain Musculoskeletal: + problem reported (Extremity contractures due to MS) Female : + problem reported (Chronic indwelling Aguilar) Neurologic: + weakness Psychiatric: No anxiety Heme: No abnormal bleeding/bruising Endo: + fatigue Skin: No rash Objective Vital Signs Date Time Temp Pulse Resp B/P (MAP) Pulse Ox O2 Delivery O2 Flow Rate FiO2 05/20/17 16:00 Nasal Cannula 5.0 05/20/17 15:24 36.5 95 20 157/86 (109) 99 Nasal Cannula 5.0 05/20/17 08:00 98 Nasal Cannula 5.0 05/20/17 07:25 37.8 98 22 161/70 (100) 87 Nasal Cannula 5.0 05/20/17 00:01 Nasal Cannula 5.0 05/19/17 23:44 37.0 126 22 177/93 (121) 94 Nasal Cannula 5.0 05/19/17 21:00 Nasal Cannula 5.0 Physical Exam General Appearance: no apparent distress Eyes: EOMI ENT: hearing grossly normal Neck: + pertinent finding (Limited range of motion due to weakness) Respiratory/Chest: + decreased breath sounds, + pertinent finding (Excess oral secretions, decreased from previous exam) Cardiovascular: regular rate, rhythm Abdomen: non tender, soft Extremities: + pertinent finding (Moderate contractures) Neurologic/Psychiatric: alert, oriented x 3 Skin: warm/dry Laboratory Results Last 24 Hours Test 05/19/17 21:08 05/20/17 00:42 05/20/17 05:51 05/20/17 06:15 Bedside Glucose 166 mg/dl 143 mg/dl 134 mg/dl White Blood Count 13.43 K/uL Red Blood Count 3.01 M/uL Hemoglobin 8.3 g/dL Hematocrit 26.0 % Mean Corpuscular Volume 86.4 fL Mean Corpuscular Hemoglobin 27.6 pg Mean Corpuscular Hemoglobin Concent 31.9 g/dl RDW Standard Deviation 53.7 fL RDW Coefficient of Variation 17.0 % Platelet Count 388 K/uL Mean Platelet Volume 8.7 fL Prothrombin Time 10.7 SECONDS Prothromb Time International Ratio 1.0 Activated Partial Thromboplast Time 52.1 SECONDS Partial Thromboplastin Ratio 2.0 Sodium Level 138 mmol/L Potassium Level 3.9 mmol/L Chloride Level 106 mmol/L Carbon Dioxide Level 24 mmol/L Anion Gap 8.0 mmol/L Blood Urea Nitrogen 10 mg/dl Creatinine 0.45 mg/dl Est Creatinine Clear Calc Drug Dose 126.2 ml/min Estimated GFR () 121.9 Estimated GFR (Non- 105.1 BUN/Creatinine Ratio 23.1 Random Glucose 145 mg/dl Calcium Level 8.8 mg/dl Test 05/20/17 11:45 05/20/17 17:02 Bedside Glucose 119 mg/dl 105 mg/dl Assessment and Plan (1) Dysphagia causing pulmonary aspiration with swallowing Status: Acute Assessment & Plan: Patient refused PEG tube, as per her advanced directives. Comfort feeding, with aspiration precautions. Excess secretions with improved control with scopolamine patch, may place a second patch if needed, continue as needed suctioning (2) Multiple sclerosis Status: Chronic Assessment & Plan: Patient progressing to end-stage (3) Palliative care encounter Status: Acute Assessment & Plan: We will continue to provide support for patient and . Patient wishes to return home, however is not able to care for her under current circumstances. Palliative Performance Scale: 20 % Continued [facility] stay due to: inadequate po fluid intake, other Discharge planning: uncertain Counseling and Coordination Total time 35 minutes with greater than 50% of the time spent at bedside discussing treatment options, goals of care, and plan of care with patient and .
[2017-05-20] MEDS: CEFTRIAXONE SOD INJ 1000 MG in DEXTROSE 5% 50ML IV SCH (21:31)
[2017-05-21 00:07] VITALS: BP 155/75; PULSE 104; TEMP 37; O2SAT 92
[2017-05-21] MEDS: GLYCOPYRROLATE INJ 0.2 MG/ML VIAL IV SCH ×3 (03:16→14:37)
[2017-05-21] MEDS: METRONIDAZOLE / NSS 500 MG in PREMIXED NSS 100 ML IV SCH ×3 (03:20→19:17)
[2017-05-21 05:56] LABS: HEMATOCRIT 29.1 % (37-47); HEMOGLOBIN 8.8 g/dL (12.0-16.0); MEAN CELL VOLUME 87.1 fL (80-100); MEAN CORPUSCULAR HEMOGLOBIN 26.3 pg (25-34); MEAN CORPUSCULAR HGB CONC 30.2 g/dl (32-36); MEAN PLATELET VOLUME 8.6 fL (7.4-10.4); NUCLEATED RED BLOOD CELL ABS 0.04 K/uL (0-0); PLATELET COUNT 405 K/uL (130-400); RED CELL DISTRIBUTION WIDTH CV 17.1 % (11.5-14.5); RED CELL DISTRIBUTION WIDTH SD 53.7 fL (36.4-46.3); WHITE BLOOD COUNT 14.66 K/uL (4.8-10.8)
[2017-05-21 06:11] LABS: PTT PATIENT 58.4 SECONDS (21.0-31.0)
[2017-05-21 06:32] LABS: CALCIUM 8.9 mg/dl (8.5-10.1); CREATININE 0.61 mg/dl (0.60-1.20)
[2017-05-21] MEDS: HEPARIN 25,000 UNIT/500ML D5W 500 ML IV SCH ×2 (06:35→14:39)
[2017-05-21 07:57] VITALS: BP 177/77; PULSE 93; TEMP 37.4; O2SAT 98
[2017-05-21] MEDS: DOCUSATE SODIUM 100 MG/10 ML UDC PO SCH ×2 (09:08→19:17)
[2017-05-21] MEDS: INSULIN GLARGINE SOLOSTAR 100 UNITS/ML 3 ML PEN SC SCH ×2 (09:11→21:15)
[2017-05-21] MEDS: CHECK SCOPOLAMINE PATCH PLACEMENT SCH ×2 (09:14→16:13)
[2017-05-21] MEDS: FAMOTIDINE IV INJ 20 MG in SYRINGE 3 ML IV SCH ×2 (09:20→21:09)
--- NOTE | 2017-05-21 11:12 | Progress Note ---
Subjective Date of Service: May 21, 2017. Subjective Pt evaluation today including: conversation w/ patient, physical exam, lab review, review of studies, review of inpatient medication list Saw/examined the patient in room 406 She is feeling better this morning Secretions are much improved She is awake, alert and less lethargic than yesterday Occasionally eating pudding and jello. Problem List Medical Problems: (1) Altered mental status Status: Acute (2) Bronchitis Status: Acute (3) Change in mental status Status: Acute (4) Decubitus ulcer Status: Acute (5) Dehydration Status: Acute (6) Diarrhea Status: Acute (7) Dyspnea Status: Acute (8) Elevated INR Status: Acute (9) Elevated INR Status: Acute (10) Elevated troponin Status: Acute (11) Fecal impaction Status: Acute (12) Pyelonephritis Status: Acute (13) Respiratory distress Status: Acute (14) Sepsis Status: Acute (15) Sepsis Status: Acute (16) UTI (urinary tract infection) Status: Acute Review of Systems Respiratory: No cough, No sputum, No wheezing, No shortness of breath, No dyspnea on exertion Medications Current Inpatient Medications Medications (Trade) Dose Ordered Sig/Dwain Route Start Time Stop Time Status Last Admin Dose Admin Glucose (Glucose 40% Gel) 15-30 GRAMS 15 GRAMS... UD PRN PO 05/03/17 18:30 06/02/17 18:29 Glucose (Glucose Chew Tab) 4-8 Tablets 4 Tabl... UD PRN PO 05/03/17 18:30 06/02/17 18:29 Dextrose (Dextrose 50% 50ML Syringe) 25-50ML OF 50% DW IV FOR... UD PRN IV 05/03/17 18:30 06/02/17 18:29 05/17/17 05:10 25 ML Glucagon (Glucagon Inj) 1 mg UD PRN SQ 05/03/17 18:30 06/02/17 18:29 Heparin Sodium (Porcine) (Heparin 10 Unit/ ml 5 ml Flush) 5 ml PRN PRN FLUSH 05/12/17 01:00 06/11/17 00:59 Vancomycin HCl (Vancomycin Oral Soln) 125 mg Q6 NG 05/14/17 00:00 06/03/17 21:59 Future Hold 05/19/17 11:31 125 MG Ipratropium [place] (Atrovent 0.02% 0.5MG/2.5ML Neb) 0.5 mg Q4R PRN INH 05/14/17 20:15 06/13/17 20:14 Levalbuterol (Xopenex 1.25MG/ 0.5ML Neb) 1.25 mg Q4R PRN INH 05/14/17 20:15 06/13/17 20:14 Heparin Sodium/ Dextrose 500 ml @ 16 mls/hr Q24H IV 05/16/17 09:45 06/15/17 09:44 05/21/17 06:35 16 MLS/HR Famotidine 20 mg/ Syringe 5 ml @ 2.5 mls/min Q12 IV 05/16/17 10:30 06/15/17 10:29 05/21/17 09:20 2.5 MLS/MIN Magnesium Oxide (Mag-Ox Tab) 400 mg HS PO 05/16/17 21:00 06/15/17 20:59 Future Hold 05/17/17 20:43 400 MG Insulin Glargine (Lantus Solostar Pen) BID SC 05/18/17 09:00 06/17/17 08:59 05/21/17 09:11 4 UNITS Ferrous Sulfate (Feosol Tab) 325 mg QAM PO 05/19/17 10:30 06/18/17 10:29 Future Hold 05/19/17 10:17 325 MG Ascorbic Acid (Vitamin C Tab) 500 mg QAM PO 05/19/17 10:30 06/18/17 10:29 Future Hold 05/19/17 10:18 500 MG Docusate Sodium (coLACE SYRUP) 100 mg BID PO 05/19/17 20:00 06/18/17 20:59 05/21/17 09:08 100 MG Glycopyrrolate (Robinul Inj) 0.1 mg Q6H IV 05/19/17 14:45 06/18/17 14:44 05/21/17 09:08 0.1 MG Ceftriaxone Sodium 1 gm/ Dextrose 50 ml @ 100 mls/hr DAILY@2100 IV 05/19/17 21:00 05/27/17 20:59 05/20/17 21:31 100 MLS/HR Scopolamine (Transderm-Scop Patch) 1.5 mg Q3D@1600 TD 05/22/17 16:00 51/18 15:59 Miscellaneous (Remove Transderm-Scop Patch) 1 ea Q3D@1559 N/A 05/22/17 15:59 06/21/17 15:58 Miscellaneous Information (Check Scopolamine Patch Placement) 1 ea QS N/A 05/20/17 00:00 06/19/17 00:00 05/21/17 09:14 1 EA Morphine Sulfate (MoRPHine SULFATE INJ) 2 mg Q15M PRN IV 05/19/17 15:30 06/02/17 15:29 Lorazepam (Ativan Inj) 0.5 mg Q4H PRN IV 05/19/17 18:45 06/18/17 18:44 Lorazepam 0.5 mg/ Syringe 1 ml @ 1 mls/min Q4H PRN IV 05/19/17 19:30 06/18/17 19:29 Atropine Sulfate (Atropine Sulfate 1% Oph Soln) 2 drops Q6H PRN SL 05/19/17 19:15 06/18/17 19:14 05/20/17 09:53 2 DROPS Metronidazole 500 mg/Prmx 100 ml @ 100 mls/hr Q8H IV 05/19/17 20:00 05/26/17 19:59 05/21/17 03:20 100 MLS/HR Non-Formulary Medication (Beer) 1 can PRN PRN PO 05/19/17 19:30 06/18/17 19:29 Objective Vital Signs Date Time Temp Pulse Resp B/P (MAP) Pulse Ox O2 Delivery O2 Flow Rate FiO2 05/21/17 08:40 Nasal Cannula 5.0 05/21/17 07:57 37.4 93 20 177/77 (110) 98 Room Air 05/21/17 00:07 37.0 104 22 155/75 (101) 92 Nasal Cannula 5.0 05/20/17 23:25 Nasal Cannula 5.0 Humidified Oxygen 05/20/17 16:00 Nasal Cannula 5.0 05/20/17 15:24 36.5 95 20 157/86 (109) 99 Nasal Cannula 5.0 Physical Exam General Appearance: no apparent distress, + obese Respiratory/Chest: no respiratory distress, no accessory muscle use, + rhonchi Cardiovascular: regular rate, rhythm, no edema, no murmur Neurologic/Psychiatric: alert, normal mood/affect, + motor weakness (chronic motor weakness) Laboratory Results Last 24 Hours Test 05/20/17 11:45 05/20/17 17:02 05/20/17 20:09 05/21/17 05:25 Bedside Glucose 119 mg/dl 105 mg/dl 116 mg/dl White Blood Count 14.66 K/uL Red Blood Count 3.34 M/uL Hemoglobin 8.8 g/dL Hematocrit 29.1 % Mean Corpuscular Volume 87.1 fL Mean Corpuscular Hemoglobin 26.3 pg Mean Corpuscular Hemoglobin Concent 30.2 g/dl RDW Standard Deviation 53.7 fL RDW Coefficient of Variation 17.1 % Platelet Count 405 K/uL Mean Platelet Volume 8.6 fL Nucleated RBC Absolute Count (auto) 0.04 K/uL Nucleated Red Blood Cells % 0.3 % Activated Partial Thromboplast Time 58.4 SECONDS Partial Thromboplastin Ratio 2.2 Sodium Level 139 mmol/L Potassium Level 4.0 mmol/L Chloride Level 106 mmol/L Carbon Dioxide Level 25 mmol/L Anion Gap 8.0 mmol/L Blood Urea Nitrogen 10 mg/dl Creatinine 0.61 mg/dl Est Creatinine Clear Calc Drug Dose 93.1 ml/min Estimated GFR () 110.3 Estimated GFR (Non- 95.1 BUN/Creatinine Ratio 17.0 Random Glucose 135 mg/dl Calcium Level 8.9 mg/dl Test 05/21/17 07:38 Bedside Glucose 134 mg/dl Assessment and Plan This is a 67 year old female with a PMH of multiple sclerosis, chronically bed- ridden due to muscle weakness leading to decubitus ulcers, insulin dependent DM2 , hx. of PE and DVT with long-term Coumadin use, neurogenic bladder and chronic indwelling catheter with recurrent UTIs and on chronic antibiotic prophylaxis therapy - presented on May 03 with increased lethargy/confusion - noted to have sepsis at that time likely due to another urinary tract infection. This was further complicated with a C. Diff Infection on May 04. On May 11, natalya joiner was called due to patient choking on her breakfast. She had respiratory arrest leading to cardiopulmonary arrest. She was intubated and a bronchoscopy was performed. She was initially transferred out of the ICU and then transferred back when agonal breathing. She was re-intubated at that time due to likely re-aspiration and hypoxic respiratory failure on May 16. Initially family wanted to be aggressive with her measures; including tracheostomy and PEG tube. Palliative care was consulted - she was extubated on May 19 and brought back to the floor with a DNR status. Advanced Stage Multiple Sclerosis with Recurrent Aspiration and Dysphagia leading to Acute Hypoxic Respiratory Failure Aspiration Pneumonia 05/21 - continue with scopolamine patches x2 - continue atropine drops and glycopyrrolate - tolerating jello and pudding, etc. - disposition will be an issue - wants to go home but family cannot care for her - WBC increasing is concerning, she is on Rocephin and Flagyl for now; will considering PO Vanco 05/20 - no acute issues - poor prognosis - continue current measures; palliative care on board 05/19 - as noted above, patient has had multiple and recurrent episodes of aspiration , requiring endotracheal intubation x2 - initial plan was for trach and PEG tube - appreciate shop repairer and palliative care consultation and input - patient is now DNR status - she is transferred to the fourth floor - will restart antibiotics; currently on Rocephin for UTI, which will cover possible pneumonia as well - will add Flagyl for anaerobic coverage as well as C. Diff coverage - continue scopolamine patch x2 and glycopyrrolate for secretions; will add PRN atropine SL drops - monitor for aspiration; precautions - will need speech evaluation Sepsis secondary to Recurrent UTI in the setting of Chronic Indwelling Catheter secondary to Neurogenic Bladder - patient presented with sepsis, WBC now resolved - mild temp persists, vitals otherwise stable - will continue Rocephin, this will cover pansensitive E. coli for UTI - continue with indwelling catheter C. Diff Infection 05/21 - WBC increasing - cont. IV Flagyl, will consider PO Vanco, though with the aspiration issues, may not be feasible 05/20 - adding IV Flagyl, which will cover anaerobic pulmonary infection as well as C. diff - she would likely aspiration oral Vancomycin Hx. of PE - currently on IV heparin due to NPO status DNR/DNI plan to symptomatically treat the patient palliative care is currently on board - further management and disposition as per hospice 05/18 s/p intubated clinically stable no issues to note today WBC resolved as of 05/18 plan for possible home hospice? shop repairer and palliative care on board 05/17 s/p intubation plan initially was for trach and PEG insertion palliative consulted shop repairer input appreciated at this point, palliation may be the best course of action for now, continue secretion control, possible addition of atropine? S/P Intubation-05/16/17 Another attack of near respiratory failure 2 days before Has had a Code Purple called last evening and the patient was transferred to ICU. She did not require intubation and with aggressive suctioning her condition improved She is up for PEG tube placement and possible tracheostomy down the line. Appreciate [employer] Facility Supervisor input Acute Respiratory Failure-Required Endotracheal Intubation -05/16/17 Awaiting further discussion with the family members for further management Cardiopulmonary Arrest Aspiration>Respiratory arrest followed by Cardiac arrest Required Intubation to maintain Saturation Transferred to ICU Bronchoscopy in ICU -a considerable amount of food materials sucked out Likely extubation today and resume oral medications thereafter Clinically better Transfer back to [facility] Has H/O recurrent aspiration with esophageal dysmotility before Another episode of Aspiration last evening Broad spectrum antibiotics added -now on Aztreonam High risk of aspiration of her own secretion Planning to have tracheostomy and J tube placement to minimize aspiration ENT and Surgery will be consulted-appreciate input Awaiting decision on Tracheostomy and J Tube placement SEPSIS Met criteria for sepsis per 2001 definition and current CMS guidelines ( UTI, tachycardia, leukocytosis). Elevated WBC and lactate on admission,Received IVF Urine cx grew A-[id number] Blood cx -negative Was On Rocephin and Vanco Vanco Discontinued 05/09 Rocephin was changed to ertapenem Completed 7 days course of IV abx (Rocephin later changed to ertapenem) Now on Broad spectrum antibiotics for recurrent aspiration Cdiff stool positive for C-diff since pt was NPO, she was starting on flagyl IV-stopped Continue PO vanco to complete 14 days monitor electrolytes No diarrhea NGT-Vancomycin Abdominal Tenderness Unchanged severe distention of the colon with gas and stool. Recommend disimpaction. Pt had 2 BM today Will give Dulcolax 1 repeat xray in am-decreasing fecal load Bowel is moving GI bleed INR increased to 10 Received vit k Hgb stable at 9.5 Resume Coumadin 2.5 mg INR 5.3on 05/15-receiving Vit K Will monitor ACUTE KIDNEY INJURY Serum creatinine 1.3 compared to recent baseline of 0.6-0.8. Creatine stable D/C IVF Monitor BMP. Resolved ELEVATED TROPONIN Serum troponin = 0.343. EKG shows sinus rhythm, nonspecific T-wave changes. Serum troponin trending down to 0.13 Asymptomatic Hypokalemia K replaced Monitor BMP Will need more replacement CONSTIPATION CT abdomen CT abd showed massive amount of stool within the rectum and moderate to large amount of stool within the colon consistent with significant fecal impaction. No bowel obstruction had diarrhea/cdiff Moving bowel DM TYPE 2 Hba1c 6.8 ( on 05/04/17) Lantus + NovoLog per protocol. MULTIPLE SCLEROSIS Advanced disease. Aspiration precautions. Symptomatic management. URINARY RETENTION Secondary to multiple sclerosis. Continue indwelling Lemos catheter Will change Lemos cath ABDOMINAL MASS Previously noted and evaluated by Surgery. Resection not pursued due to advanced MS and multiple comorbidities. DECUBITUS ULCERS Avoid pressure. Local care. Continue daily wound care VTE PROPHYLAXIS / HISTORY OF PULMONARY EMBOLISM Was on Coumadin and changed to Lovenox Now on IV Heparin RESUSCITATION STATUS::FULL CODE DISPOSITION Has had a long discussion with the and the daughter yesterday, 05/13 in the evening. Pros and cons of PEG tube/jejunal tube placement discussed. They wanted to have PEG tube placed. She is reverted back to full resuscitation status. Has had a Code Purple called last evening and the patient was transferred to ICU. She did not require intubation and with aggressive suctioning her condition improved. She will be for PEG tube placement and possible tracheostomy down the line. Continued [facility] stay due to: inadequate po fluid intake, other Discharge planning: uncertain
[2017-05-21 16:05] VITALS: BP 152/82; PULSE 103; TEMP 37.4; O2SAT 95
[2017-05-21] MEDS: ATROPINE SULFATE 1% OP SOLN 5 ML BTL SL PRN (19:17)
[2017-05-21] MEDS: CEFTRIAXONE SOD INJ 1000 MG in DEXTROSE 5% 50ML IV SCH (21:08)
[2017-05-21] MEDS: GLYCOPYRROLATE INJ 0.2 MG/ML VIAL IV. SCH (21:50)
[2017-05-22 00:07] VITALS: BP 148/79; PULSE 104; TEMP 37.1; O2SAT 97
[2017-05-22] MEDS: CHECK SCOPOLAMINE PATCH PLACEMENT SCH ×3 (00:50→15:42)
[2017-05-22] MEDS: GLYCOPYRROLATE INJ 0.2 MG/ML VIAL IV. SCH ×4 (03:59→20:01)
[2017-05-22] MEDS: METRONIDAZOLE / NSS 500 MG in PREMIXED NSS 100 ML IV SCH ×3 (04:01→20:01)
[2017-05-22 06:46] LABS: PTT PATIENT 57.2 SECONDS (21.0-31.0)
[2017-05-22 07:09] VITALS: BP 147/95; PULSE 96; TEMP 37.3; O2SAT 96
[2017-05-22] MEDS: DOCUSATE SODIUM 100 MG/10 ML UDC PO SCH ×2 (09:32→20:01)
[2017-05-22] MEDS: FAMOTIDINE IV INJ 20 MG in SYRINGE 3 ML IV SCH ×2 (09:36→20:03)
[2017-05-22] MEDS: INSULIN GLARGINE SOLOSTAR 100 UNITS/ML 3 ML PEN SC SCH ×2 (09:38→20:11)
--- NOTE | 2017-05-22 11:43 | Progress Note ---
Subjective Date of Service: May 22, 2017. Subjective Pt evaluation today including: conversation w/ patient, physical exam, lab review, review of studies, review of inpatient medication list Saw/examined the patient in room 406 She's lethargic and tired Afraid to eat anything due to choking episodes Other than weakness, does not verbalize any complaints Problem List Medical Problems: (1) Altered mental status Status: Acute (2) Bronchitis Status: Acute (3) Change in mental status Status: Acute (4) Decubitus ulcer Status: Acute (5) Dehydration Status: Acute (6) Diarrhea Status: Acute (7) Dyspnea Status: Acute (8) Elevated INR Status: Acute (9) Elevated INR Status: Acute (10) Elevated troponin Status: Acute (11) Fecal impaction Status: Acute (12) Pyelonephritis Status: Acute (13) Respiratory distress Status: Acute (14) Sepsis Status: Acute (15) Sepsis Status: Acute (16) UTI (urinary tract infection) Status: Acute Review of Systems Constitutional: + weakness, No fever, No chills Respiratory: No cough, No sputum, No shortness of breath Cardiac: No chest pain, No edema, No palpitations Medications Current Inpatient Medications Medications (Trade) Dose Ordered Sig/Dwain Route Start Time Stop Time Status Last Admin Dose Admin Glucose (Glucose 40% Gel) 15-30 GRAMS 15 GRAMS... UD PRN PO 05/03/17 18:30 06/02/17 18:29 Glucose (Glucose Chew Tab) 4-8 Tablets 4 Tabl... UD PRN PO 05/03/17 18:30 06/02/17 18:29 Dextrose (Dextrose 50% 50ML Syringe) 25-50ML OF 50% DW IV FOR... UD PRN IV 05/03/17 18:30 06/02/17 18:29 05/17/17 05:10 25 ML Glucagon (Glucagon Inj) 1 mg UD PRN SQ 05/03/17 18:30 06/02/17 18:29 Heparin Sodium (Porcine) (Heparin 10 Unit/ ml 5 ml Flush) 5 ml PRN PRN FLUSH 05/12/17 01:00 06/11/17 00:59 Vancomycin HCl (Vancomycin Oral Soln) 125 mg Q6 NG 05/14/17 00:00 06/03/17 21:59 Future Hold 05/19/17 11:31 125 MG Ipratropium [place] (Atrovent 0.02% 0.5MG/2.5ML Neb) 0.5 mg Q4R PRN INH 05/14/17 20:15 06/13/17 20:14 Levalbuterol (Xopenex 1.25MG/ 0.5ML Neb) 1.25 mg Q4R PRN INH 05/14/17 20:15 06/13/17 20:14 Heparin Sodium/ Dextrose 500 ml @ 16 mls/hr Q24H IV 05/16/17 09:45 06/15/17 09:44 05/21/17 14:39 16 MLS/HR Famotidine 20 mg/ Syringe 5 ml @ 2.5 mls/min Q12 IV 05/16/17 10:30 06/15/17 10:29 05/22/17 09:36 2.5 MLS/MIN Magnesium Oxide (Mag-Ox Tab) 400 mg HS PO 05/16/17 21:00 06/15/17 20:59 Future Hold 05/17/17 20:43 400 MG Insulin Glargine (Lantus Solostar Pen) BID SC 05/18/17 09:00 06/17/17 08:59 05/22/17 09:38 4 UNITS Ferrous Sulfate (Feosol Tab) 325 mg QAM PO 05/19/17 10:30 06/18/17 10:29 Future Hold 05/19/17 10:17 325 MG Ascorbic Acid (Vitamin C Tab) 500 mg QAM PO 05/19/17 10:30 06/18/17 10:29 Future Hold 05/19/17 10:18 500 MG Docusate Sodium (coLACE SYRUP) 100 mg BID PO 05/19/17 20:00 06/18/17 20:59 05/22/17 09:32 100 MG Ceftriaxone Sodium 1 gm/ Dextrose 50 ml @ 100 mls/hr DAILY@2100 IV 05/19/17 21:00 05/27/17 20:59 05/21/17 21:08 100 MLS/HR Scopolamine (Transderm-Scop Patch) 1.5 mg Q3D@1600 TD 05/22/17 16:00 06/21/17 15:59 Miscellaneous (Remove Transderm-Scop Patch) 1 ea Q3D@1559 N/A 05/22/17 15:59 06/21/17 15:58 Miscellaneous Information (Check Scopolamine Patch Placement) 1 ea QS N/A 05/20/17 00:00 06/19/17 00:00 05/22/17 09:31 1 EA Morphine Sulfate (MoRPHine SULFATE INJ) 2 mg Q15M PRN IV 05/19/17 15:30 06/02/17 15:29 Lorazepam (Ativan Inj) 0.5 mg Q4H PRN IV 05/19/17 18:45 06/18/17 18:44 Lorazepam 0.5 mg/ Syringe 1 ml @ 1 mls/min Q4H PRN IV 05/19/17 19:30 06/18/17 19:29 Atropine Sulfate (Atropine Sulfate 1% Oph Soln) 2 drops Q6H PRN SL 05/19/17 19:15 06/18/17 19:14 05/21/17 19:17 2 DROPS Metronidazole 500 mg/Prmx 100 ml @ 100 mls/hr Q8H IV 05/19/17 20:00 05/26/17 19:59 05/22/17 04:01 100 MLS/HR Non-Formulary Medication (Beer) 1 can PRN PRN PO 05/19/17 19:30 06/18/17 19:29 Glycopyrrolate (Robinul Inj) 0.1 mg Q6H IV. 05/21/17 21:30 06/20/17 21:29 05/22/17 09:31 0.1 MG Objective Vital Signs Date Time Temp Pulse Resp B/P (MAP) Pulse Ox O2 Delivery O2 Flow Rate FiO2 05/22/17 07:09 37.3 96 22 147/95 (112) 96 Nasal Cannula 4.0 05/22/17 00:07 37.1 104 20 148/79 (102) 97 Nasal Cannula 5.0 05/22/17 00:00 Nasal Cannula 5.0 Humidified Oxygen 05/21/17 20:00 Nasal Cannula 5.0 Humidified Oxygen 05/21/17 16:05 37.4 103 20 152/82 (105) 95 Nasal Cannula 5.0 05/21/17 15:50 Nasal Cannula 5.0 Humidified Oxygen Physical Exam General Appearance: no apparent distress Respiratory/Chest: no respiratory distress, no accessory muscle use Cardiovascular: regular rate, rhythm, no edema, no murmur Extremities: normal inspection, no pedal edema Neurologic/Psychiatric: no motor/sensory deficits, alert, normal mood/affect Laboratory Results Last 24 Hours Test 05/21/17 16:40 05/21/17 20:04 05/22/17 05:37 05/22/17 07:48 Bedside Glucose 129 mg/dl 145 mg/dl 136 mg/dl Activated Partial Thromboplast Time 57.2 SECONDS Partial Thromboplastin Ratio 2.2 Test 05/22/17 11:33 Bedside Glucose 136 mg/dl Assessment and Plan This is a 67 year old female with a PMH of multiple sclerosis, chronically bed- ridden due to muscle weakness leading to decubitus ulcers, insulin dependent DM2 , hx. of PE and DVT with long-term Coumadin use, neurogenic bladder and chronic indwelling catheter with recurrent UTIs and on chronic antibiotic prophylaxis therapy - presented on May 03 with increased lethargy/confusion - noted to have sepsis at that time likely due to another urinary tract infection. This was further complicated with a C. Diff Infection on May 04. On May 11, natalya joiner was called due to patient choking on her breakfast. She had respiratory arrest leading to cardiopulmonary arrest. She was intubated and a bronchoscopy was performed. She was initially transferred out of the ICU and then transferred back when agonal breathing. She was re-intubated at that time due to likely re-aspiration and hypoxic respiratory failure on May 16. Initially family wanted to be aggressive with her measures; including tracheostomy and PEG tube. Palliative care was consulted - she was extubated on May 19 and brought back to the floor with a DNR status. Advanced Stage Multiple Sclerosis with Recurrent Aspiration and Dysphagia leading to Acute Hypoxic Respiratory Failure Aspiration Pneumonia 05/22 - no clinical change today - she is afraid to eat because of choking episodes - she is currently on a mechanical soft diet; she is agreeable to try pudding - continue Rocephin and Flagyl, recheck CBC in AM 05/21 - continue with scopolamine patches x2 - continue atropine drops and glycopyrrolate - tolerating jello and pudding, etc. - disposition will be an issue - wants to go home but family cannot care for her - WBC increasing is concerning, she is on Rocephin and Flagyl for now; will considering PO Vanco 05/20 - no acute issues - poor prognosis - continue current measures; palliative care on board 05/19 - as noted above, patient has had multiple and recurrent episodes of aspiration , requiring endotracheal intubation x2 - initial plan was for trach and PEG tube - appreciate building carpenter helper and palliative care consultation and input - patient is now DNR status - she is transferred to the fourth floor - will restart antibiotics; currently on Rocephin for UTI, which will cover possible pneumonia as well - will add Flagyl for anaerobic coverage as well as C. Diff coverage - continue scopolamine patch x2 and glycopyrrolate for secretions; will add PRN atropine SL drops - monitor for aspiration; precautions - will need speech evaluation Sepsis secondary to Recurrent UTI in the setting of Chronic Indwelling Catheter secondary to Neurogenic Bladder - patient presented with sepsis, WBC now resolved - mild temp persists, vitals otherwise stable - will continue Rocephin, this will cover pansensitive E. coli for UTI - continue with indwelling catheter C. Diff Infection 05/21 - WBC increasing - cont. IV Flagyl, will consider PO Vanco, though with the aspiration issues, may not be feasible 05/20 - adding IV Flagyl, which will cover anaerobic pulmonary infection as well as C. diff - she would likely aspiration oral Vancomycin Hx. of PE - currently on IV heparin due to NPO status DNR/DNI plan to symptomatically treat the patient palliative care is currently on board - further management and disposition as per hospice 05/18 s/p intubated clinically stable no issues to note today WBC resolved as of 05/18 plan for possible home hospice? building carpenter helper and palliative care on board 05/17 s/p intubation plan initially was for trach and PEG insertion palliative consulted building carpenter helper input appreciated at this point, palliation may be the best course of action for now, continue secretion control, possible addition of atropine? S/P Intubation-05/16/17 Another attack of near respiratory failure 2 days before Has had a Code Purple called last evening and the patient was transferred to ICU. She did not require intubation and with aggressive suctioning her condition improved She is up for PEG tube placement and possible tracheostomy down the line. Appreciate Superintendent Of Generation input Acute Respiratory Failure-Required Endotracheal Intubation -05/16/17 Awaiting further discussion with the family members for further management Cardiopulmonary Arrest Aspiration>Respiratory arrest followed by Cardiac arrest Required Intubation to maintain Saturation Transferred to ICU Bronchoscopy in ICU -a considerable amount of food materials sucked out Likely extubation today and resume oral medications thereafter Clinically better Transfer back to [facility] Has H/O recurrent aspiration with esophageal dysmotility before Another episode of Aspiration last evening Broad spectrum antibiotics added -now on Aztreonam High risk of aspiration of her own secretion Planning to have tracheostomy and J tube placement to minimize aspiration ENT and Surgery will be consulted-appreciate input Awaiting decision on Tracheostomy and J Tube placement SEPSIS Met criteria for sepsis per 2001 definition and current CMS guidelines ( UTI, tachycardia, leukocytosis). Elevated WBC and lactate on admission,Received IVF Urine cx grew J-Fbck-Reyszutscehy Blood cx -negative Was On Rocephin and Vanco Vanco Discontinued 05/09 Rocephin was changed to ertapenem Completed 7 days course of IV abx (Rocephin later changed to ertapenem) Now on Broad spectrum antibiotics for recurrent aspiration Cdiff stool positive for C-diff since pt was NPO, she was starting on flagyl IV-stopped Continue PO vanco to complete 14 days monitor electrolytes No diarrhea NGT-Vancomycin Abdominal Tenderness Unchanged severe distention of the colon with gas and stool. Recommend disimpaction. Pt had 2 BM today Will give Dulcolax 1 repeat xray in am-decreasing fecal load Bowel is moving GI bleed INR increased to 10 Received vit k Hgb stable at 9.5 Resume Coumadin 2.5 mg INR 5.3on 05/15-receiving Vit K Will monitor ACUTE KIDNEY INJURY Serum creatinine 1.3 compared to recent baseline of 0.6-0.8. Creatine stable D/C IVF Monitor BMP. Resolved ELEVATED TROPONIN Serum troponin = 0.343. EKG shows sinus rhythm, nonspecific T-wave changes. Serum troponin trending down to 0.13 Asymptomatic Hypokalemia K replaced Monitor BMP Will need more replacement CONSTIPATION CT abdomen CT abd showed massive amount of stool within the rectum and moderate to large amount of stool within the colon consistent with significant fecal impaction. No bowel obstruction had diarrhea/cdiff Moving bowel DM TYPE 2 Hba1c 6.8 ( on 05/04/17) Lantus + NovoLog per protocol. MULTIPLE SCLEROSIS Advanced disease. Aspiration precautions. Symptomatic management. URINARY RETENTION Secondary to multiple sclerosis. Continue indwelling Lemos catheter Will change Lemos cath ABDOMINAL MASS Previously noted and evaluated by Surgery. Resection not pursued due to advanced MS and multiple comorbidities. DECUBITUS ULCERS Avoid pressure. Local care. Continue daily wound care VTE PROPHYLAXIS / HISTORY OF PULMONARY EMBOLISM Was on Coumadin and changed to Lovenox Now on IV Heparin RESUSCITATION STATUS::FULL CODE DISPOSITION Has had a long discussion with the and the daughter yesterday, 05/13 in the evening. Pros and cons of PEG tube/jejunal tube placement discussed. They wanted to have PEG tube placed. She is reverted back to full resuscitation status. Has had a Code Purple called last evening and the patient was transferred to ICU. She did not require intubation and with aggressive suctioning her condition improved. She will be for PEG tube placement and possible tracheostomy down the line. Continued [facility] stay due to: inadequate po fluid intake, other Discharge planning: uncertain
[2017-05-22] MEDS: SCOPOLAMINE 1.5 MG TDSY TD SCH (15:42)
[2017-05-22 16:02] VITALS: BP 129/71; PULSE 109; TEMP 36.8; O2SAT 96
[2017-05-22] MEDS: CEFTRIAXONE SOD INJ 1000 MG in DEXTROSE 5% 50ML IV SCH (21:56)
[2017-05-22] MEDS: ATROPINE SULFATE 1% OP SOLN 5 ML BTL SL PRN (21:56)
[2017-05-22] MEDS ORDERED: SCOPOLAMINE 1.5 MG TDSY TD ONE (22:00)
[2017-05-22 23:36] VITALS: BP 179/82; PULSE 96; TEMP 37; O2SAT 96
[2017-05-23] MEDS: CHECK SCOPOLAMINE PATCH PLACEMENT SCH ×6 (01:04→15:51)
[2017-05-23] MEDS ORDERED: LISINOPRIL 5 MG TAB PO ONE (02:22)
[2017-05-23] MEDS: GLYCOPYRROLATE INJ 0.2 MG/ML VIAL IV. SCH ×4 (03:22→21:06)
[2017-05-23] MEDS: METRONIDAZOLE / NSS 500 MG in PREMIXED NSS 100 ML IV SCH ×3 (03:22→20:59)
[2017-05-23 03:27] VITALS: BP 143/76; PULSE 95
[2017-05-23 06:04] LABS: HEMOGLOBIN 8.2 g/dL (12.0-16.0); MEAN CELL VOLUME 85.6 fL (80-100); MEAN CORPUSCULAR HEMOGLOBIN 28.1 pg (25-34); MEAN CORPUSCULAR HGB CONC 32.8 g/dl (32-36); MEAN PLATELET VOLUME 8.7 fL (7.4-10.4); PLATELET COUNT 351 K/uL (130-400); RED CELL DISTRIBUTION WIDTH CV 17.1 % (11.5-14.5); RED CELL DISTRIBUTION WIDTH SD 52.8 fL (36.4-46.3); WHITE BLOOD COUNT 12.88 K/uL (4.8-10.8)
[2017-05-23 06:23] LABS: PTT PATIENT 63.9 SECONDS (21.0-31.0)
[2017-05-23 08:19] VITALS: BP 157/83; PULSE 93; TEMP 36.8; O2SAT 95
[2017-05-23] MEDS: FAMOTIDINE IV INJ 20 MG in SYRINGE 3 ML IV SCH ×2 (09:04→21:08)
[2017-05-23] MEDS: INSULIN GLARGINE SOLOSTAR 100 UNITS/ML 3 ML PEN SC SCH ×2 (09:17→21:08)
[2017-05-23] MEDS: DOCUSATE SODIUM 100 MG/10 ML UDC PO SCH ×2 (09:18→20:00)
[2017-05-23] MEDS: HEPARIN 25,000 UNIT/500ML D5W 500 ML IV SCH (09:18)
--- NOTE | 2017-05-23 09:19 | Clinical Documentation Query ---
CLINICAL DOCUMENTATION QUERY Dr. MALDONADO, In your clinical opinion is this patient being managed for: ( X ) severe protein-calorie malnutrition ( ) Not Agree ( ) Other explanation of clinical findings (Please Explain) ( ) Unable to determine (Please Define) ( ) Need to Discuss The medical record reflects the following clinical findings, treatment, and risk factors. Clinical Indicators: 67 yo female presenting with sepsis/aspiration pna. Wt of 81 kg on admit 05/03, currently 74.9 kg for a wt loss of 7.53% over 2 week period. Pt afraid to eat now that she is permitted. Pt has frequently been NPO due to intubation on and off over her hospital stay. Treatment: dietary involvement, currently DM II/ mechanical soft diet, palliative consult/considering Hospice Risk Factors: MS with end stage disease Severe Malnutrition Criteria: (2 criteria needed) Energy intake: <50% of estimated energy requirement for > 5 days Wt loss: 1-2% in 1 wk, 5% in 1 month, or 7.5% in 3 months Body fat: moderate loss of SQ fat from the orbits, triceps or fat overlying the ribs Muscle mass: moderate muscle wasting at the temples, clavicles, shoulders, interosseous spaces, scapula, thigh, calf Fluid accumulation: moderate to severe localized or generalized edema of the extremities, vulva, scrotum-wt loss may be masked by edema Armature Winder Repair Helper strength: measurably decreased per the devices standards Please clarify and document your clinical opinion in the progress notes and discharge summary. Terms such as "probable", "suspected", "likely", "questionable", "possible", or "still to be ruled out" are acceptable. IF IN AGREEMENT, YOU MUST DOCUMENT ABOVE DIAGNOSTIC STATEMENT IN DAILY PROGRESS NOTES AND DISCHARGE SUMMARY. This document is not part of the patient's record. Thank You, Rupinder Quezada, JUAN MANUEL [phone]
[2017-05-23 09:22] VITALS: O2SAT 97
--- NOTE | 2017-05-23 13:00 | Progress Note ---
Subjective Date of Service: May 23, 2017. Subjective Pt evaluation today including: conversation w/ patient, physical exam, lab review, review of studies, review of inpatient medication list Saw/examined the patient in room 406 She is improving today, talking more, still raspy and congested Problem List Medical Problems: (1) Altered mental status Status: Acute (2) Bronchitis Status: Acute (3) Change in mental status Status: Acute (4) Decubitus ulcer Status: Acute (5) Dehydration Status: Acute (6) Diarrhea Status: Acute (7) Dyspnea Status: Acute (8) Elevated INR Status: Acute (9) Elevated INR Status: Acute (10) Elevated troponin Status: Acute (11) Fecal impaction Status: Acute (12) Pyelonephritis Status: Acute (13) Respiratory distress Status: Acute (14) Sepsis Status: Acute (15) Sepsis Status: Acute (16) UTI (urinary tract infection) Status: Acute Review of Systems Constitutional: No fever, No chills Respiratory: + cough, + sputum, + shortness of breath, + dyspnea on exertion, No wheezing, No dyspnea at rest, No hemoptysis Cardiac: No chest pain Medications Current Inpatient Medications Medications (Trade) Dose Ordered Sig/Dwain Route Start Time Stop Time Status Last Admin Dose Admin Glucose (Glucose 40% Gel) 15-30 GRAMS 15 GRAMS... UD PRN PO 05/03/17 18:30 06/02/17 18:29 Glucose (Glucose Chew Tab) 4-8 Tablets 4 Tabl... UD PRN PO 05/03/17 18:30 06/02/17 18:29 Dextrose (Dextrose 50% 50ML Syringe) 25-50ML OF 50% DW IV FOR... UD PRN IV 05/03/17 18:30 06/02/17 18:29 05/17/17 05:10 25 ML Glucagon (Glucagon Inj) 1 mg UD PRN SQ 05/03/17 18:30 06/02/17 18:29 Heparin Sodium (Porcine) (Heparin 10 Unit/ ml 5 ml Flush) 5 ml PRN PRN FLUSH 05/12/17 01:00 06/11/17 00:59 Vancomycin HCl (Vancomycin Oral Soln) 125 mg Q6 NG 05/14/17 00:00 06/03/17 21:59 Future Hold 05/19/17 11:31 125 MG Ipratropium [place]mage (Atrovent 0.02% 0.5MG/2.5ML Neb) 0.5 mg Q4R PRN INH 05/14/17 20:15 06/13/17 20:14 Levalbuterol (Xopenex 1.25MG/ 0.5ML Neb) 1.25 mg Q4R PRN INH 05/14/17 20:15 06/13/17 20:14 Heparin Sodium/ Dextrose 500 ml @ 16 mls/hr Q24H IV 05/16/17 09:45 06/15/17 09:44 05/23/17 09:18 16 MLS/HR Famotidine 20 mg/ Syringe 5 ml @ 2.5 mls/min Q12 IV 05/16/17 10:30 06/15/17 10:29 05/23/17 09:04 2.5 MLS/MIN Magnesium Oxide (Mag-Ox Tab) 400 mg HS PO 05/16/17 21:00 06/15/17 20:59 Future Hold 05/17/17 20:43 400 MG Insulin Glargine (Lantus Solostar Pen) BID SC 05/18/17 09:00 06/17/17 08:59 05/23/17 09:17 4 UNITS Ferrous Sulfate (Feosol Tab) 325 mg QAM PO 05/19/17 10:30 06/18/17 10:29 Future Hold 05/19/17 10:17 325 MG Ascorbic Acid (Vitamin C Tab) 500 mg QAM PO 05/19/17 10:30 06/18/17 10:29 Future Hold 05/19/17 10:18 500 MG Docusate Sodium (coLACE SYRUP) 100 mg BID PO 05/19/17 20:00 06/18/17 20:59 05/22/17 20:01 100 MG Ceftriaxone Sodium 1 gm/ Dextrose 50 ml @ 100 mls/hr DAILY@2100 IV 05/19/17 21:00 05/27/17 20:59 05/22/17 21:56 100 MLS/HR Scopolamine (Transderm-Scop Patch) 1.5 mg Q3D@1600 TD 05/22/17 16:00 06/21/17 15:59 05/22/17 15:42 1.5 MG Miscellaneous (Remove Transderm-Scop Patch) 1 ea Q3D@1559 N/A 05/22/17 15:59 06/21/17 15:58 05/22/17 15:38 1 EA Miscellaneous Information (Check Scopolamine Patch Placement) 1 ea QS N/A 05/20/17 00:00 06/19/17 00:00 05/23/17 09:05 1 EA Morphine Sulfate (MoRPHine SULFATE INJ) 2 mg Q15M PRN IV 05/19/17 15:30 06/02/17 15:29 Lorazepam (Ativan Inj) 0.5 mg Q4H PRN IV 05/19/17 18:45 06/18/17 18:44 Lorazepam 0.5 mg/ Syringe 1 ml @ 1 mls/min Q4H PRN IV 05/19/17 19:30 06/18/17 19:29 Atropine Sulfate (Atropine Sulfate 1% Oph Soln) 2 drops Q6H PRN SL 05/19/17 19:15 06/18/17 19:14 05/22/17 21:56 2 DROPS Metronidazole 500 mg/Prmx 100 ml @ 100 mls/hr Q8H IV 05/19/17 20:00 05/26/17 19:59 05/23/17 12:06 100 MLS/HR Non-Formulary Medication (Beer) 1 can PRN PRN PO 05/19/17 19:30 06/18/17 19:29 Glycopyrrolate (Robinul Inj) 0.1 mg Q6H IV. 05/21/17 21:30 06/20/17 21:29 05/23/17 09:03 0.1 MG Miscellaneous (Remove Transderm-Scop Patch) 1 ea Q72H ONCE N/A 05/25/17 22:00 05/25/17 22:01 Miscellaneous Information (Check Scopolamine Patch Placement) 1 ea QS N/A 05/23/17 00:00 05/25/17 22:00 05/23/17 09:05 1 EA Lisinopril (Zestril Tab) 5 mg DAILY PO 05/24/17 08:00 06/23/17 07:59 Objective Vital Signs Date Time Temp Pulse Resp B/P (MAP) Pulse Ox O2 Delivery O2 Flow Rate FiO2 05/23/17 09:22 97 Nasal Cannula 5.0 05/23/17 08:45 Nasal Cannula 5.0 Humidified Oxygen 05/23/17 08:19 36.8 93 20 157/83 (107) 95 Nasal Cannula 5.0 05/23/17 03:27 95 143/76 (98) 05/23/17 00:00 Nasal Cannula 5.0 Humidified Oxygen 05/22/17 23:36 37.0 96 20 179/82 (114) 96 Nasal Cannula 5.0 05/22/17 16:02 36.8 109 18 129/71 (90) 96 Nasal Cannula 5.0 05/22/17 16:00 Nasal Cannula 5.0 Humidified Oxygen Physical Exam General Appearance: no apparent distress, + pertinent finding (chronically ill appearing) Respiratory/Chest: no respiratory distress, no accessory muscle use, + rhonchi Cardiovascular: regular rate, rhythm, no edema, no murmur Neurologic/Psychiatric: + motor weakness (chronic motor weakness) Laboratory Results Last 24 Hours Test 05/22/17 16:42 05/22/17 20:08 05/23/17 05:36 05/23/17 07:48 Bedside Glucose 170 mg/dl 131 mg/dl 133 mg/dl White Blood Count 12.88 K/uL Red Blood Count 2.92 M/uL Hemoglobin 8.2 g/dL Hematocrit 25.0 % Mean Corpuscular Volume 85.6 fL Mean Corpuscular Hemoglobin 28.1 pg Mean Corpuscular Hemoglobin Concent 32.8 g/dl RDW Standard Deviation 52.8 fL RDW Coefficient of Variation 17.1 % Platelet Count 351 K/uL Mean Platelet Volume 8.7 fL Activated Partial Thromboplast Time 63.9 SECONDS Partial Thromboplastin Ratio 2.5 Test 05/23/17 11:40 Bedside Glucose 184 mg/dl Assessment and Plan This is a 67 year old female with a PMH of multiple sclerosis, chronically bed- ridden due to muscle weakness leading to decubitus ulcers, insulin dependent DM2 , hx. of PE and DVT with long-term Coumadin use, neurogenic bladder and chronic indwelling catheter with recurrent UTIs and on chronic antibiotic prophylaxis therapy - presented on May 03 with increased lethargy/confusion - noted to have sepsis at that time likely due to another urinary tract infection. This was further complicated with a C. Diff Infection on May 04. On May 11, natalya joiner was called due to patient choking on her breakfast. She had respiratory arrest leading to cardiopulmonary arrest. She was intubated and a bronchoscopy was performed. She was initially transferred out of the ICU and then transferred back when agonal breathing. She was re-intubated at that time due to likely re-aspiration and hypoxic respiratory failure on May 16. Initially family wanted to be aggressive with her measures; including tracheostomy and PEG tube. Palliative care was consulted - she was extubated on May 19 and brought back to the floor with a DNR status. Advanced Stage Multiple Sclerosis with Recurrent Aspiration and Dysphagia leading to Acute Hypoxic Respiratory Failure Aspiration Pneumonia 05/23 - improving leukocytosis - palliative care for further disposition help - at this point, we can continue abx., IV heparin - for congestion - scopolamine patch x2, atropine drops and glycopyrrolate 05/22 - no clinical change today - she is afraid to eat because of choking episodes - she is currently on a mechanical soft diet; she is agreeable to try pudding - continue Rocephin and Flagyl, recheck CBC in AM 05/21 - continue with scopolamine patches x2 - continue atropine drops and glycopyrrolate - tolerating jello and pudding, etc. - disposition will be an issue - wants to go home but family cannot care for her - WBC increasing is concerning, she is on Rocephin and Flagyl for now; will considering PO Vanco 05/20 - no acute issues - poor prognosis - continue current measures; palliative care on board 05/19 - as noted above, patient has had multiple and recurrent episodes of aspiration , requiring endotracheal intubation x2 - initial plan was for trach and PEG tube - appreciate nursery supervisor and palliative care consultation and input - patient is now DNR status - she is transferred to the fourth floor - will restart antibiotics; currently on Rocephin for UTI, which will cover possible pneumonia as well - will add Flagyl for anaerobic coverage as well as C. Diff coverage - continue scopolamine patch x2 and glycopyrrolate for secretions; will add PRN atropine SL drops - monitor for aspiration; precautions - will need speech evaluation Sepsis secondary to Recurrent UTI in the setting of Chronic Indwelling Catheter secondary to Neurogenic Bladder - patient presented with sepsis, WBC now resolved - mild temp persists, vitals otherwise stable - will continue Rocephin, this will cover pansensitive E. coli for UTI - continue with indwelling catheter C. Diff Infection 05/21 - WBC increasing - cont. IV Flagyl, will consider PO Vanco, though with the aspiration issues, may not be feasible 05/20 - adding IV Flagyl, which will cover anaerobic pulmonary infection as well as C. diff - she would likely aspiration oral Vancomycin Hx. of PE - currently on IV heparin due to NPO status DNR/DNI plan to symptomatically treat the patient palliative care is currently on board - further management and disposition as per hospice 05/18 s/p intubated clinically stable no issues to note today WBC resolved as of 05/18 plan for possible home hospice? nursery supervisor and palliative care on board 05/17 s/p intubation plan initially was for trach and PEG insertion palliative consulted nursery supervisor input appreciated at this point, palliation may be the best course of action for now, continue secretion control, possible addition of atropine? S/P Intubation-05/16/17 Another attack of near respiratory failure 2 days before Has had a Code Purple called last evening and the patient was transferred to ICU. She did not require intubation and with aggressive suctioning her condition improved She is up for PEG tube placement and possible tracheostomy down the line. Appreciate Psychiatric Social Worker input Acute Respiratory Failure-Required Endotracheal Intubation -05/16/17 Awaiting further discussion with the family members for further management Cardiopulmonary Arrest Aspiration>Respiratory arrest followed by Cardiac arrest Required Intubation to maintain Saturation Transferred to ICU Bronchoscopy in ICU -a considerable amount of food materials sucked out Likely extubation today and resume oral medications thereafter Clinically better Transfer back to [facility] Has H/O recurrent aspiration with esophageal dysmotility before Another episode of Aspiration last evening Broad spectrum antibiotics added -now on Aztreonam High risk of aspiration of her own secretion Planning to have tracheostomy and J tube placement to minimize aspiration ENT and Surgery will be consulted-appreciate input Awaiting decision on Tracheostomy and J Tube placement SEPSIS Met criteria for sepsis per 2001 definition and current CMS guidelines ( UTI, tachycardia, leukocytosis). Elevated WBC and lactate on admission,Received IVF Urine cx grew [id number] Blood cx -negative Was On Rocephin and Vanco Vanco Discontinued 05/09 Rocephin was changed to ertapenem Completed 7 days course of IV abx (Rocephin later changed to ertapenem) Now on Broad spectrum antibiotics for recurrent aspiration Cdiff stool positive for C-diff since pt was NPO, she was starting on flagyl IV-stopped Continue PO vanco to complete 14 days monitor electrolytes No diarrhea NGT-Vancomycin Abdominal Tenderness Unchanged severe distention of the colon with gas and stool. Recommend disimpaction. Pt had 2 BM today Will give Dulcolax 1 repeat xray in am-decreasing fecal load Bowel is moving GI bleed INR increased to 10 Received vit k Hgb stable at 9.5 Resume Coumadin 2.5 mg INR 5.3on 05/15-receiving Vit K Will monitor ACUTE KIDNEY INJURY Serum creatinine 1.3 compared to recent baseline of 0.6-0.8. Creatine stable D/C IVF Monitor BMP. Resolved ELEVATED TROPONIN Serum troponin = 0.343. EKG shows sinus rhythm, nonspecific T-wave changes. Serum troponin trending down to 0.13 Asymptomatic Hypokalemia K replaced Monitor BMP Will need more replacement CONSTIPATION CT abdomen CT abd showed massive amount of stool within the rectum and moderate to large amount of stool within the colon consistent with significant fecal impaction. No bowel obstruction had diarrhea/cdiff Moving bowel DM TYPE 2 Hba1c 6.8 ( on 05/04/17) Lantus + NovoLog per protocol. MULTIPLE SCLEROSIS Advanced disease. Aspiration precautions. Symptomatic management. URINARY RETENTION Secondary to multiple sclerosis. Continue indwelling Lemos catheter Will change Lemos cath ABDOMINAL MASS Previously noted and evaluated by Surgery. Resection not pursued due to advanced MS and multiple comorbidities. DECUBITUS ULCERS Avoid pressure. Local care. Continue daily wound care VTE PROPHYLAXIS / HISTORY OF PULMONARY EMBOLISM Was on Coumadin and changed to Lovenox Now on IV Heparin RESUSCITATION STATUS::FULL CODE DISPOSITION Has had a long discussion with the and the daughter yesterday, 05/13 in the evening. Pros and cons of PEG tube/jejunal tube placement discussed. They wanted to have PEG tube placed. She is reverted back to full resuscitation status. Has had a Code Purple called last evening and the patient was transferred to ICU. She did not require intubation and with aggressive suctioning her condition improved. She will be for PEG tube placement and possible tracheostomy down the line. Continued [facility] stay due to: inadequate po fluid intake, other Discharge planning: uncertain
[2017-05-23 14:52] VITALS: BP 143/78; PULSE 78; TEMP 36.8; O2SAT 95
--- NOTE | 2017-05-23 15:54 | Palliative Care Progress Note ---
Palliative Care Progress Note Date of Service May 23, 2017. Subjective Pt evaluation today including: conversation w/ patient, conversation w/ family , physical exam, chart review, conversation w/ environmental consultant Pain: None PO Intake: Poor Voiding: aguilar catheter in place Patient reports increase or secretions despite [address] Patient did not want oral suctioning when offered. Patient's and son at bedside Review of Systems Constitutional: No fever Eyes: No worsening of vision ENT: No hearing loss Respiratory: + dyspnea on exertion, + problem reported (Excess oral secretions) Cardiac: No chest pain Abdomen: No pain Musculoskeletal: + problem reported (Contractures) Female : + problem reported (Chronic indwelling Aguilar) Neurologic: No memory loss Psychiatric: No depression symptoms, No anxiety Heme: No abnormal bleeding/bruising Endo: + fatigue Skin: No rash Objective Vital Signs Date Time Temp Pulse Resp B/P (MAP) Pulse Ox O2 Delivery O2 Flow Rate FiO2 05/23/17 14:52 36.8 78 19 143/78 (99) 95 Room Air 05/23/17 09:22 97 Nasal Cannula 5.0 05/23/17 08:45 Nasal Cannula 5.0 Humidified Oxygen 05/23/17 08:19 36.8 93 20 157/83 (107) 95 Nasal Cannula 5.0 05/23/17 03:27 95 143/76 (98) 05/23/17 00:00 Nasal Cannula 5.0 Humidified Oxygen 05/22/17 23:36 37.0 96 20 179/82 (114) 96 Nasal Cannula 5.0 05/22/17 16:02 36.8 109 18 129/71 (90) 96 Nasal Cannula 5.0 05/22/17 16:00 Nasal Cannula 5.0 Humidified Oxygen Physical Exam General Appearance: + mild distress (Due to excess oral secretions) Eyes: EOMI ENT: hearing grossly normal Neck: supple Respiratory/Chest: + decreased breath sounds, + rhonchi, + pertinent finding ( Audible excess oral secretions) Cardiovascular: regular rate, rhythm Abdomen: non tender, soft Extremities: + pertinent finding (Contractures) Neurologic/Psychiatric: alert, oriented x 3 Skin: warm/dry, + pallor Laboratory Results Last 24 Hours Test 05/22/17 16:42 05/22/17 20:08 05/23/17 05:36 05/23/17 07:48 Bedside Glucose 170 mg/dl 131 mg/dl 133 mg/dl White Blood Count 12.88 K/uL Red Blood Count 2.92 M/uL Hemoglobin 8.2 g/dL Hematocrit 25.0 % Mean Corpuscular Volume 85.6 fL Mean Corpuscular Hemoglobin 28.1 pg Mean Corpuscular Hemoglobin Concent 32.8 g/dl RDW Standard Deviation 52.8 fL RDW Coefficient of Variation 17.1 % Platelet Count 351 K/uL Mean Platelet Volume 8.7 fL Activated Partial Thromboplast Time 63.9 SECONDS Partial Thromboplastin Ratio 2.5 Test 05/23/17 11:40 Bedside Glucose 184 mg/dl Assessment and Plan (1) Dysphagia causing pulmonary aspiration with swallowing Status: Acute Assessment & Plan: Patient too weak to clear oral secretions, high risk of aspiration. Patient not taking any p.o. nutrition, just occasional liquids via mouth swab Patient with [address], consider adding Levsin sublingual tab 0.125 mg every 4 hours as needed, or Robinul 1 - 2 mg tablet ,can also be sublingual 4 times daily (2) Multiple sclerosis Status: Chronic Assessment & Plan: Patient end-stage (3) Palliative care encounter Status: Acute Assessment & Plan: We will continue to provide support to family regarding patient nearing end-of-life. Palliative Performance Scale: 20 % Continued [facility] stay due to: inadequate po fluid intake, other (Patient unable to control oral secretions) Discharge planning: uncertain Counseling and Coordination Total time 35 minutes with greater than 50% of the time spent at bedside discussing further treatment options and goals of care with and son separately along with discussions at bedside
[2017-05-23 16:00] VITALS: O2SAT 95
[2017-05-23] MEDS ORDERED: HYOSCYAMINE SULFATE 0.125 MG SL TAB SL PRN (16:45)
[2017-05-23] MEDS: ATROPINE SULFATE 1% OP SOLN 2 ML BTL SL PRN (21:09)
[2017-05-23] MEDS: CEFTRIAXONE SOD INJ 1000 MG in DEXTROSE 5% 50ML IV SCH (21:31)
[2017-05-23 23:40] VITALS: BP 181/80; PULSE 88; TEMP 36.6; O2SAT 92
[2017-05-24] MEDS: CHECK SCOPOLAMINE PATCH PLACEMENT SCH ×6 (00:05→16:10)
[2017-05-24 00:14] VITALS: BP 123/74
[2017-05-24] MEDS: ATROPINE SULFATE 1% OP SOLN 2 ML BTL SL PRN ×2 (02:50→12:24)
[2017-05-24] MEDS: METRONIDAZOLE / NSS 500 MG in PREMIXED NSS 100 ML IV SCH ×3 (04:09→21:05)
[2017-05-24] MEDS: GLYCOPYRROLATE INJ 0.2 MG/ML VIAL IV. SCH ×4 (04:23→21:08)
[2017-05-24 06:35] LABS: PTT PATIENT 56.5 SECONDS (21.0-31.0)
[2017-05-24 07:54] VITALS: BP 153/73; PULSE 105; TEMP 37.5; O2SAT 91
--- NOTE | 2017-05-24 08:42 | Clinical Documentation Query ---
CLINICAL DOCUMENTATION QUERY Dr. APARICIO, In your clinical opinion is this patient being managed for: (x ) severe protein-calorie malnutrition ( ) Not Agree ( ) Other explanation of clinical findings (Please Explain) ( ) Unable to determine (Please Define) ( ) Need to Discuss The medical record reflects the following clinical findings, treatment, and risk factors. Clinical Indicators: 67 yo female presenting with sepsis/aspiration pna. Wt of 81 kg on admit 05/03, currently 74.9 kg for a wt loss of 7.53% over 2 week period. Pt afraid to eat now that she is permitted. Pt has frequently been NPO due to intubation on and off over her hospital stay. Treatment: dietary involvement, currently DM II/ mechanical soft diet, palliative consult/considering Hospice Risk Factors: MS with end stage disease Severe Malnutrition Criteria: (2 criteria needed) Energy intake: <50% of estimated energy requirement for > 5 days Wt loss: 1-2% in 1 wk, 5% in 1 month, or 7.5% in 3 months Body fat: moderate loss of SQ fat from the orbits, triceps or fat overlying the ribs Muscle mass: moderate muscle wasting at the temples, clavicles, shoulders, interosseous spaces, scapula, thigh, calf Fluid accumulation: moderate to severe localized or generalized edema of the extremities, vulva, scrotum-wt loss may be masked by edema Dolphin Researcher strength: measurably decreased per the devices standards Please clarify and document your clinical opinion in the progress notes and discharge summary. Terms such as "probable", "suspected", "likely", "questionable", "possible", or "still to be ruled out" are acceptable. IF IN AGREEMENT, YOU MUST DOCUMENT ABOVE DIAGNOSTIC STATEMENT IN DAILY PROGRESS NOTES AND DISCHARGE SUMMARY. This document is not part of the patient's record. Thank You, Rupinder Quezada, JUAN MANUEL [phone]
[2017-05-24] MEDS: FAMOTIDINE IV INJ 20 MG in SYRINGE 3 ML IV SCH ×2 (08:58→21:15)
[2017-05-24] MEDS: LISINOPRIL 5 MG TAB PO SCH (08:59)
[2017-05-24] MEDS: DOCUSATE SODIUM 100 MG/10 ML UDC PO SCH ×2 (08:59→20:00)
[2017-05-24] MEDS: INSULIN GLARGINE SOLOSTAR 100 UNITS/ML 3 ML PEN SC SCH ×2 (09:08→20:00)
[2017-05-24] MEDS: HEPARIN 25,000 UNIT/500ML D5W 500 ML IV SCH (09:09)
[2017-05-24 12:11] LABS: BASO % 0.1 %; BASO ABS # 0.02 K/uL (0-0.2); EOS % 0.3 %; EOS ABS # 0.04 K/uL (0-0.5); HEMATOCRIT 26.2 % (37-47); HEMOGLOBIN 8.3 g/dL (12.0-16.0); IG# 0.05 K/uL (0.00-0.02); LYMPH % 12.8 %; LYMPH ABS # 1.81 K/uL (1.2-3.4); MEAN CELL VOLUME 85.3 fL (80-100); MEAN PLATELET VOLUME 8.6 fL (7.4-10.4); MONO % 4.5 %; MONO ABS # 0.64 K/uL (0.11-0.59); NEUT % 81.9 %; NEUT ABS # 11.59 K/uL (1.4-6.5); PLATELET COUNT 386 K/uL (130-400); RED CELL DISTRIBUTION WIDTH CV 17.2 % (11.5-14.5); RED CELL DISTRIBUTION WIDTH SD 53.2 fL (36.4-46.3); WHITE BLOOD COUNT 14.15 K/uL (4.8-10.8)
[2017-05-24 12:24] LABS: MEAN CORPUSCULAR HGB CONC 31.7 g/dl (32-36)
[2017-05-24 12:33] LABS: CALCIUM 8.9 mg/dl (8.5-10.1); CREATININE 0.52 mg/dl (0.60-1.20); POTASSIUM 3.5 mmol/L (3.5-5.1)
--- NOTE | 2017-05-24 13:49 | Progress Note ---
Internal Med Progress Note Date of Service: May 24, 2017. Provider Documentation: SUBJECTIVE: Patient denies acute pain of shortness of breath OBJECTIVE: Exam: General- verbal, denies discomfort Eyes- EOMI ENT- coughs with throat clearing attempts Neck- no JVD Lungs-fair air entry, no wheezing Heart- regular rate Abdomen- soft, nontender, + bowel sounds Extremities- cannot move lower extremities, able to move upper extremities and give hand cashier credit ASSESSMENT & PLAN: 67 year old female with a PMH of multiple sclerosis, chronically bed-ridden due to muscle weakness leading to decubitus ulcers, insulin dependent DM2, hx. of PE and DVT with long-term Coumadin use, neurogenic bladder and chronic indwelling catheter with recurrent UTIs and on chronic antibiotic prophylaxis therapy - presented on May 03 with increased lethargy/confusion - noted to have sepsis at that time likely due to another urinary tract infection. This was further complicated with a C. Diff infection on May 04. On May 11, natalya joiner was called due to patient choking on her breakfast. She had respiratory arrest leading to cardiopulmonary arrest. She was intubated and a bronchoscopy was performed. She was initially transferred out of the ICU and then transferred back when agonal breathing. She was re-intubated at that time due to likely re-aspiration and hypoxic respiratory failure on May 16. Extubated on May 19 and returned to the floor with code status of DNR Plan: Advanced Stage Multiple Sclerosis with Recurrent Aspiration and Dysphagia leading to Acute Hypoxic Respiratory Failure and Aspiration Pneumonia -multiple ICU presentations on this presentation as above -has scopolamine patches, atropine drops and, glycopyrrolate to minimize oral secretions -is breathing on room air however has poor oral intake with likely protein malnutrition and PEG tube has not been considered to be an acceptable option in the past -Diabetes on insulin -has been on Flagyl for C.diff -Sepsis secondary to Recurrent UTI in the setting of Chronic Indwelling Catheter secondary to Neurogenic Bladder,has been on Ceftriaxone for UTI, continue ceftriaxone for now, will send UA, if UA is negative then will consider stopping Ceftriaxone -Hypertension management with oral lisinopril, add hydralazine IV prn for systolic blood pressure above 160 -history of of Pulmonary embolism; IV heparin due to poor oral status; will need to discuss with patient and patient's family members of oral alternative vs subcutaneous Lovenox Code Status DNR/DNI Vital Signs: Date Time Temp Pulse Resp B/P (MAP) Pulse Ox O2 Delivery O2 Flow Rate FiO2 05/24/17 09:00 Room Air 05/24/17 07:54 37.5 105 19 153/73 (99) 91 Room Air 05/24/17 00:14 123/74 (90) 05/24/17 00:00 Room Air 05/23/17 23:40 36.6 88 18 181/80 (113) 92 Room Air 05/23/17 16:00 95 Room Air Lab Results: Results Past 24 Hours Test 05/23/17 16:40 05/23/17 19:38 05/24/17 05:35 05/24/17 07:48 Range/Units Bedside Glucose 129 164 168 70-90 mg/dl Activated Partial Thromboplast Time 56.5 21.0-31.0 SECONDS Partial Thromboplastin Ratio 2.2 Test 05/24/17 11:35 05/24/17 11:58 Range/Units Bedside Glucose 190 70-90 mg/dl White Blood Count 14.15 4.8-10.8 K/uL Red Blood Count 3.07 4.2-5.4 M/uL Hemoglobin 8.3 12.0-16.0 g/dL Hematocrit 26.2 37-47 % Mean Corpuscular Volume 85.3 80-100 fL Mean Corpuscular Hemoglobin 27.0 25-34 pg Mean Corpuscular Hemoglobin Concent 31.7 32-36 g/dl Platelet Count 386 130-400 K/uL Mean Platelet Volume 8.6 7.4-10.4 fL Neutrophils (%) (Auto) 81.9 % Lymphocytes (%) (Auto) 12.8 % Monocytes (%) (Auto) 4.5 % Eosinophils (%) (Auto) 0.3 % Basophils (%) (Auto) 0.1 % Neutrophils # (Auto) 11.59 1.4-6.5 K/uL Lymphocytes # (Auto) 1.81 1.2-3.4 K/uL Monocytes # (Auto) 0.64 0.11-0.59 K/uL Eosinophils # (Auto) 0.04 0-0.5 K/uL Basophils # (Auto) 0.02 0-0.2 K/uL RDW Standard Deviation 53.2 36.4-46.3 fL RDW Coefficient of Variation 17.2 11.5-14.5 % Immature Granulocyte % (Auto) 0.4 % Immature Granulocyte # (Auto) 0.05 0.00-0.02 K/uL Large Platelets 1+ Giant Platelets 1+ Polychromasia 1+ Hypochromasia PRESENT Sodium Level 138 136-145 mmol/L Potassium Level 3.5 3.5-5.1 mmol/L Chloride Level 103 98-107 mmol/L Carbon Dioxide Level 27 21-32 mmol/L Anion Gap 8.0 3-11 mmol/L Blood Urea Nitrogen 10 7-18 mg/dl Creatinine 0.52 0.60-1.20 mg/dl Est Creatinine Clear Calc Drug Dose 109.2 ml/min Estimated GFR () 116.2 Estimated GFR (Non- 100.3 BUN/Creatinine Ratio 19.5 10-20 Random Glucose 183 70-99 mg/dl Calcium Level 8.9 8.5-10.1 mg/dl Magnesium Level 2.2 1.8-2.4 mg/dl Total Bilirubin 0.3 0.2-1 mg/dl Aspartate Amino Transf (AST/SGOT) 15 15-37 U/L Alanine Aminotransferase (ALT/SGPT) 32 12-78 U/L Alkaline Phosphatase 121 45-117 U/L Total Protein 7.0 6.4-8.2 gm/dl Albumin 2.0 3.4-5.0 gm/dl Globulin 5.0 2.5-4.0 gm/dl Albumin/Globulin Ratio 0.4 0.9-2
[2017-05-24] MEDS ORDERED: HydrALAZINE HCL 20 MG/ML VIAL IV. PRN (14:00)
[2017-05-24 15:31] VITALS: BP 139/84; PULSE 88; TEMP 36.3; O2SAT 96
--- NOTE | 2017-05-24 15:37 | Palliative Care Progress Note ---
Palliative Care Progress Note Date of Service May 24, 2017. Subjective Pt evaluation today including: physical exam, chart review, conversation w/ solar consultant Pain: None PO Intake: Minimal Voiding: aguilar catheter in place Went by to see patient several times today, each time patient was sleeping and did not respond to voice or touch. was not at bedside at any of the visits Review of Systems Unable to obtain, patient did not respond to voice or touch Objective Vital Signs Date Time Temp Pulse Resp B/P (MAP) Pulse Ox O2 Delivery O2 Flow Rate FiO2 05/24/17 15:31 36.3 88 18 139/84 (102) 96 Room Air 05/24/17 09:00 Room Air 05/24/17 07:54 37.5 105 19 153/73 (99) 91 Room Air 05/24/17 00:14 123/74 (90) 05/24/17 00:00 Room Air 05/23/17 23:40 36.6 88 18 181/80 (113) 92 Room Air 05/23/17 16:00 95 Room Air Physical Exam General Appearance: no apparent distress Respiratory/Chest: no respiratory distress, + decreased breath sounds, + pertinent finding (Still with audible excess oral secretions) Cardiovascular: regular rate, rhythm Abdomen: soft Extremities: + pertinent finding (Contractures) Neurologic/Psychiatric: + pertinent finding (Did not respond to voice or touch) Skin: warm/dry Laboratory Results Last 24 Hours Test 05/23/17 16:40 05/23/17 19:38 05/24/17 05:35 05/24/17 07:48 Bedside Glucose 129 mg/dl 164 mg/dl 168 mg/dl Activated Partial Thromboplast Time 56.5 SECONDS Partial Thromboplastin Ratio 2.2 Test 05/24/17 11:35 05/24/17 11:58 Bedside Glucose 190 mg/dl White Blood Count 14.15 K/uL Red Blood Count 3.07 M/uL Hemoglobin 8.3 g/dL Hematocrit 26.2 % Mean Corpuscular Volume 85.3 fL Mean Corpuscular Hemoglobin 27.0 pg Mean Corpuscular Hemoglobin Concent 31.7 g/dl Platelet Count 386 K/uL Mean Platelet Volume 8.6 fL Neutrophils (%) (Auto) 81.9 % Lymphocytes (%) (Auto) 12.8 % Monocytes (%) (Auto) 4.5 % Eosinophils (%) (Auto) 0.3 % Basophils (%) (Auto) 0.1 % Neutrophils # (Auto) 11.59 K/uL Lymphocytes # (Auto) 1.81 K/uL Monocytes # (Auto) 0.64 K/uL Eosinophils # (Auto) 0.04 K/uL Basophils # (Auto) 0.02 K/uL RDW Standard Deviation 53.2 fL RDW Coefficient of Variation 17.2 % Immature Granulocyte % (Auto) 0.4 % Immature Granulocyte # (Auto) 0.05 K/uL Large Platelets 1+ Giant Platelets 1+ Polychromasia 1+ Hypochromasia PRESENT Sodium Level 138 mmol/L Potassium Level 3.5 mmol/L Chloride Level 103 mmol/L Carbon Dioxide Level 27 mmol/L Anion Gap 8.0 mmol/L Blood Urea Nitrogen 10 mg/dl Creatinine 0.52 mg/dl Est Creatinine Clear Calc Drug Dose 109.2 ml/min Estimated GFR () 116.2 Estimated GFR (Non- 100.3 BUN/Creatinine Ratio 19.5 Random Glucose 183 mg/dl Calcium Level 8.9 mg/dl Magnesium Level 2.2 mg/dl Total Bilirubin 0.3 mg/dl Aspartate Amino Transf (AST/SGOT) 15 U/L Alanine Aminotransferase (ALT/SGPT) 32 U/L Alkaline Phosphatase 121 U/L Total Protein 7.0 gm/dl Albumin 2.0 gm/dl Globulin 5.0 gm/dl Albumin/Globulin Ratio 0.4 Assessment and Plan (1) Dysphagia causing pulmonary aspiration with swallowing Status: Acute Assessment & Plan: Patient with comfort feedings, taking only sips or few liquids via mouth swab (2) Multiple sclerosis Status: Chronic Assessment & Plan: Patient declining to end-stage, and end-of-life. Family and patient aware of patient's prognosis (3) Palliative care encounter Status: Acute Assessment & Plan: We will continue to support patient and family in decision making regarding placement in a facility for end-of-life care. Palliative Performance Scale: 20 % Continued [facility] stay due to: inadequate po fluid intake, other (Patient unable to clear excess oral secretions) Discharge planning: uncertain Counseling and Coordination Total time spent 25 minutes with greater than 50% of the time spent assessing patient on multiple visits.
[2017-05-24 16:00] VITALS: O2SAT 96
[2017-05-24] MEDS: CEFTRIAXONE SOD INJ 1000 MG in DEXTROSE 5% 50ML IV SCH (21:05)
[2017-05-24 23:04] VITALS: BP 139/77; PULSE 101; TEMP 37.1; O2SAT 93
[2017-05-25] VITALS: O2SAT 96
[2017-05-25] MEDS: GLYCOPYRROLATE INJ 0.2 MG/ML VIAL IV. SCH ×4 (04:03→21:07)
[2017-05-25] MEDS: METRONIDAZOLE / NSS 500 MG in PREMIXED NSS 100 ML IV SCH ×3 (04:03→19:45)
[2017-05-25 06:44] LABS: ALBUMIN 2.1 gm/dl (3.4-5.0); CALCIUM 8.7 mg/dl (8.5-10.1); CREATININE 0.47 mg/dl (0.60-1.20); PTT PATIENT 59.5 SECONDS (21.0-31.0)
[2017-05-25 06:49] LABS: TOTAL PROTEIN 7.2 gm/dl (6.4-8.2)
[2017-05-25] MEDS ORDERED: ENOXAPARIN 1.5 MG/KG SQ SCH (08:00)
[2017-05-25] MEDS: FAMOTIDINE IV INJ 20 MG in SYRINGE 3 ML IV SCH ×2 (08:20→21:07)
[2017-05-25] MEDS: LISINOPRIL 5 MG TAB PO SCH (08:21)
[2017-05-25] MEDS: DOCUSATE SODIUM 100 MG/10 ML UDC PO SCH ×2 (08:22→19:45)
[2017-05-25] MEDS: CHECK SCOPOLAMINE PATCH PLACEMENT SCH ×6 (08:23→16:07)
[2017-05-25] MEDS: ATROPINE SULFATE 1% OP SOLN 2 ML BTL SL PRN ×2 (08:24→21:08)
[2017-05-25 08:26] VITALS: BP 115/73; PULSE 84; TEMP 36.6; O2SAT 92
[2017-05-25] MEDS: INSULIN GLARGINE SOLOSTAR 100 UNITS/ML 3 ML PEN SC SCH ×2 (08:37→20:00)
[2017-05-25 09:34] VITALS: O2SAT 92
[2017-05-25] MEDS ORDERED: ENOXAPARIN 120 MG/0.8 ML SYR SQ SCH (10:00)
--- NOTE | 2017-05-25 10:23 | DIAGNOSTIC IMAGING REPORT ---
VENOUS DOPPLER LWR EXT BILA CLINICAL HISTORY: 67 years-old Female presenting with rule out DVT. TECHNIQUE: Real-time grayscale and color and spectral Doppler ultrasound imaging of the veins of the bilateral lower extremities was performed. Compression and augmentation were also utilized. COMPARISON: 11/07/2015. FINDINGS: Right: Common femoral vein: Patent. Greater saphenous vein: Patent. Deep femoral vein: Patent. Femoral vein: Patent. Popliteal vein: Patent. Calf veins: Limited visualization. Left: Common femoral vein: Patent. Greater saphenous vein: Patent. Deep femoral vein: Patent. Femoral vein: Patent. Popliteal vein: Patent. Calf veins: Limited visualization. Other: None. IMPRESSION: No evidence of deep venous thrombosis. Electronically signed by: Taran Gonzalez M.D. 05/25/2017 10:22 AM Dictated Date/Time: 05/25/2017 10:21 AM
[2017-05-25] MEDS: POTASSIUM CHLR 10 MEQ / WTR 10 MEQ in PREMIXED WATER 100 ML IV SCH ×5 (10:48→14:25)
[2017-05-25] MEDS ORDERED: TAP WATER ENEMA PR ONE (11:15)
[2017-05-25] MEDS: FLUCONAZOLE / NSS 200 MG in PREMIXED NSS 100 ML IV SCH (12:08)
--- NOTE | 2017-05-25 12:25 | Progress Note ---
Internal Med Progress Note Date of Service: May 25, 2017. 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 of PE and DVT with long-term Coumadin use, neurogenic bladder and chronic indwelling catheter with recurrent UTIs and on chronic antibiotic prophylaxis therapy - presented on May 03 with increased lethargy/confusion - noted to have sepsis at that time likely due to another urinary tract infection. This was further complicated with a C. Diff infection on May 04. On May 11, natalya joiner was called due to patient choking on her breakfast. She had respiratory arrest leading to cardiopulmonary arrest. She was intubated and a bronchoscopy was performed. She was initially transferred out of the ICU and then transferred back when agonal breathing. She was re-intubated at that time due to likely re-aspiration and hypoxic respiratory failure on May 16. Extubated on May 19 and returned to the floor with code status of DNR Plan: Advanced Stage Multiple Sclerosis with Recurrent Aspiration and Dysphagia leading to Acute Hypoxic Respiratory Failure and Aspiration Pneumonia -multiple ICU presentations on this presentation as above -has scopolamine patches, atropine drops and, glycopyrrolate to minimize oral secretions -is breathing on room air however has poor oral intake with likely protein malnutrition and PEG tube has not been considered to be an acceptable option -Diabetes on insulin -has been on Flagyl for C.difficile as a presumed caused of leukocytosis, however patient is having constipation rather than diarrhea -ordered KUB, ordered enemas, because of poor oral intake patient has not been on oral stool softeners -Sepsis secondary to Recurrent UTI in the setting of Chronic Indwelling Catheter secondary to Neurogenic Bladder,has been on antibiotics during this hospital stay and also Ceftriaxone for UTI, Ceftriaxone stopped on 05/25/17 as the urine culture from 05/24/17 shows yeast rather than bacteria, yeast may be colonization of aguilar but given leukocytosis will start on IV fluconazole starting 05/25/17 for short course -Hypertension management with hydralazine IV prn for systolic blood pressure above 160 -Hypokalemia serum potassium is 3 and patient to receive Iv potassium 10 meq x 5 doses -history of of Pulmonary embolism: was on heparin drip since last ICU transfer to the wards however switching to 1.5 mg/kg Lovenox starting on 05/25/17 to minimize IV infusions, ultrasound of lower extremities have not shown evidence for DVT, nuclear scan to rule out chronic pulmonary embolism has been ordered however as per palliative care service there is shift towards comfort care rather than further imaging workup, have cancelled nuclear scan, continue Lovenox -goals of care is shifting towards comfort care given poor prognosis of multiple sclerosis towards end of life care -however further conversations to be needed with patient and patient's family in deciding what health issues to pursue for treatment and what to not treat - primarily in regards for anticoagulation and antibiotics or lab draws and electrolyte replacements Code Status DNR/DNI Vital Signs: Date Time Temp Pulse Resp B/P (MAP) Pulse Ox O2 Delivery O2 Flow Rate FiO2 05/25/17 09:34 92 Room Air 05/25/17 09:00 Room Air 05/25/17 08:26 36.6 84 18 115/73 (87) 92 Room Air 05/25/17 00:00 96 Room Air 05/24/17 23:04 37.1 101 18 139/77 (97) 93 Room Air 05/24/17 16:00 96 Room Air 05/24/17 15:31 36.3 88 18 139/84 (102) 96 Room Air Lab Results: Results Past 24 Hours Test 05/24/17 16:10 05/24/17 16:54 05/24/17 20:03 05/25/17 05:31 Range/Units Urine Color DK YELLOW Urine Appearance TURBID CLEAR Urine pH 5.0 4.5-7.5 Urine Specific [place] 1.024 1.000-1.030 Urine Protein TRACE NEG Urine Glucose (UA) NEG NEG Urine Ketones NEG NEG Urine Occult Blood 2+ NEG Urine Nitrite POS NEG Urine Bilirubin NEG NEG Urine Urobilinogen NEG NEG Urine Leukocyte Esterase MODERATE NEG Urine WBC (Auto) >30 0-5 /hpf Urine RBC (Auto) 5-10 0-4 /hpf Urine Hyaline Casts (Auto) 5-10 0-5 /lpf Urine Epithelial Cells (Auto) >30 0-5 /lpf Urine Bacteria (Auto) NEG NEG Urine Pathogenic Casts 0 /lpf Urine Yeast (Auto) BUDDING NONE PRSENT Bedside Glucose 138 108 70-90 mg/dl Activated Partial Thromboplast Time 59.5 21.0-31.0 SECONDS Partial Thromboplastin Ratio 2.3 Sodium Level 138 136-145 mmol/L Potassium Level 3.0 3.5-5.1 mmol/L Chloride Level 103 98-107 mmol/L Carbon Dioxide Level 25 21-32 mmol/L Anion Gap 10.0 3-11 mmol/L Blood Urea Nitrogen 11 7-18 mg/dl Creatinine 0.47 0.60-1.20 mg/dl Est Creatinine Clear Calc Drug Dose 120.9 ml/min Estimated GFR () 120.1 Estimated GFR (Non- 103.7 BUN/Creatinine Ratio 23.1 10-20 Random Glucose 135 70-99 mg/dl Calcium Level 8.7 8.5-10.1 mg/dl Total Bilirubin 0.3 0.2-1 mg/dl Aspartate Amino Transf (AST/SGOT) 14 15-37 U/L Alanine Aminotransferase (ALT/SGPT) 27 12-78 U/L Alkaline Phosphatase 121 45-117 U/L Total Protein 7.2 6.4-8.2 gm/dl Albumin 2.1 3.4-5.0 gm/dl Globulin 5.1 2.5-4.0 gm/dl Albumin/Globulin Ratio 0.4 0.9-2 Test 05/25/17 07:38 05/25/17 11:24 Range/Units Bedside Glucose 128 126 70-90 mg/dl Microbiology Results 05/24/17 Urine Culture - Preliminary, Resulted YEAST
--- NOTE | 2017-05-25 14:54 | Palliative Care Progress Note ---
Palliative Care Progress Note Date of Service May 25, 2017. Subjective Pt evaluation today including: conversation w/ patient, conversation w/ family , physical exam, lab review, review of studies Pain: 0/10 PO Intake: minimal at best. Voiding: aguilar catheter in place Pt evaluated today for follow up and to determine goals of care/discuss placement regarding her chronic medical conditions related to her Multiple Sclerosis and recurrent aspiration and dysphagia. Pt opening her eyes and able to have conversation appropriately. Pt continues to have poor appetite. Lengthy discussion held with patient Percy, over the phone, and in person. We discussed goals of care which prompted some tearful conversation between and regarding their goals of comfort. Patient stated she wants to go home, but pt stated this is not an option for their family. We discussed at length, the care received at nursing homes and how the goal is to improve quality of life at a nursing facility while being able to eat dinner with her and participate in activities as able. She stated she wanted to stay in the hospital, and we discussed that, as she mentioned before, she would like to pursue with conservative management and non aggressive treatment, which is able to be performed at a nursing facility and that she does not qualify for inpatient comfort measures. She expressed understanding. We filled out a POLST form and placed a copy on the chart. Dr. Horvath made aware of patient' s wishes and will be made comfort care. Case management aware of transition and is looking into [facility] or [facility] for placement. Total time spent 75 minutes with > 75% of time discussing goals of care and comfort measures with patient and at the bedside. Review of Systems ENT: No sore throat Respiratory: + cough Abdomen: + problem reported (distended abdomen) Musculoskeletal: + problem reported, No see HPI, No joint pain, No muscle pain , No swelling, No calf pain Skin: No see HPI, No rash, No itch, No new/changing skin lesions, No color change, No bleeding, No problem reported Objective Vital Signs Date Time Temp Pulse Resp B/P (MAP) Pulse Ox O2 Delivery O2 Flow Rate FiO2 05/25/17 09:34 92 Room Air 05/25/17 09:00 Room Air 05/25/17 08:26 36.6 84 18 115/73 (87) 92 Room Air 05/25/17 00:00 96 Room Air 05/24/17 23:04 37.1 101 18 139/77 (97) 93 Room Air 05/24/17 16:00 96 Room Air 05/24/17 15:31 36.3 88 18 139/84 (102) 96 Room Air Physical Exam General Appearance: WD/WN, no apparent distress Eyes: PERRL Neck: no JVD Respiratory/Chest: no respiratory distress, no accessory muscle use, + crackles , + rhonchi Cardiovascular: regular rate, rhythm, no JVD, no murmur Abdomen: normal bowel sounds, + distended Neurologic/Psychiatric: oriented x 3 (able to participate in goals of care discussion) Skin: warm/dry Laboratory Results Last 24 Hours Test 05/24/17 16:10 05/24/17 16:54 05/24/17 20:03 05/25/17 05:31 Urine Color DK YELLOW Urine Appearance TURBID Urine pH 5.0 Urine Specific [place] 1.024 Urine Protein TRACE Urine Glucose (UA) NEG Urine Ketones NEG Urine Occult Blood 2+ Urine Nitrite POS Urine Bilirubin NEG Urine Urobilinogen NEG Urine Leukocyte Esterase MODERATE Urine WBC (Auto) >30 /hpf Urine RBC (Auto) 5-10 /hpf Urine Hyaline Casts (Auto) 5-10 /lpf Urine Epithelial Cells (Auto) >30 /lpf Urine Bacteria (Auto) NEG Urine Pathogenic Casts /lpf Urine Yeast (Auto) BUDDING Bedside Glucose 138 mg/dl 108 mg/dl Activated Partial Thromboplast Time 59.5 SECONDS Partial Thromboplastin Ratio 2.3 Sodium Level 138 mmol/L Potassium Level 3.0 mmol/L Chloride Level 103 mmol/L Carbon Dioxide Level 25 mmol/L Anion Gap 10.0 mmol/L Blood Urea Nitrogen 11 mg/dl Creatinine 0.47 mg/dl Est Creatinine Clear Calc Drug Dose 120.9 ml/min Estimated GFR () 120.1 Estimated GFR (Non- 103.7 BUN/Creatinine Ratio 23.1 Random Glucose 135 mg/dl Calcium Level 8.7 mg/dl Total Bilirubin 0.3 mg/dl Aspartate Amino Transf (AST/SGOT) 14 U/L Alanine Aminotransferase (ALT/SGPT) 27 U/L Alkaline Phosphatase 121 U/L Total Protein 7.2 gm/dl Albumin 2.1 gm/dl Globulin 5.1 gm/dl Albumin/Globulin Ratio 0.4 Test 05/25/17 07:38 05/25/17 11:24 Bedside Glucose 128 mg/dl 126 mg/dl Assessment and Plan (1) C. difficile colitis Status: Acute Assessment & Plan: Continue Flagyl - Last dose tomorrow 05/26 (2) Multiple sclerosis Status: Chronic Assessment & Plan: Continue conservative management from a positioning standpoint. Comfort measures as needed (3) History of pulmonary embolism Status: Chronic Assessment & Plan: Patient requesting no further treatment regarding PE including imaging studies or injectable mediations for management (4) Palliative care encounter Status: Acute Assessment & Plan: Continue supportive treatment. Comfort measures for symptom management. Recommend Scopalamine patch for patient to be placed for management of secretions. Transfer patient to nursing facility for comfort measures and increased quality of life POLST form signed by patients with patient at the bedside (5) Dysphagia causing pulmonary aspiration with swallowing Status: Acute Assessment & Plan: comfort feeding to continue with known risk of aspiration risk Palliative Performance Scale: 20 % Continued [facility] stay due to: inadequate po fluid intake, other (Patient unable to clear excess oral secretions) Discharge planning: care home facility (skilled facility being arranged by case management)
[2017-05-25 15:09] VITALS: BP 146/78; PULSE 82; TEMP 36.7; O2SAT 97
[2017-05-25 16:00] VITALS: O2SAT 97
[2017-05-25] MEDS: SCOPOLAMINE 1.5 MG TDSY TD SCH (16:07)
--- NOTE | 2017-05-25 19:05 | DIAGNOSTIC IMAGING REPORT ---
KUB CLINICAL HISTORY: Constipation. FINDINGS: 2 AP, portable, supine abdominal radiographs are compared to study dated 05/13/2017 and correlated with abdominal CT dated 05/03/2017. There is rectosigmoid fecal impaction. Moderate constipation is noted and there is gaseous distention of the stomach and small bowel. Residual enteric contrast is suggested in the colon. No evidence of intraperitoneal free air is seen on these supine views. Numerous surgical clips are seen in the pelvis. Pelvic phlebolith are noted. The skeletal structures are osteopenic. Mild lumbosacral spondylosis is observed. IMPRESSION: 1. There is severe rectosigmoid fecal impaction and moderate constipation. 2. There is gaseous distention of the: colon and small bowel, and this may represent functional obstruction related to severe fecal impaction. Clinical correlation will be required. Electronically signed by: Jabari Hicks M.D. 05/25/2017 7:04 PM Dictated Date/Time: 05/25/2017 7:02 PM
[2017-05-25] MEDS: SOAP SUDS ENEMA PR SCH (21:00)
[2017-05-25 22:57] VITALS: BP 143/81; PULSE 91; TEMP 36.4; O2SAT 93
[2017-05-26] MEDS: CHECK SCOPOLAMINE PATCH PLACEMENT SCH ×3 (01:02→15:59)
[2017-05-26] MEDS: GLYCOPYRROLATE INJ 0.2 MG/ML VIAL IV. SCH ×3 (04:18→15:58)
[2017-05-26] MEDS: METRONIDAZOLE / NSS 500 MG in PREMIXED NSS 100 ML IV SCH (04:19)
[2017-05-26] MEDS: ATROPINE SULFATE 1% OP SOLN 2 ML BTL SL PRN (04:19)
[2017-05-26 06:08] LABS: HEMATOCRIT 25.5 % (37-47); HEMOGLOBIN 7.8 g/dL (12.0-16.0); MEAN CELL VOLUME 85.6 fL (80-100); MEAN CORPUSCULAR HEMOGLOBIN 26.2 pg (25-34); MEAN CORPUSCULAR HGB CONC 30.6 g/dl (32-36); MEAN PLATELET VOLUME 8.8 fL (7.4-10.4); PLATELET COUNT 443 K/uL (130-400); RED CELL DISTRIBUTION WIDTH CV 17.3 % (11.5-14.5); RED CELL DISTRIBUTION WIDTH SD 53.2 fL (36.4-46.3); WHITE BLOOD COUNT 9.02 K/uL (4.8-10.8)
[2017-05-26 07:18] VITALS: BP 139/75; TEMP 36.6; O2SAT 98
[2017-05-26] MEDS ORDERED: LACTULOSE SYRUP 30 GM/45 ML UDP PO STA (07:44)
[2017-05-26 08:00] VITALS: O2SAT 95
[2017-05-26] MEDS: INSULIN GLARGINE SOLOSTAR 100 UNITS/ML 3 ML PEN SC SCH (08:00)
[2017-05-26] MEDS: SOAP SUDS ENEMA PR SCH (08:51)
[2017-05-26] MEDS: DOCUSATE SODIUM 100 MG/10 ML UDC PO SCH (08:51)
[2017-05-26] MEDS: FAMOTIDINE IV INJ 20 MG in SYRINGE 3 ML IV SCH (08:57)
--- NOTE | 2017-05-26 09:00 | Progress Note ---
Internal Med Progress Note Date of Service: May 26, 2017. Provider Documentation: SUBJECTIVE: Patient denies acute pain of shortness of breath OBJECTIVE: Exam: General- verbal, denies discomfort Eyes- EOMI Neck- no JVD Lungs-fair air entry, no wheezing Heart- regular rate Abdomen is distended, positive bowel sounds, nontender Extremities- able to move upper extremities ASSESSMENT & PLAN: 67 year old female with a PMH of multiple sclerosis, chronically bed-ridden due to muscle weakness leading to decubitus ulcers, insulin dependent DM2, hx. of PE and DVT with long-term Coumadin use, neurogenic bladder and chronic indwelling catheter with recurrent UTIs and on chronic antibiotic prophylaxis therapy - presented on May 03 with increased lethargy/confusion - noted to have sepsis at that time likely due to another urinary tract infection. This was further complicated with a C. Diff infection on May 04. On May 11, natalya joiner was called due to patient choking on her breakfast. She had respiratory arrest leading to cardiopulmonary arrest. She was intubated and a bronchoscopy was performed. She was initially transferred out of the ICU and then transferred back when agonal breathing. She was re-intubated at that time due to likely re-aspiration and hypoxic respiratory failure on May 16. Extubated on May 19 and returned to the floor with code status of DNR Plan: Advanced Stage Multiple Sclerosis with Recurrent Aspiration and Dysphagia leading to Acute Hypoxic Respiratory Failure and Aspiration Pneumonia -multiple ICU presentations on this presentation as above -has scopolamine patches, atropine drops and, glycopyrrolate to minimize oral secretions -is breathing on room air however has poor oral intake with likely protein malnutrition and PEG tube has not been considered to be an acceptable option -Diabetes on insulin -Sepsis secondary to Recurrent UTI in the setting of Chronic Indwelling Catheter secondary to Neurogenic Bladder,has been on antibiotics during this hospital stay and also Ceftriaxone for UTI, Ceftriaxone stopped on 05/25/17 as the urine culture from 05/24/17 shows yeast rather than bacteria, yeast may be colonization of aguilar but given recent leukocytosis the patient was started on IV fluconazole starting 05/25/17 for short course of antifungal, continue fluconazole today -has been on Flagyl for C.difficile as a presumed caused of leukocytosis, however patient is having constipation rather than diarrhea, leukocytosis downtrended, Flagyl stopped on 05/26/17 -KUB on 05/25/17 with rectosigmoid fecal impaction and moderate constipation, patient receiving enemas; and if needed fecal disimpaction but patient making bowel movements with enemas, also ordered lactulose syrup today to help further move the bowels -Hypertension management with hydralazine IV prn for systolic blood pressure above 160 -Hypokalemia serum potassium is 3 and patient to receive IV potassium 10 meq x 5 doses on 05/25/17 -history of of Pulmonary embolism: was on heparin drip since last ICU transfer to the wards however switching to 1.5 mg/kg Lovenox starting on 05/25/17 to minimize IV infusions, ultrasound of lower extremities have not shown evidence for DVT, nuclear scan to rule out chronic pulmonary embolism has been ordered however as per palliative care service there is shift towards comfort care rather than further imaging workup, have cancelled nuclear scan, Lovenox stopped on 05/25/17 -goals of care is shifting towards comfort care given poor prognosis of multiple sclerosis end of life care; palliative care is involved in patient's care. POLST form signed by patient's with patient at the bedside on -disposition plan is to transfer patient to nursing facility for comfort measures and increased quality of life Code Status DNR/DNI Vital Signs: Date Time Temp Pulse Resp B/P (MAP) Pulse Ox O2 Delivery O2 Flow Rate FiO2 05/26/17 07:18 36.6 20 139/75 (96) 98 Room Air 05/26/17 00:03 Room Air 05/25/17 22:57 36.4 91 20 143/81 (101) 93 05/25/17 20:00 Room Air 05/25/17 16:00 97 Room Air 05/25/17 15:09 36.7 82 20 146/78 (100) 97 05/25/17 09:34 92 Room Air Lab Results: Results Past 24 Hours Test 05/25/17 11:24 05/25/17 16:18 05/25/17 20:06 05/26/17 05:24 Range/Units Bedside Glucose 126 142 107 70-90 mg/dl White Blood Count 9.02 4.8-10.8 K/uL Red Blood Count 2.98 4.2-5.4 M/uL Hemoglobin 7.8 12.0-16.0 g/dL Hematocrit 25.5 37-47 % Mean Corpuscular Volume 85.6 80-100 fL Mean Corpuscular Hemoglobin 26.2 25-34 pg Mean Corpuscular Hemoglobin Concent 30.6 32-36 g/dl RDW Standard Deviation 53.2 36.4-46.3 fL RDW Coefficient of Variation 17.3 11.5-14.5 % Platelet Count 443 130-400 K/uL Mean Platelet Volume 8.8 7.4-10.4 fL Test 05/26/17 07:34 Range/Units Bedside Glucose 100 70-90 mg/dl
[2017-05-26] MEDS: FLUCONAZOLE / NSS 200 MG in PREMIXED NSS 100 ML IV SCH (12:23)
--- NOTE | 2017-05-26 15:07 | Palliative Care Progress Note ---
Palliative Care Progress Note Date of Service May 26, 2017. Subjective Pt evaluation today including: conversation w/ patient, physical exam, chart review, lab review, review of inpatient medication list Pain: None PO Intake: Poor Voiding: aguilar catheter in place Patient was asleep, awoke easily and was alert during exam. Patient feels her secretions are very well controlled. Asked patient if they were too dry, and she responded no. Has been not at bedside however towards the end of the exam her vortex operator arrived for a visit. Plan to check on patient again when present. Review of Systems Constitutional: No fever Eyes: No worsening of vision ENT: No hearing loss Respiratory: + cough (Very weak), + problem reported (Excess oral secretions, improved), No shortness of breath Cardiac: No chest pain Abdomen: No pain Female : No dysuria Neurologic: + weakness (Due to MS), No memory loss Psychiatric: No anxiety Heme: No abnormal bleeding/bruising Skin: No rash Objective Vital Signs Date Time Temp Pulse Resp B/P (MAP) Pulse Ox O2 Delivery O2 Flow Rate FiO2 05/26/17 08:00 95 Room Air 05/26/17 07:18 36.6 20 139/75 (96) 98 Room Air 05/26/17 00:03 Room Air 05/25/17 22:57 36.4 91 20 143/81 (101) 93 05/25/17 20:00 Room Air 05/25/17 16:00 97 Room Air 05/25/17 15:09 36.7 82 20 146/78 (100) 97 Physical Exam General Appearance: no apparent distress Eyes: EOMI ENT: hearing grossly normal Neck: + pertinent finding (Limited range of motion due to severe weakness) Respiratory/Chest: no respiratory distress, + decreased breath sounds, + pertinent finding (Excess secretions improved) Cardiovascular: regular rate, rhythm Abdomen: non tender, soft Extremities: + pertinent finding (Contractures) Neurologic/Psychiatric: alert Skin: + pertinent finding (No increased pallor) Laboratory Results Last 24 Hours Test 05/25/17 16:18 05/25/17 20:06 05/26/17 05:24 05/26/17 07:34 Bedside Glucose 142 mg/dl 107 mg/dl 100 mg/dl White Blood Count 9.02 K/uL Red Blood Count 2.98 M/uL Hemoglobin 7.8 g/dL Hematocrit 25.5 % Mean Corpuscular Volume 85.6 fL Mean Corpuscular Hemoglobin 26.2 pg Mean Corpuscular Hemoglobin Concent 30.6 g/dl RDW Standard Deviation 53.2 fL RDW Coefficient of Variation 17.3 % Platelet Count 443 K/uL Mean Platelet Volume 8.8 fL Test 05/26/17 11:15 Bedside Glucose 124 mg/dl Assessment and Plan (1) Dysphagia causing pulmonary aspiration with swallowing Status: Acute Assessment & Plan: Patient taking very little p.o., excess secretions well controlled per patient-requiring 2 scopolamine patches, scheduled Robinul every 6 hours, as needed atropine. Patient only requiring 1-2 doses of as needed atropine daily (2) Multiple sclerosis Status: Chronic Assessment & Plan: Patient progressing to end-stage MS, comfort care (3) Palliative care encounter Status: Acute Assessment & Plan: We will continue to support and patient as patient approaches end-of-life and will need placement in a facility. Palliative Performance Scale: 20 % Continued [facility] stay due to: inadequate po fluid intake, other (Patient unable to clear excess oral secretions) Discharge planning: jail facility (skilled facility being arranged by case management) Counseling and Coordination Total time 25 minutes with greater than 50% of the time spent at bedside discussing symptoms and symptom management with patient
[2017-05-26 15:12] VITALS: BP 149/86; PULSE 83; TEMP 36.7; O2SAT 98
[2017-05-26 16:00] VITALS: O2SAT 98
--- NOTE | 2017-05-26 18:20 | Death Pronouncement Note ---
Pronouncement Note Date & Time of May 26, 2017. 18:05 Pronouncement Medical doctor was paged at 6:06 PM and informed that patient had ceased to breath. Time of 6:05PM Medical doctor examined patient. The patients pupils were fixed and dilated, there was no spontaneous respiratory effort, no palpable pulse, no audible heart tones, and no response to pain or voice.
--- NOTE | 2017-05-26 18:55 | Discharge Summary ---
Discharge Summary Date of Service May 26, 2017. Discharge Summary Admission Date: May 03, 2017 at 17:51 Discharge Disposition: Principal Diagnosis: Cause of : aspiration secondary to multiple sclerosis Admission Information HPI (per Admitting provider): 67-year-old female followed by Dr. Avila. History of multiple sclerosis, indwelling Aguilar catheter, recurrent UTIs. noted increasing lethargy and confusion over the past 24 hours. Today she had a temperature as high as 101. No cough. No apparent aspiration. No nausea or vomiting. Intermittent loose stools. Patient unable to provide any additional history because of her condition. . Physical Exam (per Admitting): CONSTITUTIONAL vital signs as noted above adult female, chronically ill-appearing, no apparent distress EYES conjunctivae clear; lids normal pupils equal and reactive to light EARS, NOSE, MOUTH AND THROAT external inspection of ears and nose unremarkable oral mucosa dry NECK no masses; trachea midline thyroid normal RESPIRATORY normal respiratory effort; no respiratory distress clear to auscultation CARDIOVASCULAR regular rate and rhythm no murmur, gallop, rub appreciated carotid arteries 2/2 abdominal aorta not palpable pedal pulses intact and symmetric capillary refill toes < 2 seconds 1+ pretibial edema GASTROINTESTINAL distended normal bowel sounds, soft, nontender; no palpable masses no hepatomegaly or splenomegaly appreciated Aguilar cath LYMPHATIC no cervical adenopathy MUSCULOSKELETAL no cyanosis; no digital clubbing no calf tenderness unable to assess motor strength due to neuro status SKIN no rash warm and dry two stage 2 ulcers right posterolateral leg ulcer left heal unstageable. NEUROLOGIC obtunded, barely arousable PERRL, EOMI PSYCHIATRIC confused . Hospital Course 67 year old female with a PMH of multiple sclerosis, chronically bed-ridden due to muscle weakness leading to decubitus ulcers, insulin dependent DM2, hx. of PE and DVT with long-term Coumadin use, neurogenic bladder and chronic indwelling catheter with recurrent UTIs and on chronic antibiotic prophylaxis therapy - presented on May 03 with increased lethargy/confusion - noted to have sepsis at that time likely due to another urinary tract infection. This was further complicated with a C. Diff infection on May 04. On May 11, natalya joiner was called due to patient choking on her breakfast. She had respiratory arrest leading to cardiopulmonary arrest. She was intubated and a bronchoscopy was performed. She was initially transferred out of the ICU and then transferred back when agonal breathing. She was re-intubated at that time due to likely re-aspiration and hypoxic respiratory failure on May 16. Extubated on May 19 and returned to the floor with code status of DNR Progress note up to 05/26/17 AM Advanced Stage Multiple Sclerosis with Recurrent Aspiration and Dysphagia leading to Acute Hypoxic Respiratory Failure and Aspiration Pneumonia -multiple ICU presentations on this presentation as above -has scopolamine patches, atropine drops and, glycopyrrolate to minimize oral secretions -is breathing on room air however has poor oral intake with likely protein malnutrition and PEG tube has not been considered to be an acceptable option -Diabetes on insulin -Sepsis secondary to Recurrent UTI in the setting of Chronic Indwelling Catheter secondary to Neurogenic Bladder,has been on antibiotics during this hospital stay and also Ceftriaxone for UTI, Ceftriaxone stopped on 05/25/17 as the urine culture from 05/24/17 shows yeast rather than bacteria, yeast may be colonization of aguilar but given recent leukocytosis the patient was started on IV fluconazole starting 05/25/17 for short course of antifungal, continue fluconazole today -has been on Flagyl for C.difficile as a presumed caused of leukocytosis, however patient is having constipation rather than diarrhea, leukocytosis downtrended, Flagyl stopped on 05/26/17 -KUB on 05/25/17 with rectosigmoid fecal impaction and moderate constipation, patient receiving enemas; and if needed fecal disimpaction but patient making bowel movements with enemas, also ordered lactulose syrup today to help further move the bowels -Hypertension management with hydralazine IV prn for systolic blood pressure above 160 -Hypokalemia serum potassium is 3 and patient to receive IV potassium 10 meq x 5 doses on 05/25/17 -history of of Pulmonary embolism: was on heparin drip since last ICU transfer to the wards however switching to 1.5 mg/kg Lovenox starting on 05/25/17 to minimize IV infusions, ultrasound of lower extremities have not shown evidence for DVT, nuclear scan to rule out chronic pulmonary embolism has been ordered however as per palliative care service there is shift towards comfort care rather than further imaging workup, have cancelled nuclear scan, Lovenox stopped on 05/25/17 -goals of care is shifting towards comfort care given poor prognosis of multiple sclerosis end of life care; palliative care is involved in patient's care. POLST form signed by patient's with patient at the bedside on -disposition plan is to transfer patient to nursing facility for comfort measures and increased quality of life Code Status DNR/DNI note 05/26/17 evening Medical doctor was paged at 6:06 PM and informed that patient had ceased to breath. Time of 6:05PM Medical doctor examined patient. The patients pupils were fixed and dilated, there was no spontaneous respiratory effort, no palpable pulse, no audible heart tones, and no response to pain or voice. Cause of : aspiration secondary to multiple sclerosis Total time spent on discharge = This includes examination of the patient, discharge planning, medication reconciliation, and communication with other providers. Discharge Instructions see above
--- NOTE | 2017-05-31 10:47 | EDITING REQUIRED CODING QUERY ---
CODING QUERY To promote full compliance with coding requirements relating to patient care, provider participation is requested in all cases of associate agent insurance sales uncertainty. Please assist us with the question(s) below: Coding Question(s): Patient with end stage presents with sepsis and UTI in setting of chronic urinary catheter. Please document, if known or suspectd, the etiology of the UTI. Thanks for your help! Octavio Friedman DIESEL DINKEY OPERATOR [facility] Physician's Response(s): The urine culture grew Ecoli. The Ecoli is likely the infectious sources for the sepsis/UTI. Then later another urine culture grew jeniffer. Principal Diagnosis: "_that condition established after study, to be chiefly responsible for occasioning the admission of the patient to the hospital for care." Co-Existing Principal Diagnosis: "_when two or more diagnoses equally meet the criteria for principal diagnosis as determined by the circumstances of admission, diagnostic work up, and/or therapy provided, and the Alphabetic Index, Tabular List, or another coding guideline does not provide sequencing direction, any one of the diagnoses may be sequenced first." "When the physician has documented what appears to be a current diagnosis in the body of the record, but has not included the diagnosis in the final diagnostic statement, the physician should be asked whether the diagnosis should be added." ([facility] 2 QTR90. p3-4)
--- NOTE | 2017-06-01 09:04 | EDITING REQUIRED CODING QUERY ---
CODING QUERY To promote full compliance with coding requirements relating to patient care, provider participation is requested in all cases of belt and link shop supervisor uncertainty. Please assist us with the question(s) below: Coding Question(s): Thank you for prior Query answer. Please check below the phrase that best describes the diagnosis you treated during this inpatient stay. Patient with Multiple Sclerosis, neurogenic bladder and chronic indwelling urinary catheter presenting with E.Coli Sepsis. Thank you! ABIMAEL Maloney [facility] Physician's Response(s): Catheter-Associated Urinary Tract Infection Non-Catheter Associated Urinary Tract Infection ___x Cannot Clinically Correlate if UTI is associated with urinary catheter Other/ Please document: Principal Diagnosis: "_that condition established after study, to be chiefly responsible for occasioning the admission of the patient to the hospital for care." Co-Existing Principal Diagnosis: "_when two or more diagnoses equally meet the criteria for principal diagnosis as determined by the circumstances of admission, diagnostic work up, and/or therapy provided, and the Alphabetic Index, Tabular List, or another coding guideline does not provide sequencing direction, any one of the diagnoses may be sequenced first." "When the physician has documented what appears to be a current diagnosis in the body of the record, but has not included the diagnosis in the final diagnostic statement, the physician should be asked whether the diagnosis should be added." ([facility] 2 QTR90. p3-4)
== END 2017-05-26 20:20 | disposition expired | DRG 853 ==
LOC: EDBD 14:51 → C.EDC 14:52 → UNDOADMIN 17:51 → C.MED 17:51 → ENRESERV 18:46 → C.MSICU 05-11 09:54 → ENRESERV 05-12 18:11 → C.2T 05-12 19:54 → C.MSICU 05-13 20:04 → ENRESERV 05-19 15:54 → C.4E 05-19 17:01
PROVIDERS: ADMIT Hospitalist; ATTEND Hospitalist
PROC: 0BH18EZ Insertion of Endotracheal Airway into Trachea, Via Natural or Artificial Opening Endoscopic (ICD-10-PCS; principal; 2017-05-11)
PROC: 5A1955Z Respiratory Ventilation, Greater than 96 Consecutive Hours (ICD-10-PCS; principal; 2017-05-11)
PROC: 02HV33Z Insertion of Infusion Device into Superior Vena Cava, Percutaneous Approach (ICD-10-PCS; 2017-05-11)
PROC: 0WCQ8ZZ Extirpation of Matter from Respiratory Tract, Via Natural or Artificial Opening Endoscopic (ICD-10-PCS; 2017-05-11)
PROC: 0B9M8ZZ Drainage of Bilateral Lungs, Via Natural or Artificial Opening Endoscopic (ICD-10-PCS; 2017-05-13)
PROC: 0B9J8ZZ Drainage of Left Lower Lung Lobe, Via Natural or Artificial Opening Endoscopic (ICD-10-PCS; 2017-05-15)
PROC: 0BH18EZ Insertion of Endotracheal Airway into Trachea, Via Natural or Artificial Opening Endoscopic (ICD-10-PCS; 2017-05-16)
PROC: 0B9M8ZZ Drainage of Bilateral Lungs, Via Natural or Artificial Opening Endoscopic (ICD-10-PCS; 2017-05-16)
PROC: 0BCC8ZZ Extirpation of Matter from Right Upper Lung Lobe, Via Natural or Artificial Opening Endoscopic (ICD-10-PCS; 2017-05-16)
DX: A41.51 Sepsis due to Escherichia coli [E. coli] (principal); J69.0 Pneumonitis due to inhalation of food and vomit; E46 Unspecified protein-calorie malnutrition; N39.0 Urinary tract infection, site not specified; N17.9 Acute kidney failure, unspecified; A04.72 Enterocolitis due to Clostridium difficile, not specified as recurrent; F32.9 Major depressive disorder, single episode, unspecified; E11.9 Type 2 diabetes mellitus without complications; R79.1 Abnormal coagulation profile; E78.5 Hyperlipidemia, unspecified; Z86.718 Personal history of other venous thrombosis and embolism; G35 Multiple sclerosis; Z79.4 Long term (current) use of insulin; Z85.50 Personal history of malignant neoplasm of unspecified urinary tract organ; Z87.891 Personal history of nicotine dependence; E86.0 Dehydration; I46.8 Cardiac arrest due to other underlying condition; K31.89 Other diseases of stomach and duodenum; Z88.0 Allergy status to penicillin; Z88.8 Allergy status to other drugs, medicaments and biological substances; Z79.01 Long term (current) use of anticoagulants; K59.00 Constipation, unspecified; L89.892 Pressure ulcer of other site, stage 2; Z66 Do not resuscitate; R13.10 Dysphagia, unspecified; R33.9 Retention of urine, unspecified; R65.20 Severe sepsis without septic shock; E87.6 Hypokalemia; Z86.711 Personal history of pulmonary embolism; Z74.01 Bed confinement status